=== PATIENT | male | born 1940 | race Caucasian/White ===

== ENCOUNTER 2019-09-24 09:29 | Outpatient (CLI) | payer OTHER, MEDICAID, SELFPAY ==
--- NOTE | ~2019-09-24 | MR_ITS ---
EXAMINATION: MR brain/brain stem wo con DATE: 09/24/2019 11:49 INDICATION: Dizziness. TECHNIQUE: Magnetic resonance imaging (MRI) of the brain and brainstem was performed without intraven ous contrast. Sequences included sagittal and axial T1-weighted FSE, axial diffusion-weighted FS EPI, axial T2*-weighted GRE, axial T2-weighted FLAIR Propeller, and axial T2-weighted Propeller. Apparent diffusion coefficient (ADC) maps were created. COMPARISON: Brain MRI 10/20/2012, head CT 06/09/2019 FINDINGS: There is a small area of cystic encephalomalacia in the left frontoparietal deep white gil er. There are scattered areas of nonspecific increased T2-weighted signal intensity in the cerebral w lito matter. There is no intracranial hemorrhage, acute infarction, or abnormal intracranial mass les ion. The ventricles are normal in size. The paranasal sinuses are clear. There are likely changes of ocular lens replacement surgeries. There is a right mastoid effusion. IMPRESSION: 1. Small area of cystic encephalomalacia in the left frontoparietal deep white matter. 2. Mild nonspecific cerebral white matter disease, which likely represents chronic small vessel ische elisabet disease, worsened from 10/20/2012. Reviewed, dictated and finalized at location A. TROTYPER IMPRESSION: 1. Small area of cystic encephalomalacia in the left frontoparietal deep white matter. 2. 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
== END 2019-09-24 09:30 | disposition home or self-care (01) ==
LOC: ANHIMG 09:36
PROVIDERS: PCP Family Medicine; Visit Provider Psychiatry & Neurology Neurology
DX: R42 Dizziness and giddiness (principal); R93.0 Abnormal findings on diagnostic imaging of skull and head, not elsewhere classified
CPT/HCPCS: 70551

== ENCOUNTER 2019-12-08 09:21 | Outpatient (CLI) | payer OTHER, MEDICAID, SELFPAY ==
--- NOTE | 2019-12-08 10:30 | NEURO_ITS ---
Patient Number: [id number] Impression: # Complains of muscle spasms. # Evolving left Carpal Tunnel Syndrome. # Left evolving right ulnar neuropathy. # Normal needle/EMG exam, revealed no neurogenic changes. # Clinical correlation recommended. Nerve Conduction Studies Anti Sensory Summary Table Stim Site NR Peak (ms) P-T Amp (?V) Site1 Site2 Delta-P (ms) Dist (cm) Michael (m/s) Left Median Anti Sensory (2-3nd Digit) Wrist 3.8 51.7 Wrist 2-3nd Digit 3.8 14.0 37 Wrist 3.6 37.6 Wrist 2-3nd Digit 3.8 14.0 37 Right Median Anti Sensory (2-3nd Digit) Wrist 3.9 24.7 Wrist 2-3nd Digit 3.9 14.0 36 Wrist 3.8 35.4 Wrist 2-3nd Digit 3.9 14.0 36 Left Radial Anti Sensory (Base 1st Digit) Wrist 2.9 26.2 Wrist Base 1st Digit 2.9 0.0 Right Radial Anti Sensory (Base 1st Digit) Wrist 2.6 20.4 Wrist Base 1st Digit 2.6 0.0 Left Sup Fibular Anti Sensory (Ant Lat Mall) 14 cm 3.6 11.1 14 cm Ant Lat Mall 3.6 16.0 44 Right Sup Fibular Anti Sensory (Ant Lat Mall) 14 cm 4.0 8.9 14 cm Ant Lat Mall 4.0 16.0 40 Left Sural Anti Sensory (Lat Mall) Calf 4.0 8.1 Calf Lat Mall 4.0 16.0 40 Right Sural Anti Sensory (Lat Mall) Calf 3.8 17.1 Calf Lat Mall 3.8 16.0 42 Left Ulnar Anti Sensory (5th Digit) Wrist 3.1 44.3 Wrist 5th Digit 3.1 14.0 45 Right Ulnar Anti Sensory (5th Digit) Wrist 3.8 34.1 Wrist 5th Digit 3.8 14.0 37 Motor Summary Table Stim Site NR Onset (ms) O-P Amp (mV) Site1 Site2 Delta-0 (ms) Dist (cm) Michael (m/s) Left Median Motor (Abd Poll Brev) Wrist 4.1 2.9 Elbow Wrist 5.4 29.0 54 Elbow 9.5 2.6 Right Median Motor (Abd Poll Brev) Wrist 3.9 2.0 Elbow Wrist 4.5 26.0 58 Elbow 8.4 1.4 Left Peroneal Motor (Vastus Med) Ankle 4.7 3.5 Popit Ankle 9.2 40.0 43 Popit 13.9 2.7 Right Peroneal Motor (Vastus Med) Ankle 4.5 1.0 Popit Ankle 8.0 38.0 48 Popit 12.5 0.8 Left Tibial Motor (Abd Palafox Brev) Ankle 4.7 1.9 Knee Ankle 9.5 44.0 46 Knee 14.2 0.7 Right Tibial Motor (Abd Palafox Brev) Ankle 5.1 3.6 Knee Ankle 10.0 42.0 42 Knee 15.1 3.5 Left Ulnar Motor (Abd Dig Minimi) Wrist 3.2 4.1 A Elbow Wrist 5.7 31.0 54 A Elbow 8.9 3.2 Right Ulnar Motor (Abd Dig Minimi) Wrist 3.0 5.8 A Elbow Wrist 5.6 28.0 50 A Elbow 8.6 4.6 B Elbow Wrist 4.0 20.0 50 B Elbow 7.0 5.2 F Wave Studies NR F-Lat (ms) L-R F-Lat (ms) Left Median (Mrkrs) (Abd Poll Brev) 29.65 0.00 Right Median (Mrkrs) (Abd Poll Brev) 29.65 0.00 Left Peroneal (Mrkrs) (EDB) 55.27 0.04 Right Peroneal (Mrkrs) (EDB) 55.23 0.04 Left Tibial (Mrkrs) (Abd Hallucis) 56.50 0.58 Right Tibial (Mrkrs) (Abd Hallucis) 57.08 0.58 Left Ulnar (Mrkrs) (Abd Dig Min) 30.94 0.49 Right Ulnar (Mrkrs) (Abd Dig Min) 30.45 0.49 EMG Side Muscle Nerve Root Ins Act Fibs Amp Dur Recrt Comment Right 1stDorInt Ulnar C8-T1 Nml Nml Nml Nml Nml Right Ext Indicis Radial (Post Int) C7-8 Nml Nml Nml Nml Nml Right Ext Digitorum Radial (Post Int) C7-8 Nml Nml Nml Nml Nml Right BrachioRad Radial C5-6 Nml Nml Nml Nml Nml Right PronatorTeres Median C6-7 Nml Nml Nml Nml Nml Right Abd Poll Brev Median C8-T1 Nml Nml Nml Nml Nm
== END 2019-12-08 09:22 | disposition home or self-care (01) ==
PROVIDERS: PCP Family Medicine; Visit Provider Psychiatry & Neurology Neurology
DX: M62.838 Other muscle spasm (principal); G56.02 Carpal tunnel syndrome, left upper limb; G56.22 Lesion of ulnar nerve, left upper limb
CPT/HCPCS: 95886; 95913

== ENCOUNTER 2020-03-08 12:38 | Outpatient (CLI) | payer OTHER, MEDICAID, SELFPAY ==
--- NOTE | 2020-03-08 | ECHO_ITS ---
Patient Info Name: Remy Wilkes Age: 80 years : 1940 Gender: Male Ht: 71 in Wt: 165 lbs BSA: 1.94 m2 HR: 43 bpm BP: 161 / 91 mmHg Technical Quality: Good Exam Date: 03/08/2020 1:02 PM Exam Location: [facility] Pulmonary Patient Status: Outpatient Admit Date: 03/08/2020 Staff Ordering Physician: Reddy Carrion MD Crew Member: Iwona Urbina RDCS Attending Provider: Reddy Carrion MD Exam Type: CA echo doppler color flow Study Info Indications I74.9 - EMBOLISM OF ARTERY Complete two-dimensional, color flow and Doppler transthoracic echocardiogram is performed. Summary 1. Left ventricular chamber dimension is normal. 2. Left ventricular systolic function is normal, estimated at 65-70%. 3. There is moderately increased left ventricular wall thickness. 4. The left ventricular diastolic function is grade I diastolic dysfunction. 5. E/e' 11 is mildly elevated. 6. Left atrial chamber dimension is mildly enlarged. 7. There is mild aortic valve sclerosis. 8. Mild systolic anterior motion of mitral valve. 9. There is mild mitral valve regurgitation. 10. There is mild tricuspid valve regurgitation. 11. No pulmonary hypertension, estimated pulmonary arterial systolic pressure is 27 mmHg. Left Ventricle E/e' 11 is mildly elevated. Left ventricular chamber dimension is normal. Left ventricular systolic function is normal, estimated at 65-70%. There is moderately increased left ventricular wall thickness. The left ventricular diastolic function is grade I diastolic dysfunction. Right Ventricle Right ventricular chamber dimension is normal. Right ventricular systolic function is normal. Left Atria Left atrial chamber dimension is mildly enlarged. Right Atria Right atrial chamber dimension is normal. Aortic Valve The aortic valve is trileaflet. There is mild aortic valve sclerosis. There is no aortic valve stenosis. There is no aortic valve regurgitation. Pulmonic Valve There is no pulmonic regurgitation. Mitral Valve Mild systolic anterior motion of mitral valve. There is no mitral valve stenosis. There is mild mitral valve regurgitation. Tricuspid Valve There is mild tricuspid valve regurgitation. No pulmonary hypertension, estimated pulmonary arterial systolic pressure is 27 mmHg. Pericardium/Pleural There is no pericardial effusion. Inferior Vena Cava Normal inferior vena cava with >50% collapse upon inspiration consistent with normal right atrial pressure, 5 mmHg. Aorta The aortic root size at the sinus of Valsalva is normal. Left Ventricular Outflow Tract Name Value Normal LVOT 2D LVOT Diameter 2.0 cm LVOT Doppler LVOT Peak Gradient 4 mmHg LVOT Mean Gradient 2 mmHg LVOT VTI 21 cm LVOT VTI/AV VTI Ratio 0.8 LVOT Stroke Volume 65 ml LVOT CO 3.1 l/min LVOT CI 1.6 l/min/m2 Pulmonic Valve
== END 2020-03-08 12:39 | disposition home or self-care (01) ==
PROVIDERS: Visit Provider Psychiatry & Neurology Neurology
DX: I74.9 Embolism and thrombosis of unspecified artery (principal)
CPT/HCPCS: 93306

== ENCOUNTER → 2020-04-26 08:30 | Outpatient (CLI) | payer OTHER, MEDICAID, SELFPAY ==
--- NOTE | ~2020-04-26 | CT_ITS ---
EXAMINATION: CT brain wo con DATE: 04/26/2020 08:50 INDICATION: Headache and dizziness. Recent fall. Concussion. TECHNIQUE: Computed tomography (CT) of the head was performed without intravenous contrast. The dose- length product was 599.57 mGy-cm. Automated exposure control and iterative reconstruction technique w ere employed. COMPARISON: CT dated 06/09/2019 and MRI dated 09/24/2019 FINDINGS: Mild generalized atrophy. There are scattered mild periventricular and subcortical white ma tter changes, most likely related to small vessel ischemic disease (microangiopathy). No ventriculome irina or midline shift. No acute intracranial hemorrhage, infarction, mass or mass effect. There is in tracranial atherosclerosis. Basilar cisterns are patent. Paranasal sinuses and mastoids are pneumatiz ed. No depressed skull fractures. IMPRESSION: 1. No acute intracranial abnormality. 2: Chronic age-related findings. Reviewed, dictated and finalized at location A.
== END ==
PROVIDERS: PCP Family Medicine; Visit Provider Nurse Practitioner
DX: R51 Headache (principal); R42 Dizziness and giddiness; S06.0X9A Concussion with loss of consciousness of unspecified duration, initial encounter; W19.XXXA Unspecified fall, initial encounter
CPT/HCPCS: 70450

== ENCOUNTER 2021-07-03 10:35 | Emergency (ER) | payer OTHER, MEDICAID, SELFPAY ==
[2021-07-03 10:43] VITALS: BP 157/87; PULSE 48; RESP 16; TEMP 36.4; O2SAT 100
--- NOTE | 2021-07-03 11:23 | ED.NAVMDI ---
HPI - Nausea/Vomiting/Diarrhea General Chief complaint: Nausea/Vomiting/Diarrhea Stated complaint: diarrhea/fatigue Source: patient and RN notes reviewed Limitations: no limitations History of Present Illness HPI Narrative: The patient, on several medications and prior normal colonoscopies, presents with diarrhea. Patient states she has a 2-day history of chills, gassy sensation associated with diarrhea x2-3. No fever, tenesmus, abdominal pain, vomiting, nor prior surgeries; no sore throat, earache, cough, loss of taste/smell, CP, wheezing, S OB. Symptoms are mild, unrelieved with Pepto-Bismol Related Data Home Medications Medication Instructions Recorded Confirmed Men's Multivitamin 1 tablet PO DAILY 06/09/19 07/03/21 flaxseed oil 1,000 mg capsule 1,000 mg PO DAILY 04/19/20 07/03/21 finasteride 5 mg tablet 5 mg PO DAILY 11/23/20 07/03/21 lutein 20 mg capsule 20 mg PO DAILY cap 03/21/21 07/03/21 Allergies Allergy/AdvReac Type Severity Reaction Status Date / Time No Known Allergies Allergy Verified 07/03/21 10:50 Review of Systems Review of Systems: General/Constitutional: No weight loss,fever Eyes: N0: Redness,discharge Ears/Nose/Throat: No: Epistaxis,ear discharge Respiratory: Denies: Hemoptysis Gastrointestinal: No Vomiting, Bleeding-rectal Skin: No Lumps, eruption Neurologic: No Focal Weakness,Sz Hematologic: Denies: Petechiae/Purpura Psychiatric: No: Suicida ideationl All Other Systems: Reviewed and Negative [facility] Past Medical History Medical History After cataract (~11/2019) BPH loc w/o ur obs/LUTS Dizziness of unknown etiology Essential (primary) hypertension Kidney stones History of right ureteral stent October 2011 OAB (overactive bladder) Vertigo Surgical History Surgical History Achilles tendon avulsion (~2003) Status post repair 2003 Left, 2011 Right H/O hernia repair (~2008) History of cataract surgery (~2017) Bilateral 2018 Rectal foreign body (~10/2011) With surgical removal October 2011 Family History Family History Father , Late onset coronary artery disease Heart disease Dementia Mother Family history of Alzheimer's disease Family history of heart disease in male family member before age 55, Onset Age: 91 Patient's mother is Father Hypertension Family history of Alzheimer's disease, Onset Age: 90 Patient's father is , Onset Age: 90 Other Family history of cardiovascular disease Social History Social History Social History: The patient runs 2-3 miles a day and has done so since 1968. 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 Gender identity (if verbalized by the patient): Male Comments At time of signature, agree with nursing past medical, surgical, social and family history. There is no relevant family history pertinent to the presenting complaint Exam Narrative: General Appearance: Well appearing, No distress EYE: PERRLA, Conjunctiva clear Ears: External ear normal Nose: Normal nose Mouth/Throat: Normal appearing, Normal lips Neck: Supple Respiratory: Airway patent, No respiratory distress Cardiovascular: RRR Abdomen: Soft, Non-tender, No massess, No organomegaly (no rebound/ surgical signs), Hyperactive bowel sounds Musculoskeletal: Full ROM Skin: Warm, Dry Neurological: A&O x3, CN II-X intact Psychiatric: Normal mood, Normal affect Course Vital Signs Vital signs: Vital Signs Temperature 97.6 F 07/03/21 10:43 Pulse Rate 48 L 07/03/21 10:43 Respiratory Rate 16 1
== END 2021-07-03 11:36 | disposition home or self-care (01) ==
PROVIDERS: Emergency Provider Emergency Medicine; PCP Family Medicine
DX: R14.0 Abdominal distension (gaseous) (principal); R19.7 Diarrhea, unspecified; I10 Essential (primary) hypertension; N40.0 Benign prostatic hyperplasia without lower urinary tract symptoms
CPT/HCPCS: 99213; G0463

== ENCOUNTER → 2021-07-04 10:11 | Outpatient (CLI) | payer OTHER, MEDICAID, SELFPAY ==
[2021-07-04 20:04] LABS: SARS-CoV-2 RNA PCR Negative
== END ==
PROVIDERS: PCP Family Medicine; Visit Provider Emergency Medicine
DX: R19.7 Diarrhea, unspecified (principal); Z20.822 Contact with and (suspected) exposure to COVID-19
CPT/HCPCS: C9803; U0003; U0005

== ENCOUNTER 2021-09-08 13:23 | Outpatient (CLI) | payer OTHER, MEDICAID, SELFPAY ==
--- NOTE | ~2021-09-08 | XR_ITS ---
XR cervical spine 4-5V DATE: 09/08/2021 15:22 INDICATION: Injury one year ago including concussion. Dizziness, giddiness. TECHNIQUE: AP, open-mouth, odontoid, lateral and swimmer views COMPARISON: None FINDINGS: There is straightening of the cervical spine which may be due to muscle spasm. C1 and C2 are normally aligned and the odontoid process is intact. There is moderately severe degenerative disc disease and minimal retrolisthesis at C3-4. There is severe degenerative disc disease and minimal retrolisthesis at C5-6 and C6-7. There is prominent uncovertebral joint spurring at C5-6 and C6-7. No fracture or dislocation or locked facet or prevertebral soft tissue swelling is detected. IMPRESSION: Straightening of the cervical spine which may be due to muscle spasm Severe degenerative disc disease at C3-4, C5-6, C6-7 with minimal retrolisthesis Prominent uncovertebral joint spurring at C5-6 and C6-7 Reviewed, dictated and finalized at location B. TRICIAN HELPER POWERHOUSE IMPRESSION: Straightening of the cervical spine which may be due to muscle spas m Severe degenerative disc disease at C3-4, C5-6, C6-7 with minimal retrolisthesi s Prominent uncovertebral joint spurring at C5-6 and C6-7
--- NOTE | ~2021-09-08 | MR_ITS ---
EXAMINATION: MR brain/brain stem wo/w con DATE: 09/08/2021 15:05 INDICATION: Dizziness and giddiness. TECHNIQUE: Magnetic resonance imaging (MRI) of the brain and brainstem was performed without and with 15 mL MultiHance intravenous contrast. Sequences included sagittal and axial T1-weighted FSE, axial diffusion-weighted FS EPI, axial T2*-weighted GRE, axial T2-weighted FLAIR Propeller, and axial T2-we ighted Propeller. Postcontrast sequences included axial, sagittal, and coronal T1-weighted FSE. Appar ent diffusion coefficient (ADC) maps were created. COMPARISON: Brain MRI 09/24/2019, head CT 04/26/2020 FINDINGS: There are scattered areas of nonspecific increased T2-weighted signal intensity in the cere bral white matter. There are small areas of cystic encephalomalacia in the right parietal deep white matter and left frontoparietal deep white matter. There is no intracranial hemorrhage, acute infarcti on, or abnormal intracranial mass lesion. The ventricles are normal in size. There is mild mucosal th ickening in the ethmoid sinuses. There are likely changes of ocular lens replacement surgeries. The m astoid air cells are normal. IMPRESSION: 1. Small areas of cystic encephalomalacia in the right parietal deep white matter and left frontopari etal deep white matter. 2. Stable mild nonspecific cerebral white matter disease, which likely represents chronic small vesse l ischemic disease. Reviewed, dictated and finalized at location E. R WATER ASSISTANT IMPRESSION: 1. Small areas of cystic encephalomalacia in the right parietal deep white gil er and left frontoparietal deep white matter. 2. Stable mild nonspecific cerebral white matter disease, which likely represen ts chronic small vessel ischemic disease.
[2021-09-08 14:28] LABS: Estimated Glomerular Filt Rate > 60
== END 2021-09-08 13:24 | disposition home or self-care (01) ==
PROVIDERS: PCP Family Medicine; Visit Provider Psychiatry & Neurology Neurology
DX: R42 Dizziness and giddiness (principal); M53.82 Other specified dorsopathies, cervical region; M50.321 Other cervical disc degeneration at C4-C5 level; M77.8 Other enthesopathies, not elsewhere classified; G93.89 Other specified disorders of brain; R90.82 White matter disease, unspecified
CPT/HCPCS: 70553; 72050; A9577

== ENCOUNTER 2021-10-12 09:51 | Outpatient (CLI) | payer OTHER, MEDICAID, SELFPAY ==
--- NOTE | 2021-10-12 11:00 | NEURO_ITS ---
Impression:: # Complains of imbalance. # Normal nerve conduction study except right superficial peroneal sensory nerve poor response. # Needle/EMG exam revealed neurogenic changes in bilateral EDB. # Clinical correlation recommended. Nerve Conduction Studies Anti Sensory Summary Table Stim Site NR Peak (ms) P-T Amp (?V) Site1 Site2 Delta-P (ms) Dist (cm) Michael (m/s) Left Sup Fibular Anti Sensory (Ant Lat Mall) 14 cm 4.0 6.7 14 cm Ant Lat Mall 4.0 16.0 40 Right Sup Fibular Anti Sensory (Ant Lat Mall) NO RESPONSE 14 cm NR 14 cm Ant Lat Mall 16.0 Left Sural Anti Sensory (Lat Mall) Calf 3.6 11.3 Calf Lat Mall 3.6 16.0 44 Right Sural Anti Sensory (Lat Mall) Calf 3.6 5.5 Calf Lat Mall 3.6 16.0 44 Motor Summary Table Stim Site NR Onset (ms) O-P Amp (mV) Site1 Site2 Delta-0 (ms) Dist (cm) Michael (m/s) Left Peroneal Motor (Vastus Med) Ankle 4.6 2.1 Popit Ankle 9.0 40.0 44 Popit 13.6 1.6 Right Peroneal Motor (Vastus Med) Ankle 4.7 0.7 Popit Ankle 8.3 38.0 46 Popit 13.0 0.7 Left Tibial Motor (Abd Palafox Brev) Ankle 5.1 1.6 Knee Ankle 9.7 41.0 42 Knee 14.8 0.6 Right Tibial Motor (Abd Palafox Brev) Ankle 5.2 4.7 Knee Ankle 10.2 42.0 41 Knee 15.4 2.2 F Wave Studies NR F-Lat (ms) L-R F-Lat (ms) Left Peroneal (Mrkrs) (EDB) 55.23 0.23 Right Peroneal (Mrkrs) (EDB) 55.46 0.23 Left Tibial (Mrkrs) (Abd Hallucis) 56.38 0.00 Right Tibial (Mrkrs) (Abd Hallucis) 56.38 0.00 EMG Side Muscle Nerve Root Ins Act Fibs Amp Dur Recrt Comment Right AntTibialis Dp Br Fibular L4-5 Nml Nml Nml Nml Nml Right Gastroc Tibial S1-2 Nml Nml Nml Nml Nml Right Fibularis Long Sup Br Fibular L5-S1 Nml Nml Nml Nml Nml Right Flex Dig Long Tibial L5-S2 Nml Nml Nml Nml Nml Right Ext Dig Brev Dp Br Fibular L5, S1 Nml Nml Nml >12ms Reduced Left AntTibialis Dp Br Fibular L4-5 Nml Nml Nml Nml Nml Left Gastroc Tibial S1-2 Nml Nml Nml Nml Nml Left Fibularis Long Sup Br Fibular L5-S1 Nml Nml Nml Nml Nml Left Flex Dig Long Tibial L5-S2 Nml Nml Nml Nml Nml Left Ext Dig Brev Dp Br Fibular L5, S1 Nml Nml Nml >12ms Reduced MTDD
== END 2021-10-12 09:52 | disposition home or self-care (01) ==
LOC: ANHNEURO 09:55
PROVIDERS: PCP Family Medicine; Visit Provider Psychiatry & Neurology Neurology
DX: R42 Dizziness and giddiness (principal); R26.89 Other abnormalities of gait and mobility
CPT/HCPCS: 95886; 95910

== ENCOUNTER 2022-04-02 09:27 | Emergency (ER) | payer OTHER, MEDICAID, SELFPAY ==
[2022-04-02 10:06] VITALS: BP 139/89; PULSE 52; RESP 16; TEMP 36.9; O2SAT 99
--- NOTE | 2022-04-02 10:17 | ED.URI ---
HPI - URI/Sore Throat General Chief Complaint: Upper Respiratory Infection Stated Complaint: runny nose, congestion Time Seen by Provider: 04/02/22 10:18 Source: patient and RN notes reviewed Mode of arrival: ambulatory Limitations: no limitations History of Present Illness HPI Narrative: 82 y/o male presented for c/o sinus issues for about 3 months on and off. Endorses lightheadedness and balance problems when the sinuses flare up. Endorses about 4 days ago developed sore throat, wet nonproductive cough. States he has had a head CT, was told it is normal, and has followed with ENT, was told to continue nasal sprays. States he took covid tests last week they were negative. Denies sick contacts. Denies sob, wheezing, n/v/d/f/c. Hx pacemaker. MD elicited complaint: cough Related Data Home Medications Medication Instructions Recorded Confirmed uowyzner-lgsgomjy-ndiyb acid 400 1 tablet PO DAILY 06/09/19 02/07/22 mcg-vit K 20 mcg-lycop 300 mcg tablet (Men's Multivitamin) finasteride 5 mg tablet (Proscar) 5 mg PO DAILY 11/23/20 02/07/22 lutein 20 mg capsule 20 mg PO DAILY 03/21/21 02/07/22 omega 8-kan-mnt-fish oil 1,000 mg 1 cap PO DAILY 08/31/21 02/07/22 (120 mg-180 mg) capsule (Fish Oil) Allergies Allergy/AdvReac Type Severity Reaction Status Date / Time No Known Allergies Allergy Verified 04/02/22 10:14 Review of Systems Review of Systems: CONSTITUTIONAL: denies malaise, chills, sweats, fever EYES: Denies visual changes, redness, or discharge ENT: Reports rhinorrhea, congestion, sinus pain CARDIOVASCULAR: Denies chest pain, palpitations, edema RESPIRATORY: Reports cough, post nasal drainage. Denies dyspnea GASTROINTESTINAL: Denies abdominal pain, nausea, vomiting, diarrhea NEUROLOGIC: Denies headache PMFSH Past Medical History Medical History After cataract (~11/2019) BPH loc w/o ur obs/LUTS Dizziness of unknown etiology Environmental allergies Essential (primary) hypertension History of adenomatous polyp of colon Kidney stones History of right ureteral stent October 2011 OAB (overactive bladder) Vertigo Surgical History Surgical History Achilles tendon avulsion (~2003) Status post repair 2003 Left, 2011 Right H/O hernia repair (~2008) History of cataract surgery (~2017) Bilateral 2018 Rectal foreign body (~10/2011) With surgical removal October 2011 Family History Family History Father , Late onset coronary artery disease Heart disease Dementia Mother Family history of Alzheimer's disease Family history of heart disease in male family member before age 55, Onset Age: 91 Patient's mother is Father Hypertension Family history of Alzheimer's disease, Onset Age: 90 Patient's father is , Onset Age: 90 Other Family history of cardiovascular disease Social History Social History Social History: The patient runs 2-3 miles a day and has done so since 1968. 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 Gender identity (if verbalized by the patient): Male Exam Narrative: GENERAL: well-appearing ENT: Mucous membranes moist. TMs pearly el with dull light reflex bilaterally; no tragal tenderness. Oropharynx erythematous without lesions or exudate, no drooling, no hoarseness, no trismus, uvula midline. NECK: Supple. No lymphadenopathy CHEST: Clear to auscultation, breath sounds equal. HEART: Regular rate and rhythm. SKIN: Warm, dry NEURO: Alert and oriented x3. Course Course Emergency Course: Patient is aware of diagnosis, un
== END 2022-04-02 10:45 | disposition home or self-care (01) ==
PROVIDERS: Emergency Provider Nurse Practitioner Family
DX: J32.9 Chronic sinusitis, unspecified (principal); R42 Dizziness and giddiness; N40.0 Benign prostatic hyperplasia without lower urinary tract symptoms; I10 Essential (primary) hypertension
CPT/HCPCS: 99213; G0463

== ENCOUNTER 2023-05-17 14:42 | Emergency (ER) | payer OTHER, MEDICAID, SELFPAY ==
--- NOTE | ~2023-05-17 | XR_ITS ---
EXAMINATION: XR chest 2V DATE: 05/17/2023 15:30 INDICATION: Weakness. TECHNIQUE: Frontal and lateral views of the chest were obtained. COMPARISON: Chest single view 06/09/2019 FINDINGS: There is mild atelectasis at left lung base. No pleural effusion or pneumothorax. The heart size is normal. IMPRESSION: 1. Mild atelectasis at left lung base. Reviewed, dictated and finalized at location A.
--- NOTE | 2023-05-17 14:51 | ECG_ITS ---
Measurements Intervals [place] Rate: 53 P: 39 IN: 236 QRS: -29 QRSD: 109 T: 84 QT: 438 QTc: 415 Interpretive Statements SINUS BRADYCARDIA WITH FIRST DEGREE AV BLOCK INCOMPLETE RIGHT BUNDLE BRANCH BLOCK POSSIBLE ANTERIOR MYOCARDIAL INFARCTION , OF INDETERMINATE AGE INFERIOR MYOCARDIAL INFARCTION , PROBABLY OLD T-WAVE ABNORMALITY, CONSIDER ISCHEMIA Electronically Signed On 05-18-2023 17:07:09 CDT by Faisal Wren M.D.
[2023-05-17 14:52] VITALS: BP 218/77; PULSE 51; RESP 16; TEMP 36.4; O2SAT 99
[2023-05-17 15:12] LABS: Basophils Percent Auto 0.4 % (0.2-1.2); Eosinophils Percent Auto 0.7 % (0-4.4); Hematocrit 47.4 % (42.0-52.0); Hemoglobin 15.6 g/dL (14.0-18.0); Immature Granulocyte Absolute 0.03 K/mm3 (0.00-0.031); Immature Granulocyte Percent A 0.7 % (0-0.5); Lymphocytes Absolute Auto 0.78 K/mm3 (0.9-3.2); Lymphocytes Percent Auto 17.4 % (18.3-44.2); Mean Corpuscular HGB Conc 32.9 g/dl (32-36); Mean Corpuscular Hemoglobin 31.1 pg (26-34); Mean Corpuscular Volume 94.4 fl (80-100); Mean Platelet Volume 9.2 fl (7.4-10.4); Monocytes Absolute Auto 0.3 K/mm3 (0.1-0.6); Monocytes Percent Auto 6.2 % (2.6-8.5); Neutrophils Absolute Auto 3.4 K/mm3 (1.3-6.7); Neutrophils Percent Auto 74.6 % (45.5-73.1); Platelet Count Result 270 k/mm3 (150-375); Red Blood Count 5.02 M/mm3 (4.6-6.20); Red Cell Distribution Width 13.2 % (11.5-14.5); White Blood Count 4.5 K/mm3 (4.5-10.0)
[2023-05-17 15:24] LABS: Alanine Aminotransferase 19 U/L (6-50); Albumin Level 4.2 g/dL (3.5-5.1); Alkaline Phosphatase 65 U/L (38-126); Anion Gap 4 mmol/L (8-16); Aspartate Amino Transferase 27 U/L (17-59); Bilirubin,Total 0.7 mg/dL (0.2-1.3); Blood Urea Nitrogen 14 mg/dL (9-20); Calcium 8.8 mg/dL (8.4-10.2); Carbon Dioxide 32 mmol/L (22-30); Chloride 104 mmol/L (98-107); Estimated CRCL calculation 55 ml/min; Estimated Glomerular Filt Rate > 60; Glucose 106 mg/dL (65-110); Sodium 140 mmol/L (137-145)
[2023-05-17 16:25] LABS: Appearance Urine Clear (Clear); Bacteria Urine None Seen /hpf; Bilirubin Urine Negative (Negative); Blood Urine Negative (Negative); Color Urine Yellow (Yellow); Glucose Urine UA Negative (Negative); Ketones Urine Negative (Negative); Leukocyte Esterase Ur Trace LEU/UL (Negative); Nitrate Urine Negative (Negative); Non Pathogenic Casts 0-2; Protein Urine Negative (Negative); RBC Urine 0-2 /hpf (0-2); Specific Grav Ur 1.013 (1.001-1.035); Squamous Epithelial Cell Urine None seen /hpf (Few); Urobilinogen Urine 0.2 mg/dL (<2.0); WBC Urine 0-5 /hpf; pH Urine 8.5 (5.0-9.0)
[2023-05-17 16:31] LABS: Add Urine Microscopic? YES
[2023-05-17 20:10] LABS: Magnesium 2.2 mg/dL (1.6-2.3)
[2023-05-17 20:22] LABS: NT Pro B Type Natriuretic Pept 66 pg/mL (19.9-100); Troponin I < 0.012 ng/mL (0.000-0.034)
--- NOTE | 2023-05-17 20:32 | ED.GENADULT ---
HPI - General Adult General Chief complaint: Weakness Stated complaint: Tired, weak Time Seen by Provider: 05/17/23 19:09 History of Present Illness HPI narrative: Patient 83-year-old gentleman presents emerged department with chief complaint of generalized weakness patient reports that he was raking leaves this morning and walking up the steps past little more fatigued than normal patient states he normally does not feel as tired but reports that he was a little concerned patient started to come to the emergency department for evaluation patient denies chest pain denies shortness of breath denies vomiting or diarrhea patient denies abdominal pain denies fever chills runny nose sore throat Related Data Home Medications Medication Instructions Recorded Confirmed dinhdhog-vokmvtoe-mfbei acid 400 1 tablet PO DAILY 06/09/19 02/07/23 mcg-vit K 20 mcg-lycop 300 mcg tablet (Men's Multivitamin) finasteride 5 mg tablet (Proscar) 5 mg PO DAILY 11/23/20 02/07/23 lutein 20 mg capsule 20 mg PO DAILY 03/21/21 02/07/23 omega 3-zxt-bzb-fish oil 1,000 mg 1 cap PO DAILY 08/31/21 02/07/23 (120 mg-180 mg) capsule (Fish Oil) amlodipine 5 mg tablet 5 mg PO DAILY 02/07/23 02/07/23 Allergies Allergy/AdvReac Type Severity Reaction Status Date / Time No Known Allergies Allergy Verified 02/07/23 10:06 Review of Systems Review of Systems: A 10 system review of systems was completed on the patient and is negative except for what is stated in the HPI. Nursing and ancillary documentation was reviewed. [facility] Past Medical History Medical History After cataract (~11/2019) BPH loc w/o ur obs/LUTS Dizziness of unknown etiology Environmental allergies Essential (primary) hypertension History of adenomatous polyp of colon Kidney stones History of right ureteral stent October 2011 OAB (overactive bladder) Vertigo Surgical History Surgical History Achilles tendon avulsion (~2003) Status post repair 2003 Left, 2011 Right H/O hernia repair (~2008) History of cataract surgery (~2017) Bilateral 2018 Rectal foreign body (~10/2011) With surgical removal October 2011 Family History Family History Father , Late onset coronary artery disease Heart disease Dementia Mother Family history of Alzheimer's disease Family history of heart disease in male family member before age 55, Onset Age: 91 Patient's mother is Father Hypertension Family history of Alzheimer's disease, Onset Age: 90 Patient's father is , Onset Age: 90 Other Family history of cardiovascular disease Social History Social History Social History: The patient runs 2-3 miles a day and has done so since 1968. 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 Gender identity (if verbalized by the patient): Male Exam Narrative: GENERAL: Well-appearing, well-nourished, and in no acute distress. HEAD: Normocephalic, atraumatic. EYES: PERRLA and EOMI. ENT: Nares clear, no rhinorrhea or epistaxis. Mucous membranes moist. NECK: Supple. CHEST: Clear to auscultation. No respiratory distress. HEART: Regular rate and rhythm. No murmur heard. Normal peripheral pulses. ABDOMEN: Soft, nontender, nondistended, normal active bowel sounds. EXTREMITIES: Normal range of motion. No edema. SKIN: Warm, dry, no rash. NEURO: No focal deficits. Alert and oriented x3. PSYCH: Normal mood and affect. Course Vital Signs Vital signs: Vital Si
[2023-05-17 21:14] VITALS: BP 167/95; PULSE 88; RESP 18; O2SAT 99
== END 2023-05-17 21:15 | disposition home or self-care (01) ==
PROVIDERS: Emergency Medicine; Emergency Provider Emergency Medicine
DX: R53.1 Weakness (principal); I10 Essential (primary) hypertension; N40.0 Benign prostatic hyperplasia without lower urinary tract symptoms; N32.81 Overactive bladder; Z86.010 Personal history of colon polyps; Z87.442 Personal history of urinary calculi; Z98.42 Cataract extraction status, left eye; Z98.41 Cataract extraction status, right eye
CPT/HCPCS: 36415; 71046; 80053; 81001; 83735; 83880; 84484; 85025; 93005; 99284

== ENCOUNTER 2024-04-16 10:58 | Emergency (ER) | payer OTHER, MEDICAID, SELFPAY ==
[2024-04-16] VITALS (24 sets, daily range): BP systolic 112–172; BP diastolic 74–110; PULSE 52–82; RESP 15–18; TEMP 36.4–36.5; O2SAT 94–100
--- NOTE | ~2024-04-16 | CT_ITS ---
EXAMINATION: CT cervical spine wo con DATE: 04/16/2024 11:21 INDICATION: Fall. TECHNIQUE: Computed tomography (CT) of the cervical spine was performed without intravenous contrast. Automated exposure control and iterative reconstruction technique were employed. The dose-length pro duct was 332.12 mGy-cm. COMPARISON: None FINDINGS: There is 2 mm anterolisthesis of C7 on T1. Vertebral body heights are normal. There is suzi rely decreased disc height at C3-C4, mildly decreased disc height at C4-C5, and severely decreased di sc height at C5-C6 and C6-C7. The following disc levels are specifically discussed: C2-C3: There is mild bilateral uncovertebral joint osteoarthritis. There is mild bilateral facet join t osteoarthritis. There is no neural foraminal stenosis. There is no central canal stenosis. C3-C4: There is severe bilateral uncovertebral joint osteoarthritis. There is mild right facet joint osteoarthritis. There is mild bilateral neural foraminal stenosis. There is mild central canal stenos is. C4-C5: There is moderate bilateral uncovertebral joint osteoarthritis. There is mild right facet join t osteoarthritis. There is mild bilateral neural foraminal stenosis. There is mild central canal sten osis. C5-C6: There is severe bilateral uncovertebral joint osteoarthritis. There is mild bilateral facet alonso int osteoarthritis. There is mild bilateral neural foraminal stenosis. There is mild central canal st enosis. C6-C7: There is severe bilateral uncovertebral joint osteoarthritis. There is moderate severe left fa cet joint osteoarthritis. There is mild bilateral neural foraminal stenosis. There is mild central ca nal stenosis. C7-T1: There is no uncovertebral joint osteoarthritis. There is severe bilateral facet joint osteoart hritis. There is mild bilateral neural foraminal stenosis. There is no central canal stenosis. IMPRESSION: 1. No fracture. 2. Severe cervical spondylosis. Reviewed, dictated and finalized at location A.
--- NOTE | ~2024-04-16 | CT_ITS ---
EXAMINATION: CT brain wo con DATE: 04/16/2024 11:21 INDICATION: Fall. TECHNIQUE: Computed tomography (CT) of the head was performed without intravenous contrast. The mA wa s adjusted according to patient size. Iterative reconstruction technique was employed. The dose-lengt h product was 681.00 mGy-cm. COMPARISON: Head CT 04/26/2020 FINDINGS: There are scattered areas of low attenuation in the cerebral white matter. There is no intr acranial hemorrhage, acute infarction, or abnormal intracranial mass lesion. The ventricles are gagan l in size. There is mild mucosal thickening in the paranasal sinuses. There are small bilateral masto id effusions. There are likely changes of ocular lens replacement surgeries. IMPRESSION: 1. Moderate nonspecific cerebral white matter disease, which likely represents chronic small vessel i schemic disease. Reviewed, dictated and finalized at location A. IMPRESSION: 1. Moderate nonspecific cerebral white matter disease, which likely represents chronic small vessel ischemic disease.
--- NOTE | 2024-04-16 13:09 | ECG_ITS ---
Test Date: 2024-04-16 13:18:09 Measurements Intervals [place] Rate: 53 P: 27 MD: 225 QRS: -30 QRSD: 98 T: 117 QT: 419 QTc: 395 Interpretive Statements SINUS BRADYCARDIA WITH FIRST DEGREE AV BLOCK WITH OCCASIONAL SUPRAVENTRICULAR PREMATURE COMPLEXES INCOMPLETE RIGHT BUNDLE BRANCH BLOCK BORDERLINE R WAVE PROGRESSION, ANTERIOR LEADS LEFT VENTRICULAR HYPERTROPHY WITH ST-T CHANGE INFERIOR INFARCT, AGE INDETERMINATE T WAVE ABNORMALITY IN ANTEROLATERAL LEADS- CONSIDER ISCHEMIA BASELINE ARTIFACT- I, III, AVR, AVL ABNORMAL ECG No previous ECG available for comparison Electronically Signed On 04-16-2024 13:39:28 CDT by Julito Amato D.O.
[2024-04-16 13:20] LABS: Basophils Percent Auto 0.5 % (0.2-1.2); Eosinophils Percent Auto 0.3 % (0-4.4); Hematocrit 51.7 % (42.0-52.0); Hemoglobin 17.4 g/dL (14.0-18.0); Immature Granulocyte Absolute 0.02 K/mm3 (0.00-0.031); Immature Granulocyte Percent A 0.3 % (0-0.5); Lymphocytes Absolute Auto 1.02 K/mm3 (0.9-3.2); Lymphocytes Percent Auto 17.8 % (18.3-44.2); Mean Corpuscular HGB Conc 33.7 g/dl (32-36); Mean Corpuscular Hemoglobin 31.6 pg (26-34); Mean Corpuscular Volume 93.8 fl (80-100); Mean Platelet Volume 9.7 fl (7.4-10.4); Monocytes Absolute Auto 0.4 K/mm3 (0.1-0.6); Monocytes Percent Auto 7.7 % (2.6-8.5); Neutrophils Absolute Auto 4.2 K/mm3 (1.3-6.7); Neutrophils Percent Auto 73.4 % (45.5-73.1); Platelet Count Result 235 k/mm3 (150-375); Red Blood Count 5.51 M/mm3 (4.6-6.20); Red Cell Distribution Width 13.2 % (11.5-14.5); White Blood Count 5.7 K/mm3 (4.5-10.0)
[2024-04-16 13:34] LABS: Alanine Aminotransferase 16 U/L (6-50); Alkaline Phosphatase 74 U/L (38-126); Anion Gap 7 mmol/L (4-12); Aspartate Amino Transferase 31 U/L (17-59); Bilirubin,Total 0.9 mg/dL (0.2-1.3); Blood Urea Nitrogen 15 mg/dL (9-20); Carbon Dioxide 32 mmol/L (22-30); Chloride 101 mmol/L (98-107); Estimated CRCL calculation 54 ml/min; Estimated Glomerular Filt Rate > 60; Glucose 129 mg/dL (65-110); Potassium 3.9 mmol/L (3.4-5.0); Sodium 140 mmol/L (137-145)
[2024-04-16 13:39] LABS: Prothrombin Time 14.2 Seconds (11.1-14.7)
[2024-04-16 13:40] LABS: Partial Thromboplastin Time 30.5 Seconds (22.3-36.8)
[2024-04-16 14:19] LABS: Influenza A QL RT-PCR Negative (Negative); Influenza B QL RT-PCR Negative (Negative); RSV RNA, RT-PCR Negative (Negative); SARS-CoV-2 RNA PCR Negative (Negative)
--- NOTE | 2024-04-16 14:55 | ED.GENADULT ---
HPI - General Adult General Chief complaint: Fall Stated complaint: fall, head injury Time Seen by Provider: 04/16/24 12:59 History of Present Illness HPI narrative: Patient is an 84-year-old male who presents ER with fatigue and fall. Had a fall yesterday when trying to walk up the hill side any losses balance. He then tried to get up off his hands his knees loss is on skin. He did not strike his head or lose consciousness. No fevers or chills or sweats. No focal weakness in arm or leg. Reports normal oral intake. Reports has a chronically low heart rate since being run has a 20-year-old. Related Data Home Medications Medication Instructions Recorded Confirmed gbkczefv-ftatpsnh-jxcfd acid 400 1 tablet PO DAILY 06/09/19 02/03/24 mcg-vit K 20 mcg-lycop 300 mcg tablet (Men's Multivitamin) finasteride 5 mg tablet (Proscar) 5 mg PO DAILY 11/23/20 02/03/24 omega 8-ihn-gzr-fish oil 1,000 mg 1 cap PO DAILY 08/31/21 02/03/24 (120 mg-180 mg) capsule (Fish Oil) lisinopril 40 mg tablet 40 mg PO DAILY 02/03/24 02/03/24 tamsulosin 0.4 mg capsule 0.4 mg PO DAILY 02/03/24 02/03/24 Allergies Allergy/AdvReac Type Severity Reaction Status Date / Time No Known Allergies Allergy Verified 04/16/24 11:05 Review of Systems Review of Systems: All systems reviewed & are unremarkable except as noted in HPI and below Constitutional: Constitutional: Reports fatigue, Denies fever(s) and Reports weakness ENT: Reports system reviewed and no additional complaints, except as documented Cardiovascular: Cardiovascular: Reports no additional cardiovascular complaints Respiratory: Respiratory: Reports no additional respiratory complaints Gastrointestinal: Gastrointestinal: Reports no additional gastrointestinal complaints Neurologic: Denies syncope, Denies headache(s), Denies focal weakness and Denies numbness [facility] Past Medical History Medical History After cataract (~11/2019) BPH loc w/o ur obs/LUTS Dizziness of unknown etiology Environmental allergies Essential (primary) hypertension History of adenomatous polyp of colon Kidney stones History of right ureteral stent October 2011 OAB (overactive bladder) Vertigo Surgical History Surgical History Achilles tendon avulsion (~2003) Status post repair 2003 Left, 2011 Right H/O hernia repair (~2008) History of cataract surgery (~2017) Bilateral 2018 Rectal foreign body (~10/2011) With surgical removal October 2011 Family History Family History Father , Late onset coronary artery disease Heart disease Dementia Mother Family history of Alzheimer's disease Family history of heart disease in male family member before age 55, Onset Age: 91 Patient's mother is Father Hypertension Family history of Alzheimer's disease, Onset Age: 90 Patient's father is , Onset Age: 90 Other Family history of cardiovascular disease Social History Social History Social History: The patient runs 2-3 miles a day and has done so since 1968. 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 Gender identity (if verbalized by the patient): Male Exam Narrative: GENERAL: Well-appearing, well-nourished, and in no acute distress. HEAD: Normocephalic, atraumatic. EYES: PERRL and EOMI. ENT: Mucous membranes moist. CHEST: Clear to auscultation. No respiratory distress. HEART: Regular rate and rhythm. Normal peripheral pulses. ABDOMEN: Soft, nontender, nondistended. EXTREMITIE
[2024-04-16] MEDS: SODIUM CHLORIDE 0.9% IV 1,000 ML 999 ML IV CONT (15:20)
== END 2024-04-16 16:09 | disposition home or self-care (01) ==
PROVIDERS: Emergency Provider Emergency Medicine; PCP Family Medicine
DX: R53.1 Weakness (principal); E86.0 Dehydration; I10 Essential (primary) hypertension; Z20.822 Contact with and (suspected) exposure to COVID-19
CPT/HCPCS: 36415; 70450; 72125; 80053; 85025; 85610; 85730; 87637; 93005; 96360; 99284; J7030

== ENCOUNTER 2024-10-13 04:48 | Emergency (ER) | payer MEDICARE, MEDICAID, SELFPAY ==
[2024-10-13] VITALS (7 sets, daily range): BP systolic 141–171; BP diastolic 77–96; PULSE 46–57; RESP 18–21; TEMP 36.5; O2SAT 98–100
--- NOTE | ~2024-10-13 | CT_ITS ---
CT of the Abdomen and Pelvis: Indication: Abdominal pain Technique: 2.5 mm axial scans were obtained through the abdomen and pelvis following intravenous adm inistration of 100 cc of Omnipaque 350. Dose reduction technique was used on this scan by utilizing a utomated exposure control and iterative reconstruction technique. The dose-length product (DLP) was 6 14.02 mGy-cm. Findings: Scans through the lung bases demonstrate bibasilar curvilinear scarring or atelectasis. Th ere are subcentimeter nodules along the right minor fissure.. The liver, pancreas, gallbladder, adrenals and right kidney are within normal limits. There are multi ple small hypodense structures scattered throughout the spleen. Left renal cysts are present. There i s a 4 mm nonobstructing left renal stone. There are atherosclerotic calcifications of the aorta. No lymphadenopathy. No bowel obstruction or bowel wall thickening. There is no evidence to suggest acute appendicitis. Images through the pelvis were performed. Urinary bladder unremarkable. Prostate gland is enlarged. N o ascites. Impression: No definite acute abnormality. Multiple small hypodense structures scattered throughout the spleen, indeterminate. 4 mm nonobstructing left renal stone. Enlarged prostate gland. Reviewed, dictated and finalized at location . Impression: No definite acute abnormality. Multiple small hypodense structures scattered throughout the spleen, indetermin ate. 4 mm nonobstructing left renal stone. Enlarged prostate gland.
--- NOTE | ~2024-10-13 | XR_ITS ---
Portable chest x-ray Comparison: 05/17/2023 Clinical History: Influenza Findings: Lungs are clear, without focal consolidation or pleural effusion. Cardiomediastinal silho uette is stable. Bones and soft tissues are unremarkable. Impression: Clear lungs. Reviewed, dictated and finalized at location . Impression: Clear lungs.
--- OUTSIDE RECORDS SUMMARY | 2024-10-13 04:50 | XMS_ITS | Continuity of Care Document ---
Author Organization [facility] Address [address] [place] [address] Phone Care Team Providers Care Production Line Name Role Phone Pancho Garcia Unavailable Unavailable [...] Copied on Encounter Office/outpat ient Visit, [facility], [address] [place] [address] [address], [place], [place], [address], [place] tel:[phone] [facility] No Information 2-200 9 Krishnasamy Pancho. [address], [facility], [place]. tel:[phone] Office/outpat ient Visit, Est [facility], [address] [place] [address] [address], [place], [place], [address], [place] tel:[phone] [facility] No Information 0-200 9 Krishnasamy Pancho. [address], [place], [address], [place]. tel:[phone] [facility], [address] [place] [address] [address], [place], [place], [address], [place] tel:[phone] [facility] No Information 7200 9 Radha Whittingtonl. [address] [place] [address], [facility], [place]. tel:[phone] [facility], [address], [place], [place], [address], [place] tel:[phone] [facility] No Information 4200 8 Melissa Ferro. [address], [place], [place], [facility], [place]. tel:[phone] Referring Provider: Pancho kapoor, [address] [place] [address], [facility]. tel:[phone] [facility], [address], [place], [place], [address], [place] tel:[phone] [facility] No Information 8 8 Krishnasgisele Pancho. [address] [place] [address], [facility], [place]. tel:[phone] Office/outpat ient Visit, [facility], [address], [place], [place], [address], [place] tel:[phone] [facility] No Information Apr- 5200 7 Marleny Diallo. [address] [place], [place], [address], [place]. tel:[phone] Office/outpat ient Visit, [facility], [address], [place], [place], [address], [place] tel:[phone] [facility] No Information Mar-2 8-200 7 Wankum Yoel. [address], [place], [address], . tel:[phone] Family History Family Member Type Diagnosis Age At Onset No Information Payers Payer name Insurance type Covered constitution party ID Irving griffiths(s) [facility] [id number] Social History Type Description Quantity Date [...]
--- OUTSIDE RECORDS SUMMARY | 2024-10-13 04:50 | XMS_ITS | Referral Summary ---
Author Organization [facility] Address [address] [place] [address] Care Team Providers Care Manager Harbor Name Role Phone Unavailable Primary Care Provider Unavailabl e Source Comments [facility],non-owned Affiliates and Associated Physician Practices is amultiple site organization consisting of ambulatory clinics and hospital sitesin [place], [place], [place] and [place]. This disclosure is being madepursuant to the Care Everywhere program and may not contain all information available regarding this patient. Last updated 18.[facility] Social History Tobacco Use Types Packs/Day Years Used Date Smoking Tobacco: Never Assessed Sex and Gender Information Value Date Recorded Sex Assigned at Not on file Gender Identity Not on file Sexual Orientation Not on file Plan of Treatment Not on file
--- OUTSIDE RECORDS SUMMARY | 2024-10-13 04:50 | XMS_ITS | Encounter Summary ---
Author Organization [facility] Healthcare Address [address] [place] [address] Care Team Providers Care Charger Operator Name Role Phone Praful Hackett MD Primary Care Provider [phone] Encounter Details Date Type Department Care Team (Late st Contact Info) Description 01/21/[address] [facility] Health Information Management [address] [place] [address] Praful Hackett MD [address] [place] [address] Social History Tobacco Use Types Packs/Day Years Used Date Smoking Tobacco: Never Smokeless Tobacco: Never AUDIT-C Answer Date Recorded Q1: How often do you have a drink containing alc ohol? 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 Gender Identity Not on file Sexual Orientation Not on file documented as of this encounter Plan of Treatment Not on file documented as of this encounter Procedures Procedure Name Priority Date/Time Associated Diagnosis Comments SCAN - LABS 01/21/2024 documented in this encounter Results * SCAN - LABS (01/21/2024) us Praful Hackett MD Final Res ult documented in this encounter Visit Diagnoses Not on filedocumented in this encounter Additional Health Concerns Infection Onset Date Last Indicated Resolved Time COVID: Suspected 03/10/2024 03/10/2024 03/10/2024 11:44 AM CDT COVID19 03/10/2024 03/10/2024 03/20/2024 3:05 AM CDT COVID: Recovered Comment:Added based on recent COVID infection. 03/20/2024 03/25/2024 06/18/2024 3:[address] Exposure, COVID-19 Comment:Added automatically based on COVID19 lab answers indicating exposure risk 10/11/2024 10/11/2024 COVID: Suspected 10/11/2024 10/11/2024 10/12/2024 3:07 AM CDT Influenza, adult 10/11/2024 10/11/2024 documented as of this encounter Care Teams Charger Operator Relationship Specialty Start Date End Date Praful [place] [address] PCP - General Family Medicine 11/14/21 documented as of this encounter
--- OUTSIDE RECORDS SUMMARY | 2024-10-13 04:50 | XMS_ITS | Clinical Summary ---
Author Organization [facility] Address [address] [place] [address] Phone Care Team Providers Care Class A Regional Truck Driver Name Role Phone Praful Hackett MD Primary Care Provider [phone] Manav Garcia MD Unavailable [phone] Allergies No known active allergies Medications Ginkgo Biloba 40 MG Tablet Take by mouth. Active lisinopril (PRINIVIL, ZESTRIL) 40 MG Tablet Take 40 mg by mouth daily. Active Mirabegron ER (Myrbetriq) 25 MG TABLET SR 24 HR Take by mouth. Active Multiple Vitamin (MULTIVITAMIN PO) Take by mouth. Active Delta-3 Fatty Acids (OMEGA 3 PO) Take by mouth. Active FLUNISOLIDE, NASAL, NA by Nasal route. Active montelukast (SINGULAIR) 10 MG Tablet Take 10 mg by mouth every evening. Active amLODIPine (NORVASC) 5 MG Tablet Take 5 mg by mouth daily. Active finasteride (PROSCAR) 5 MG Tablet Take 5 mg by mouth daily. Active Encounters Date Type Department Care Team Description 09/08/2024 10:00 AM PHARMACY TECH CUSTOMER SERVICE Office Visit [facility] [address] [place] [address] Manav Garcia MD Benign paroxysmal positional vertigo of left ear (Primary Dx); White matter disease Discharge Disposition: Discharged to home or Selfcare 09/08/2024 Travel from Last 3 Months Family History Medical History Relation Name Comments Heart Disease Father Alzheimer's Disease Mother Relation Name Status Comments Father Mother Social History Tobacco Use Types Packs/Day Years Used Date Smoking Tobacco: Never Smokeless Tobacco: Never Tobacco Cessation:Counseling Given: Not Answered Alcohol Use Standard Drinks/Week Comments Never 0 (1 standard drink = 0.6 oz pur e alcohol) Sex and Gender Information Value Date Recorded Sex Assigned at Not on file Legal Sex Male 1:27 PM CDT Gender Identity Not on file Sexual Orientation Not on file Last Filed Vital Signs Vital Sign Reading Time Taken Comments Blood Pressure 138/90 09/08/2024 10:34 AM PHARMACY TECH CUSTOMER SERVICE Pulse 84 09/08/2024 10:34 AM PHARMACY TECH CUSTOMER SERVICE Temperature 36.9 C (98.4 F) 09/08/2024 10:25 AM PHARMACY TECH CUSTOMER SERVICE Respiratory Rate 16 09/08/2024 10:25 AM PHARMACY TECH CUSTOMER SERVICE Oxygen Saturation - - Inhaled Oxygen Concentration - - Weight 83.7 kg (184 lb 9.6 oz) 09/08/2024 10:25 AM PHARMACY TECH CUSTOMER SERVICE Height 177.8 cm (5' 10 ) 09/08/2024 10:25 AM PHARMACY TECH CUSTOMER SERVICE Body Mass Index 26.49 09/08/2024 10:25 AM PHARMACY TECH CUSTOMER SERVICE Plan of Treatment Upcoming Encounters Date Type Department Care Team (Late st Contact Info) Description 03/11/2025 10:00 AM CDT Office Visit [facility] - Neurology [facility] [address] [place] [address] Manav Garcia MD [address] [place] [address] Health Maintenance Due Date Last Done Comments Hepatitis C Virus (HCV) Screening 1940 SARS-COV-2 Immunization ( season) 2024 05/03/2024, 04/15/2024, 09/10/2022, Additional history exists Hepatitis B Immunization Completed 006, 08/31/2005, 02/23/2005, Additional history exists Pneumococcal Immunization (50+ years) Completed 05/16/2017, 05/29/2016 TdaP Immunization Completed 09/15/2020 Zoster Immunization Completed 11/12/2020, Respiratory Syncytial Virus (RSV) Immunization (Adult) Completed 05/03/2023 Influenza Immunization Completed , 05/08/2023, 05/01/2023, Additional history exists Meningococcal Immunization (ACWY) Aged Out No longer eligible based on patient's age to complete this topic Rotavirus Immunization Aged Out No lo nger eligible based on patient's age to complete this topic Insurance MEDICAID [place] MEDICARE C [employer] Care Teams Class A Regional Truck Driver Relationship Specialty Start Date End Date [place] [address] PCP - General Internal Medicine 04/29/24 Manav Garcia MD [address] [place] [address] Consulting Physician Neurology 09/08/24
--- OUTSIDE RECORDS SUMMARY | 2024-10-13 04:50 | XMS_ITS | Encounter Summary ---
Author Organization [facility] Healthcare Address [address] [place] [address] Care Team Providers Care Telephone Repairer Name Role Phone Praful Hackett MD Primary Care Provider [phone] Encounter Details Date Type Department Care Team (Late st Contact Info) Description 03/16/2024 Telephone Family Physicians [facility] [address] [facility] [place] [address] Praful Hackett MD [address] [place] [address] Social History Tobacco Use Types Packs/Day Years [...] points, staff should administer the PHQ-9) 0 03/17/2024 Personal Safety Answer Date Recorded Getting School Help Needed Denies 08/02 Sex and Gender Information Value Date Recorded Sex Assigned at Not on file 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 03/20/2024 03/25/2024 06/18/2024 3:[address] Exposure, COVID-19 Comment:Added automatically based on COVID19 lab answers indicating exposure risk 10/11/2024 10/11/2024 COVID: Suspected 10/11/2024 10/11/2024 10/12/2024 3:07 AM CDT Influenza, adult 10/11/2024 10/11/2024 documented as of this encounter Care Teams Telephone Repairer Relationship Specialty Start Date End Date Praful Hackett MD [address] [place] [address] PCP - General Family Medicine 11/14/21 documented as of this encounter
--- OUTSIDE RECORDS SUMMARY | 2024-10-13 04:50 | XMS_ITS | Clinical Summary ---
Author Organization [facility] Address [address] [place] [address] Care Team Providers Care Hand I Tube Bender Name Role Phone Unavailable Primary Care Provider Unavailabl e Source Comments [facility],non-owned Affiliates and Associated Physician Practices is amultiple site organization consisting of ambulatory clinics and hospital sitesin [place], [place], [place] and [place]. This disclosure is being madepursuant to the Care Everywhere program and may not contain all information available regarding this patient. Last updated 18.[facility] Social History Tobacco Use Types Packs/Day Years Used Date Smoking Tobacco: Never Assessed Sex and Gender Information Value Date Recorded Sex Assigned at Not on file Gender Identity Not on file Sexual Orientation Not on file Plan of Treatment Health Maintenance Due Date Last Done Comments DTAP/TDAP/TD VACCINES (1 - Tdap) 1959 PNEUMOCOCCAL VACCINE 50+ (1 of 1 - PCV) 1989 ZOSTER VACCINE (1 of 2) 1989 Respiratory Syncytial Virus (RSV) Vaccine Pt: or over 60 yrs (1 - 1-dose 75+ series) 2014 COVID-19 VACCINE ( - 2023-2 5 season) 2024 INFLUENZA VACCINE (#1) 2024 DEPRESSION SCREENING 08/05/2024 MEDICARE AWV CALENDAR YEAR 2024 HEPATITIS B VACCINE Aged Out No longe r eligible based on patient's age to complete this topic HIB VACCINE Aged Out No longer eligi ble based on patient's age to complete this topic HPV VACCINE Aged Out No longer eligi ble based on patient's age to complete this topic MENINGOCOCCAL (Group B) VACCINE Aged Out No longer eligible based on patient's age to complete this topic MENINGOCOCCAL VACCINE Aged Out No cnydi daina eligible based on patient's age to complete this topic
--- OUTSIDE RECORDS SUMMARY | 2024-10-13 04:50 | XMS_ITS | Encounter Summary ---
Author Organization [facility] Healthcare Address [address] [place] [address] Care Team Providers Care Water Resources Project Manager Name Role Phone Praful Hackett MD Primary Care Provider [phone] Encounter Details Date Type Department Care Team (Latest Contact Info) Description 10/11/2024 5:06 AM CDT - 10/11/2024 11:59 PM CDT Hospital Encounter [facility] [id number] [place] [address] Discharge Disposition: Discharge to home or self care Social History Tobacco Use Types Packs/Day Years [...] points, staff should administer the PHQ-9) 0 06/23/2024 Personal Safety Answer Date Recorded Getting School Help Needed Denies 08/02 Sex and Gender Information Value Date Recorded Sex Assigned at Not on file 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 6 tablet 10/09/2024 5 benzonatate (TESSALON) 200 mg capsuleIndicatio ns:Cough Take 1 capsule (200 mg total) by mouth 3 (three) times a day as needed for cough 20 capsule 10/09/2024 cyanocobalamin (Vitamin B-12) 1,000 mcg/mL injection Inject 1 mL (1,000 mcg total) into the muscle as instructed every 30 (thirty) days 1 mL 2 07/09/2024 famotidine (PEPCID) 40 mg tabletIndication s:LPRD (laryngopharynge al reflux disease) Take 1 tablet (40 mg total) by mouth nightly 90 tablet 3 08/24/2024 6 finasteride (PROSCAR) 5 mg tablet Take 1 tablet (5 mg total) by mouth daily 09/11/2024 ginkgo biloba 40 mg tablet Take by mouth lisinopriL (PRINIVIL,ZESTRI L) 40 mg tablet Take 1 tablet by mouth once daily 270 tablet 05/19/2024 mirabegron ER (MYRBETRIQ) 25 mg tablet extended release 24 hr Take 1 tablet (25 mg total) by mouth daily 30 tablet 2 10/05/2024 montelukast (SINGULAIR) 10 mg tabletIndication s:Acute non-recurrent maxillary sinusitis Take 1 tablet (10 mg total) by mouth nightly 90 tablet 3 04/29/2024 5 multivitamin capsule Take 1 capsule by mouth daily omega-3 fatty acids-fish oil 300-1,000 mg capsule Take 2 capsules (2 g total) by mouth daily pumpkin seed extract/soy germ (AZO BLADDER CONTROL ORAL) Take by mouth tamsulosin (FLOMAX) 0.4 mg extended release capsule Take 1 capsule (0.4 mg total) by mouth daily 07/06/2024 documented as of this encounter Discharge Disposition Disposition Code Departure Means Destination Discharge to home or self care documented in this encounter Plan of Treatment Not on file documented as of this encounter Visit Diagnoses Not on filedocumented in this encounter Additional Health Concerns Infection Onset Date Last Indicated Resolved Time Exposure, COVID-19 Comment:Added automatically based on COVID19 lab answers indicating exposure risk 10/11/2024 10/11/2024 COVID: Suspected 10/11/2024 10/11/2024 10/12/2024 3:07 AM CDT documented as of this encounter Care Teams Water Resources Project Manager Relationship Specialty Start Date End Date Praful Hackett MD [address] [place] [address] PCP - General Family Medicine 11/14/21 documented as of this encounter
--- OUTSIDE RECORDS SUMMARY | 2024-10-13 04:50 | XMS_ITS | Encounter Summary ---
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 Onset Saturday. Pt states medication is making pt extremely fatigued and does not help to control cough. Pt states he continues to have a moderated tosevere cough. Pt wants to know if he can stop Benzonatate and start taking OTC cough medication. Ptis advised he can stop medication and use OTC cough medication. Pt advised to use otc cough medication for persons with hypertension. Pt also encouraged to increase water intake as pt states phlegm is thick. Pt verbalized understanding and agreement. Pt diagnosed with Acute cought and Strep Pharyngitis at [facility] on 10/09 and 10/11. Message routed to office for further follow up and recommendations. Reason for Disposition Caller has NON-URGENT medicine question about med that PCP or specialist prescribed and triager unable to answer question Protocols used: Medication Question [id number] * Telephone Encounter - Chloe Ardon RN - 10/12/2024 2:26 PM CDT Regarding: benzonatate causing extreme sleepiness ----- Message from Pastora Villeda sent at 10/12/2024 2:24 PM CDT ----- Symptom Based Call Chief Complaint(s): prescribed benzonatate and it is making him too sleep. Can he stop? Duration: 2 days What type of symptom(s) is the patient experiencing?Red Flag Is this a new or reoccurring symptom(s)? New What have you tried to help your symptom(s)? Why was appointment not scheduled? Requesting advice from clinical steam tank operator. Additional Comments: Patient prescribed this for his cough from [facility], it barely helps and makes him too tired. Can he stop it and but an OTC instead? Sending Red Flag since it is a drug reaction Does message need to be routed? Yes-Action Needed documented in this encounter Plan of Treatment [...] documented as of this encounter Care Teams Director Telehealth Relationship Specialty Start Date End Date Praful Hackett MD [address] [place] [address] PCP - General Family Medicine 11/14/21 documented as of this encounter
--- OUTSIDE RECORDS SUMMARY | 2024-10-13 04:50 | XMS_ITS | Encounter Summary ---
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
--- OUTSIDE RECORDS SUMMARY | 2024-10-13 04:50 | XMS_ITS | Referral Summary ---
Author Organization [facility] [address] Address [address] [place] [address] Care Team Providers Care Traveling Inventory Associate Name Role Phone Praful Hackett MD Primary Care Provider [phone] Encounters Date Type Department Care Team Description 10/12/2024 Nurse Triage [facility] [address] [address] Praful Hackett MD 10/11/2024 5:08 AM CDT - 10/11/2024 11:59 PM CDT Hospital Encounter [address] [address] Discharge Disposition: Discharge to home or self care 10/11/2024 5:06 AM CDT - 10/11/2024 11:59 PM CDT Hospital Encounter [address] [address] Discharge Disposition: Discharge to home or self care 10/11/2024 3:45 PM CDT Office Visit [facility] at [address] [address] Sandhya Li NP Strep pharyngitis (Primary Dx); Acute cough; Purulent postnasal drainage; Elevated blood pressure reading in office with diagnosis of hypertension; Intermittent abdominal pain 10/09/2024 Results Follow-Up [facility] at [address] [address] Janee Zhang NP 10/09/2024 10:15 AM HEEL SEAT SANDER Ancillary Procedure [facility] at [address] [address] Acute cough 10/09/2024 10:15 AM HEEL SEAT SANDER Office Visit [facility] at [address] [address] Janee Zhang NP Acute cough (Primary Dx) 09/07/2024 Orders Only [facility] Health Information Management [address] [place] [address] Scanning, Provider 08/24/2024 1:15 PM HEEL SEAT SANDER Office Visit [facility] - [address] [place] [address] Delmi Chawla DO LPRD (laryngopharyngeal reflux disease) (Primary Dx); Chronic sinusitis, unspecified location 08/04/2024 2:00 PM HEEL SEAT SANDER Office Visit [facility] at [address] [address] Sandhya Li NP Acute maxillary sinusitis, recurrence not specified (Primary Dx); Elevated blood pressure reading in office with diagnosis of hypertension 08/03/2024 Nurse Triage [facility] [address] [address] Praful Hackett MD from Last 3 Months Allergies No known active allergies Medications omega-3 fatty acids-fish oil 300-1,000 mg capsule Take 2 capsules (2 g total) by mouth daily Active multivitamin capsule Take 1 capsule by mouth daily Active ginkgo biloba 40 mg tablet Take by mouth Act hilda pumpkin seed extract/soy germ (AZO BLADDER CONTROL ORAL) Take by mouth Ac tive montelukast (SINGULAIR) 10 mg tabletIndicati ons:Acute non-recurrent maxillary sinusitis Take 1 tablet (10 mg total) by mouth nightly 90 tablet 3 4 04/29/20 25 Active flunisolide (NASALIDE) 25 mcg (0.025 %) spray,non-aero solIndications :Allergic Rhinitis Administer 2 sprays into each nostril 2 (two) times a day for 25 days 25 mL 3 4 Active amLODIPine (NORVASC) 5 mg tablet Take 1 tablet (5 mg total) by mouth daily 90 tablet 4 4 05/13/20 25 Active lisinopriL (PRINIVIL,ZEST RIL) 40 mg tablet Take 1 tablet by mouth once daily 270 tablet 4 Active cyanocobalamin (Vitamin B-12) 1,000 mcg/mL injection Inject 1 mL (1,000 mcg total) into the muscle as instructed every 30 (thirty) days 1 mL 2 4 Active famotidine (PEPCID) 40 mg tabletIndicati ons:LPRD (laryngopharyn geal reflux disease) Take 1 tablet (40 mg total) by mouth nightly 90 tablet 3 5 08/19/19 26 Active mirabegron ER (MYRBETRIQ) 25 mg tablet extended release 24 hr Take 1 tablet (25 mg total) by mouth daily 30 tablet 2 5 Active finasteride (PROSCAR) 5 mg tablet Take 1 tablet (5 mg total) by mouth daily 5 Active tamsulosin (FLOMAX) 0.4 mg extended release capsule Take 1 capsule (0.4 mg total) by mouth daily 4 Active azithromycin (ZITHROMAX) 250 mg tabletIndicati ons:Acute cough Take 2 tabs (500 mg) by mouth today, than 1 tab (250 mg) daily for 4 days. 6 tablet 5 10/15/19 25 Active benzonatate (TESSALON) 200 mg capsuleIndicat ions:Cough Take 1 capsule (200 mg total) by mouth 3 (three) times a day as needed for cough 20 capsule 5 Active amoxicillin (AMOXIL) 500 mg tablet/capsule Take 2 tablet/capsule (1,000 mg total) by mouth daily for 10 days 20 tablet/capsu le 5 10/22/19 25 Active mirabegron ER (MYRBETRIQ) 25 mg tablet extended release 24 hr Take 1 tablet (25 mg total) by mouth daily 30 tablet 2 4 03/03/20 25 Discontinu ed(Reorder ) Active Problems Problem Noted Date Diagnosed Date LPRD (laryngopharyngeal reflux disease) 08/24/19 Assessment & Plan (08/24/2024 1:37 PM HEEL SEAT SANDER): Pepcid 40 mg Continue elevated head of bed Donut or Ushaped pillow to take pressure off right ear Call if no improvement in 3 months for referral to GI Laryngopharyngeal reflux discussed and Handout provided Medicare annual wellness visit, subsequent 06/23 Assessment & Plan (06/23/2024 3:43 PM HEEL SEAT SANDER): Focus of exam is preventative in anture. Reviewed immunizations, reviewed sun/skin cancer screening. Reivewed age and comrobid appropriate screenings and iwll follow response. Chronic sinusitis 06/23/2024 Assessment & Plan (06/23/2024 3:44 PM HEEL SEAT SANDER): Most likely multifactorial and will follow response. Refer to ENT Reivwed sparing use of nasal decongestants and will follow response. Hypertension, essential 06/23/2024 Assessment & Plan (06/23/2024 3:44 PM HEEL SEAT SANDER): Stable at the presnt time. Encourage to bring home BP montior to calibrate to inoffice evlauastoin. Subcortical microvascular ischemic occlusive dis ease 04/29/2024 Assessment & Plan (04/29/2024 10:18 AM CDT): Referral to neuro placed. Advised to continue Lisinopril for tight blood pressure control and exercise as tolerated. Chronic sinusitis of both maxillary sinuses 04/06 Assessment & Plan (04/29/2024 10:19 AM CDT): Augmentin, Singulair, and Flunisolide sent for infection due to month long flare up. Need for influenza vaccination 04/29/2024 Assessment & Plan (04/29/2024 10:20 AM CDT): Flu vaccine received in office. Dysphagia 09/10/2022 Overview (09/10/2022): Added automatically from request for surgery [id number] Postconcussion syndrome 04/12/2022 Assessment & Plan (04/12/2022 1:04 PM CDT): Persistent vestibular symptoms that improve with exercise Concussion education provided Encouraged continued high level exercise to his tolerance Discussed ways to accommodate visual or vestibular symptoms such as the rule Dizziness and giddiness 08/24/2020 Assessment & Plan (06/23/2024 3:45 PM HEEL SEAT SANDER): Longstanding issue for patinet. Continues to be cautious with fall prevention while maintaining activity level. Patient with vestibular testing to be completed at [facility] related to request for evaluation by balance center. Assessment & Plan (04/29/2024 10:17 AM CDT): Advised to see PT for dizziness and weakness. Patient declined referral due to essence picky on locations will let us know if a referral is needed. Also sent to Neuro for evaluation. Uses OTC meclizine PRN Immunizations Immunization Administration Dates Next Due COVID-19 mRNA (GalaDo) 0.3 m L (30 mcg) vaccine (12 years and up) 04/15/2024 Hep A, Adult 08/31/2005,01/18/2005 Hep A, Unspecified 08/31/2005,01/18/2005 Hep B Vaccine 08/31/2005,02/23/2005,01/18/2005 Hep B, Unspecified 02/28/2006,02/23/2005, 005 Influenza, Trivalent, High D ose, Split, Preservative Free, Intramuscular 04/29/2024,05/16/2017,05/29/2016,06/10 Influenza, Unspecified 04/14/2024(Deferr ed: Patient Refused),05/08/2023,08/05/2022(Deferre d: Patient Refused),03/21/2022(Deferred: Patient Refused),08/05/2021(Deferred: Patient Refused),08/05/2021(Deferred: Patient Refused),04/05/2021(Deferred: Patient Refused),04/05/2021(Deferred: Patient Refused),05/01/2014,05/23/2013, 012 Pfizer SARS-CoV-2 Monovalent Vaccination (12+ Yrs) PURPLE 05/14/2021 Pneumococcal Conjugate PCV 13 05/16/2017 Pneumococcal Polysaccharide PPV23 05/29/2016 Td, adsorbed 01/18/2005 Tdap 09/15/2020 ZOSTER Recombinant 09/15/2020 Social History Tobacco Use Types Packs/Day Years Used Date Smoking Tobacco: Never Smokeless Tobacco: Never Tobacco Cessation:Counseling Given: Not Answered AUDIT-C Answer Date Recorded Q1: How often [...] on file Legal Sex Male 7:31 PM HEEL SEAT SANDER Gender Identity Not on file Sexual Orientation Not on file Last Filed Vital Signs Vital Sign Reading Time Taken Comments Blood Pressure 155/93 10/11/2024 3:30 PM CDT Pulse 66 10/11/2024 3:30 PM CDT Temperature 36.4 C (97.6 F) 10/11/2024 3:30 PM CDT Respiratory Rate 20 10/11/2024 3:30 PM CDT Oxygen Saturation 98% 10/11/2024 3:30 PM CDT Inhaled Oxygen Concentration - - Weight 84.8 kg (187 lb) 10/11/2024 3:30 PM CDT Height 177.8 cm (5' 10 ) 10/09/2024 9:43 AM HEEL SEAT SANDER Body Mass Index 26.83 10/09/2024 9:43 AM HEEL SEAT SANDER Plan of Treatment Not on file Procedures Procedure Name Priority Date/Time Associated Diagnosis Comments POCT URINALYSIS DIPSTICK Routine 10/11/2024 3:51 PM CDT Strep pharyngitis POCT RAPID STREP Routine 10/11/2024 3:46 PM CDT Strep pharyngitis INFLUENZA A/B, RSV, AND COVID-19 PCR Routine 10/11/2024 3:31 PM CDT XR CHEST PA LATERAL 2 VIEWS Schedule COSMO, Read COSMO (Appt Today, Awaiting Results) 10/09/2024 10:27 AM HEEL SEAT SANDER Acute cough CARDIOLOGY DOCUMENT SCAN 09/07/2024 from Last 3 Months Results * (ABNORMAL) POCT urinalysis dipstick (10/11/2024 3:51 PM CDT) Pathologist [facility] Color, Urine, POC Yellow Clarity, ur, POC Clear Clear Glucose, ur, POC Negative Negative MG/DL Bilirubin, ur, POC Negative Negative, Small, Moderate, Large Ketones, ur, POC Negative Negative Specific [place], POC 1.005 1.003 - 1.030 Blood, ur, POC Trace(A) Negative pH, ur, POC 6.5 5.0 - 8.0 Protein, ur, POC Negative Negative Urobilinogen, urine, POC 0.2 0.2 - 1.0 mg/dL Nitrite, ur, POC Negative Negative Leukocytes, ur, POC Negative Negative Lot Number [id number] Urine 10/11/2024 3:51 PM CDT Sandhya Li NP POINT OF CARE TEST ORDERABLES F inal Result * (ABNORMAL) POCT rapid strep A (10/11/2024 3:46 PM CDT) Pathologist [facility] Rapid Strep A, POC Positive(A ) Negative Swab 10/11/2024 3:46 PM CDT Sandhya Li NP POINT OF CARE TEST ORDERABLES F inal Result * (ABNORMAL) Influenza A/B, RSV, and COVID-19 PCR Nasopharyngeal (10/11/2024 3:31 PM CDT) Pathologist [facility] COVID-19 RNA Negative Negative Influenza A RNA Positive(A) Negative [facility] Influenza B RNA Negative Negative [facility] RSV RNA Negative Negative [facility] Comment: Interpretive data: Testing performed by [facility]. This test is performed using the [employer] Xpert Xpress CoV-2/Flu/RSV plus assay. This is a multiplex, real-time reverse transcriptase PCR assay intended for the qualitative detection of nucleic acid from SARS-CoV-2, influenza A, influenza B, and respiratory syncytial virus. This assay has been cleared by the [place] Food and Drug administration. The performance characteristics have been verified by the [facility]. Results must be considered in the clinical context, and a negative result does not rule out infection. Interpretive Data last revised 2023 Nasopharyngeal 10/11/2024 3: 31 PM CDT 10/12/2024 5:24 AM CDT us Sandhya Li NP LAB MICROBIOLOGY - GENERAL STEFANIA OCHOA Final Result [facility] [id number] Department [place] [address] CH * XR Chest Pa Lateral 2 Views (10/09/2024 10:27 AM HEEL SEAT SANDER) Anatomical Region Laterality Modality Body, Chest N/A Digital Radiogra phy 10/09/2024 12:0 1 PM HEEL SEAT SANDER Narrative 10/09/2024 12:01 PM HEEL SEAT SANDER EXAM DESCRIPTION: XR CHEST PA LATERAL 2 VIEWS REASON FOR STUDY: cough Pt complains of cough x 1 week. Non smoker, no heart disease,asthma,heart disease,cancer. No chest surgery TECHNIQUE: 2 radiographic view(s) of the chest. COMPARISON: Chest radiograph 03/17/2024 FINDINGS: LUNGS: No focal opacity, pleural effusion, or pneumothorax. HEART/MEDIASTINUM: Cardiac silhouette normal in size. Mediastinal and hilar contours appear normal. LINES/TUBES: None. BONES: No acute osseous abnormality. IMPRESSION: No acute cardiopulmonary abnormality. THIS IS AN ELECTRONICALLY VERIFIED FINAL REPORT 10/09/2024 12:01 PM - Electronically signed by Karla Fitzgerald M.D. FT T: Report ID: [id number] Reading Location: [id number] Procedure Note Karla Hernandez MD - 10/09/2024 EXAM DESCRIPTION: XR CHEST PA LATERAL 2 VIEWS REASON FOR STUDY: cough Pt complains of cough x 1 week. Non smoker, no heart disease,asthma,heart disease,cancer. No chest surgery TECHNIQUE: 2 radiographic view(s) of the chest. COMPARISON: Chest radiograph 03/17/2024 FINDINGS: LUNGS: No focal opacity, pleural effusion, or pneumothorax. HEART/MEDIASTINUM: Cardiac silhouette normal in size. Mediastinal andhilar contours appear normal. LINES/TUBES: None. BONES: No acute osseous abnormality. IMPRESSION: No acute cardiopulmonary abnormality. THIS IS AN ELECTRONICALLY VERIFIED FINAL REPORT 10/09/2024 12:01 PM - Electronically signed by Karla Fitzgerald M.D. FT T: Report ID: [id number] Reading Location: [place] [address] Janee Zhang SHAREPOINT ADMIN IMG XR PROCEDURES Final Re sult * Cardiology Document Scan (09/07/2024) Anatomical Region Laterality Modality Other Provider Scanning [facility] C[facility] PROCEDURES Edited Result - Final from Last 3 Months Additional Health Concerns Infection Onset Date Last Indicated Exposure, COVID-19 Comment:Added automatically based on COVID19 lab answers indicating exposure risk 10/11/2024 10/11/2024 Influenza, adult 10/11/2024 10/11/2024 Insurance IDPA [facility] IDSD [facility] MEDIC[facility] SOLUTIONS Advance Directives For more information, please contact: [phone] * Full Code (Latest Code Status on File) Date Activated Date Inactivated Comments 10/10/2022 9:07 AM 10/10/2022 3:30 PM * Full Code Date Activated Date Inactivated Comments 10/10/2022 9:07 AM 10/10/2022 9:07 AM Care Teams Traveling Inventory Associate Relationship Specialty Start Date End Date Praful Hackett MD [address] [place] [address] PCP - General Family Medicine 11/14/21
--- OUTSIDE RECORDS SUMMARY | 2024-10-13 04:50 | XMS_ITS | Continuity of Care Document ---
Author Organization [facility] Address [address] [place] [address] Phone Care Team Providers Care Mucker Cofferdam Name Role Phone Patel PT,MPT,ATC, Mckinley Unavailable Unavai lable Procedures Procedure Date Doc neg elder mal no plan PT Evaluation Moderate Complexity Therapeutic Activities Therapeutic Activities Neuromuscular Re-Ed Therapeutic Activities Neuromuscular Re-Ed Doc neg elder mal no plan PT Evaluation Low Complexity Therapeutic Activities Neuromuscular Re-Ed Therapeutic Activities Neuromuscular Re-Ed Canalith Repositioning Procedure 2021 Canalith Repositioning Procedure 2021 Therapeutic Activities Therapeutic Activities Neuromuscular Re-Ed Therapeutic Activities Neuromuscular Re-Ed Therapeutic Activities Neuromuscular Re-Ed Therapeutic Activities Neuromuscular Re-Ed Therapeutic Activities Neuromuscular Re-Ed Doc neg elder mal no plan PT Evaluation Moderate Complexity Therapeutic Activities Neuromuscular Re-Ed Advance Directives Directive Yes / No Effective Date File Name No Information Encounters Encounter Description Practice Location Reason(s) For Visit Diagnoses Date Provider Providers Copied on Encounter [facility], [place], [place], [id number], [place] tel:[phone] [place] No Information 4 Jorge Sofia , [place], [place]. [facility], [place], [place], [id number], tel:[phone] [place] No Information 4 Jorge Sof[place] , [place], [place]. Referring Provider: Ish [place], [address]. tel:[phone] [facility], [place], [place], [id number], [place] tel:[phone] [place] No Information 3 Elmer Gurwinder. . Referring Provider: Ish [place], [address]. tel:[phone] [facility], [place], [place], [id number], [place] tel:[phone] [place] No Information 3 Elmer Gurwinder. . Referring Provider: Ish [place], [address]. tel:[phone] [facility], [place], [place], [id number], [place] tel:[phone] [place] No Information 3 Elmer Gurwinder. . Referring Provider: Ish [place], [address]. tel:[phone] [facility], [place], [place], [id number], [place] tel:[phone] [place] No Information 2 Jorge Sofia , [place], [place]. Referring Provider: Ish [place], [address]. tel:[phone] [facility], [place], [place], [id number], [place] tel:[phone] [place] No Information 2 Jorge Sofia , [place], [place]. Referring Provider: [place], [address]. tel:[phone] [facility] [address], [place], [place], [address], [place] tel:[phone] [place] No Information 2 Jorge Sofia , [place], [place]. Referring Provider: [place], [address]. tel:[phone] [facility], [address], [place], [place], [address], [place] tel:[phone] [place] No Information 2 Nasir Osorio . Referring Provider: [place], [address]. tel:[phone] [facility], [address], [place], [place], [address], [place] tel:[phone] [place] No Information 2 Jorge Sof[place] , [place], [place]. Referring Provider: [place], [address]. tel:[phone] [facility], [place], [place], [address], [place] tel:[phone] [place] No Information 2 Jorge Sen. , [place], [place]. Referring Provider: [place], [address]. tel:[phone] [facility], [place], [place], [address], [place] tel:[phone] [place] No Information 2 Jorge Sofia , [place], [place]. Referring Provider: Praful Hackett, [place], [address]. tel:[phone] [facility], [address], [place], [place], [address], [place] tel:[phone] [place] No Information 2 Jorge Sofia [place], [place], [place]. Referring Provider: [place], [address]. tel:[phone] Family History Family Member Type Diagnosis Age At Onset No Information Payers Payer name Insurance type Covered constitution party ID Authoriza tion(s) [employer] CI [id number] Medicaid OON Write Off CI 00 Social [...]
--- OUTSIDE RECORDS SUMMARY | 2024-10-13 04:50 | XMS_ITS | Encounter Summary ---
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 Gender Identity Not on file Sexual Orientation [...] documented in this encounter Plan of Treatment Pending Results Name Type Priority Associated Diagnoses Date /Time Urine culture Urine Microbiology Routine 04/2025 3:46 PM CDT Scheduled Orders Name Type Priority Associated Diagnoses Orde r Schedule Urine culture Microbiology Routine Once for 1 Occurrences starting 10/11/2024 until 10/11/2024 documented as of this encounter Procedures Procedure Name Priority Date/Time Associated Diagnosis Comments INFLUENZA A/B, RSV, AND COVID-19 PCR Routine 10/11/2024 3:31 PM CDT documented in this encounter Results * (ABNORMAL) Influenza A/B, RSV, and COVID-19 PCR Nasopharyngeal (10/11/2024 3:31 PM CDT) COVID-19 RNA Negative Negative Influenza A RNA Positive(A) Negative [facility] Influenza B RNA Negative Negative [facility] RSV RNA Negative Negative [facility] Comment: Interpretive data: Testing performed by [facility]. This test is performed using the [employer]codemailer[employer] Xpert Xpress CoV-2/Flu/RSV plus assay. This is a multiplex, real-time reverse transcriptase PCR assay intended for the qualitative detection of nucleic acid from SARS-CoV-2, influenza A, influenza B, and respiratory syncytial virus. This assay has been cleared by the [place] Food and Drug administration. The performance characteristics have been verified by the [facility]. Results must be considered in the clinical context, and a negative result does not rule out infection. Interpretive Data last revised 2023 Nasopharyngeal 10/11/2024 3: 31 PM CDT 10/12/2024 5:24 AM CDT us Sandhya Li NP LAB MICROBIOLOGY - GENERAL STEFANIA OCHOA Final Result [facility] [address] [place] [address] documented in this encounter Visit Diagnoses Not on filedocumented in this encounter Additional Health Concerns Infection Onset Date Last Indicated Resolved Time Exposure, COVID-19 Comment:Added automatically based on COVID19 lab answers indicating exposure risk 10/11/2024 10/11/2024 COVID: Suspected 10/11/2024 10/11/2024 10/12/2024 3:07 AM CDT documented as of this encounter Care Teams Yoga Instructor Relationship Specialty Start Date End Date Praful Hackett MD [address] [place] [address] PCP - General Family Medicine 11/14/21 documented as of this encounter
--- OUTSIDE RECORDS SUMMARY | 2024-10-13 04:50 | XMS_ITS | Patient Health Summary ---
Author Organization [facility] Address [address] [place] [address] Care Team Providers Care Printer Repair Technician Name Role Phone Unavailable Primary Care Provider Unavailabl e Note from [facility],non-owned Affiliates and Associated Physician Practices is amultiple site organization consisting of ambulatory clinics and hospital sitesin [place], [place]. This disclosure is being madepursuant to the Care Everywhere program and may not contain all information available regarding this patient. Last updated 18.[facility] [employer] Social History Tobacco Use Types Packs/Day Years Used Date Smoking Tobacco: Never Assessed Sex and Gender Information Value Date Recorded Sex Assigned at Not on file Gender Identity Not on file Sexual Orientation Not on file
--- OUTSIDE RECORDS SUMMARY | 2024-10-13 04:50 | XMS_ITS | Encounter Summary ---
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
--- OUTSIDE RECORDS SUMMARY | 2024-10-13 04:50 | XMS_ITS | Clinical Summary ---
Author Organization [facility] [place] [address] Address [address] [place] [address] Care Team Providers Care Barker Operator Name Role Phone Praful Hackett MD Primary Care Provider +1 [phone] Allergies No known active allergies Medications omega-3 [...] by mouth daily 30 tablet 2 4 10/06/19 25 Discontinu ed(Reorder ) Active Problems Problem Noted Date Diagnosed Date LPRD (laryngopharyngeal reflux disease) 08/24/19 25 Assessment & Plan (08/24/2024 1:37 PM LINK FABRIC MACHINE OPERATOR): Pepcid 40 mg Continue elevated head of bed Donut or Ushaped pillow to take pressure off right ear Call if no improvement in 3 months for referral to GI Laryngopharyngeal reflux discussed and Handout provided Medicare annual wellness visit, subsequent 06/23 Assessment & Plan (06/23/2024 3:43 PM LINK FABRIC MACHINE OPERATOR): Focus of exam is preventative in anture. Reviewed immunizations, reviewed sun/skin cancer screening. Reivewed age and comrobid appropriate screenings and iwll follow response. Chronic sinusitis 06/23/2024 Assessment & Plan (06/23/2024 3:44 PM LINK FABRIC MACHINE OPERATOR): Most likely multifactorial and will follow response. Refer to ENT Reivwed sparing use of nasal decongestants and will follow response. Hypertension, essential 06/23/2024 Assessment & Plan (06/23/2024 3:44 PM LINK FABRIC MACHINE OPERATOR): Stable at the presnt time. Encourage to [...] (09/10/2022): Added automatically from request for surgery [id number] Postconcussion syndrome 04/12/2022 Assessment & Plan (04/12/2022 1:04 PM CDT): Persistent vestibular symptoms that improve with exercise Concussion education provided Encouraged continued high level exercise to his tolerance Discussed ways to accommodate visual or vestibular symptoms such as the rule Dizziness and giddiness 08/24/2020 Assessment & Plan (06/23/2024 3:45 PM LINK FABRIC MACHINE OPERATOR): Longstanding issue for patinet. Continues to be cautious with fall prevention while maintaining activity level. Patient with vestibular testing to be completed at [facility] related to request for evaluation by balance center. Assessment & Plan (04/29/2024 10:17 AM CDT): Advised to see PT for dizziness and weakness. Patient declined referral due to essence picky on locations will let us know if a referral is needed. Also sent to Neuro for evaluation. Uses OTC meclizine PRN Encounters Date Type Department Care Team Description 10/12/2024 Nurse Triage [facility] [address] [address] Praful Hackett MD 10/11/2024 3:45 PM CDT Office Visit [facility] at [address] [phone] Sandhya Li NP Strep pharyngitis (Primary Dx); Acute cough; Purulent postnasal drainage; Elevated blood pressure reading in office with diagnosis of hypertension; Intermittent abdominal pain 10/11/2024 5:08 AM CDT - 10/11/2024 11:59 PM CDT Hospital Encounter [address] [address] Discharge Disposition: Discharge to home or self care 10/11/2024 5:06 AM CDT - 10/11/2024 11:59 PM CDT Hospital Encounter [address] [address] Discharge Disposition: Discharge to home or self care 10/09/2024 10:15 AM LINK FABRIC MACHINE OPERATOR Ancillary Procedure [facility] at [address] [phone] Acute cough 10/09/2024 10:15 AM LINK FABRIC MACHINE OPERATOR Office Visit [facility] at [address] [phone] Janee Zhang NP Acute cough (Primary Dx) 10/09/2024 Results Follow-Up [facility] at [address] [phone] Janee Zhang NP 09/07/2024 Orders Only [facility] [facility] Information Management [address] [place] [address] Scanning, Provider 08/24/2024 1:15 PM LINK FABRIC MACHINE OPERATOR Office Visit [facility] [address] [place] [phone] Delmi Chawla DO LPRD (laryngopharyngeal reflux disease) (Primary Dx); Chronic sinusitis, unspecified location 08/04/2024 2:00 PM LINK FABRIC MACHINE OPERATOR Office Visit [facility] at [address] [phone] Sandhya Li NP Acute maxillary sinusitis, recurrence not specified (Primary Dx); Elevated blood pressure reading in office with diagnosis of hypertension 08/03/2024 Nurse Triage [facility] [address] [address] Praful Hackett MD from Last 3 Months Immunizations Immunization Administration Dates Next Due COVID-19 mRNA (GetPromotd) 0.3 m L (30 mcg) vaccine (12 [...] adsorbed 01/18/2005 Tdap 09/15/2020 ZOSTER Recombinant 09/15/2020 Surgical History Surgery Date Site/Laterality Comments ACHILLES TENDON REPAIR Bilateral removed bursa sack, chipped off bone Medical History Medical History Date Comments Difficulty walking Weakness of limb Hypertension Kidney calculi 10 yrs ago, had surgery Cataract bilat [facility] Concussion Social History Tobacco Use Types Packs/Day Years [...] on file Legal Sex Male 7:31 PM LINK FABRIC MACHINE OPERATOR Gender Identity Not on file Sexual Orientation Not on file Obstetrics History Last Filed Vital Signs Vital Sign Reading [...] cm (5' 10 ) 10/09/2024 9:43 AM LINK FABRIC MACHINE OPERATOR Body Mass Index 26.83 10/09/2024 9:43 AM LINK FABRIC MACHINE OPERATOR Plan of Treatment Health Maintenance Due Date Last Done Comments Zoster Vaccine (2 of 2) 11/10/2020 09/15/2020 Covid-19 Vaccine (5 - 2023-2 5 season) 2024 04/15/2024, 05/14/2021, 10/01/2020, Additional history exists Depression Screening 06/23/2025 06/23/2024, 05/13/2024, 04/29/2024, Additional history exists Fall Risk Assessment 06/23/2025 06/23/2024, 05/13/2024, 04/29/2024, Additional history exists Well Visit 65+ 06/23/2025 06/23/2024 DTaP/Tdap/Td Vaccine (2 - Td or Tdap) 09/15/2030 09/15/2020, 01/18/2005 Hepatitis B Screening Completed 02/28/2006 , 08/31/2005, 02/23/2005, Additional history exists Pneumococcal vaccine 65+ Completed 05/16/2017, 05/06 Influenza Vaccine Completed 04/29/2024, , 05/16/2017, Additional history exists Procedures Procedure Name Priority Date/Time Associated Diagnosis Comments POCT URINALYSIS DIPSTICK Routine 10/11/2024 3:51 PM CDT Strep pharyngitis POCT RAPID STREP Routine 10/11/2024 3:46 PM CDT Strep pharyngitis INFLUENZA A/B, RSV, AND COVID-19 PCR Routine 10/11/2024 3:31 PM CDT XR CHEST PA LATERAL 2 VIEWS Schedule COSMO, Read COSMO (Appt Today, Awaiting Results) 10/09/2024 10:27 AM LINK FABRIC MACHINE OPERATOR Acute cough CARDIOLOGY DOCUMENT SCAN 09/07/2024 from Last 3 Months Results * (ABNORMAL) POCT urinalysis dipstick (10/11/2024 3:51 PM CDT) Color, Urine, POC Yellow Clarity, ur, POC Clear Clear Glucose, ur, POC Negative Negative MG/DL Bilirubin, ur, POC Negative Negative, Small, Moderate, Large Ketones, ur, POC Negative Negative Specific Miracle, POC 1.005 1.003 - 1.030 Blood, ur, POC Trace(A) Negative pH, ur, POC 6.5 5.0 - 8.0 Protein, ur, POC Negative Negative Urobilinogen, urine, POC 0.2 0.2 - 1.0 mg/dL Nitrite, ur, POC Negative Negative Leukocytes, ur, POC Negative Negative Lot Number [id number] Urine 10/11/2024 3:51 PM CDT Result [facility] Sandhya Li NP POINT OF CARE TEST ORDERABLES F inal Result * (ABNORMAL) POCT rapid strep A (10/11/2024 3:46 PM CDT) [facility] Rapid Strep A, POC Positive(A ) Negative Swab 10/11/2024 3:46 PM CDT Result [facility] Sandhya Li NP POINT OF CARE TEST ORDERABLES F inal Result * (ABNORMAL) Influenza A/B, RSV, and COVID-19 PCR Nasopharyngeal (10/11/2024 3:31 PM CDT) [facility] COVID-19 RNA Negative Negative Influenza A RNA Positive(A) Negative [facility] Influenza B RNA Negative Negative [facility] RSV RNA Negative Negative [facility] Comment: Interpretive data: Testing performed by [facility]. This test is performed using the [employer] Xpert Xpress CoV-2/Flu/RSV plus assay. This is a multiplex, real-time reverse transcriptase PCR assay intended for the qualitative detection of nucleic acid from SARS-CoV-2, influenza A, influenza B, and respiratory syncytial virus. This assay has been cleared by the [place] Food and Drug administration. The performance characteristics have been verified by the [facility]. Results must be considered in the clinical context, and a negative result does not rule out infection. Interpretive Data last revised 2023 Nasopharyngeal 10/11/2024 3: 31 PM CDT 10/12/2024 5:24 AM CDT Result [facility] Sandhya Li NP LAB MICROBIOLOGY - [facility] Final Result [facility] [address] Department [place] [address] CH * XR Chest Pa Lateral 2 Views (10/09/2024 10:27 AM LINK FABRIC MACHINE OPERATOR) Anatomical Region Laterality Modality Body, Chest N/A Digital Radiogra phy 10/09/2024 12:0 1 PM LINK FABRIC MACHINE OPERATOR Narrative 10/09/2024 12:01 PM LINK FABRIC MACHINE OPERATOR EXAM DESCRIPTION: XR CHEST PA LATERAL 2 [...] Karla Fitzgerald M.D. FT T: Report ID: [id number] Reading Location: [place] [address] Procedure Note Karla Hernandez MD - 10/09/2024 [...] Karla Fitzgerald M.D. FT T: Report ID: [id number] Reading Location: [id number] us Janee Zhang RETIREMENT VILLAGE MANAGER IMG XR PROCEDURES Final Re sult * Cardiology Document Scan (09/07/2024) Anatomical Region Laterality Modality Other us Provider Scanning [facility] CARDIAC SERVICES PROCEDURES Edited Result - Final from Last 3 Months Additional Health Concerns Infection Onset Date Last Indicated Exposure, COVID-19 Comment:Added automatically based on COVID19 lab answers indicating exposure risk 10/11/2024 10/11/2024 Influenza, adult 10/11/2024 10/11/2024 Insurance [facility] [employer] Member Subscriber Plan / Payer (Ef fective 2018-Present) Name:Katrin Remy Rika Relation to Subscriber:Self Name:Katrin Remy Meléndez Payer ID:[id number] (NAIC) Type:MEDICARE RISK OTHER Address: [address] [facility] [employer]PA [employer] Advance Directives For more information, please contact: [phone] * Full Code (Latest Code Status on File) Date Activated Date Inactivated Comments 10/10/2022 9:07 AM 10/10/2022 3:30 PM * Full Code Date Activated Date Inactivated Comments 10/10/2022 9:07 AM 10/10/2022 9:07 AM Care Teams Barker Operator Relationship Specialty Start Date End Date Praful Hackett MD [address] [place] [address] PCP - General Family Medicine 11/14/21
--- OUTSIDE RECORDS SUMMARY | 2024-10-13 04:50 | XMS_ITS | Clinical Summary ---
Author Organization [employer] [address] [facility] Address [address] [place] [address] Care Team Providers Care Phlebotomy Support Tech Name Role Phone Unavailable Primary Care Provider Unavailabl e Social History Tobacco Use Types Packs/Day Years Used Date Smoking Tobacco: Never Assessed Sex and Gender Information Value Date Recorded Sex Assigned at Not on file Legal Sex Male 2:46 PM TOMBSTONE CARVER Gender Identity Not on file Sexual Orientation Not on file Plan of Treatment Health Maintenance Due Date Last Done Comments DTAP/TDAP/TD VACCINES (1 - Tdap) 1958 PNEUMOCOCCAL VACCINE 50+ YEARS (1 of 1 - PCV) 02/08/19 89 ZOSTER VACCINE (1 of 2) 1989 RSV VACCINE (60+ or ) (1 - 1-dose 75+ series) 2014 INFLUENZA VACCINE (#1) 2024
--- NOTE | 2024-10-13 04:56 | ECG_ITS ---
Test Date: 2024-10-13 05:05:18 Measurements Intervals Comfort Rate: 45 P: 82 TN: 251 QRS: -22 QRSD: 110 T: 123 QT: 486 QTc: 424 Interpretive Statements SINUS BRADYCARDIA WITH FIRST DEGREE AV BLOCK INCOMPLETE RIGHT BUNDLE BRANCH BLOCK [90+ ms QRS DURATION, TERMINAL R IN V1/V2, 40+ ms S IN I/aVL/V4/V5/V6] INFERIOR MYOCARDIAL INFARCTION , PROBABLY OLD [40+ ms Q WAVE AND/OR ST/T ABNORMALITY IN II/aVF] MODERATE T-WAVE ABNORMALITY, CONSIDER LATERAL ISCHEMIA [-0.1+ mV T WAVE IN I/aVL/V5/V6] Compared to ECG 04/16/2024 13:18:09 NO SIGNIFICANT CHANGES Electronically Signed On 10-13-2024 14:52:36 CDT by Jona Mclain M.D.
[2024-10-13 05:23] LABS: Basophils Percent Auto 0.2 % (0.2-1.2); Eosinophils Absolute Auto 0.1 K/mm3 (0-0.3); Eosinophils Percent Auto 1.2 % (0-4.4); Hematocrit 44.5 % (42.0-52.0); Hemoglobin 14.9 g/dL (14.0-18.0); Immature Granulocyte Absolute 0.02 K/mm3 (0.00-0.031); Immature Granulocyte Percent A 0.3 % (0-0.5); Mean Corpuscular HGB Conc 33.5 g/dl (32-36); Mean Corpuscular Hemoglobin 31.1 pg (26-34); Mean Corpuscular Volume 92.9 fl (80-100); Mean Platelet Volume 9.4 fl (7.4-10.4); Monocytes Absolute Auto 0.4 K/mm3 (0.1-0.6); Monocytes Percent Auto 5.8 % (2.6-8.5); Neutrophils Absolute Auto 4.6 K/mm3 (1.3-6.7); Neutrophils Percent Auto 77.5 % (45.5-73.1); Platelet Count Result 204 k/mm3 (150-375); Red Blood Count 4.79 M/mm3 (4.6-6.20); Red Cell Distribution Width 12.9 % (11.5-14.5)
[2024-10-13] MEDS: ONDANSETRON INJ 4 MG/2 ML VIAL IV PUSH (05:26)
[2024-10-13 05:39] LABS: Alanine Aminotransferase 48 U/L (6-50); Albumin Level 3.8 g/dL (3.5-5.1); Alkaline Phosphatase 92 U/L (38-126); Anion Gap 6 mmol/L (4-12); Aspartate Amino Transferase 83 U/L (17-59); Bilirubin,Total 0.7 mg/dL (0.2-1.3); Blood Urea Nitrogen 18 mg/dL (9-20); Calcium 8.6 mg/dL (8.4-10.2); Carbon Dioxide 32 mmol/L (22-30); Chloride 103 mmol/L (98-107); Estimated CRCL calculation 52 ml/min; Estimated Glomerular Filt Rate > 60; Glucose 123 mg/dL (65-110); Lipase 126 U/L (23-300); Magnesium 1.9 mg/dL (1.6-2.3); Potassium 3.5 mmol/L (3.4-5.0); Sodium 141 mmol/L (137-145)
[2024-10-13] MEDS: ACETAMINOPHEN 325 MG TABLET 650 MG PO (05:40)
[2024-10-13 05:47] LABS: NT Pro B Type Natriuretic Pept 217 pg/mL (19.9-100)
[2024-10-13 05:49] LABS: Troponin I < 0.012 ng/mL (0.000-0.034)
[2024-10-13] MEDS: SODIUM CHLORIDE 0.9% IV 1,000 ML 999 ML IV CONT (05:56)
--- OUTSIDE RECORDS SUMMARY | 2024-10-13 06:01 | XMS_ITS | Encounter Summary ---
Author Organization [facility] Healthcare Address [address] [place] [address] Care Team Providers Care Insulation Foreman Name Role Phone Praful Hackett MD Primary Care Provider [phone] Encounter Details Date Type Department Care Team (Latest Contact Info) Description 10/11/2024 5:08 AM CDT - 10/11/2024 11:59 PM CDT Hospital Encounter [facility] [id number] [place] [address] Discharge Disposition: Discharge to home or self [...] on file Legal Sex Male 7:31 PM LARDER COOK Gender Identity Not on file Sexual Orientation [...] Negative Negative Influenza A RNA Positive(A) Negative [facility] Influenza B RNA Negative Negative [facility] RSV RNA Negative Negative [facility] Comment: Interpretive data: Testing performed by [facility]. This test is performed using the [employer] Xpert Xpress CoV-2/Flu/RSV plus assay. This is a multiplex, real-time reverse transcriptase PCR assay intended for the qualitative detection of nucleic acid from SARS-CoV-2, influenza A, influenza B, and respiratory syncytial virus. This assay has been cleared by the [place] Food and Drug administration. The performance characteristics have been verified by the [facility]. Results must be considered in the clinical context, and a negative result does not rule out infection. Interpretive Data last revised 2023 Nasopharyngeal 10/11/2024 3: 31 PM CDT 10/12/2024 5:24 AM CDT us Sandhya Li NP LAB MICROBIOLOGY - [facility] Final Result [facility] [address] Department [place] [address] documented in this encounter Visit Diagnoses Not on filedocumented in this encounter Additional Health Concerns Infection Onset Date Last Indicated Resolved Time Exposure, COVID-19 Comment:Added automatically based on COVID19 lab answers indicating exposure risk 10/11/2024 10/11/2024 COVID: Suspected 10/11/2024 10/11/2024 10/12/2024 3:07 AM CDT documented as of this encounter Care Teams Insulation Foreman Relationship Specialty Start Date End Date Praful Hackett MD [address] [place] [address] PCP - General Family Medicine 11/14/21 documented as of this encounter
--- OUTSIDE RECORDS SUMMARY | 2024-10-13 06:01 | XMS_ITS | Patient Health Summary ---
Author Organization [facility] Address [address] [place] [address] Care Team Providers Care Room Service Server Name Role Phone Unavailable Primary Care Provider Unavailabl e Note from [facility],non-owned Affiliates and Associated Physician Practices is amultiple site organization consisting of ambulatory clinics and hospital sitesin [place], [place], [place] and [place]. This disclosure is being madepursuant to the Care Everywhere program and may not contain all information available regarding this patient. Last updated 18.[facility] Social History Tobacco Use Types Packs/Day Years Used Date Smoking Tobacco: Never Assessed Sex and Gender Information Value Date Recorded Sex Assigned at Not on file Gender Identity Not on file Sexual Orientation Not on file
--- OUTSIDE RECORDS SUMMARY | 2024-10-13 06:01 | XMS_ITS | Encounter Summary ---
Author Organization [facility] Healthcare Address [address] [place] [address] Care Team Providers Care Ticket Maker Name Role Phone Praful Hackett MD Primary Care Provider [phone] [phone] Reason for Visit * Reason Onset Date Comments Medication Problem 10/12/2024 Encounter Details Date Type Department Care Team (Late st Contact Info) Description 10/12/2024 Nurse Triage [facility] [address] [address] Praful Hackett MD [address] [place] [address] Social History Tobacco Use Types Packs/Day Years [...] on file Legal Sex Male 7:31 PM BOG CUTTER Gender Identity Not on file Sexual Orientation [...] with Acute cought and Strep Pharyngitis at [facility] on 10/09 and 10/11. Message routed to office for further follow up and recommendations. Reason for Disposition Caller has NON-URGENT medicine question about med that PCP or specialist prescribed and triager unable to answer question Protocols used: Medication Question [id number] * Telephone Encounter - Chloe Ardon RN [...] appointment not scheduled? Requesting advice from clinical sales team leader. Additional Comments: Patient prescribed this for his [...] documented as of this encounter Care Teams Ticket Maker Relationship Specialty Start Date End Date Praful Hackett MD [address] [place] [address] PCP - General Family Medicine 11/14/21 documented as of this encounter
--- OUTSIDE RECORDS SUMMARY | 2024-10-13 06:01 | XMS_ITS | Encounter Summary ---
Author Organization [facility] Healthcare Address [address] [place] [address] Care Team Providers Care Fiscal Clerk Name Role Phone Praful Hackett MD Primary Care Provider [phone] [phone] Encounter Details Date Type Department Care Team (Late st Contact Info) Description 03/16/2024 Telephone [facility] [address] [facility] [place] [address] Praful Hackett MD [address] [place] [address] Social History Tobacco Use Types Packs/Day Years [...] on file Legal Sex Male 7:31 PM BUSINESS ADMINISTRATION PROGRAM CHAIR Gender Identity Not on file Sexual Orientation [...] documented as of this encounter Care Teams Fiscal Clerk Relationship Specialty Start Date End Date Praful Hackett MD [address] [place] [address] PCP - General Family Medicine 11/14/21 documented as of this encounter
--- OUTSIDE RECORDS SUMMARY | 2024-10-13 06:01 | XMS_ITS | Encounter Summary ---
Author Organization [facility] Healthcare Address [address] [place] [address] Care Team Providers Care Straight Truck Driver Name Role Phone Praful Hackett MD Primary Care Provider [phone] Encounter Details Date Type Department Care Team (Latest Contact Info) Description 10/11/2024 5:06 AM CDT - 10/11/2024 11:59 PM CDT Hospital Encounter [facility] [id number] [place] [address] Discharge Disposition: Discharge to home or self [...] on file Legal Sex Male 7:31 PM CHANNEL LIP STIFFENER INSOLES Gender Identity Not on file Sexual Orientation [...] documented as of this encounter Care Teams Straight Truck Driver Relationship Specialty Start Date End Date Praful Hackett MD [address] [place] [address] PCP - General Family Medicine 11/14/21 documented as of this encounter
--- OUTSIDE RECORDS SUMMARY | 2024-10-13 06:01 | XMS_ITS | Referral Summary ---
Author Organization [facility] Address [address] [place] [address] Care Team Providers Care Bonus Clerk Name Role Phone Unavailable Primary Care Provider Unavailabl e Source Comments [facility],non-owned Affiliates and Associated Physician Practices is amultiple site organization consisting of ambulatory clinics and hospital sitesin [place], [place], [place] and [place]. This disclosure is being madepursuant to the Care Everywhere program and may not contain all information available regarding this patient. Last updated 18.[facility] [employer] Social History Tobacco Use Types Packs/Day Years Used Date Smoking Tobacco: Never Assessed Sex and Gender Information Value Date Recorded Sex Assigned at Not on file Gender Identity Not on file Sexual Orientation Not on file Plan of Treatment Not on file
--- OUTSIDE RECORDS SUMMARY | 2024-10-13 06:01 | XMS_ITS | Referral Summary ---
Author Organization [facility] [address] Address [address] [place] [address] Care Team Providers Care Internal Medicine Doctor Name Role Phone Praful Hackett MD Primary Care Provider [phone] [phone] Encounters Date Type Department Care Team Description 10/12/2024 Nurse Triage [facility] [address] [address] Praful Hackett MD 10/11/2024 5:08 AM CDT - 10/11/2024 11:59 PM CDT Hospital Encounter [address] [address] Discharge Disposition: Discharge to home or self care 10/11/2024 5:06 AM CDT - 10/11/2024 11:59 PM CDT Hospital Encounter [address] [address] Discharge Disposition: Discharge to home or self care 10/11/2024 3:45 PM CDT Office Visit [facility] at [address] [address] Sandhya Li NP Strep pharyngitis (Primary Dx); Acute cough; Purulent postnasal drainage; Elevated blood pressure reading in office with diagnosis of hypertension; Intermittent abdominal pain 10/09/2024 Results Follow-Up [facility] at [address] [address] Janee Zhang NP 10/09/2024 10:15 AM HORSE RIDER Ancillary Procedure [facility] Imaging at [address] [address] Acute cough 10/09/2024 10:15 AM HORSE RIDER Office Visit [facility] Convenient Care at [address] [address] Janee Zhang NP Acute cough (Primary Dx) 09/07/2024 Orders Only [facility] Health Information Management [address] [place] [address] Scanning, Provider 08/24/2024 1:15 PM HORSE RIDER Office Visit [facility] ENT Specialists - [address] [place] [address] Delmi Chawla DO LPRD (laryngopharyngeal reflux disease) (Primary Dx); Chronic sinusitis, unspecified location 08/04/2024 2:00 PM HORSE RIDER Office Visit [facility] Con[facility]ient Care at [address] [address] Sandhya Li NP Acute maxillary sinusitis, recurrence not specified (Primary Dx); Elevated blood pressure reading in office with diagnosis of hypertension 08/03/2024 Nurse Triage [facility] [address] [address] Praful Hackett MD from Last [...] 08/24/19 Assessment & Plan (08/24/2024 1:37 PM HORSE RIDER): Pepcid 40 mg Continue elevated head of bed Donut or Ushaped pillow to take pressure off right ear Call if no improvement in 3 months for referral to GI Laryngopharyngeal reflux discussed and Handout provided Medicare annual wellness visit, subsequent 06/23 Assessment & Plan (06/23/2024 3:43 PM HORSE RIDER): Focus of exam is preventative in anture. Reviewed immunizations, reviewed sun/skin cancer screening. Reivewed age and comrobid appropriate screenings and iwll follow response. Chronic sinusitis 06/23/2024 Assessment & Plan (06/23/2024 3:44 PM HORSE RIDER): Most likely multifactorial and will follow response. Refer to ENT Reivwed sparing use of nasal decongestants and will follow response. Hypertension, essential 06/23/2024 Assessment & Plan (06/23/2024 3:44 PM HORSE RIDER): Stable at the presnt time. Encourage to [...] (09/10/2022): Added automatically from request for surgery [id number] Postconcussion syndrome 04/12/2022 Assessment & Plan (04/12/2022 1:04 PM CDT): Persistent vestibular symptoms that improve with exercise Concussion education provided Encouraged continued high level exercise to his tolerance Discussed ways to accommodate visual or vestibular symptoms such as the rule Dizziness and giddiness 08/24/2020 Assessment & Plan (06/23/2024 3:45 PM HORSE RIDER): Longstanding issue for patinet. Continues to be cautious with fall prevention while maintaining activity level. Patient with vestibular testing to be completed at [facility] related to request for evaluation by balance center. Assessment & Plan (04/29/2024 10:17 AM CDT): Advised to see PT for dizziness and weakness. Patient declined referral due to essence picky on locations will let us know if a referral is needed. Also sent to Neuro for evaluation. Uses OTC meclizine PRN Immunizations Immunization Administration Dates Next Due COVID-19 mRNA ([employer]) 0.3 m L (30 mcg) vaccine (12 [...] on file Legal Sex Male 7:31 PM HORSE RIDER Gender Identity Not on file Sexual Orientation [...] cm (5' 10 ) 10/09/2024 9:43 AM HORSE RIDER Body Mass Index 26.83 10/09/2024 9:43 AM HORSE RIDER Plan of Treatment Not on file Procedures Procedure Name Priority Date/Time Associated Diagnosis Comments POCT URINALYSIS DIPSTICK Routine 10/11/2024 3:51 PM CDT Strep pharyngitis POCT RAPID STREP Routine 10/11/2024 3:46 PM CDT Strep pharyngitis INFLUENZA A/B, RSV, AND COVID-19 PCR Routine 10/11/2024 3:31 PM CDT XR CHEST PA LATERAL 2 VIEWS Schedule COSMO, Read COSMO (Appt Today, Awaiting Results) 10/09/2024 10:27 AM HORSE RIDER Acute cough CARDIOLOGY DOCUMENT SCAN 09/07/2024 from Last 3 Months Results * (ABNORMAL) POCT urinalysis dipstick (10/11/2024 3:51 PM CDT) Pathologist [facility] Color, Urine, POC Yellow Clarity, ur, POC Clear Clear Glucose, ur, POC Negative Negative MG/DL Bilirubin, ur, POC Negative Negative, Small, Moderate, Large Ketones, ur, POC Negative Negative Specific [place], POC 1.005 1.003 - 1.030 Blood, ur, POC Trace(A) Negative pH, ur, POC 6.5 5.0 - 8.0 Protein, ur, POC Negative Negative Urobilinogen, urine, POC 0.2 0.2 - 1.0 mg/dL Nitrite, ur, POC Negative Negative Leukocytes, ur, POC Negative Negative Lot Number [id number] Urine 10/11/2024 3:51 PM CDT Sandhya Li NP POINT OF CARE TEST ORDERABLES F inal Result * (ABNORMAL) POCT rapid strep A (10/11/2024 3:46 PM CDT) Pathologist [facility] Rapid Strep A, POC Positive(A ) Negative Swab 10/11/2024 3:46 PM CDT Sandhya Li NP POINT OF CARE TEST ORDERABLES F inal Result * (ABNORMAL) Influenza A/B, RSV, and COVID-19 PCR Nasopharyngeal (10/11/2024 3:31 PM CDT) Pathologist [facility] COVID-19 RNA Negative Negative Influenza A RNA Positive(A) Negative [facility] Influenza B RNA Negative Negative [facility] RSV RNA Negative Negative [facility] Comment: Interpretive data: Testing performed by [facility]. This test is performed using the [employer] Xpert Xpress CoV-2/Flu/RSV plus assay. This is a multiplex, real-time reverse transcriptase PCR assay intended for the qualitative detection of nucleic acid from SARS-CoV-2, influenza A, influenza B, and respiratory syncytial virus. This assay has been cleared by the [place] Food and Drug administration. The performance characteristics have been verified by the [facility]. Results must be considered in the clinical context, and a negative result does not rule out infection. Interpretive Data last revised 2023 Nasopharyngeal 10/11/2024 3: 31 PM CDT 10/12/2024 5:24 AM CDT us Sandhya Li NP LAB MICROBIOLOGY - GENERAL STEFANIA OCHOA Final Result [facility] [address] Department [place] [address] CH * XR Chest Pa Lateral 2 Views (10/09/2024 10:27 AM HORSE RIDER) Anatomical Region Laterality Modality Body, Chest N/A Digital Radiogra phy 10/09/2024 12:0 1 PM HORSE RIDER Narrative 10/09/2024 12:01 PM HORSE RIDER EXAM DESCRIPTION: XR CHEST PA LATERAL 2 [...] Karla Fitzgerald M.D. FT T: Report ID: [id number] Reading Location: [id number] Procedure Note Karla Hernandez MD - 10/09/2024 [...] Karla Fitzgerald M.D. FT T: Report ID: [id number] Reading Location: [place] [address] Janee Zhang INFORMATION SYSTEMS OPERATOR IMG XR PROCEDURES Final Re sult * Cardiology Document Scan (09/07/2024) Anatomical Region Laterality Modality Other Provider Scanning CV CARDIAC SERVICES PROCEDURES Edited Result - Final from Last 3 Months Additional Health Concerns Infection Onset Date Last Indicated Exposure, COVID-19 Comment:Added automatically based on COVID19 lab answers indicating exposure risk 10/11/2024 10/11/2024 Influenza, adult 10/11/2024 10/11/2024 Insurance IDPA [facility] IDMA [facility] MEDICARE SOLUTIONS [facility] Address: [address] [address] [place] [address] Advance Directives For more information, please contact: [phone] * Full Code (Latest Code Status on File) Date Activated Date Inactivated Comments 10/10/2022 9:07 AM 10/10/2022 3:30 PM * Full Code Date Activated Date Inactivated Comments 10/10/2022 9:07 AM 10/10/2022 9:07 AM Care Teams Internal Medicine Doctor Relationship Specialty Start Date End Date Praful Hackett MD [address] [place] [address] PCP - General Family Medicine 11/14/21
--- OUTSIDE RECORDS SUMMARY | 2024-10-13 06:01 | XMS_ITS | Clinical Summary ---
Author Organization [facility] Address [address] [place] [address] Phone Care Team Providers Care Pool Technician Name Role Phone Praful Hackett MD Primary Care Provider [phone] [phone] Manav Garcia MD Unavailable [phone] Allergies No known active allergies Medications Ginkgo Biloba 40 MG Tablet Take by mouth. Active lisinopril (PRINIVIL, ZESTRIL) 40 MG Tablet Take 40 mg by mouth daily. Active Mirabegron ER (Myrbetriq) 25 MG TABLET SR 24 HR Take by mouth. Active Multiple Vitamin (MULTIVITAMIN PO) Take by mouth. Active Inman-3 Fatty Acids (OMEGA 3 PO) Take by mouth. Active FLUNISOLIDE, NASAL, NA by Nasal route. Active montelukast (SINGULAIR) 10 MG Tablet Take 10 mg by mouth every evening. Active amLODIPine (NORVASC) 5 MG Tablet Take 5 mg by mouth daily. Active finasteride (PROSCAR) 5 MG Tablet Take 5 mg by mouth daily. Active Encounters Date Type Department Care Team Description 09/08/2024 10:00 AM ELECTRIC STOVE MECHANIC Office Visit [facility] [address] [place] [address] Manav Garcia MD Benign paroxysmal [...] Comments Blood Pressure 138/90 09/08/2024 10:34 AM ELECTRIC STOVE MECHANIC Pulse 84 09/08/2024 10:34 AM ELECTRIC STOVE MECHANIC Temperature 36.9 C (98.4 F) 09/08/2024 10:25 AM ELECTRIC STOVE MECHANIC Respiratory Rate 16 09/08/2024 10:25 AM ELECTRIC STOVE MECHANIC Oxygen Saturation - - Inhaled Oxygen Concentration - - Weight 83.7 kg (184 lb 9.6 oz) 09/08/2024 10:25 AM ELECTRIC STOVE MECHANIC Height 177.8 cm (5' 10 ) 09/08/2024 10:25 AM ELECTRIC STOVE MECHANIC Body Mass Index 26.49 09/08/2024 10:25 AM ELECTRIC STOVE MECHANIC Plan of Treatment Upcoming Encounters Date Type Department Care Team (Late st Contact Info) Description 03/11/2025 10:00 AM CDT Office Visit [facility] [address] [place] [address] Manav Garcia MD [address] [place] [address] Health Maintenance Due Date Last Done Comments [...] MEDICAID [place] MEDICARE C [employer] Care Teams Pool Technician Relationship Specialty Start Date End Date [place] [address] PCP - General Internal Medicine 04/29/24 Manav Garcia MD [address] [place] [address] Consulting Physician Neurology 09/08/24
--- OUTSIDE RECORDS SUMMARY | 2024-10-13 06:01 | XMS_ITS | Encounter Summary ---
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
--- OUTSIDE RECORDS SUMMARY | 2024-10-13 06:01 | XMS_ITS | Clinical Summary ---
Author Organization [facility] [address] [facility] Address [address] [place] [address] Care Team Providers Care Construction Lineman Name Role Phone Unavailable Primary Care Provider Unavailabl e Social History Tobacco Use Types Packs/Day Years Used Date Smoking Tobacco: Never Assessed Sex and Gender Information Value Date Recorded Sex Assigned at Not on file Legal Sex Male 2:46 PM SPECIALTY FOODS COOK Gender Identity Not on file Sexual [...]
--- OUTSIDE RECORDS SUMMARY | 2024-10-13 06:01 | XMS_ITS | Encounter Summary ---
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
--- OUTSIDE RECORDS SUMMARY | 2024-10-13 06:01 | XMS_ITS | Clinical Summary ---
Author Organization [facility] [address] Address [address] [place] [address] Care Team Providers Care Windscreen Fitter Name Role Phone Praful Hackett MD Primary Care Provider [phone] [phone] Allergies No known active allergies Medications omega-3 [...] 25 Assessment & Plan (08/24/2024 1:37 PM CHILD PSYCHIATRIST): Pepcid 40 mg Continue elevated head of bed Donut or Ushaped pillow to take pressure off right ear Call if no improvement in 3 months for referral to GI Laryngopharyngeal reflux discussed and Handout provided Medicare annual wellness visit, subsequent 06/23 Assessment & Plan (06/23/2024 3:43 PM CHILD PSYCHIATRIST): Focus of exam is preventative in anture. Reviewed immunizations, reviewed sun/skin cancer screening. Reivewed age and comrobid appropriate screenings and iwll follow response. Chronic sinusitis 06/23/2024 Assessment & Plan (06/23/2024 3:44 PM CHILD PSYCHIATRIST): Most likely multifactorial and will follow response. Refer to ENT Reivwed sparing use of nasal decongestants and will follow response. Hypertension, essential 06/23/2024 Assessment & Plan (06/23/2024 3:44 PM CHILD PSYCHIATRIST): Stable at the presnt time. Encourage to [...] (09/10/2022): Added automatically from request for surgery [id number] Postconcussion syndrome 04/12/2022 Assessment & Plan (04/12/2022 1:04 PM CDT): Persistent vestibular symptoms that improve with exercise Concussion education provided Encouraged continued high level exercise to his tolerance Discussed ways to accommodate visual or vestibular symptoms such as the rule Dizziness and giddiness 08/24/2020 Assessment & Plan (06/23/2024 3:45 PM CHILD PSYCHIATRIST): Longstanding issue for patinet. Continues to be cautious with fall prevention while maintaining activity level. Patient with vestibular testing to be completed at [facility] related to request for evaluation by balance [...] Description 10/12/2024 Nurse Triage [facility] of [address] [address] Praful Hackett MD 10/11/2024 3:45 PM CDT Office Visit [facility] Medical [facility] Convenient Care at [address] [phone] Sandhya Li NP Strep pharyngitis (Primary Dx); Acute cough; Purulent postnasal drainage; Elevated blood pressure reading in office with diagnosis of hypertension; Intermittent abdominal pain 10/11/2024 5:08 AM CDT - 10/11/2024 11:59 PM CDT Hospital Encounter [address] [address] Discharge Disposition: Discharge to home or self care 10/11/2024 5:06 AM CDT - 10/11/2024 11:59 PM CDT Hospital Encounter [address] [address] Discharge Disposition: Discharge to home or self care 10/09/2024 10:15 AM CHILD PSYCHIATRIST Ancillary Procedure [facility] Imaging at [address] [phone] Acute cough 10/09/2024 10:15 AM CHILD PSYCHIATRIST Office Visit [facility] Convenient Care at [address] [phone] Janee Zhang NP Acute cough (Primary Dx) 10/09/2024 Results Follow-Up [facility] Convenient Care at [address] [address] Janee Zhang NP 09/07/2024 Orders Only [facility] Health Information Management [address] [place] [address] Scanning, Provider 08/24/2024 1:15 PM CHILD PSYCHIATRIST Office Visit [facility] ENT Specialists - [address] [place] [phone] Delmi Chawla DO LPRD (laryngopharyngeal reflux disease) (Primary Dx); Chronic sinusitis, unspecified location 08/04/2024 2:00 PM CHILD PSYCHIATRIST Office Visit [facility] Medical Group [facility] Care at [address] [address] Sandhya Li NP Acute maxillary sinusitis, recurrence not specified (Primary Dx); Elevated blood pressure reading in office with diagnosis of hypertension 08/03/2024 Nurse Triage [facility] [address] [address] Praful Hackett MD from Last 3 Months Immunizations Immunization Administration Dates Next Due COVID-19 mRNA ([employer]) 0.3 m L (30 mcg) vaccine (12 [...] on file Legal Sex Male 7:31 PM CHILD PSYCHIATRIST Gender Identity Not on file Sexual Orientation [...] cm (5' 10 ) 10/09/2024 9:43 AM CHILD PSYCHIATRIST Body Mass Index 26.83 10/09/2024 9:43 AM CHILD PSYCHIATRIST Plan of Treatment Health Maintenance Due Date [...] (Appt Today, Awaiting Results) 10/09/2024 10:27 AM CHILD PSYCHIATRIST Acute cough CARDIOLOGY DOCUMENT SCAN 09/07/2024 from Last 3 Months Results * (ABNORMAL) POCT urinalysis dipstick (10/11/2024 3:51 PM CDT) Color, Urine, POC Yellow Clarity, ur, POC Clear Clear Glucose, ur, POC Negative Negative MG/DL Bilirubin, ur, POC Negative Negative, Small, Moderate, Large Ketones, ur, POC Negative Negative Specific [place], POC 1.005 1.003 - 1.030 Blood, ur, POC Trace(A) Negative pH, ur, POC 6.5 5.0 - 8.0 Protein, ur, POC Negative Negative Urobilinogen, urine, POC 0.2 0.2 - 1.0 mg/dL Nitrite, ur, POC Negative Negative Leukocytes, ur, POC Negative Negative Lot Number [id number] Urine 10/11/2024 3:51 PM CDT Result [facility] Sandhya Li NP POINT OF CARE TEST ORDERABLES F inal Result * (ABNORMAL) POCT rapid strep A (10/11/2024 3:46 PM CDT) [facility] Rapid Strep A, POC Positive(A ) Negative Swab 10/11/2024 3:46 PM CDT Result [facility] Sandhya Li NP POINT OF CARE TEST ORDERABLES F inal Result * (ABNORMAL) Influenza A/B, RSV, and COVID-19 PCR Nasopharyngeal (10/11/2024 3:31 PM CDT) [facility] COVID-19 RNA Negative Negative Influenza A RNA Positive(A) Negative [facility] Influenza B RNA Negative Negative [facility] RSV RNA Negative Negative [facility] Comment: Interpretive data: Testing performed by [facility]. This test is performed using the [employer] Xpert Xpress CoV-2/Flu/RSV plus assay. This is a multiplex, real-time reverse transcriptase PCR assay intended for the qualitative detection of nucleic acid from SARS-CoV-2, influenza A, influenza B, and respiratory syncytial virus. This assay has been cleared by the [place] Food and Drug administration. The performance characteristics have been verified by the [facility]. Results must be considered in the clinical context, and a negative result does not rule out infection. Interpretive Data last revised 2023 Nasopharyngeal 10/11/2024 3: 31 PM CDT 10/12/2024 5:24 AM CDT Result [facility] Sandhya Li NP LAB MICROBIOLOGY - [facility] Final Result [facility] [address] Department [place] [address] CH * XR Chest Pa Lateral 2 Views (10/09/2024 10:27 AM CHILD PSYCHIATRIST) Anatomical Region Laterality Modality Body, Chest N/A Digital Radiogra phy 10/09/2024 12:0 1 PM CHILD PSYCHIATRIST Narrative 10/09/2024 12:01 PM CHILD PSYCHIATRIST EXAM DESCRIPTION: XR CHEST PA LATERAL 2 [...] Karla Fitzgerald M.D. FT T: Report ID: [id number] Reading Location: [place] [address] Procedure Note Karla Hernandez MD - 10/09/2024 [...] Karla Fitzgerald M.D. FT T: Report ID: [id number] Reading Location: [id number] us Janee Zhang DRIER OPERATOR HELPER IMG XR PROCEDURES Final Re sult * Cardiology Document Scan (09/07/2024) Anatomical Region Laterality Modality Other us Provider Scanning CV CARDIAC SERVICES PROCEDURES Edited Result - Final from Last 3 Months Additional Health Concerns Infection Onset Date Last Indicated Exposure, COVID-19 Comment:Added automatically based on COVID19 lab answers indicating exposure risk 10/11/2024 10/11/2024 Influenza, adult 10/11/2024 10/11/2024 Insurance [facility] [employer] Member Subscriber Plan / Payer (Ef fective 2018-Present) Name:Katrin Remy Rika Relation to Subscriber:Self Name:Katrin Remy Meléndez Payer ID:[id number] (NAIC) Type:MEDICARE RISK OTHER Address: [address] [place] [address] [facility] HEALTHCARE IDPA [employer] MED[employer] SOL[employer]IONS Advance Directives For more information, please contact: [phone] * Full Code (Latest Code Status on File) Date Activated Date Inactivated Comments 10/10/2022 9:07 AM 10/10/2022 3:30 PM * Full Code Date Activated Date Inactivated Comments 10/10/2022 9:07 AM 10/10/2022 9:07 AM Care Teams Windscreen Fitter Relationship Specialty Start Date End Date Praful Hackett MD [address] [place] [address] PCP - General Family Medicine 11/14/21
--- OUTSIDE RECORDS SUMMARY | 2024-10-13 06:01 | XMS_ITS | Continuity of Care Document ---
Author Organization [facility] Address [address] [place] [address] Phone Care Team Providers Care Mother Baby Rn Name Role Phone Patel PT,MPT,ATC, Mckinley Unavailable [...] Diagnoses Date Provider Providers Copied on Encounter [facility], [place], [place], [id number], [place] tel:[phone] [place] No Information 4 Jorge Sofia , [place], [place]. [facility], [place], [place], [id number], tel:[phone] [place] No Information 4 Jorge [place] , [place], [place]. Referring Provider: Ish Dow [place], [address]. tel:[phone] [facility], [place], [place], [address], [place] tel:[phone] [place] No Information 3 Elmer Gurwinder. . Referring Provider: Ish Dow [place], [address]. tel:[phone] [facility], [place], [place], [address], [place] tel:[phone] [place] No Information 3 Elmer Gurwinder. . Referring Provider: Ish Dow [place], [address]. tel:[phone] [facility], [place], [address], [place] tel:[phone] [place] No Information 3 Elmer Gurwinder. . Referring Provider: Ish Dow [place], [address]. tel:[phone] [facility], [place], [address], [place] tel:[phone] [place] No Information 2 Jorge Sof[place] , [place], [place]. Referring Provider: Ish Dow [place], [address]. tel:[phone] [facility], [place], [place], [address], [place] tel:[phone] [place] No Information 2 Jorge [place] , [place], [place]. Referring Provider: [place], [address]. tel:[phone] [facility] [address], [place], [place], [address], [place] tel:[phone] [place] No Information 2 Jorge [place] , [place], [place]. Referring Provider: [place], [address]. tel:[phone] [facility], [address], [place], [place], [address], [place] tel:[phone] [place] No Information 2 Nasir Osorio . Referring Provider: [place], [address]. tel:[phone] [facility], [address], [place], [place], [address], [place] tel:[phone] [place] No Information 2 Jorge [place] , [place], [place]. Referring Provider: [place], [address]. tel:[phone] [facility], [place], [place], [address], [place] tel:[phone] [place] No Information 2 Jorge Sen. , [place], [place]. Referring Provider: [place], [address]. tel:[phone] [facility], [place], [address], [place] tel:[phone] [place] No Information 2 Jorge [place] , [place], [place]. Referring Provider: Praful Hackett, [place], [address]. tel:[phone] [facility], [address], [place], [place], [address], [place] tel:[phone] [place] No Information 2 Jorge Sofia [place], [place], [place]. Referring Provider: [place], [address]. tel:[phone] Family History Family Member Type Diagnosis Age At Onset No Information Payers Payer name Insurance type Covered constitution party ID Authoriza tion(s) [employer] [place] [id number] Medicaid OON Write Off CI 00 Social [...]
--- OUTSIDE RECORDS SUMMARY | 2024-10-13 06:01 | XMS_ITS | Continuity of Care Document ---
Author Organization [facility] Address [address] [place] [address] Phone Care Team Providers Care Counselor [employer] Name Role Phone Pancho Garcia Unavailable Unavailable [...] Copied on Encounter Office/outpat ient Visit, [facility], [address] [place] [address] [address], [place], [place], [address], [place] tel:[phone] [facility] No Information 2-200 9 Krishnasamy Pancho. [address], [facility], [place]. tel:[phone] Office/outpat ient Visit, [facility], [address] [place] [address] [address], [place], [place], [address], [place] tel:[phone] [facility] No Information 0-200 9 Krishnasamy Pancho. [address] [facility] [address], [place], [address], [place]. tel:[phone] [facility], [address] [place] [address] [address], [place], [place], [address], [place] tel:[phone] [facility] No Information 7200 9 Radha Whittingtonl. [address] [place] [address], [facility], [place]. tel:[phone] [facility], [address], [place], [place], [address], [place] tel:[phone] [facility] No Information 4200 8 Melissa Ferro. [address] [facility], [place], [facility], [place]. tel:[phone] Referring Provider: Pancho kapoor, [address] [place] [address], [facility]. tel:[phone] [facility], [address], [place], [place], [address], [place] tel:[phone] [facility] No Information 8 8 Krishnasgisele Pancho. [address] [place] [address], [facility], [place]. tel:[phone] Office/outpat ient Visit, [facility], [address], [place], [place], [address], [place] tel:[phone] [facility] No Information Apr- 5200 7 Marleny Diallo. [address] [facility] [place], [address], [place]. tel:[phone] Office/outpat ient Visit, [facility], [address], [place], [place], [address], [place] tel:[phone] [facility] No Information Mar-2 8-200 7 Wankum Yoel. [address], [place], [address], . tel:[phone] Family History Family Member Type Diagnosis Age At Onset No Information Payers Payer name Insurance type Covered alliance party ID Irving griffiths(s) [facility] [id number] Social History Type Description Quantity Date [...]
--- OUTSIDE RECORDS SUMMARY | 2024-10-13 06:01 | XMS_ITS | Clinical Summary ---
Author Organization [facility] [employer] Address [address] [place] [address] Care Team Providers Care Document Restorer Name Role Phone Unavailable Primary Care Provider Unavailabl e Source Comments [facility],non-owned Affiliates and Associated Physician Practices is amultiple site organization consisting of ambulatory clinics and hospital sitesin [place], [place], [place] and [place]. This disclosure is being madepursuant to the Care Everywhere program and may not contain all information available regarding this patient. Last updated 18.[facility] [employer] Social History Tobacco Use Types Packs/Day Years [...] this topic MENINGOCOCCAL VACCINE Aged Out No cyndi daina eligible based on patient's age to complete this topic
--- OUTSIDE RECORDS SUMMARY | 2024-10-13 06:01 | XMS_ITS | Encounter Summary ---
Author Organization 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
[2024-10-13 06:07] LABS: Add Urine Microscopic? YES; Appearance Urine Cloudy (Clear); Bacteria Urine None Seen /hpf; Bilirubin Urine Negative (Negative); Blood Urine Negative (Negative); Color Urine Dark Yellow (Yellow); Glucose Urine UA Negative (Negative); Ketones Urine Trace mg/dL (Negative); Leukocyte Esterase Ur Negative LEU/UL (Negative); Need Manual Microscopic Reviewed; Nitrate Urine Negative (Negative); Protein Urine 1+ mg/dL (Negative); Specific Grav Ur 1.031 (1.001-1.035); Squamous Epithelial Cell Urine Occasional /hpf (Few); pH Urine 5.5 (5.0-9.0)
--- NOTE | 2024-10-13 06:41 | ED_ITS ---
HPI - Abdominal Pain General Chief Complaint: Abdominal Pain Stated Complaint: Really bad stomach ache, lightheaded, dizzy Time Seen by Provider: 10/13/24 04:56 History of Present Illness HPI narrative: Patient is an 84-year-old male who presents emergency department this morning complaining of lightheadedness, dizziness and nausea. Patient was diagnosed with influenza this past Saturday and his primary care physician started him on amoxicillin for some reason. Patient believes it was for some shortness of breath. Patient denies any cough or shortness of breath at this time. who is present at bedside states that once he started to take the antibiotic he started to develop some nausea and has been having some diarrhea as well. She also states that the patient has been taking the antibiotic on an empty stomach which could have been precipitating his symptoms. Denies any chest pain, any headaches, vision changes, focal weakness, numbness and tingling. No additional symptoms or concerns at this time. Related Data Home Medications ?Medication ?Instructions ?Recorded ?Confirmed ?Last Taken ?Type ffooidkr-jdtfxyzh-pmhzv acid 400 1 tablet PO DAILY 06/09/19 08/17/24 06/09/19 History mcg-vit K 20 mcg-lycop 300 mcg tablet (Men's Multivitamin) finasteride 5 mg tablet (Proscar) 5 mg PO DAILY 11/23/20 08/17/24 Unknown History omega 3-bdi-xxq-fish oil 1,000 mg 1 cap PO DAILY 08/31/21 08/17/24 Unknown History (120 mg-180 mg) capsule (Fish Oil) lisinopril 40 mg tablet 40 mg PO DAILY 02/03/24 08/17/24 Unknown History Allergies Allergy/AdvReac Type Severity Reaction Status Date / Time No Known Allergies Allergy Verified 08/17/24 10:12 Review of Systems 2 Review of Systems: All systems are reviewed and are negative unless stated otherwise in the HPI. [facility] Past Medical History Medical History History of adenomatous polyp of colon Environmental allergies BPH loc w/o ur obs/LUTS After cataract (~11/2019) Dizziness of unknown etiology OAB (overactive bladder) Essential (primary) hypertension Vertigo Kidney stones History of right ureteral stent October 2011 Surgical History Surgical History Achilles tendon avulsion (~2003) Status post repair 2003 Left, 2011 Right History of cataract surgery (~2017) Bilateral 2018 Rectal foreign body (~10/2011) With surgical removal October 2011 H/O hernia repair (~2008) Family History Family History Father , Late onset coronary artery disease Heart disease Dementia Mother Family history of Alzheimer's disease Family history of heart disease in male family member before age 55, Onset Age: 91 Patient's mother is Father Hypertension Family history of Alzheimer's disease, Onset Age: 90 Patient's father is , Onset Age: 90 Other Family history of cardiovascular disease Social History Social History Social History: The patient runs 2-3 miles a day and has done so since 1968. 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 Gender identity (if verbalized by the patient): Male Exam 2 Narrative: General: Alert, awake, afebrile, in no acute distress, pleasant elderly male. HEENT: PERRL, no rhinorrhea, no post nasal drip, oropharynx clear. Neck: Trachea midline, no JVD, no lymphadenopathy. Cardiovascular: Bradycardic with regular rhythm, no murmurs, rubs or gallops, no peripheral edema. Respiratory: Clear to auscultation bilaterally, no tachypnea, no wheezing, no rhonchi, no rubs, no respiratory distress. Abdomen: Soft, nontender, nondistended, no rebound, no guarding, no peritoneal signs. Musculoskeletal: No joint swelling or deformity, normal muscle tone. Skin: No rashes or petechia, no signs of infection. Psychiatric: Alert and oriented, normal behavior and judgment for situation. Neurological: Alert and oriented to person, place, and time. Follows all commands. No focal deficits, speech is clear and fluent. Course Vital Signs Vital signs: Vital Signs Temperature 97.7 F 10/13/24 05:00 Pulse Rate 46 L 10/13/24 05:00 Respiratory Rate 20 10/13/24 05:00 Blood Pressure 171/96 H 10/13/24 05:00 Pulse Oximetry 100 10/13/24 05:00 Temperature 97.7 F 10/13/24 05:00 Pulse Rate 57 L 10/13/24 06:46 Respiratory Rate 18 10/13/24 06:46 Blood Pressure 151/82 H 10/13/24 06:46 Pulse Oximetry 98 10/13/24 06:46 MDM - Abdominal Pain MDM Narrative Medical decision making narrative: The patient was evaluated by myself in the emergency department. History is obtained from patient who is an independent historian and physical exam was performed. External medical records were reviewed at this time. IV was established and pertinent tests were ordered. Patient was administered an oral Tylenol 650 mg for body aches and 4 mg IV Zofran for nausea. EKG was obtained which revealed sinus bradycardia rate of 45 beats per minute, no evidence of acute ischemia. EKG was independently interpreted by me and is currently pending official cardiology read. EKG was compared to multiple previous EKGs on file all revealing sinus bradycardia, patient's heart rate tends to ranged between 44-53 beats per minute. Laboratory results obtained revealing no acute process. Troponin negative. ProBNP 217, patient recently had an echocardiogram performed last month along with a stress test which both were normal. Urinalysis revealed trace ketones otherwise unremarkable. Imaging studies obtained included CXR which was independently interpreted by me revealing no acute cardiopulmonary process, which is pending final radiology interpretation. CT abdomen pelvis with IV contrast was also obtained at this time and will interpreted by me revealing: Impression: No definite acute abnormality. Multiple small hypodense structures scattered throughout the spleen, indeterminate. 4 mm nonobstructing left renal stone. Enlarged prostate gland. Patient was informed of these findings at bedside and provided with print out of his CT report. Differential diagnosis considerations include dehydration, electrolyte derangements, acute viral syndrome, medication side effect. Comorbidities impacting this visit include recent influenza a infection. I have evaluated and discussed social determinants of health with the patient that could potentially impact subsequent diagnosis and treatment plans. On repeat assessment of the patient, reevaluation revealed that the patient is doing well and is in no acute distress. Patient symptoms have improved since he arrived to our emergency department. Repeat vital signs were all reviewed and noted to be stable. Differential diagnosis and treatment plan were discussed with the patient at bedside. Patient agrees with discussion and after shared medical decision making agrees with discharge. All questions were answered to the patient's satisfaction. Patient will follow up with PCP in 3-5 days. Patient was provided with strict return precautions and instructed to return to the emergency department if any new or worsening symptoms develop. The patient was discharged in stable condition. Lab Data 10/13/24 05:07 10/13/24 05:07 Labs: Lab Results 10/13/24 10/13/24 10/13/24 Range/Units 05:07 05:07 05:45 WBC 6.0 (4.5-10.0) K/mm3 RBC 4.79 (4.6-6.20) M/mm3 Hgb 14.9 (14.0-18.0) g/dL Hct 44.5 (42.0-52.0) % MCV 92.9 (80-100) fl MCH 31.1 (26-34) pg MCHC 33.5 (32-36) g/dl RDW 12.9 (11.5-14.5) % Plt Count 204 (150-375) k/mm3 MPV 9.4 (7.4-10.4) fl Immature Gran % (Auto) 0.3 (0-0.5) % Neut % (Auto) 77.5 H (45.5-73.1) % Lymph % (Auto) 15.0 L (18.3-44.2) % Bowman % (Auto) 5.8 (2.6-8.5) % Eos % (Auto) 1.2 (0-4.4) % Baso % (Auto) 0.2 (0.2-1.2) % Lymph # (Auto) 0.90 (0.9-3.2) K/mm3 Bowman # (Auto) 0.4 (0.1-0.6) K/mm3 Eos # (Auto) 0.1 (0-0.3) K/mm3 Baso # (Auto) 0.0 (0.0-0.1) K/mm3 Abs Immat Gran (auto) 0.02 (0.00-0.031) K/mm3 Absolute Neuts (auto) 4.6 (1.3-6.7) K/mm3 Absolute Nucleated RBC 0.000 (0.0-0.012) K/mm3 Nucleated RBC % 0.0 (0.0-0.2) % Sodium 141 (137-145) mmol/L Potassium 3.5 (3.4-5.0) mmol/L Chloride 103 (98-107) mmol/L Carbon Dioxide 32 H (22-30) mmol/L Anion Gap 6 (4-12) mmol/L BUN 18 (9-20) mg/dL Creatinine 0.95 (0.7-1.3) mg/dL Estim Creat Clear Calc 52 ml/min Estimated GFR > 60 (59 - ) Glucose 123 H (65-110) mg/dL Calcium 8.6 (8.4-10.2) mg/dL Magnesium 1.9 (1.6-2.3) mg/dL Total Bilirubin 0.7 (0.2-1.3) mg/dL AST 83 H (17-59) U/L ALT 48 (6-50) U/L Alkaline Phosphatase 92 (38-126) U/L Troponin I < 0.012 (0.000-0.034) ng/mL NT-Pro-B Natriuret Pep 217 H Cancelled (19.9-100) pg/mL Total Protein 7.0 (6.3-8.2) g/dL Albumin 3.8 (3.5-5.1) g/dL Lipase 126 (23-300) U/L Urine Color Dark yellow (Yellow) Urine Appearance Cloudy H (Clear) Urine pH 5.5 (5.0-9.0) Ur Specific [place] 1.031 (1.001-1.035) Urine Protein 1+ H (Negative) mg/dL Urine Glucose (UA) Negative (Negative) mg/dL Urine Ketones Trace H (Negative) mg/dL Ur Blood (Man) Negative (Negative) Urine Nitrate Negative (Negative) Urine Bilirubin Negative (Negative) Urine Urobilinogen 1.0 (<2.0) mg/dL Add Ur Microanalysis Reviewed Leukocyte Esterase Rfl Negative (Negative) BOBO/UL Urine RBC 3-5 H (0-2) /hpf Urine WBC 6-10 H (0-3) /hpf Ur Squamous Epith Cells Occasional (Few) /hpf Urine Bacteria None seen /hpf Urine Casts 11-20 Imaging Data Radiologist's impression: ITS Impressions Chest X-Ray 10/13/24 06:22 Impression: Clear lungs. Abdomen/Pelvis CT 10/13/24 06:23 Impression: No definite acute abnormality. Multiple small hypodense structures scattered throughout the spleen, indeterminate. 4 mm nonobstructing left renal stone. Enlarged prostate gland. Discharge Plan Discharge Clinical Impression: Acute dehydration, Influenza A Patient Disposition: Home, Self-Care Condition: Improved Instructions: Antibiotic Form, Dehydration (ED), Influenza (DC) Additional Instructions: Please follow-up with your family doctor within the next 3-5 days. Return to the emergency department if any new or worsening symptoms develop. Maintain your oral hydration by drinking lots of fluids. Patient Language: Pashto Prescriptions: No Action cetirizine [Zyrtec] 10 mg tablet 10 mg PO DAILY PRN (Reason: congestion) Qty: 30 0RF lisinopril 40 mg tablet 40 mg PO DAILY omega 3-wui-klo-fish oil [Fish Oil] 1,000 mg (120 mg-180 mg) capsule 1 cap PO DAILY Men's Multivitamin 400-20-300 mcg Tablet 1 tablet PO DAILY finasteride [Proscar] 5 mg tablet 5 mg PO DAILY Follow-up/Referrals: Harms,Praful Colon M.D. [Primary Care Provider] - 3 Days Time of Disposition: 06:42
== END 2024-10-13 07:23 | disposition home or self-care (01) ==
PROVIDERS: Emergency Provider Emergency Medicine; PCP Family Medicine
DX: J10.1 Influenza due to other identified influenza virus with other respiratory manifestations (principal); E86.0 Dehydration; R82.998 Other abnormal findings in urine; I10 Essential (primary) hypertension; R00.1 Bradycardia, unspecified; N32.81 Overactive bladder; N40.0 Benign prostatic hyperplasia without lower urinary tract symptoms; Z98.42 Cataract extraction status, left eye; Z98.41 Cataract extraction status, right eye; Z86.0101 Personal history of adenomatous and serrated colon polyps; Z87.442 Personal history of urinary calculi; N20.0 Calculus of kidney; I44.0 Atrioventricular block, first degree; I45.10 Unspecified right bundle-branch block; R94.31 Abnormal electrocardiogram [ECG] [EKG]
CPT/HCPCS: 36415; 71045; 74177; 80053; 81001; 83690; 83735; 83880; 84484; 85025; 87086; 93005; 96361; 96374; 99284; A9270; J2405; J7030; Q9967

== ENCOUNTER 2024-11-24 15:43 | Observation (INO) | payer MEDICARE, MEDICAID, SELFPAY ==
[2024-11-24] VITALS (16 sets, daily range): BP systolic 155–183; BP diastolic 98–132; PULSE 67–97; RESP 14–24; TEMP 36.4–36.7; O2SAT 95–100; BMI 25.0
--- NOTE | ~2024-11-24 | CT_ITS ---
History: Vertigo PROCEDURE: CT head without contrast. COMPARISON: 04/16/2024 TECHNIQUE: Axial imaging of the head performed from the skull base to the vertex without IV contrast. Sagittal a nd coronal reformations obtained. DLP: 681 mGy-cm FINDINGS: The ventricles are enlarged. The dilatation of the ventricles is proportional to the degree of sulcal prominence, not uncommon in the senescent brain. Decreased attenuation is identified within the periventricular white matter, likely secondary to micr ovascular ischemic disease, in a patient of this age. There is no mass, mass effect or midline shift. There is no abnormal extra-axial fluid collection or intracranial hemorrhage. Visualized paranasal sinuses are clear. The left mastoid air cells are well aerated. Partial opacification of the right mastoid air cells. No acute displaced fractures within the overlying cranium. Impression: No acute intracranial hemorrhage or suspicious mass effect. Partial opacification of the right mastoid air cells. Reviewed, dictated and finalized at location A. Impression: No acute intracranial hemorrhage or suspicious mass effect. Partial opacification of the right mastoid air cells.
--- NOTE | ~2024-11-24 | XR_ITS ---
CHEST RADIOGRAPH, PA AND LATERAL CLINICAL HISTORY: weakness . COMPARISON: 10/13/2024 TECHNIQUE: PA and lateral views of the chest. FINDINGS The cardiomediastinal silhouette is unremarkable. The lungs are clear. Visualized osseous structures and soft tissues are unremarkable. IMPRESSION: No focal infiltrate or effusion. Reviewed, dictated and finalized at location A.
--- NOTE | 2024-11-24 15:56 | ECG_ITS ---
Test Date: 2024-11-24 16:28:47 Measurements Intervals [place] Rate: 90 P: 0 MD: 0 QRS: -29 QRSD: 109 T: 73 QT: 392 QTc: 481 Interpretive Statements ATRIAL FLUTTER/TACHYCARDIA WITH NORMAL VENTRICULAR RESPONSE INCOMPLETE RIGHT BUNDLE BRANCH BLOCK POSSIBLE ANTERIOR MYOCARDIAL INFARCTION , OF INDETERMINATE AGE INFERIOR INFARCT, AGE INDETERMINATE BORDERLINE ST-T WAVE ABNORMALITY- HIGH LATERAL LEADS BASELINE ARTIFACT- I, II, AVR, AVL ABNORMAL ECG Compared to ECG 10/13/2024 05:05:18 Sinus bradycardia no longer present Electronically Signed On 11-24-2024 19:01:42 CDT by Julito Amato D.O.
--- NOTE | 2024-11-24 16:35 | ED.RECABL ---
HPI - Recheck/Abnormal Lab/Rx General Chief Complaint: Recheck/Abnormal Lab/Rx Stated Complaint: dizzy, light headed, high blood pressure Time Seen by Provider: 11/24/24 15:55 Source: patient Mode of arrival: ambulatory Limitations: no limitations History of Present Illness HPI narrative: This is an 84-year-old male that presents to the emergency department for lightheadedness. Reports this is a chronic issue for him. It has worsened over the last couple of days. Reports he feels weak. He is not able to get around as well as he usually can. Reports his blood pressure has been elevated today. He has been taking his antihypertensive as prescribed. Denies chest pain or shortness of breath. Related Data Home Medications ?Medication ?Instructions ?Recorded ?Confirmed ?Last Taken ?Type finasteride 5 mg tablet (Proscar) 5 mg PO DAILY 11/23/20 11/24/24 11/24/24 History lisinopril 40 mg tablet 40 mg PO DAILY 02/03/24 11/24/24 11/24/24 History amlodipine 5 mg tablet 2.5 mg PO 11/03/24 11/03/24 11/24/24 History azithromycin 250 mg tablet 250 mg PO 11/03/24 11/03/24 Unknown History cephalexin 500 mg capsule 500 mg PO 11/03/24 11/03/24 Unknown History cranberry fruit concentrate 250 mg 250 mg PO TID 11/03/24 11/24/24 11/24/24 History chewable tablet (Azo Cranberry) Allergies Allergy/AdvReac Type Severity Reaction Status Date / Time No Known Allergies Allergy Verified 11/24/24 16:44 Review of Systems Review of Systems: CONSTITUTIONAL: Denies fever EYES: Denies visual changes CARDIOVASCULAR: Denies chest pain, or edema. RESPIRATORY: Denies dyspnea. GASTROINTESTINAL: Denies nausea, vomiting NEUROLOGIC: Reports generalized weakness. Denies headache All systems reviewed & are unremarkable except as noted in HPI and below PMFSH Past Medical History Medical History History of adenomatous polyp of colon Environmental allergies BPH loc w/o ur obs/LUTS After cataract (~11/2019) Dizziness of unknown etiology OAB (overactive bladder) Essential (primary) hypertension Vertigo Kidney stones History of right ureteral stent October 2011 Surgical History Surgical History Achilles tendon avulsion (~2003) Status post repair 2003 Left, 2011 Right History of cataract surgery (~2017) Bilateral 2018 Rectal foreign body (~10/2011) With surgical removal October 2011 H/O hernia repair (~2008) Family History Family History Father , Late onset coronary artery disease Heart disease Dementia Mother Family history of Alzheimer's disease Family history of heart disease in male family member before age 55, Onset Age: 91 Patient's mother is Father Hypertension Family history of Alzheimer's disease, Onset Age: 90 Patient's father is , Onset Age: 90 Other Family history of cardiovascular disease Social History Social History Social History: The patient runs 2-3 miles a day and has done so since 1968. 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 Gender identity (if verbalized by the patient): Male Exam Narrative: GENERAL: Elderly, well-nourished, and in no acute distress. HEAD: Normocephalic, atraumatic. EYES: PERRLA and EOMI. ENT: Nares clear, no rhinorrhea or epistaxis. Mucous membranes moist. Oropharynx without tonsillar hypertrophy exudate or other lesions. Bilateral TMs pearly el non-bulging NECK: Supple. No adenopathy or masses. CHEST: Clear to auscultation. No respiratory distress. No wheezes rales or rhonchi HEART: Regular rate and rhythm. No murmur heard. Normal peripheral pulses. ABDOMEN: Soft, nontender, nondistended, normal active bowel sounds. EXTREMITIES: Normal range of motion. No edema. Strength equal in bilateral upper and lower extremities (5/5) SKIN: Warm, dry, no rash. NEURO: No focal deficits. Alert and oriented x3. Cranial nerves 2-12 grossly intact PSYCH: Normal mood and affect Course Course Emergency Course: patient and family updated on workup and recommendation for admission Consultations Consultation #1: Spoke with hospitalist about patient and workup who accepts admission Date: 11/24/24 Consultation #2: Spoke with cardiology who will consult Date: 11/24/24 Vital Signs Vital signs: Vital Signs Temperature 97.7 F 11/24/24 16:05 Pulse Rate 95 11/24/24 16:05 Respiratory Rate 18 11/24/24 16:05 Blood Pressure 165/132 H 11/24/24 16:05 Pulse Oximetry 97 11/24/24 16:05 Temperature 98.0 F 11/24/24 18:28 Pulse Rate 81 11/24/24 18:28 Respiratory Rate 20 11/24/24 18:28 Blood Pressure 160/118 H 11/24/24 18:28 Pulse Oximetry 100 11/24/24 18:28 Oxygen Delivery Room Air 11/24/24 16:27 MDM - Recheck/Abnormal Lab/Rx MDM Narrative Medical decision making narrative: Patient presents to the emergency department for lightheadedness, generalized weakness. Patient noted to be in atrial flutter, this would be new for patient. His rate is largely controlled. Blood pressure is elevated, given dose of his home antihypertensive. Cbc metabolic panel without concerning findings. Urine without evidence of infection. CT brain without acute intracranial findings. Chest x-ray without acute cardiopulmonary abnormality. Patient intermittently with rates into the 100s. Given a dose of metoprolol. Will be admitted for further management. Spoke with hospitalist about patient and workup who accepts admission. Spoke with cardiology who will consult Differential Diagnosis Differential diagnosis: Likely other (Atrial flutter, atrial fib, electrolyte derangement, dehydration, hypertension) Lab Data Attestation: I reviewed the patient's lab results. 11/24/24 16:37 11/24/24 16:37 Labs: Lab Results 11/24/24 11/24/24 Range/Units 16:36 16:37 WBC 4.7 (4.5-10.0) K/mm3 RBC 5.02 (4.6-6.20) M/mm3 Hgb 15.6 (14.0-18.0) g/dL Hct 46.8 (42.0-52.0) % MCV 93.2 (80-100) fl MCH 31.1 (26-34) pg MCHC 33.3 (32-36) g/dl RDW 13.7 (11.5-14.5) % Plt Count 236 (150-375) k/mm3 MPV 9.6 (7.4-10.4) fl Immature Gran % (Auto) 0.4 (0-0.5) % Neut % (Auto) 67.7 (45.5-73.1) % Lymph % (Auto) 19.8 (18.3-44.2) % [place] % (Auto) 9.1 H (2.6-8.5) % Eos % (Auto) 2.6 (0-4.4) % Baso % (Auto) 0.4 (0.2-1.2) % Lymph # (Auto) 0.93 (0.9-3.2) K/mm3 [place] # (Auto) 0.4 (0.1-0.6) K/mm3 Eos # (Auto) 0.1 (0-0.3) K/mm3 Baso # (Auto) 0.0 (0.0-0.1) K/mm3 Abs Immat Gran (auto) 0.02 (0.00-0.031) K/mm3 Absolute Neuts (auto) 3.2 (1.3-6.7) K/mm3 Absolute Nucleated RBC 0.000 (0.0-0.012) K/mm3 Nucleated RBC % 0.0 (0.0-0.2) % Sodium 140 (137-145) mmol/L Potassium 4.0 (3.4-5.0) mmol/L Chloride 107 (98-107) mmol/L Carbon Dioxide 24 (22-30) mmol/L Anion Gap 9 (4-12) mmol/L BUN 13 D (9-20) mg/dL Creatinine 0.74 (0.7-1.3) mg/dL Estim Creat Clear Calc 69 ml/min Estimated GFR > 60 (59 - ) Glucose 109 (65-110) mg/dL Calcium 8.7 (8.4-10.2) mg/dL Magnesium Pending Total Bilirubin 0.8 (0.2-1.3) mg/dL AST 25 (17-59) U/L ALT 19 (6-50) U/L Alkaline Phosphatase 70 (38-126) U/L Total Protein 7.0 (6.3-8.2) g/dL Albumin 3.8 (3.5-5.1) g/dL Urine Color Yellow (Yellow) Urine Appearance Clear (Clear) Urine pH 7.0 (5.0-9.0) Ur Specific [place] 1.007 (1.001-1.035) Urine Protein Negative (Negative) mg/dL Urine Glucose (UA) Negative (Negative) mg/dL Urine Ketones Negative (Negative) mg/dL Ur Blood (Man) Negative (Negative) Urine Nitrate Negative (Negative) Urine Bilirubin Negative (Negative) Urine Urobilinogen 0.2 (<2.0) mg/dL Add Ur Microanalysis Reviewed Leukocyte Esterase Rfl 1+ H (Negative) BOBO/UL Urine RBC 0-2 (0-2) /hpf Urine WBC 0-5 (0-3) /hpf Ur Squamous Epith Cells None seen (Few) /hpf Urine Bacteria None seen /hpf Urine Casts 0-2 Imaging Data Radiologist's impression: ITS Impressions Head CT 11/24/24 16:19 Impression: No acute intracranial hemorrhage or suspicious mass effect. Partial opacification of the right mastoid air cells. Chest X-Ray 11/24/24 16:25 IMPRESSION: No focal infiltrate or effusion. ECG Data EKG #1: ECG completion date: 11/24/24 EKG Interpretation: normal rate and atrial flutter Critical Care Time Critical Care Time Critical Care Time: No Discharge Plan Discharge Clinical Impression: Lightheadedness Atrial flutter Qualifiers: Atrial flutter type: unspecified Qualified Code(s): I48.92 - Unspecified atrial flutter Hypertension Qualifiers: Hypertension type: unspecified Qualified Code(s): I10 - Essential (primary) hypertension Patient Disposition: Still a Patient Condition: Stable Patient Language: Solomon Islander Prescriptions: No Action lisinopril 40 mg tablet 40 mg PO DAILY azithromycin 250 mg tablet 250 mg PO amlodipine 5 mg tablet 2.5 mg PO cephalexin 500 mg capsule 500 mg PO Azo Cranberry 250 mg tablet,chewable 250 mg PO TID finasteride [Proscar] 5 mg tablet 5 mg PO DAILY Follow-up/Referrals: Harms,Praful Colon M.D. [Primary Care Provider] -
[2024-11-24 16:45] LABS: Basophils Percent Auto 0.4 % (0.2-1.2); Eosinophils Absolute Auto 0.1 K/mm3 (0-0.3); Eosinophils Percent Auto 2.6 % (0-4.4); Hematocrit 46.8 % (42.0-52.0); Hemoglobin 15.6 g/dL (14.0-18.0); Immature Granulocyte Absolute 0.02 K/mm3 (0.00-0.031); Immature Granulocyte Percent A 0.4 % (0-0.5); Lymphocytes Absolute Auto 0.93 K/mm3 (0.9-3.2); Lymphocytes Percent Auto 19.8 % (18.3-44.2); Mean Corpuscular HGB Conc 33.3 g/dl (32-36); Mean Corpuscular Hemoglobin 31.1 pg (26-34); Mean Corpuscular Volume 93.2 fl (80-100); Mean Platelet Volume 9.6 fl (7.4-10.4); Monocytes Absolute Auto 0.4 K/mm3 (0.1-0.6); Monocytes Percent Auto 9.1 % (2.6-8.5); Neutrophils Absolute Auto 3.2 K/mm3 (1.3-6.7); Neutrophils Percent Auto 67.7 % (45.5-73.1); Platelet Count Result 236 k/mm3 (150-375); Red Blood Count 5.02 M/mm3 (4.6-6.20); Red Cell Distribution Width 13.7 % (11.5-14.5); White Blood Count 4.7 K/mm3 (4.5-10.0)
[2024-11-24 16:55] LABS: Add Urine Microscopic? YES; Alanine Aminotransferase 19 U/L (6-50); Albumin Level 3.8 g/dL (3.5-5.1); Alkaline Phosphatase 70 U/L (38-126); Anion Gap 9 mmol/L (4-12); Appearance Urine Clear (Clear); Aspartate Amino Transferase 25 U/L (17-59); Bacteria Urine None Seen /hpf; Bilirubin Urine Negative (Negative); Bilirubin,Total 0.8 mg/dL (0.2-1.3); Blood Urea Nitrogen 13 mg/dL (9-20); Blood Urine Negative (Negative); Calcium 8.7 mg/dL (8.4-10.2); Carbon Dioxide 24 mmol/L (22-30); Chloride 107 mmol/L (98-107); Color Urine Yellow (Yellow); Estimated CRCL calculation 69 ml/min; Estimated Glomerular Filt Rate > 60; Glucose 109 mg/dL (65-110); Glucose Urine UA Negative (Negative); Ketones Urine Negative (Negative); Leukocyte Esterase Ur 1+ LEU/UL (Negative); Need Manual Microscopic Reviewed; Nitrate Urine Negative (Negative); Non Pathogenic Casts 0-2; Protein Urine Negative (Negative); RBC Urine 0-2 /hpf (0-2); Sodium 140 mmol/L (137-145); Specific Grav Ur 1.007 (1.001-1.035); Squamous Epithelial Cell Urine None Seen /hpf (Few); Urobilinogen Urine 0.2 mg/dL (<2.0); WBC Urine 0-5 /hpf (0-3)
[2024-11-24] MEDS: SODIUM CHLORIDE 0.9% IV 500 ML 999 ML IV CONT (16:55)
[2024-11-24] MEDS: METOPROLOL TARTRATE INJ 5 MG/5 ML VIAL IV PUSH (17:23)
--- OUTSIDE RECORDS SUMMARY | 2024-11-24 17:47 | XMS_ITS | Encounter Summary ---
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 on 10/09 and 10/11. Message routed to office for further follow up and recommendations. Reason for Disposition Caller has NON-URGENT medicine question about med that PCP or specialist prescribed and triager unable to answer question Protocols used: Medication Question [id number]-FA * Telephone Encounter - Chloe Ardon RN [...] appointment not scheduled? Requesting advice from clinical seal delivery vehicle team technician. Additional Comments: Patient prescribed this for his [...] lab answers indicating exposure risk 10/11/2024 10/11/2024 10/21/2024 3:05 AM C DT COVID: Suspected 10/11/2024 10/11/2024 10/12/2024 3:07 AM CDT Influenza, adult 10/11/2024 10/11/2024 10/18/2024 3:05 AM CDT documented as of this encounter Care Teams Venetian Blind Cleaner And Repairer Relationship Specialty Start Date End Date Praful Hackett MD [address] [place] [address] PCP - General Family Medicine 11/14/21 documented as of this encounter
--- OUTSIDE RECORDS SUMMARY | 2024-11-24 17:47 | XMS_ITS | Continuity of Care Document ---
Author Organization [facility] Address [address] [place] [address] Phone Care Team Providers Care Rig Supervisor Name Role Phone Pancho Garcia Unavailable Unavailable [...] Copied on Encounter Office/outpat ient Visit, Est [facility], [address] [place] [address] [address], [place], [place], [address], [place] tel:[phone] SEC [facility] No Information 2-200 9 Krishnasamy Pancho. [address], [facility], [place]. tel:[phone] Office/outpat ient Visit, Est [facility], [address] [place] [address] [address], [place], [place], [address], [place] tel:[phone] SEC [facility] No Information 0-200 9 Krishnasamy Pancho. [address] [facility] [address], [place], [address], [place]. tel:[phone] [facility], [address] [place] [address] [address], [place], [place], [address], [place] tel:[phone] SEC [facility] No Information 7200 9 Radha Whittingtonl. [address] [place] [address], [facility], [place]. tel:[phone] [facility], [address], [place], [place], [address], [place] tel:[phone] SEC [facility] No Information 4200 8 Melissa Ferro. 12 [facility], [place], [place], [facility], [place]. tel:[phone] Referring Provider: Pancho kapoor, [address] [place] [address], [facility]. tel:[phone] [facility], [address], [place], [place], [address], [place] tel:[phone] SEC [facility] No Information 8 8 Krishnasgisele Pancho. [address] [place] [address], [facility], [place]. tel:[phone] Office/outpat ient Visit, [facility], [address], [place], [place], [address], [place] tel:[phone] SEC [facility] No Information Apr- 5200 7 Marleny Diallo. [address] [facility] [place], [address], [place]. tel:[phone] Office/outpat ient Visit, [facility], [address], [place], [place], [address], [place] tel:[phone] SEC [facility] No Information Mar-2 8-200 7 Wankum Yoel. [address], [address] [place], [address], . tel:[phone] Family History Family Member Type Diagnosis Age At Onset No Information Payers Payer name Insurance type Covered republican ID Irving griffiths(s) [facility] [id number] Social History Type Description Quantity Date [...]
--- OUTSIDE RECORDS SUMMARY | 2024-11-24 17:47 | XMS_ITS | Continuity of Care Document ---
Author Organization [facility] Address [address] [place] [address] Phone Care Team Providers Care Quarter Backer Name Role Phone Patel PT,MPT,ATC, Mckinley Unavailable Unavai lable Procedures Procedure Date Doc neg elder mal no plan PT Evaluation Moderate Complexity Therapeutic Activities Therapeutic Activities Neuromuscular Re-Ed Therapeutic Activities Neuromuscular Re-Ed Doc neg elder mal no plan PT Evaluation Low Complexity Therapeutic Activities Neuromuscular Re-Ed Therapeutic Activities Neuromuscular Re-Ed Canalith Repositioning Procedure 2021 Therapeutic Activities Canalith Repositioning Procedure 2021 Therapeutic [...] Diagnoses Date Provider Providers Copied on Encounter [facility], [place], [place], [id number], [place] tel:[phone] [place] No Information 4 Jorge Sofia , [place], [place]. [facility], [place], [place], [address], tel:[phone] [place] No Information 4 Jorge Sofia , [place], [place]. Referring Provider: Ish Dow [address] [place], [address]. tel:[phone] [facility], [place], [place], [address], [place] tel:[phone] [place] No Information 3 Elmer Gurwinder. . Referring Provider: Ish Dow [address] [place], [address]. tel:[phone] [facility], [place], [place], [address], [place] tel:[phone] [place] No Information 3 Elmer Gurwinder. . Referring Provider: Ish Dow [address] [place], [address]. tel:[phone] [facility], [place], [place], [address], [place] tel:[phone] [place] No Information 3 Elmer Gurwinder. . Referring Provider: Ish Dow [address] [place], [address]. tel:[phone] [facility], [place], [place], [address], [place] tel:[phone] [place] No Information 2 Jorge Sofia , [place], [place]. Referring Provider: Ish Dow [address] [place], [address]. tel:[phone] [facility], [place], [place], [address], [place] tel:[phone] [place] No Information 2 Jorge Sofia , [place], [place]. Referring Provider: [place], [address]. tel:[phone] [facility] [address], [place], [place], [address], [place] tel:[phone] [place] No Information 2 Jorge Sofia , [place], [place]. Referring Provider: [place], [address]. tel:[phone] [facility], [address], [place], [place], [address], [place] tel:[phone] [place] No Information 2 Nasir Osorio . Referring Provider: [place], [address]. tel:[phone] [facility], [address], [place], [place], [address], [place] tel:[phone] [place] No Information 2 Jorge Sofia , [place], [place]. Referring Provider: [place], [address]. tel:[phone] [facility], [place], [place], [address], [place] tel:[phone] [place] No Information 2 Jorge Sen. , [place], [place]. Referring Provider: [place], [address]. tel:[phone] [facility], [place], [place], [address], [place] tel:[phone] [place] No Information 2 Jorge Sofia , [place], [place]. Referring Provider: Praful Hackett, [place], [address]. tel:[phone] [facility], [address], [place], [place], [address], [place] tel:[phone] [place] No Information 2 Jorge Sofia [place], [place], [place]. Referring Provider: [place], [address]. tel:[phone] Family History Family Member Type Diagnosis Age At Onset No Information Payers Payer name Insurance type Covered constitution party ID Authoriza tion(s) [employer] [place] [id number] Medicaid OON Write Off CI 00 Social [...]
--- OUTSIDE RECORDS SUMMARY | 2024-11-24 17:47 | XMS_ITS | Encounter Summary ---
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
--- OUTSIDE RECORDS SUMMARY | 2024-11-24 17:47 | XMS_ITS | Clinical Summary ---
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
--- OUTSIDE RECORDS SUMMARY | 2024-11-24 17:47 | XMS_ITS | Encounter Summary ---
Author Organization [facility] Healthcare Address [address] [place] [address] Care Team Providers Care Revenue Investigator Name Role Phone Praful Hackett MD Primary Care Provider [phone] Encounter Details Date Type Department Care Team (Late st Contact Info) Description 10/09/2024 Results Follow-Up [facility] [place] [address] [place] [address] Janee Zhang BEHAVIORAL SCIENCES INSTRUCTOR [address] [facility] [address] [place] [address] Social History Tobacco Use Types [...] on file 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
--- OUTSIDE RECORDS SUMMARY | 2024-11-24 17:47 | XMS_ITS | Encounter Summary ---
Author Organization [facility] Healthcare Address [address] [place] [address] Care Team Providers Care Vp Publisher Development Name Role Phone Praful Hackett MD Primary Care Provider [phone] Reason for Visit * Reason Onset Date Comments Prior Autorization (Doxepin) 11/24/2024 Encounter Details Date Type Department Care Team ([facility] Contact Info) Description 11/24/2024 Telephone Family Physicians [facility] [address] [place] [address] Praful Hackett MD [address] [place] [address] Prior Autorization (Doxepin) Social History Tobacco Use Types Packs/Day Years Used Date Smoking Tobacco: Never Smokeless Tobacco: Never AUDIT-C Answer Date Recorded Q1: How often do you have a drink containing alc ohol? 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 Gender Identity Not on file Sexual Orientation Not on file documented as of this encounter Miscellaneous Notes * Telephone Encounter - Marielle Antonio MA - 11/24/2024 11:12 AM CDT Received fax from pharmacy requesting PA on doxepin Submitted PA through cover my meds Waiting on a response documented in this encounter Plan of Treatment Not on file documented as of this encounter Visit Diagnoses Not on filedocumented in this encounter Care Teams Vp Publisher Development Relationship Specialty Start Date End Date Praful Hackett MD [address] [place] [address] PCP - General Family Medicine 11/14/21 documented as of this encounter
--- OUTSIDE RECORDS SUMMARY | 2024-11-24 17:47 | XMS_ITS | Clinical Summary ---
Author Organization [facility] Address [address] [place] [address] Care Team Providers Care Vascular Tech Name Role Phone Unavailable Primary Care Provider Unavailabl e Source Comments [facility],non-owned Affiliates and Associated Physician Practices is amultiple site organization consisting of ambulatory clinics and hospital sitesin [place], [place], [place] and [place]. This disclosure is being madepursuant to the Care Everywhere program and may not contain all information available regarding this patient. 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 Gender Identity Not on file Sexual [...] VACCINE ( - 2023-2 5 season) 2024 DEPRESSION SCREENING 08/05/2024 MEDICARE AWV CALENDAR YEAR 2024 INFLUENZA VACCINE (Season Ended) 2025 HEPATITIS B VACCINE Aged Out No longe r eligible based on patient's age to complete this topic HIB VACCINE Aged Out No longer eligi ble based on patient's age to complete this topic HPV VACCINE Aged Out No longer eligi ble based on patient's age to complete this topic MENINGOCOCCAL (Group B) VACC INE SHARED DECISION-MAKING Aged Out No longer eligibl e based on patient's age to complete this topic MENINGOCOCCAL GROUPS A/C/Y/W VACCINE Aged Out No longer eligible b ased on patient's age to complete this topic Insurance [facility] MEDICARE MEDICAID - OUT OF STATE
--- OUTSIDE RECORDS SUMMARY | 2024-11-24 17:47 | XMS_ITS | Encounter Summary ---
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
--- OUTSIDE RECORDS SUMMARY | 2024-11-24 17:47 | XMS_ITS | Encounter Summary ---
Author Organization [facility] Healthcare Address [address] [place] [address] Care Team Providers Care Network Applications Specialist Name Role Phone Praful Hackett MD Primary Care Provider [phone] Reason for Visit * Reason Comments Dizziness Started on Saturday, Fatigue Encounter Details Date Type Department Care Team ([facility] Contact Info) Description 11/24/2024 2:30 PM CDT Office Visit [facility] at [address] [address] Sandhya Li NP [address] [place] [address] [address] [place] [address] Elevated blood pressure reading in office with diagnosis of hypertension (Primary Dx); Altered gait; Dizziness; Fatigue, unspecified type; Shortness of breath Social History Tobacco Use Types Packs/Day Years [...] on file 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 Gender Identity Not on file Sexual Orientation Not on file documented as of this encounter Last Filed Vital Signs Vital Sign Reading Time Taken Comments Blood Pressure 179/120 11/24/2024 2:34 PM CDT Pulse 64 11/24/2024 2:20 PM CDT Temperature 37.1 C (98.7 F) 11/24/2024 2:20 PM CDT Respiratory Rate 22 11/24/2024 2:20 PM CDT Oxygen Saturation 98% 11/24/2024 2:20 PM CDT Inhaled Oxygen Concentration - - Weight 84.6 kg (186 lb 8 oz) 11/24/2024 2:20 PM CDT Height 177.8 cm (5' 10 ) 11/24/2024 2:20 PM CDT Body Mass Index 26.76 11/24/2024 2:20 PM CDT documented in this encounter Plan of Treatment Not on file documented as of this encounter Visit Diagnoses Diagnosis Elevated blood pressure reading in office with diagnosis of hypertension- Primary Altered gait Abnormality of gait Dizziness Dizziness and giddiness Fatigue, unspecified type Shortness of breath documented in this encounter Historical Medications * This list may reflect changes made after this encounter. mirabegron ER (MYRBETRIQ) 25 mg tablet extended release 24 hr Take 1 tablet (25 mg total) by mouth added in this encounter Care Teams Network Applications Specialist Relationship Specialty Start Date End Date Praful Hackett MD [address] [place] [address] PCP - General Family Medicine 11/14/21 documented as of this encounter
--- OUTSIDE RECORDS SUMMARY | 2024-11-24 17:47 | XMS_ITS | Encounter Summary ---
Author Organization [facility] Healthcare Address [address] [place] [address] Care Team Providers Care Animal Care Attendant Name Role Phone Praful Hackett MD Primary Care Provider [phone] Reason for Visit * Reason Onset Date Comments Dizziness 11/24/2024 Weakness - Generalized 11/24/2024 Encounter Details Date Type Department Care Team (Late st Contact Info) Description 11/24/2024 Nurse Triage [facility] [address] [place] [address] Praful Hackett MD [address] [place] [address] Social History Tobacco Use Types Packs/Day Years [...] on file 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 Patient states he was visiting family this weekend and did not sleep well. He noticed increasing fatigue and weakness on Saturday but has been increasing since. Patient states he is able to walk in his home without difficulty. Last night patient attempted to go for a walk and did not make it very far before he felt very weak and unsteady. Patient is using a cane as needed. Patient reports he notices he feels more unsteady on hisfeet than usual but denies symptoms. Denies SOB, chest pain, palpitation, bleeding. Patient states his family tells him he does not drink enough water but he feels he hydrates well enough. Patient does not monitor BP at home. Nurse Triage Disposition: Go to office now. Scheduled today at 1400 with GENERAL INTERNIST. Nursing care advice also provided. Encouraged to call back if there are further questions or concerns. Encouraged to call back if symptoms persist or worsen. Reason for Disposition MODERATE weakness (e.g., interferes with work, school, normal activities) and cause unknown (Exceptions: Weakness from acute minor illness or from poor fluid intake; weakness is chronic and not worse.) Protocols used: Weakness (Generalized) and Izurjra-[id number]-JF * Telephone Encounter - Margarette Gibbs RN - 11/24/2024 10:58 AM CDT Regarding: dizzy and weak / trouble walking ----- Message from Lynda Collins sent at 11/24/2024 10:58 AM CDT ----- Symptom Based Call Chief Complaint(s): dizzy and weak / trouble walking Duration: Saturday What type of symptom(s) is the patient experiencing? Red Flag. Is the patient concerned they are experiencing a medical emergency requiring an ambulance? No Additional Comments: patient traveled over the weekend and there was a lot going on and didn't sleep well, by time he got home Saturday he really didn't feel well Does message need to be routed? Yes-Action Needed documented in this encounter Plan of Treatment Not on file documented as of this encounter Visit Diagnoses Not on filedocumented in this encounter Care Teams Animal Care Attendant Relationship Specialty Start Date End Date Praful Hackett MD [address] [place] [address] PCP - General Family Medicine 11/14/21 documented as of this encounter
--- OUTSIDE RECORDS SUMMARY | 2024-11-24 17:47 | XMS_ITS | Referral Summary ---
Author Organization [facility] [address] Address [address] [place] [address] Care Team Providers Care Expanded Duty Dental Assistant Name Role Phone Praful Hackett MD Primary Care Provider [phone] Encounters Date Type Department Care Team Description 11/24/2024 Orders Only [facility] [address] [address] Praful Hackett MD 11/24/2024 2:30 PM CDT Office Visit [facility] [address] [address] Sandhya Li NP Elevated blood pressure reading in office with diagnosis of hypertension (Primary Dx); Altered gait; Dizziness; Fatigue, unspecified type; Shortness of breath 11/24/2024 Telephone [facility] [address] [phone] Praful Hackett MD Prior Autorization (Doxepin) 11/24/2024 Nurse Triage [facility] [address] [phone] Praful Hackett MD 11/04/2024 Telephone [facility] [address] [phone] Praful Hackett MD 10/29/2024 1:30 PM CDT Office Visit [facility] [address] [phone] Rosa Basilio NP Other insomnia (Primary Dx); Benign prostatic hyperplasia with urinary frequency; Vertigo; Hypertension, essential; BMI 26.0-26.9,adult 10/29/2024 Nurse Triage [facility] [address] [phone] Praful Hackett MD 10/15/2024 Results Follow-Up [facility] Con[facility]ient Care at [address] [address] Sandhya Li NP 10/13/2024 Orders Only [facility] Health Information Management [address] [place] [address] Scanning, Provider 10/12/2024 Nurse Triage [facility] [address] [phone] Praful Hackett MD 10/11/2024 5:08 AM CDT - 10/11/2024 11:59 PM CDT Hospital Encounter [address] [address] Discharge Disposition: Discharge to home or self care 10/11/2024 5:06 AM CDT - 10/11/2024 11:59 PM CDT Hospital Encounter [address] [address] Discharge Disposition: Discharge to home or self care 10/11/2024 3:45 PM CDT Office Visit [facility] at [address] [address] Sandhya Li NP Strep pharyngitis (Primary Dx); Acute cough; Purulent postnasal drainage; Elevated blood pressure reading in office with diagnosis of hypertension; Intermittent abdominal pain 10/09/2024 Results Follow-Up [facility] at [address] [address] Janee Zhang NP 10/09/2024 10:15 AM ED TECH Ancillary Procedure [facility] at [address] [phone] Acute cough 10/09/2024 10:15 AM ED TECH Office Visit [facility] at [address] [address] Janee Zhang, KRAIG Acute cough (Primary Dx) 09/07/2024 Orders Only [facility] Health Information Management [address] [place] [address] Scanning, Provider from Last 3 Months Allergies No known active allergies Medications omega-3 fatty acids-fish oil 300-1,000 mg capsule Take 2 capsules (2 g total) by mouth daily Active multivitamin capsule Take 1 capsule by mouth daily Active ginkgo biloba 40 mg tablet Take by mouth Active pumpkin seed extract/soy germ (AZO BLADDER CONTROL ORAL) Take by mouth Ac tive montelukast (SINGULAIR) 10 mg tabletIndication s:Acute non-recurrent maxillary sinusitis Take 1 tablet (10 mg total) by mouth nightly 90 tablet 3 04/29/20 24 025 Active flunisolide (NASALIDE) 25 mcg (0.025 %) spray,non-aeroso lIndications:All ergic Rhinitis Administer 2 sprays into each nostril 2 (two) times a day for 25 days 25 mL 3 04/29/20 24 Active lisinopriL (PRINIVIL,ZESTRI L) 40 mg tablet Take 1 tablet by mouth once daily 270 tablet 05/19/20 24 Active cyanocobalamin (Vitamin B-12) 1,000 mcg/mL injection Inject 1 mL (1,000 mcg total) into the muscle as instructed every 30 (thirty) days 1 mL 2 07/09/20 24 Active famotidine (PEPCID) 40 mg tabletIndication s:LPRD (laryngopharynge al reflux disease) Take 1 tablet (40 mg total) by mouth nightly 90 tablet 3 08/24/19 25 026 Active finasteride (PROSCAR) 5 mg tablet Take 1 tablet (5 mg total) by mouth daily 09/11/19 25 Active benzonatate (TESSALON) 200 mg capsuleIndicatio ns:Cough Take 1 capsule (200 mg total) by mouth 3 (three) times a day as needed for cough 20 capsule 10/10/19 25 Active Additional Information Patient not taking.Reported on 11/24/2024 vibegron 75 mg tabletIndication s:Increased Urinary Frequency,Urinar y Urge Incontinence Take 75 mg by mouth daily 30 tablet 11 10/30/19 25 026 Active doxepin 3 mg tabletIndication s:Insomnia Take 3 mg by mouth nightly 30 tablet 10/30/19 25 Active carvediloL (COREG) 3.125 mg tabletIndication s:Hypertension, essential Take 1 tablet (3.125 mg total) by mouth 2 (two) times a day with meals 60 tablet 10/30/19 25 026 Active mirabegron ER (MYRBETRIQ) 25 mg tablet extended release 24 hr Take 1 tablet (25 mg total) by mouth Active amLODIPine (NORVASC) 5 mg tablet Take 1 tablet (5 mg total) by mouth daily 90 tablet 4 05/13/20 24 025 Discontin ued(Patie nt Reported) mirabegron ER (MYRBETRIQ) 25 mg tablet extended release 24 hr Take 1 tablet (25 mg total) by mouth daily 30 tablet 2 10/06/19 25 025 Discontin ued(Alter osiris therapy) tamsulosin (FLOMAX) 0.4 mg extended release capsule Take 1 capsule (0.4 mg total) by mouth daily 07/06/20 24 025 Discontin ued(Patie nt Reported) Active Problems Problem Noted Date Diagnosed Date Other insomnia 10/29/2024 Assessment & Plan (10/29/2024 2:30 PM CDT): Will start on Doxepin and see if that will help with sleep. Also see below for urinary control changes Orders: doxepin 3 mg tablet; Take 3 mg by mouth nightly BMI 26.0-26.9,adult 10/29/2024 Assessment & Plan (10/29/2024 2:30 PM CDT): Weight appropriate for patient. LPRD (laryngopharyngeal reflux disease) 08/24/19 25 Assessment & Plan (08/24/2024 1:37 PM ED TECH): Pepcid 40 mg Continue elevated head of bed Donut or Ushaped pillow to take pressure off right ear Call if no improvement in 3 months for referral to GI Laryngopharyngeal reflux discussed and Handout provided Medicare annual wellness visit, subsequent 06/23 Assessment & Plan (06/23/2024 3:43 PM ED TECH): Focus of exam is preventative in anture. Reviewed immunizations, reviewed sun/skin cancer screening. Reivewed age and comrobid appropriate screenings and iwll follow response. Chronic sinusitis 06/23/2024 Assessment & Plan (06/23/2024 3:44 PM ED TECH): Most likely multifactorial and will follow response. Refer to ENT Reivwed sparing use of nasal decongestants and will follow response. Hypertension, essential 06/23/2024 Assessment & Plan (10/29/2024 2:30 PM CDT): Blood pressure above goal of 130/80. No longer taking Amlodipine due to lower leg swelling. Will change to Coreg and continue on Lisinopril. Will continue to monitor. Orders: carvediloL (COREG) 3.125 mg tablet; Take 1 tablet (3.125 mg total) by mouth 2 (two) times a day with meals Assessment & Plan (06/23/2024 3:44 PM ED TECH): Stable at the presnt time. Encourage to [...] (09/10/2022): Added automatically from request for surgery [id number] Postconcussion syndrome 04/12/2022 Assessment & Plan (04/12/2022 1:04 PM CDT): Persistent vestibular symptoms that improve with exercise Concussion education provided Encouraged continued high level exercise to his tolerance Discussed ways to accommodate visual or vestibular symptoms such as the rule Dizziness and giddiness 08/24/2020 Assessment & Plan (10/29/2024 2:30 PM CDT): Continues to go to PT, but states last appointment it was made worse with whatever movement they did on him. He is taking Meclizine PRN advised to try to take 25 mg in the morning and then 2 more times PRN throughout the day. Will continue to monitor. Assessment & Plan (06/23/2024 3:45 PM ED TECH): Longstanding issue for patinet. Continues to be cautious with fall prevention while maintaining activity level. Patient with vestibular testing to be completed at [facility] related to request for evaluation by balance center. Assessment & Plan (04/29/2024 10:17 AM CDT): Advised to see PT for dizziness and weakness. Patient declined referral due to essence picky on locations will let us know if a referral is needed. Also sent to Neuro for evaluation. 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 Gender Identity Not on file Sexual Orientation [...] Mass Index 26.76 11/24/2024 2:20 PM CDT Plan of Treatment Not on file Procedures Procedure Name Priority Date/Time Associated Diagnosis Comments SCAN - LABS 10/13/2024 SCAN - RADIOLOGY/IMAGING 10/13/2024 POCT URINALYSIS DIPSTICK Routine 10/11/2024 3:51 PM CDT Strep pharyngitis POCT RAPID STREP Routine 10/11/2024 3:46 PM CDT Strep pharyngitis URINE CULTURE Routine 10/11/2024 3:46 PM CDT INFLUENZA A/B, RSV, AND COVID-19 PCR Routine 10/11/2024 3:31 PM CDT XR CHEST PA LATERAL 2 VIEWS Schedule COSMO, Read COSMO (Appt Today, Awaiting Results) 10/09/2024 10:27 AM ED TECH Acute cough CARDIOLOGY DOCUMENT SCAN 09/07/2024 from Last 3 Months Results * SCAN - RADIOLOGY/IMAGING (10/13/2024) Anatomical Region Laterality Modality Other us Provider Scanning Edited Result - Final * SCAN - LABS (10/13/2024) us Provider Scanning Edited Result - Final * (ABNORMAL) POCT urinalysis dipstick (10/11/2024 3:51 PM CDT) Color, Urine, POC Yellow Clarity, ur, POC Clear Clear Glucose, ur, POC Negative Negative MG/DL Bilirubin, ur, POC Negative Negative, Small, Moderate, Large Ketones, ur, POC Negative Negative Specific [place], POC 1.005 1.003 - 1.030 Blood, ur, POC Trace(A) Negative pH, ur, POC 6.5 5.0 - 8.0 Protein, ur, POC Negative Negative Urobilinogen, urine, POC 0.2 0.2 - 1.0 mg/dL Nitrite, ur, POC Negative Negative Leukocytes, ur, POC Negative Negative Lot Number [id number] Urine 10/11/2024 3:51 PM CDT Sandhya Li NP POINT OF CARE TEST ORDERABLES F inal Result * (ABNORMAL) POCT rapid strep A (10/11/2024 3:46 PM CDT) [facility] Rapid Strep A, POC Positive(A ) Negative Swab 10/11/2024 3:46 PM CDT Sandhya Li NP POINT OF CARE TEST ORDERABLES F inal Result * Urine culture Urine (10/11/2024 3:46 PM CDT) [facility] Report Final Report: Less than 100,000 colonies/mL (clinically insignificant growth based on current clinical standards) Comment:Testing performed by : [facility], [address] [place]., [address] Organism (CLINICALLY INSIGNIFICANT GR[facility]TH [facility] Urine 10/11/2024 3:46 PM CDT 10/12/2024 9:57 AM CDT Narrative MAIKEL - 10/13/2024 1:09 PM CDT Testing performed by [facility] Microbiology Laboratory ([phone]) Sandhya Li NP LAB MICROBIOLOGY - [facility] Final Result MAIKEL KHOURY [address] Department [place] [address] * (ABNORMAL) Influenza A/B, RSV, and COVID-19 PCR Nasopharyngeal (10/11/2024 3:31 PM CDT) COVID-19 RNA Negative Negative Influenza A RNA Positive(A) Negative [facility] Influenza B RNA Negative Negative [facility] RSV RNA Negative Negative [facility] Comment: Interpretive data: Testing performed by [facility]. This test is performed using the theRightAPI Xpert Xpress CoV-2/Flu/RSV plus assay. This is a multiplex, real-time reverse transcriptase PCR assay intended for the qualitative detection of nucleic acid from SARS-CoV-2, influenza A, influenza B, and respiratory syncytial virus. This assay has been cleared by the [place] Food and Drug administration. The performance characteristics have been verified by the [facility]. Results must be considered in the clinical context, and a negative result does not rule out infection. Interpretive Data last revised 2023 Nasopharyngeal 10/11/2024 3: 31 PM CDT 10/12/2024 5:24 AM CDT Sandhya Li NP LAB MICROBIOLOGY - [facility] Final Result [facility] [id number] Department [place] [address] * XR Chest Pa Lateral 2 Views (10/09/2024 10:27 AM ED TECH) Anatomical Region Laterality Modality Body, Chest N/A Digital Radiogra phy 10/09/2024 12:0 1 PM ED TECH Narrative 10/09/2024 12:01 PM ED TECH EXAM DESCRIPTION: XR CHEST PA LATERAL 2 [...] Karla Fitzgerald M.D. FT T: Report ID: [id number] Reading Location: [id number] Procedure Note Karla Hernandez MD - 10/09/2024 [...] Karla Fitzgerald M.D. FT T: Report ID: [id number] Reading Location: [place] [address] us Janee Zhang ERGONOMICS CONSULTANT IMG XR PROCEDURES Final Re sult * Cardiology Document Scan (09/07/2024) Anatomical Region Laterality Modality Other us Provider Scanning CV CARDIAC SERVICES PROCEDURES Edited Result - Final from Last 3 Months Insurance [employer] [facility] MEDICARE ADVANTAGE [facility] MEDICARE Address: [address] [address] [place] [address] Advance Directives For more information, please contact: [phone] * Full Code (Latest Code Status on File) Date Activated Date Inactivated Comments 10/10/2022 9:07 AM 10/10/2022 3:30 PM * Full Code Date Activated Date Inactivated Comments 10/10/2022 9:07 AM 10/10/2022 9:07 AM Care Teams Expanded Duty Dental Assistant Relationship Specialty Start Date End Date [place] [address] PCP - General Family Medicine 11/14/21
--- OUTSIDE RECORDS SUMMARY | 2024-11-24 17:47 | XMS_ITS | Clinical Summary ---
Author Organization [facility] [address] Address [address] [place] [address] Care Team Providers Care Air Analysis Technician Name Role Phone Praful Hackett MD Primary Care Provider [phone] [phone] Allergies No known active allergies Medications omega-3 [...] 3 mg by mouth nightly 30 tablet 11 10/30/19 25 Active carvediloL (COREG) 3.125 mg tabletIndication s:Hypertension, essential Take 1 tablet (3.125 mg total) by mouth 2 (two) times a day with meals 60 tablet 11 10/30/19 25 026 Active mirabegron ER (MYRBETRIQ) [...] for patient. LPRD (laryngopharyngeal reflux disease) 08/24/19 Assessment & Plan (08/24/2024 1:37 PM FOOD SERVICE TECHNICIAN): Pepcid 40 mg Continue elevated head of bed Donut or Ushaped pillow to take pressure off right ear Call if no improvement in 3 months for referral to GI Laryngopharyngeal reflux discussed and Handout provided Medicare annual wellness visit, subsequent 06/23 Assessment & Plan (06/23/2024 3:43 PM FOOD SERVICE TECHNICIAN): Focus of exam is preventative in anture. Reviewed immunizations, reviewed sun/skin cancer screening. Reivewed age and comrobid appropriate screenings and iwll follow response. Chronic sinusitis 06/23/2024 Assessment & Plan (06/23/2024 3:44 PM FOOD SERVICE TECHNICIAN): Most likely multifactorial and will follow response. [...] meals Assessment & Plan (06/23/2024 3:44 PM FOOD SERVICE TECHNICIAN): Stable at the presnt time. Encourage to [...] (09/10/2022): Added automatically from request for surgery [id number] Postconcussion syndrome 04/12/2022 Assessment & Plan (04/12/2022 1:04 PM CDT): Persistent vestibular symptoms that improve with exercise Concussion education provided Encouraged continued high level exercise to his tolerance Discussed ways to accommodate visual or vestibular symptoms such as the 20/20/20 rule Dizziness and giddiness 08/24/2020 Assessment & [...] monitor. Assessment & Plan (06/23/2024 3:45 PM FOOD SERVICE TECHNICIAN): Longstanding issue for patinet. Continues to be cautious with fall prevention while maintaining activity level. Patient with vestibular testing to be completed at [facility] related to request for evaluation by balance center. Assessment & Plan (04/29/2024 10:17 AM CDT): Advised to see PT for dizziness and weakness. Patient declined referral due to essence picky on locations will let us know if a referral is needed. Also sent to Neuro for evaluation. Uses OTC meclizine PRN Encounters Date Type Department Care Team Description 11/24/2024 2:30 PM CDT Office Visit [facility] at [address] [address] Sandhya Li NP Elevated blood pressure reading in office with diagnosis of hypertension (Primary Dx); Altered gait; Dizziness; Fatigue, unspecified type; Shortness of breath 11/24/2024 Orders Only [facility] [address] [phone] Praful Hackett MD 11/24/2024 Telephone [facility] [address] [phone] Praful Hackett MD Prior Autorization (Doxepin) 11/24/2024 Nurse Triage [facility] [address] [phone] Praful Hackett MD 11/04/2024 Telephone [facility] [address] [phone] Praful aHckett MD 10/29/2024 1:30 PM CDT Office Visit [facility] [address] [address] Rosa Basilio NP Other insomnia (Primary Dx); Benign prostatic hyperplasia with urinary frequency; Vertigo; Hypertension, essential; BMI 26.0-26.9,adult 10/29/2024 Nurse Triage [facility] [address] [phone] Praful Hackett MD 10/15/2024 Results Follow-Up [facility] at [address] [address] Sandhya Li NP 10/13/2024 Orders Only [facility] Health Information Management [address] [place] [address] Scanning, Provider 10/12/2024 Nurse Triage [facility] [address] [address] Praful Hackett MD 10/11/2024 3:45 PM CDT Office Visit [facility] at [address] [address] Sandhya Li NP Strep pharyngitis (Primary Dx); Acute cough; Purulent postnasal drainage; Elevated blood pressure reading in office with diagnosis of hypertension; Intermittent abdominal pain 10/11/2024 5:08 AM CDT - 10/11/2024 11:59 PM CDT Hospital Encounter [address] [address] Discharge Disposition: Discharge to home or self care 10/11/2024 5:06 AM CDT - 10/11/2024 11:59 PM CDT Hospital Encounter [address] [address] Discharge Disposition: Discharge to home or self care 10/09/2024 10:15 AM FOOD SERVICE TECHNICIAN Ancillary Procedure [facility] Imaging at [address] [address] Acute cough 10/09/2024 10:15 AM FOOD SERVICE TECHNICIAN Office Visit [facility]ient [facility] at [address] [phone] Janee Zhang NP Acute cough (Primary Dx) 10/09/2024 Results Follow-Up [facility] at [address] [address] Janee Zhang NP 09/07/2024 Orders Only [facility] Health Information Management [address] [place] [address] Scanning, Provider from Last 3 Months Immunizations Immunization Administration Dates Next Due COVID-19 mRNA (Core Competence) 0.3 m L (30 mcg) vaccine (12 [...] Bilateral removed bursa sack, chipped off bone CATARACT EXTRACTION Medical History Medical History Date Comments Difficulty walking Weakness of limb Hypertension Kidney calculi 10 yrs ago, had surgery Cataract bilat [facility] Concussion Brain concussion Family History Medical History Relation Name Comments Mental illness Daughter eda owens Allergy (severe) Father shaan owens Asthma Father shaan owens Heart disease Father shaan owens Alzheimer's disease Mother eda owens Hearing loss Mother eda owens Relation Name Status Comments Daughter eda owens Alive Father shaan owens Alive Mother eda owens Alive Social History Tobacco Use Types Packs/Day Years [...] on file Legal Sex Male 7:31 PM 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 SERVICE TECHNICIAN Gender Identity Not on file Sexual Orientation [...] 11/24/2024 2:20 PM CDT Plan of Treatment Health Maintenance Due Date Last Done Comments Zoster Vaccine (2 of 2) 11/10/2020 09/15/2020 Covid-19 Vaccine (2023-2 5 season) 2024 04/15/2024, 05/14/2021, 10/01/2020, Additional history exists Well Visit 65+ 06/23/2025 06/23/2024 Depression Screening 10/29/2025 10/29/2024, 06/23/2024, 05/13/2024, Additional history exists Fall Risk Assessment 10/29/2025 10/29/2024, 06/23/2024, 05/13/2024, Additional history exists DTaP/Tdap/Td Vaccine (2 - Td or Tdap) [...] (Appt Today, Awaiting Results) 10/09/2024 10:27 AM FOOD SERVICE TECHNICIAN Acute cough CARDIOLOGY DOCUMENT SCAN 09/07/2024 from [...] Large Ketones, ur, POC Negative Negative Specific [place], POC 1.005 1.003 - 1.030 Blood, ur, POC Trace(A) Negative pH, ur, POC 6.5 5.0 - 8.0 Protein, ur, POC Negative Negative Urobilinogen, urine, POC 0.2 0.2 - 1.0 mg/dL Nitrite, ur, POC Negative Negative Leukocytes, ur, POC Negative Negative Lot Number [id number] Urine 10/11/2024 3:51 PM CDT Sandhya Li NP POINT OF CARE TEST ORDERABLES F inal Result * (ABNORMAL) POCT rapid strep A (10/11/2024 3:46 PM CDT) Pathologist [facility] Rapid Strep A, POC Positive(A ) Negative Swab 10/11/2024 3:46 PM CDT Sandhya Li NP POINT OF CARE TEST ORDERABLES F inal Result * Urine culture Urine (10/11/2024 3:46 PM CDT) Pathologist [facility] Report Final Report: Less than 100,000 colonies/mL (clinically insignificant growth based on current clinical standards) Comment:Testing performed by : [facility], [address] [place]., [address] Organism (CLINICALLY INSIGNIFICANT GROWTH [facility] Urine 10/11/2024 3:46 PM CDT 10/12/2024 9:57 AM CDT Narrative [facility] - 10/13/2024 1:09 PM CDT Testing performed by [facility] ([phone]) Sandhya Li NP LAB MICROBIOLOGY - [facility] Final Result [facility] [address] Department [place] [address] * (ABNORMAL) Influenza A/B, RSV, and COVID-19 PCR Nasopharyngeal (10/11/2024 3:31 PM CDT) [facility] COVID-19 RNA Negative Negative Influenza A RNA Positive(A) Negative [facility] Influenza B RNA Negative Negative [facility] RSV RNA Negative Negative [facility] Comment: Interpretive data: Testing performed by [facility]. This test is performed using the Outside.in Xpert Xpress CoV-2/Flu/RSV plus assay. This is [...] us Sandhya Li NP LAB MICROBIOLOGY - [facility] Final Result [facility] [address] Department [place] [address] CH * XR Chest Pa Lateral 2 Views (10/09/2024 10:27 AM FOOD SERVICE TECHNICIAN) Anatomical Region Laterality Modality Body, Chest N/A Digital Radiogra phy 10/09/2024 12:0 1 PM FOOD SERVICE TECHNICIAN Narrative 10/09/2024 12:01 PM FOOD SERVICE TECHNICIAN EXAM DESCRIPTION: XR CHEST PA LATERAL 2 [...] Karla Fitzgerald M.D. FT T: Report ID: [id number] Reading Location: [id number] Procedure Note Karla Hernandez MD - 10/09/2024 [...] Karla Fitzgerald M.D. FT T: Report ID: [id number] Reading Location: [id number] us Janee Zhang AGRICULTURAL ADVISER IMG XR PROCEDURES Final Re sult * Cardiology Document Scan (09/07/2024) Anatomical Region Laterality Modality Other us Provider Scanning CV CARDIAC SERVICES PROCEDURES Edited Result - Final from Last 3 Months Insurance [facility] IDPA [facility] MEDICARE ADVANTAGE Advance Directives For more information, please contact: [phone] * Full Code (Latest Code Status on File) Date Activated Date Inactivated Comments 10/10/2022 9:07 AM 10/10/2022 3:30 PM * Full Code Date Activated Date Inactivated Comments 10/10/2022 9:07 AM 10/10/2022 9:07 AM Care Teams Air Analysis Technician Relationship Specialty Start Date End Date Praful Hackett MD [address] [place] [address] PCP - General Family Medicine 11/14/21
--- OUTSIDE RECORDS SUMMARY | 2024-11-24 17:47 | XMS_ITS | Encounter Summary ---
Author Organization [facility] Healthcare Address [address] [place] [address] Care Team Providers Care Meat And Poultry Inspector Name Role Phone Praful Hackett MD Primary Care Provider [phone] Encounter Details Date Type Department Care Team ([facility] st Contact Info) Description 10/15/2024 Results Follow-Up [facility] at [address] [place] [address] Sandhya Li NP [address] [facility] [address] [place] [address] Social History Tobacco Use Types [...] on file 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 Gender Identity Not on file Sexual Orientation Not on file documented as of this encounter Plan of Treatment Not on file documented as of this encounter Visit Diagnoses Not on filedocumented in this encounter Additional Health Concerns Infection Onset Date Last Indicated Resolved Time Exposure, COVID-19 Comment:Added automatically based on COVID19 lab answers indicating exposure risk 10/11/2024 10/11/2024 10/21/2024 3:05 AM C DT Influenza, adult 10/11/2024 10/11/2024 10/18/2024 3:05 AM CDT documented as of this encounter Care Teams Meat And Poultry Inspector Relationship Specialty Start Date End Date Praful Hackett MD [address] [place] [address] PCP - General Family Medicine 11/14/21 documented as of this encounter
--- OUTSIDE RECORDS SUMMARY | 2024-11-24 17:47 | XMS_ITS | Encounter Summary ---
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
--- OUTSIDE RECORDS SUMMARY | 2024-11-24 17:47 | XMS_ITS | Clinical Summary ---
Author Organization [facility] Address [address] [place] [address] Phone Care Team Providers Care Chronometer Adjuster Name Role Phone Praful Hackett MD Primary Care Provider +[phone] Manav Garcia MD Unavailable [phone] Allergies No known active allergies Medications Ginkgo Biloba 40 MG Tablet Take by mouth. Active lisinopril (PRINIVIL, ZESTRIL) 40 MG Tablet Take 40 mg by mouth daily. Active Mirabegron ER (Myrbetriq) 25 MG TABLET SR 24 HR Take by mouth. Active Multiple Vitamin (MULTIVITAMIN PO) Take by mouth. Active Polo-3 Fatty Acids (OMEGA 3 PO) Take by mouth. Active FLUNISOLIDE, NASAL, NA by Nasal route. Active montelukast (SINGULAIR) 10 MG Tablet Take 10 mg by mouth every evening. Active amLODIPine (NORVASC) 5 MG Tablet Take 5 mg by mouth daily. Active finasteride (PROSCAR) 5 MG Tablet Take 5 mg by mouth daily. Active Encounters Date Type Department Care Team Description 09/08/2024 10:00 AM CHIEF WRITER Office Visit [facility] [address] [place] [address] Manav Garcia MD Benign paroxysmal [...] Comments Blood Pressure 138/90 09/08/2024 10:34 AM CHIEF WRITER Pulse 84 09/08/2024 10:34 AM CHIEF WRITER Temperature 36.9 C (98.4 F) 09/08/2024 10:25 AM CHIEF WRITER Respiratory Rate 16 09/08/2024 10:25 AM CHIEF WRITER Oxygen Saturation - - Inhaled Oxygen Concentration - - Weight 83.7 kg (184 lb 9.6 oz) 09/08/2024 10:25 AM CHIEF WRITER Height 177.8 cm (5' 10 ) 09/08/2024 10:25 AM CHIEF WRITER Body Mass Index 26.49 09/08/2024 10:25 AM CHIEF WRITER Plan of Treatment Upcoming Encounters Date Type Department Care Team (Late st Contact Info) Description 01/04/2025 10:15 AM CDT Office Visit [facility] [address] [place] [address] Manav Garcia MD [address] [place] [address] 03/11/2025 10:00 AM CDT Office Visit [facility] [address] [place] [address] Manav Garcia MD [address] [place] [address] Health Maintenance Due Date Last Done Comments Hepatitis C Virus (HCV) Screening 1940 SARS-COV-2 Immunization ( season) 2024 05/03/2024, 04/15/2024, 09/10/2022, Additional history exists Hepatitis B Immunization Completed 006, 08/31/2005, 02/23/2005, Additional history exists Pneumococcal Immunization (50+ years) Completed 05/16/2017, 05/29/2016 TdaP Immunization Completed 09/15/2020 Zoster Immunization Completed 11/12/2020, Respiratory Syncytial Virus (RSV) Immunization (Adult) Completed 05/03/2023 Influenza Immunization Completed 4, 05/08/2023, 05/01/2023, Additional history exists Meningococcal Immunization (ACWY) Aged Out No longer eligible based on patient's age to complete this topic Rotavirus Immunization Aged Out No lo nger eligible based on patient's age to complete this topic Insurance MEDICAID [place] MEDICARE C [employer] Care Teams Chronometer Adjuster Relationship Specialty Start Date End Date [place] [address] PCP - General Internal Medicine 04/29/24 Manav Garcia MD [address] [place] [address] Consulting Physician Neurology 09/08/24
--- OUTSIDE RECORDS SUMMARY | 2024-11-24 17:47 | XMS_ITS | Encounter Summary ---
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
--- OUTSIDE RECORDS SUMMARY | 2024-11-24 17:57 | XMS_ITS | Continuity of Care Document ---
Author Organization [facility] Address [address] [place] [address] Phone Care Team Providers Care Compliance Lead Name Role Phone Pancho Garcia Unavailable Unavailable [...] Copied on Encounter Office/outpat ient Visit, Est [facility], [address] [place] [address] [address], [place], [place], [id number], [place] tel:[phone] [facility] No Information 2-200 9 Krishnasamy Pancho. [address], [facility], [place]. tel:[phone] Office/outpat ient Visit, [facility], [address] [place] [address] [address], [place], [place], [id number], [place] tel:[phone] [facility] No Information 0-200 9 Krishnasamy Pancho. [address] [facility] [address], [place], [address], [place]. tel:[phone] [facility], [address] [place] [address] [address], [place], [place], [id number], [place] tel:[phone] [facility] No Information 7[address] Radha Whittingtonl. [address] [place] [address], [facility], [place]. tel:[phone] [facility], [address], [place], [place], [address], [place] tel:[phone] SEC [facility] No Information 4200 8 Melissa Ferro. [address] [facility], [place], [place], [facility], [place]. tel:[phone] Referring Provider: Pancho kapoor, [address] [place] [address], [facility]. tel:[phone] [facility], [address], [place], [place], [id number], [place] tel:[phone] [facility] No Information 8 8 Krishnasgisele Pancho. [address] [place] [address], [facility], [place]. tel:[phone] Office/outpat ient Visit, [facility], [address], [place], [place], [id number], [place] tel:[phone] [facility] No Information Apr- 5200 7 Marleny Diallo. [address] [facility] [place], [id number], [place]. tel:[phone] Office/outpat ient Visit, [facility], [address], [place], [place], [id number], [place] tel:[phone] [facility] No Information Mar-2 8-200 7 Wankum Yoel. [address], [address] [place], [id number], . tel:[phone] Family History Family Member Type Diagnosis Age At Onset No Information Payers Payer name Insurance type Covered democrat ID Irving griffiths(s) [facility] [id number] Social History Type Description Quantity Date [...]
--- OUTSIDE RECORDS SUMMARY | 2024-11-24 17:57 | XMS_ITS | Continuity of Care Document ---
Author Organization [facility] Address [address] [place] [address] Phone Care Team Providers Care Paperhanger Pipe Name Role Phone Patel PT,MPT,ATC, Mckinley Unavailable [...] Diagnoses Date Provider Providers Copied on Encounter [facility], [place], [place], [id number], [place] tel:[phone] [place] No Information 4 Jorge Sofia , [place], [place]. [facility], [place], [place], [id number], tel:[phone] [place] No Information 4 Jorge Sofia , [place], [place]. Referring Provider: Ish [place], [address]. tel:[phone] [facility], [place], [place], [address], [place] tel:[phone] [place] No Information 3 Elmer Gurwinder. . Referring Provider: [place], [address]. tel:[phone] [facility], [place], [place], [address], [place] tel:[phone] [place] No Information 3 Elmer Gurwinder. . Referring Provider: Ish [place], [address]. tel:[phone] [facility], [place], [place], [address], [place] tel:[phone] [place] No Information 3 Elmer Gurwinder. . Referring Provider: Ish [place], [address]. tel:[phone] [facility], [place], [place], [address], [place] tel:[phone] [place] No Information 2 Jorge Sofia , [place], [place]. Referring Provider: Ish [place], [address]. tel:[phone] [facility], [place], [place], [address], [place] tel:[phone] [place] No Information 2 Jorge Sofia , [place], [place]. Referring Provider: [place], [address]. tel:[phone] [facility] [address], [place], [place], [address], [place] tel:[phone] [place] No Information 2 Jorge Sofia , [place], [place]. Referring Provider: [place], [address]. tel:[phone] [facility], [address], [place], [place], [address], [place] tel:[phone] [place] No Information 2 Nasir Osorio . Referring Provider: [place], [address]. tel:[phone] [facility], [address], [place], [place], [address], [place] tel:[phone] [place] No Information 2 Jorge Sofia , [place], [place]. Referring Provider: [place], [address]. tel:[phone] [facility], [place], [place], [address], [place] tel:[phone] [place] No Information 2 Jorge Sen. , [place], [place]. Referring Provider: [place], [address]. tel:[phone] [facility], [place], [place], [address], [place] tel:[phone] [place] No Information 2 Jorge Sofia , [place], [place]. Referring Provider: Praful Hackett, [place], [address]. tel:[phone] [facility], [address], [place], [place], [address], [place] tel:[phone] [place] No Information 2 Jorge Sofia [place], [place], [place]. Referring Provider: [place], [address]. tel:[phone] Family History Family Member Type Diagnosis Age At Onset No Information Payers Payer name Insurance type Covered republican ID Authoriza tion(s) [employer] [place] [id number] Medicaid OON Write Off CI 00 Social [...]
--- NOTE | 2024-11-24 18:23 | ECG_ITS ---
Test Date: 2024-11-24 18:29:09 Measurements Intervals [place] Rate: 64 P: 0 GA: 0 QRS: -33 QRSD: 113 T: 45 QT: 394 QTc: 409 Interpretive Statements ATRIAL FLUTTER WITH NORMAL VENTRICULAR RESPONSE INCOMPLETE RIGHT BUNDLE BRANCH BLOCK VOLTAGE CRITERIA FOR LVH INFERIOR INFARCT, AGE INDETERMINATE ANTERIOR INFARCT, AGE INDETERMINATE ABNORMAL ECG Compared to ECG 11/24/2024 16:28:47 No significant changes Electronically Signed On 11-24-2024 19:04:27 CDT by Julito Amato D.O.
--- NOTE | 2024-11-24 18:30 | PC.NURSE ---
court recording monitor displays NSR rate 76
--- NOTE | 2024-11-24 18:34 | PC.NURSE ---
Lab notified of Magnesium level order spoke with Amanda
[2024-11-24] MEDS: amLODIPine BESYLATE 5 MG TABLET PO (18:45)
--- NOTE | 2024-11-24 19:46 | P.CONCA_ITS ---
Assessment and Plan Assessment and plan (1) Atrial flutter: Qualifiers: Atrial flutter type: unspecified Qualified Code(s): I48.92 - Unspecified atrial flutter Code(s): I48.92 - Unspecified atrial flutter Status: Acute Assessment and Plan: New onset. Asymptomatic. HR is not rapid. [id number] 3. Start Eliquis 5 mg BID and Coreg 3.125 mg BID. (2) Hypertension: Qualifiers: Hypertension type: unspecified Qualified Code(s): I10 - Essential (primary) hypertension Code(s): I10 - Essential (primary) hypertension Status: Acute Assessment and Plan: High. Resume home BP medication including Lisinopril 40 mg daily and Amlodipine 2.5 mg daily (higher doses cause edema of legs). Start Coreg 3.125 mg BID. If BP is much improved tomorrow, anticipate may be d/c home from cardiology standpoint. (3) Bradycardia: Code(s): R00.1 - Bradycardia, unspecified Status: Chronic Assessment and Plan: When in Sinus rhythm. (4) Dizziness of unknown etiology: Code(s): R42 - Dizziness and giddiness Status: Acute Assessment and Plan: Stable. History of Present Illness History of Present Illness Consult date/time: 11/24/24 19:46 Reason For Visit: New onset atrial flutter Narrative: 84 yr old man who is my regular cardiology patient and a patient of Phuong Fitzpatrick NP, presents to ER with dizziness. He has a history of hypertension, intermittent chronic dizziness. Patient's sister is at bedside. Reports he felt more dizziness in upright position than his usual dizziness so he went to Urgent Care which directed him to ER. He is no longer dizzy now. He was found to be in new onset atrial flutter with normal ventricular response. He reports some fatigue and has to take a nap, but sleeps 4-6 hours a night. Reports due to fall and hitting his head in February 2020 and he may have a concussion making him feel unsteady on his feet. CT brain is normal. Reports intermittent lightheadedness upon standing for years but worse since concussion. No syncope. He is limited at walking 4 blocks due to fatigue/BENITEZ now. He drinks about 30 ounces of water a day. Noticed mild edema of both legs. Denies chest pain, sob, palpitations, orthopnea, PND. Cardiovascular Procedures Echo/MUGA:: 09/07/24 Echo: EF 60-65%, grade II diastolic dysfunction (E/e' 10), mild LVE, mild biatrial enlargement, trace TR. 03/08/20 Echo: EF 65-70%, mod LVH, grade I diastolic dysfunction (E/e' 11), mild LAE, mild BILLY, mild MR/TR. Electrophysiology:: 05/17/23 EKG: Sinus bradycardia at 53 bpm, first degree AV block, IRBBB, ifnerior infarct, age indeterminate, T wave abnormality- consider ischemia. 03/10/20 27 days event monitor: Sinus rhythm, HR range 32-120 bpm; average 50 bpm; 1% PAC's, 1% PVC's, 2 pauses >2 seconds, with longest 2.3 seconds. 01/26/20 EKG: Sinus bradycardia at 44 bpm, first degree AV block, ST-T wave abnormality in anterolat leads- consider ischemia. Stress Tests:: 09/07/24 Stress test: Negative; exercised for 2 min, 33 seconds. 06/23/19 Treadmill stress test: Negative for ischemia; exercised for 4 min, 40 seconds. Review of Systems 2 Review of Systems: All systems reviewed & are unremarkable except as noted in HPI and below Constitutional: Constitutional: Reports as per HPI, Denies chills, Reports fatigue and Denies fever(s) Cardiovascular: Cardiovascular: Reports as per HPI, Denies chest pain and Denies irregular heart rhythm Respiratory: Respiratory: Reports as per HPI and Reports dyspnea on exertion Gastrointestinal: Gastrointestinal: Reports as per HPI and Denies abdominal pain Genitourinary: Genitourinary: Reports as per HPI and Denies dysuria Musculoskeletal: Musculoskeletal: Reports as per HPI Neurologic: Reports as per HPI, Reports dizziness and Denies syncope COUNT INCLUDES THE [facility] Past Medical History Medical History History of adenomatous polyp of colon Environmental allergies BPH loc w/o ur obs/LUTS After cataract (~11/2019) Dizziness of unknown etiology OAB (overactive bladder) Essential (primary) hypertension Vertigo Kidney stones History of right ureteral stent October 2011 Surgical History Surgical History Achilles tendon avulsion (~2003) Status post repair 2003 Left, 2011 Right History of cataract surgery (~2017) Bilateral 2018 Rectal foreign body (~10/2011) With surgical removal October 2011 H/O hernia repair (~2008) Family History Family History Father , Late onset coronary artery disease Heart disease Dementia Mother Family history of Alzheimer's disease Family history of heart disease in male family member before age 55, Onset Age: 91 Patient's mother is Father Hypertension Family history of Alzheimer's disease, Onset Age: 90 Patient's father is , Onset Age: 90 Other Family history of cardiovascular disease Social History Social History Social History: The patient runs 2-3 miles a day and has done so since 1968. 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 Gender identity (if verbalized by the patient): Male Meds Home Medications and Allergies Home Medications ?Medication ?Instructions ?Recorded ?Confirmed ?Type finasteride 5 mg tablet (Proscar) 5 mg PO DAILY 11/23/20 11/24/24 History lisinopril 40 mg tablet 40 mg PO DAILY 02/03/24 11/24/24 History amlodipine 5 mg tablet 2.5 mg PO 11/03/24 11/03/24 History azithromycin 250 mg tablet 250 mg PO 11/03/24 11/03/24 History cephalexin 500 mg capsule 500 mg PO 11/03/24 11/03/24 History cranberry fruit concentrate 250 mg 250 mg PO TID 11/03/24 11/24/24 History chewable tablet (Azo Cranberry) Allergies Allergy/AdvReac Type Severity Reaction Status Date / Time No Known Allergies Allergy Verified 11/24/24 16:44 Vital Signs Vital Signs - 24 hr 11/24/24 16:05 11/24/24 16:27 11/24/24 16:40 Temperature 97.7 F 97.9 F Pulse Rate 95 88 Respiratory Rate 18 20 16 Blood Pressure 165/132 H 160/118 H Pulse Oximetry 97 96 100 Oxygen Delivery Room Air 11/24/24 17:23 11/24/24 17:24 11/24/24 18:00 Temperature 97.9 F Pulse Rate 94 97 85 Respiratory Rate 24 H 20 Blood Pressure 183/122 H 159/111 H Pulse Oximetry 97 97 Oxygen Delivery 11/24/24 18:09 11/24/24 18:10 11/24/24 18:10 Temperature Pulse Rate 85 86 86 Respiratory Rate Blood Pressure 159/111 H 171/123 H 180/128 H Pulse Oximetry Oxygen Delivery 11/24/24 18:28 Temperature 98.0 F Pulse Rate 81 Respiratory Rate 20 Blood Pressure 160/118 H Pulse Oximetry 100 Oxygen Delivery Exam 2 Const: General: cooperative, healthy appearing and comfortable Resp: Auscultation: clear to auscultation bilaterally, no crackles, no rales, no rhonchi and no wheezes Cardio: Rate: regular rate Rhythm: regular rhythm Heart sounds: no murmurs Peripheral pulses: dorsalis pedis present GI: GI Palp: No abdominal tenderness and Yes Soft to palpation Neuro: General: oriented to person, oriented to place and oriented to time Extrem: Right lower extremity: no edema Left lower extremity: no edema Results Labs and Meds 11/24/24 16:37 11/24/24 16:37 Lab results: Cardiac Enzymes 11/24/24 Range/Units 16:37 AST 25 (17-59) U/L CBC 11/24/24 Range/Units 16:37 WBC 4.7 (4.5-10.0) K/mm3 RBC 5.02 (4.6-6.20) M/mm3 Hgb 15.6 (14.0-18.0) g/dL Hct 46.8 (42.0-52.0) % Plt Count 236 (150-375) k/mm3 Lymph # (Auto) 0.93 (0.9-3.2) K/mm3 Dickens # (Auto) 0.4 (0.1-0.6) K/mm3 Eos # (Auto) 0.1 (0-0.3) K/mm3 Baso # (Auto) 0.0 (0.0-0.1) K/mm3 Comprehensive Metabolic Panel 11/24/24 Range/Units 16:37 Sodium 140 (137-145) mmol/L Potassium 4.0 (3.4-5.0) mmol/L Chloride 107 (98-107) mmol/L Carbon Dioxide 24 (22-30) mmol/L BUN 13 D (9-20) mg/dL Creatinine 0.74 (0.7-1.3) mg/dL Glucose 109 (65-110) mg/dL Calcium 8.7 (8.4-10.2) mg/dL AST 25 (17-59) U/L ALT 19 (6-50) U/L Alkaline Phosphatase 70 (38-126) U/L Total Protein 7.0 (6.3-8.2) g/dL Albumin 3.8 (3.5-5.1) g/dL Intake and Output 11/24/24 11/24/24 11/24/24 07:59 15:59 23:59 Intake Total 500 Output Total 500 Balance 0 Intake: IV 500 Sodium Chloride 0.9% IV 500 ml 500 @ 999 mls/hr IV CONT .Q31M STA Rx#:[id number] Output: Urine 500 Patient Weight 11/24/24 23:59 Weight 83 kg
--- NOTE | 2024-11-24 20:08 | P.HP_ITS ---
H&P: HPI History of Present Illness Date/Time: 11/24/24 20:08 Chief Complaint: Lightheadedness Narrative: 84 y/o M with PMH of bradycardia, dizziness of unknown etiology, OAB, BPH, vertigo, hypertension, and kidney stones presents here with lightheadedness. The patient presents here from home for further evaluation of lightheadedness on 11/24. Dizziness and lightheadedness has been a chronic issue for this patient, however he reports that it has worsened in the last 2-3 days. Lightheadedness is now accompanied by generalized weakness and an elevated blood pressure. He reports he has been getting BP readings at home around 150/90. He reports compliance with his antihypertensive medications. Lightheadedness and weakness are not accompanied by chest pain, shortness of breath, vision changes, heada jaclyn, no focal weakness or numbness. Incidentally he reported that he believed his amlodipine had been discontinued, stopped taking this medication for the past month. Reports his PCP took him off his Amlodipine 2.5 mg daily and started Coreg 3.125 mg BID. Initial VS at presentation: 97.7? F, HR 95, R 18, 165/132, and 97% on RA. ED workup showed: No leukocytosis, no anemia, no significant electrolyte derangements, renal function within normal limits, glucose 109, and UA showed 1+ leuks otherwise unremarkable. Head CT showed no acute intracranial hemorrhage or suspicious mass effect and partial opacification of the right mastoid air cells. CXR showed no focal infiltrate or effusion. Initial EKG showed atrial flutter/tachycardia with normal ventricular response, incomplete RBBB, possible anterior AL of indeterminate age, inferior infarct age indeterminate, borderline ST and T-wave abnormality high lateral leads, baseline artifact. When compared to previous EKG, sinus bradycardia no longer present. Review of Systems Review of Systems: All systems reviewed & are unremarkable except as noted in HPI and below FORMERLY [facility], [facility] Past Medical History Medical History Environmental allergies Essential (primary) hypertension Bradycardia History of adenomatous polyp of colon BPH loc w/o ur obs/LUTS After cataract (~11/2019) Dizziness of unknown etiology OAB (overactive bladder) Vertigo Kidney stones History of right ureteral stent October 2011 Surgical History Surgical History Achilles tendon avulsion (~2003) Status post repair 2003 Left, 2011 Right History of cataract surgery (~2017) Bilateral 2018 Rectal foreign body (~10/2011) With surgical removal October 2011 H/O hernia repair (~2008) Family History Family History Father , Late onset coronary artery disease Heart disease Dementia Mother Family history of Alzheimer's disease Family history of heart disease in male family member before age 55, Onset Age: 91 Patient's mother is Father Hypertension Family history of Alzheimer's disease, Onset Age: 90 Patient's father is , Onset Age: 90 Other Family history of cardiovascular disease Social History Social History Social History: The patient runs 2-3 miles a day and has done so since 1968. 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 Gender identity (if verbalized by the patient): Male Spiritual care concerns: No Meds Home Medications and Allergies Home Medications ?Medication ?Instructions ?Recorded ?Confirmed ?Type finasteride 5 mg tablet (Proscar) 5 mg PO DAILY 11/23/20 11/24/24 History lisinopril 40 mg tablet 40 mg PO DAILY 02/03/24 11/24/24 History amlodipine 5 mg tablet 2.5 mg PO DAILY 11/03/24 11/24/24 History cranberry fruit concentrate 250 mg 250 mg PO TID 11/03/24 11/24/24 History chewable tablet (Azo Cranberry) carvedilol 3.125 mg tablet 3.125 mg PO BID 11/24/24 11/24/24 History famotidine 40 mg tablet 40 mg PO DAILY 11/24/24 11/24/24 History fluticasone propionate 50 2 spray intranasal PRN PRN allergy 11/24/24 11/24/24 History mcg/actuation nasal symptoms spray,suspension (24 Hour Allergy Relief) mirabegron 25 mg tablet,extended 25 mg PO DAILY 11/24/24 11/24/24 History release 24 hr vibegron 75 mg tablet (Gemtesa) 75 mg PO DAILY 11/24/24 11/24/24 History Allergies Allergy/AdvReac Type Severity Reaction Status Date / Time No Known Allergies Allergy Verified 11/24/24 16:44 Vital Signs Vital Signs - 24 hr 11/24/24 16:05 11/24/24 16:27 11/24/24 16:40 Temperature 97.7 F 97.9 F Pulse Rate 95 88 Respiratory Rate 18 20 16 Blood Pressure 165/132 H 160/118 H Pulse Oximetry 97 96 100 Oxygen Delivery Room Air 11/24/24 17:23 11/24/24 17:24 11/24/24 18:00 Temperature 97.9 F Pulse Rate 94 97 85 Respiratory Rate 24 H 20 Blood Pressure 183/122 H 159/111 H Pulse Oximetry 97 97 Oxygen Delivery 11/24/24 18:09 11/24/24 18:10 11/24/24 18:10 Temperature Pulse Rate 85 86 86 Respiratory Rate Blood Pressure 159/111 H 171/123 H 180/128 H Pulse Oximetry Oxygen Delivery 11/24/24 18:28 11/24/24 19:57 Temperature 98.0 F Pulse Rate 81 67 Respiratory Rate 20 Blood Pressure 160/118 H 182/118 H Pulse Oximetry 100 Oxygen Delivery Exam Const: General: comfortable and no acute distress Other: , male, elderly, nontoxic appearance HENMT: Face/Nose/Sinus: Normal nares present Mouth: Yes moist mucous membranes Eyes: General: appearance normal, both eyes and all related structures Sclera: sclerae normal Pupils: Equal, round and reactive pupils present EOM: EOMs intact bilaterally Resp: Effort & Inspection: normal respiratory effort Auscultation: clear to auscultation bilaterally Cardio: Rate: regular rate Rhythm: regular rhythm Other: S1-S2 present without murmur, rub, ectopy GI: Other: Abdomen soft, nondistended, nontender. Normoactive bowel sounds in all quadrants. Skin: General skin exam: normal color and no rashes or lesions noted Wounds: no wounds Neuro: Speech: normal speech Motor exam (neuro): 5/5 motor strength present throughout Sensory Exam: normal sensation Other: A&O x4 Extrem: Other: trace edema to BLE. Psych: Mental Status: mental status grossly normal Affect: normal affect Other: Good insight and judgment, pleasant H&P: Results Labs Labs: Short CBC 11/24/24 Range/Units 16:37 WBC 4.7 (4.5-10.0) K/mm3 Hgb 15.6 (14.0-18.0) g/dL Hct 46.8 (42.0-52.0) % Plt Count 236 (150-375) k/mm3 BMP 11/24/24 16:37 Sodium 140 Potassium 4.0 Chloride 107 Carbon Dioxide 24 BUN 13 D Creatinine 0.74 Glucose 109 Calcium 8.7 Liver Function 11/24/24 Range/Units 16:37 Total Bilirubin 0.8 (0.2-1.3) mg/dL AST 25 (17-59) U/L ALT 19 (6-50) U/L Alkaline Phosphatase 70 (38-126) U/L Albumin 3.8 (3.5-5.1) g/dL Urine 11/24/24 Range/Units 16:37 Urine Color Yellow (Yellow) Urine Appearance Clear (Clear) Urine pH 7.0 (5.0-9.0) Ur Specific [place] 1.007 (1.001-1.035) Urine Protein Negative (Negative) mg/dL Urine Glucose (UA) Negative (Negative) mg/dL Assessment and Plan Assessment and plan (1) Atrial flutter: Qualifiers: Atrial flutter type: unspecified Qualified Code(s): I48.92 - Unspecified atrial flutter Code(s): I48.92 - Unspecified atrial flutter Status: Acute Assessment and Plan: Initial EKG showed new atrial flutter/tachycardia with normal ventricular response, rate 90. Cardiology consulted, Lm RUFFIN. Recommended initiation of Eliquis 5 mg b.i.d. and Coreg 3.125 mg b.i.d.. [id number] 3. Telemetry monitoring. (2) Hypertension: Qualifiers: Hypertension type: unspecified Qualified Code(s): I10 - Essential (primary) hypertension Code(s): I10 - Essential (primary) hypertension Status: Acute Assessment and Plan: Chronic, currently elevated at 182/118 Patient noted his PCP discontinued his amlodipine 1 month ago and exchanged for Coreg 3.125 mg b.i.d.. Patient's marketing teacher recommended Coreg 3.125 mg b.i.d. for the patient's new atrial flutter/hypertension today. Patient will now be on lisinopril 40 mg daily, amlodipine 2.5 mg daily, andCoreg 3.125 mg b.i.d.. Given dose of amlodipine and Coreg this evening, Hydralazine 10 mg IV x1 in interim until medications can take affect. Monitor. (3) Lightheadedness: Code(s): R42 - Dizziness and giddiness Status: Acute Assessment and Plan: Chronic, unknown etiology. Recently exacerbated in the last few days. Found to have new atrial flutter/tachycardia with normal ventricular response. Patient also found to be significantly hypertensive. Suspect new atrial flutter and significant hypertension exacerbating chronic condition. Patient also reported reduction in lightheadedness with reduction in his blood pressure in the ED. Head CT negative. Plan UA showed 1+ leuks, otherwise unremarkable. Reflex to culture, follow. Denies urinary symptoms. Diet: Heart healthy GI Prophylaxis: Not currently indicated DVT Prophylaxis: Eliquis IV fluids: None Lines/Tubes: Peripheral IV Code Status: Full code Quality VTE Prophylaxis VTE prophylaxis: pharmacologic ordered Hospitalist MIPS Advance Care Plan I have confirmed that the patient's Advanced Care Plan is present, code status is documented, or surrogate decision maker is listed in patient medical record.: Yes Medication Reconciliation I have utilized all available resources to obtain, update and review the patients current medications (includes all prescriptions, OTC, herbals, cannabis, and nutritional supplements).: Yes
[2024-11-24] MEDS: hydrALAZINE HCL 20 MG/ML VIAL 10 MG IV PUSH (20:13)
[2024-11-24] MEDS: APIXABAN 5 MG TABLET PO (20:34)
[2024-11-24] MEDS: carvediloL 3.125 MG TABLET PO (20:34)
--- NOTE | 2024-11-24 22:38 | ADMGEN ---
This patient, Remy Wilkes Jr., was admitted to Medical Room 340-01. Patient/family oriented to hospital policies and general routines including ID bracelet, bed and alarms, visiting hours, pain management, procedures, bathroom and other care routines, personal items, smoking policy, room service/diet, and visiting hours. Information on how to activate the Rapid Response Team has been discussed. Patient/Family are encouraged to report perceived risks to care and to ask questions if they do not understand what they are told or what they should do.
[2024-11-25] VITALS (14 sets, daily range): BP systolic 123–180; BP diastolic 73–120; PULSE 64–93; RESP 16–94; TEMP 36.4–36.6; O2SAT 96–97
[2024-11-25] MEDS: FLUTICASONE PROPIONATE 0.05% NA SPR 16 GM BTL (*BKC) 2 SPRAY NASAL (02:46)
[2024-11-25] MEDS: amLODIPine BESYLATE 2.5 MG TABLET PO (04:27)
[2024-11-25] MEDS: lisinopriL 20 MG TABLET 40 MG PO (04:27)
[2024-11-25] MEDS: carvediloL 3.125 MG TABLET PO ×2 (04:27→20:21)
--- NOTE | 2024-11-25 05:47 | PC.NURSE ---
Addendum entered by Jayne Beard RN 11/25/24 06:36: 11/25/[address] Amato was updated on patient's episode and current vital signs. He will see patient today. Original Note: 11/25/24 0505 Patient called nurses station stating I'm nauseated and need to go back to bed. Patient was sitting up in a chair at the time. Nurse responded, found patient sitting up in chair but diaphoretic, pale, and slow to answer questions and respond. At that time his medical service representative started alarming his HR was 35. Patient was assisted back to bed with another staff member. After patient was in bed, patient's conditioned improved. At 0510 BP was 150/92 with HR in the 60s. BP at 0534 123/73 with HR in 60s. Patient stated he felt better at this time. Attempt to notify Dr. Oconnor of above at 0512 and [address] Oconnor returned call at 0539 was notified of the above events. Also informed Dr. Oconnor that patient has a living will that he states says he is a DNR. I did confirm this with the patient.
--- NOTE | 2024-11-25 06:40 | ECG_ITS ---
Test Date: 2024-11-25 07:28:46 Measurements Intervals [place] Rate: 66 P: 0 OK: 0 QRS: -27 QRSD: 122 T: 158 QT: 440 QTc: 461 Interpretive Statements ATRIAL FLUTTER WITH NORMAL VENTRICULAR RESPONSE INCOMPLETE RIGHT BUNDLE BRANCH BLOCK BORDERLINE R WAVE PROGRESSION, ANTERIOR LEADS INFERIOR INFARCT, AGE INDETERMINATE T WAVE ABNORMALITY IN ANTEROLATERAL LEADS- CONSIDER ISCHEMIA OR DUE TO FLUTER WAVES ABNORMAL ECG Compared to ECG 11/24/2024 18:29:09 T WAVE ABNORMALITY NOW PRESENT Electronically Signed On 11-25-2024 07:54:18 CDT by Julito Amato D.O.
--- NOTE | 2024-11-25 07:45 | P.PNCA_ITS ---
Progress Note: A&P Assessment and Plan (1) Atrial flutter: Qualifiers: Atrial flutter type: unspecified Qualified Code(s): I48.92 - Unspecified atrial flutter Code(s): I48.92 - Unspecified atrial flutter Status: Acute Assessment and Plan: New onset. Asymptomatic. HR is not rapid. [id number] 3. Started Eliquis 5 mg BID and started Coreg 3.125 mg BID. Monitor HR. (2) Hypertension: Qualifiers: Hypertension type: unspecified Qualified Code(s): I10 - Essential (primary) hypertension Code(s): I10 - Essential (primary) hypertension Status: Acute Assessment and Plan: High and now normal. Resume home BP medication including Lisinopril 40 mg daily and Amlodipine 2.5 mg daily (higher doses cause edema of legs). Started Coreg 3.125 mg BID. Monitor BP. Order physical therapy due to weakness. (3) Bradycardia: Code(s): R00.1 - Bradycardia, unspecified Status: Inactive Assessment and Plan: When in Sinus rhythm and had episode while in atrial flutter which could be vagal episode. (4) Dizziness of unknown etiology: Code(s): R42 - Dizziness and giddiness Status: Acute Assessment and Plan: Stable. Subjective Date/time seen: 11/25/24 07:45 Interval history: Reports he went to restroom early this morning and afterwards felt dizziness/nausea and his HR was noted to be in 40's bpm in atrial flutter. He feels weak. No chest pain or sob. Exam Const: General: cooperative, healthy appearing and comfortable Orientation/consciousness: oriented to person, oriented to place and oriented to time Resp: Auscultation: clear to auscultation bilaterally, no crackles, no rales, no rhonchi and no wheezes Cardio: Rate: regular rate Rhythm: regular rhythm Heart sounds: no murmurs Peripheral pulses: dorsalis pedis present Neuro: General: oriented to person, oriented to place and oriented to time Extrem: Right lower extremity: no edema Left lower extremity: no edema Objective Data Vital Signs Vital Signs: Vital Signs - 24 hr 11/24/24 16:05 11/24/24 16:27 11/24/24 16:40 Temperature 97.7 F 97.9 F Pulse Rate 95 88 Respiratory Rate 18 20 16 Blood Pressure 165/132 H 160/118 H Pulse Oximetry 97 96 100 Oxygen Delivery Room Air 11/24/24 17:23 11/24/24 17:24 11/24/24 18:00 Temperature 97.9 F Pulse Rate 94 97 85 Respiratory Rate 24 H 20 Blood Pressure 183/122 H 159/111 H Pulse Oximetry 97 97 Oxygen Delivery 11/24/24 18:09 11/24/24 18:10 11/24/24 18:10 Temperature Pulse Rate 85 86 86 Respiratory Rate Blood Pressure 159/111 H 171/123 H 180/128 H Pulse Oximetry Oxygen Delivery 11/24/24 18:28 11/24/24 19:57 11/24/24 20:34 Temperature 98.0 F Pulse Rate 81 67 92 Respiratory Rate 20 Blood Pressure 160/118 H 182/118 H Pulse Oximetry 100 Oxygen Delivery 11/24/24 20:53 11/24/24 21:47 11/24/24 22:30 Temperature 97.5 F L Pulse Rate 89 78 89 Respiratory Rate 14 20 20 Blood Pressure 177/126 H 170/115 H 155/119 H Pulse Oximetry 98 95 97 Oxygen Delivery 11/24/24 22:40 11/24/24 23:00 11/24/24 23:02 Temperature Pulse Rate 97 Respiratory Rate Blood Pressure 160/98 H Pulse Oximetry Oxygen Delivery Room Air 11/25/24 00:00 11/25/24 03:47 11/25/24 03:57 Temperature 97.9 F Pulse Rate 87 90 Respiratory Rate 20 Blood Pressure 148/109 H 172/120 H Pulse Oximetry 97 Oxygen Delivery 11/25/24 04:00 11/25/24 04:27 11/25/24 05:10 Temperature Pulse Rate 89 90 68 Respiratory Rate 94 H Blood Pressure 150/92 H Pulse Oximetry Oxygen Delivery 11/25/24 05:34 Temperature Pulse Rate Respiratory Rate Blood Pressure 123/73 Pulse Oximetry Oxygen Delivery Intake/Output Intake/Output: Intake & Output 11/22/24 11/23/24 11/24/24 11/25/24 23:59 23:59 23:59 23:59 Intake Total 500 250 Output Total 500 1825 Balance 0 -1575 Meds/Results Medications: Active Medications Generic Name Dose Route Start Last Admin Trade Name Freq PRN Reason Stop Dose Admin Amlodipine Besylate 2.5 mg 11/25/24 09:00 11/25/24 04:27 Amlodipine Besylate 2.5 Mg Tablet PO 2.5 mg QAM NORAH Administration Apixaban 5 mg 11/24/24 19:55 11/24/24 20:34 Apixaban 5 Mg Tablet PO 5 mg Q12HR NORAH Administration Carvedilol 3.125 mg 11/24/24 19:50 11/25/24 04:27 Carvedilol 3.125 Mg Tablet PO 3.125 mg Q12HR NORAH Administration Famotidine 40 mg 11/25/24 09:00 Famotidine 20 Mg Tablet PO DAILY NORAH Finasteride 5 mg 11/25/24 09:00 Finasteride 5 Mg Tablet PO DAILY NORAH Fluticasone Propionate 2 spray 11/25/24 00:00 11/25/24 02:46 Fluticasone Propionate 0.05% Na Spr 16 Gm Btl (*Bkc) NASAL 2 spray DAILY PRN Administration allergy symptoms Lisinopril 40 mg 11/25/24 09:00 11/25/24 04:27 Lisinopril 20 Mg Tablet PO 40 mg QAM NORAH Administration Mirabegron 25 mg 11/25/24 09:00 Mirabegron 25 Mg Er Tablet PO DAILY COUNT INCLUDES THE [facility] Miscellaneous Information 1 each 11/25/24 00:01 Vibegron [Gemtesa] 75 Mg Tablet Is Nonformulary, Can Patient Bring From Home? XX 12/25/24 00:00 CLARIFY NORAH Nonformulary 0 each 11/24/24 20:24 Nutritional XX 11/25/24 20:23 Supplementnonformula PRN PRN ry Drug (Cranberry PROTOCOL Fruit Concentrate [ Azo Concert Singer Non-Formulary Medication 75 mg 11/25/24 09:00 Vibegron [Gemtesa] PO 12/25/24 08:59 DAILY COUNT INCLUDES THE [facility] Radiology Results: ITS Impressions Head CT 11/24/24 16:19 Impression: No acute intracranial hemorrhage or suspicious mass effect. Partial opacification of the right mastoid air cells. Chest X-Ray 11/24/24 16:25 IMPRESSION: No focal infiltrate or effusion. Labs Labs: Laboratory Results - last 24 hr 11/24/24 11/24/24 16:36 16:37 WBC 4.7 RBC 5.02 Hgb 15.6 Hct 46.8 MCV 93.2 MCH 31.1 MCHC 33.3 RDW 13.7 Plt Count 236 MPV 9.6 Immature Gran % (Auto) 0.4 Neut % (Auto) 67.7 Lymph % (Auto) 19.8 [place] % (Auto) 9.1 H Eos % (Auto) 2.6 Baso % (Auto) 0.4 Lymph # (Auto) 0.93 [place] # (Auto) 0.4 Eos # (Auto) 0.1 Baso # (Auto) 0.0 Abs Immat Gran (auto) 0.02 Absolute Neuts (auto) 3.2 Absolute Nucleated RBC 0.000 Nucleated RBC % 0.0 Sodium 140 Potassium 4.0 Chloride 107 Carbon Dioxide 24 Anion Gap 9 BUN 13 D Creatinine 0.74 Estim Creat Clear Calc 69 Estimated GFR > 60 Glucose 109 Calcium 8.7 Magnesium 2.0 Total Bilirubin 0.8 AST 25 ALT 19 Alkaline Phosphatase 70 Total Protein 7.0 Albumin 3.8 Urine Color Yellow Urine Appearance Clear Urine pH 7.0 Ur Specific [place] 1.007 Urine Protein Negative Urine Glucose (UA) Negative Urine Ketones Negative Ur Blood (Man) Negative Urine Nitrate Negative Urine Bilirubin Negative Urine Urobilinogen 0.2 Add Ur Microanalysis Reviewed Leukocyte Esterase Rfl 1+ H Urine RBC 0-2 Urine WBC 0-5 Ur Squamous Epith Cells None seen Urine Bacteria None seen Urine Casts 0-2
[2024-11-25] MEDS: FINASTERIDE 5 MG TABLET PO (09:24)
[2024-11-25] MEDS: MIRABEGRON 25 MG ER TABLET PO (09:24)
[2024-11-25] MEDS: FAMOTIDINE 20 MG TABLET 40 MG PO (09:24)
[2024-11-25] MEDS: APIXABAN 5 MG TABLET PO ×2 (09:25→20:21)
--- NOTE | 2024-11-25 11:58 | PC.NURSE ---
Per patient request, code status changed to DNR. Secondary nurse confirmed.
--- NOTE | 2024-11-25 12:13 | PM.IMPN ---
Progress Note: A&P Assessment and Plan (1) Atrial flutter: Qualifiers: Atrial flutter type: unspecified Qualified Code(s): I48.92 - Unspecified atrial flutter Code(s): I48.92 - Unspecified atrial flutter Status: Acute Assessment and Plan: Initial EKG showed new atrial flutter/tachycardia with normal ventricular response, rate 90. Cardiology consulted, Lm RUFFIN. Recommended initiation of Eliquis 5 mg b.i.d. and Coreg 3.125 mg b.i.d.. [id number] 3. Telemetry monitoring. (2) Hypertension: Qualifiers: Hypertension type: unspecified Qualified Code(s): I10 - Essential (primary) hypertension Code(s): I10 - Essential (primary) hypertension Status: Acute Assessment and Plan: Chronic, currently elevated at 182/118 Patient noted his PCP discontinued his amlodipine 1 month ago and exchanged for Coreg 3.125 mg b.i.d.. Patient's pipe organ tuner and repairer recommended Coreg 3.125 mg b.i.d. for the patient's new atrial flutter/hypertension today. Patient will now be on lisinopril 40 mg daily, amlodipine 2.5 mg daily, andCoreg 3.125 mg b.i.d.. Given dose of amlodipine and Coreg this evening, Hydralazine 10 mg IV x1 in interim until medications can take affect. Monitor. 11/25-Resume home BP medication: Lisinopril 40 mg daily and Amlodipine 2.5 mg daily (higher doses cause edema of legs). Started Coreg 3.125 mg BID per cardiology (3) Lightheadedness: Code(s): R42 - Dizziness and giddiness Status: Acute Assessment and Plan: Chronic, unknown etiology. Recently exacerbated in the last few days. Found to have new atrial flutter/tachycardia with normal ventricular response. Patient also found to be significantly hypertensive. Suspect new atrial flutter and significant hypertension exacerbating chronic condition. Patient also reported reduction in lightheadedness with reduction in his blood pressure in the ED. Head CT negative. PT/OT ordered. Plan UA showed 1+ leuks, otherwise unremarkable. Reflex to culture, follow. Denies urinary symptoms. Diet: Heart healthy GI Prophylaxis: Not currently indicated DVT Prophylaxis: Eliquis IV fluids: None Lines/Tubes: Peripheral IV Code Status: Full code Time Spent With Patient Time with patient: 25 - 35 minutes Subjective Date/time seen: 11/25/24 12:13 Interval history: 84 y/o M with PMH of bradycardia, dizziness of unknown etiology, OAB, BPH, vertigo, hypertension, and kidney stones presents here with lightheadedness. He felt dizzy after using a restroom and noted his HR was in 40's, felt weak, no sob or chest pain. Assuming care. PT is pleasant, calm, no chest pain, still feeling dizzy at times. Appetite is decreased. Review of Systems Review of Systems: All systems reviewed & are unremarkable except as noted in HPI and below Exam Narrative: trace edema to BLE. Const: General: comfortable and no acute distress Other: , male, elderly, nontoxic appearance HENMT: Face/Nose/Sinus: Normal nares present Mouth: Yes moist mucous membranes Eyes: General: appearance normal, both eyes and all related structures Sclera: sclerae normal Pupils: Equal, round and reactive pupils present EOM: EOMs intact bilaterally Resp: Effort & Inspection: normal respiratory effort Auscultation: clear to auscultation bilaterally Cardio: Rate: regular rate Rhythm: regular rhythm Other: S1-S2 present without murmur, rub, ectopy GI: Other: Abdomen soft, nondistended, nontender. Normoactive bowel sounds in all quadrants. Skin: General skin exam: normal color and no rashes or lesions noted Wounds: no wounds Neuro: Cranial nerves: Yes Equal, round and reactive pupils present Speech: normal speech Motor exam (neuro): 5/5 motor strength present throughout Sensory Exam: normal sensation Other: A&O x4 Extrem: Other: trace edema to BLE. Psych: Mental Status: mental status grossly normal Affect: normal affect Other: Good insight and judgment, pleasant Objective Data Vital Signs Vital Signs: Vital Signs - 24 hr 11/24/24 16:05 11/24/24 16:27 11/24/24 16:40 Temperature 97.7 F 97.9 F Pulse Rate 95 88 Respiratory Rate 18 20 16 Blood Pressure 165/132 H 160/118 H Pulse Oximetry 97 96 100 Oxygen Delivery Room Air 11/24/24 17:23 11/24/24 17:24 11/24/24 18:00 Temperature 97.9 F Pulse Rate 94 97 85 Respiratory Rate 24 H 20 Blood Pressure 183/122 H 159/111 H Pulse Oximetry 97 97 Oxygen Delivery 11/24/24 18:09 11/24/24 18:10 11/24/24 18:10 Temperature Pulse Rate 85 86 86 Respiratory Rate Blood Pressure 159/111 H 171/123 H 180/128 H Pulse Oximetry Oxygen Delivery 11/24/24 18:28 11/24/24 19:57 11/24/24 20:34 Temperature 98.0 F Pulse Rate 81 67 92 Respiratory Rate 20 Blood Pressure 160/118 H 182/118 H Pulse Oximetry 100 Oxygen Delivery 11/24/24 20:53 11/24/24 21:47 11/24/24 22:30 Temperature 97.5 F L Pulse Rate 89 78 89 Respiratory Rate 14 20 20 Blood Pressure 177/126 H 170/115 H 155/119 H Pulse Oximetry 98 95 97 Oxygen Delivery 11/24/24 22:40 11/24/24 23:00 11/24/24 23:02 Temperature Pulse Rate 97 Respiratory Rate Blood Pressure 160/98 H Pulse Oximetry Oxygen Delivery Room Air 11/25/24 00:00 11/25/24 03:47 11/25/24 03:57 Temperature 97.9 F Pulse Rate 87 90 Respiratory Rate 20 Blood Pressure 148/109 H 172/120 H Pulse Oximetry 97 Oxygen Delivery 11/25/24 04:00 11/25/24 04:27 11/25/24 05:10 Temperature Pulse Rate 89 90 68 Respiratory Rate 94 H Blood Pressure 150/92 H Pulse Oximetry Oxygen Delivery 11/25/24 05:34 11/25/24 08:00 11/25/24 08:00 Temperature Pulse Rate 76 Respiratory Rate 20 Blood Pressure 123/73 149/89 H Pulse Oximetry 97 Oxygen Delivery Room Air Intake/Output Intake/Output: Intake & Output 11/22/24 11/23/24 11/24/24 11/25/24 23:59 23:59 23:59 23:59 Intake Total 500 370 Output Total 500 1950 Balance 0 -1580 Meds/Results Medications: Active Medications Generic Name Dose Route Start Last Admin Trade Name Freq PRN Reason Stop Dose Admin Amlodipine Besylate 2.5 mg 11/25/24 09:00 11/25/24 04:27 Amlodipine Besylate 2.5 Mg Tablet PO 2.5 mg QAM NORAH Administration Apixaban 5 mg 11/24/24 19:55 11/25/24 09:25 Apixaban 5 Mg Tablet PO 5 mg Q12HR NORAH Administration Carvedilol 3.125 mg 11/24/24 19:50 11/25/24 04:27 Carvedilol 3.125 Mg Tablet PO 3.125 mg Q12HR NORAH Administration Famotidine 40 mg 11/25/24 09:00 11/25/24 09:24 Famotidine 20 Mg Tablet PO 40 mg DAILY NORAH Administration Finasteride 5 mg 11/25/24 09:00 11/25/24 09:24 Finasteride 5 Mg Tablet PO 5 mg DAILY NORAH Administration Fluticasone Propionate 2 spray 11/25/24 00:00 11/25/24 02:46 Fluticasone Propionate 0.05% Na Spr 16 Gm Btl (*Bkc) NASAL 2 spray DAILY PRN Administration allergy symptoms Lisinopril 40 mg 11/25/24 09:00 11/25/24 04:27 Lisinopril 20 Mg Tablet PO 40 mg QAM NORAH Administration Mirabegron 25 mg 11/25/24 09:00 11/25/24 09:24 Mirabegron 25 Mg Er Tablet PO 25 mg DAILY NORAH Administration Miscellaneous Information 1 each 11/25/24 00:01 Vibegron [Gemtesa] 75 Mg Tablet Is Nonformulary, Can Patient Bring From Home? XX 12/25/24 00:00 CLARIFY NORAH Nonformulary 0 each 11/24/24 20:24 Nutritional XX 11/25/24 20:23 Supplementnonformula PRN PRN ry Drug (Cranberry PROTOCOL Fruit Concentrate [ Azo Acoustical Tile Patternmaker Non-Formulary Medication 75 mg 11/25/24 09:00 Vibegron [Gemtesa] PO 12/25/24 08:59 DAILY [facility] Radiology Results: ITS Impressions Head CT 11/24/24 16:19 Impression: No acute intracranial hemorrhage or suspicious mass effect. Partial opacification of the right mastoid air cells. Chest X-Ray 11/24/24 16:25 IMPRESSION: No focal infiltrate or effusion. Labs Labs: Laboratory Results - last 24 hr 11/24/24 11/24/24 16:36 16:37 WBC 4.7 RBC 5.02 Hgb 15.6 Hct 46.8 MCV 93.2 MCH 31.1 MCHC 33.3 RDW 13.7 Plt Count 236 MPV 9.6 Immature Gran % (Auto) 0.4 Neut % (Auto) 67.7 Lymph % (Auto) 19.8 [place] % (Auto) 9.1 H Eos % (Auto) 2.6 Baso % (Auto) 0.4 Lymph # (Auto) 0.93 [place] # (Auto) 0.4 Eos # (Auto) 0.1 Baso # (Auto) 0.0 Abs Immat Gran (auto) 0.02 Absolute Neuts (auto) 3.2 Absolute Nucleated RBC 0.000 Nucleated RBC % 0.0 Sodium 140 Potassium 4.0 Chloride 107 Carbon Dioxide 24 Anion Gap 9 BUN 13 D Creatinine 0.74 Estim Creat Clear Calc 69 Estimated GFR > 60 Glucose 109 Calcium 8.7 Magnesium 2.0 Total Bilirubin 0.8 AST 25 ALT 19 Alkaline Phosphatase 70 Total Protein 7.0 Albumin 3.8 Urine Color Yellow Urine Appearance Clear Urine pH 7.0 Ur Specific [place] 1.007 Urine Protein Negative Urine Glucose (UA) Negative Urine Ketones Negative Ur Blood (Man) Negative Urine Nitrate Negative Urine Bilirubin Negative Urine Urobilinogen 0.2 Add Ur Microanalysis Reviewed Leukocyte Esterase Rfl 1+ H Urine RBC 0-2 Urine WBC 0-5 Ur Squamous Epith Cells None seen Urine Bacteria None seen Urine Casts 0-2 Quality VTE Prophylaxis VTE prophylaxis: pharmacologic ordered
[2024-11-25] MEDS: ACETAMINOPHEN 500 MG TABLET PO (20:22)
[2024-11-26] VITALS (7 sets, daily range): BP systolic 132–184; BP diastolic 91–110; PULSE 64–79; RESP 16–19; TEMP 36.1–36.4; O2SAT 96–97
[2024-11-26] MEDS: hydrALAZINE 5 MG TABLET PO (04:06)
[2024-11-26 05:33] LABS: Basophils Percent Auto 0.5 % (0.2-1.2); Eosinophils Absolute Auto 0.1 K/mm3 (0-0.3); Eosinophils Percent Auto 1.6 % (0-4.4); Hematocrit 48.2 % (42.0-52.0); Hemoglobin 15.9 g/dL (14.0-18.0); Immature Granulocyte Absolute 0.02 K/mm3 (0.00-0.031); Immature Granulocyte Percent A 0.3 % (0-0.5); Lymphocytes Absolute Auto 1.38 K/mm3 (0.9-3.2); Lymphocytes Percent Auto 22.4 % (18.3-44.2); Mean Corpuscular Hemoglobin 30.9 pg (26-34); Mean Corpuscular Volume 93.6 fl (80-100); Mean Platelet Volume 9.7 fl (7.4-10.4); Monocytes Absolute Auto 0.6 K/mm3 (0.1-0.6); Monocytes Percent Auto 9.7 % (2.6-8.5); Neutrophils Percent Auto 65.5 % (45.5-73.1); Platelet Count Result 244 k/mm3 (150-375); Red Blood Count 5.15 M/mm3 (4.6-6.20); Red Cell Distribution Width 13.6 % (11.5-14.5); White Blood Count 6.2 K/mm3 (4.5-10.0)
[2024-11-26 05:42] LABS: Anion Gap 4 mmol/L (4-12); Blood Urea Nitrogen 15 mg/dL (9-20); Calcium 8.5 mg/dL (8.4-10.2); Carbon Dioxide 29 mmol/L (22-30); Chloride 106 mmol/L (98-107); Estimated CRCL calculation 56 ml/min; Estimated Glomerular Filt Rate > 60; Glucose 94 mg/dL (65-110); Potassium 3.6 mmol/L (3.4-5.0); Sodium 139 mmol/L (137-145)
[2024-11-26] MEDS: lisinopriL 20 MG TABLET 40 MG PO (05:52)
--- NOTE | 2024-11-26 07:55 | PM.PNCARD ---
Progress Note: A&P Assessment and Plan (1) Atrial flutter: Qualifiers: Atrial flutter type: unspecified Qualified Code(s): I48.92 - Unspecified atrial flutter Code(s): I48.92 - Unspecified atrial flutter Status: Acute Assessment and Plan: New onset. Asymptomatic. HR is not rapid. [id number] 3. Started Eliquis 5 mg BID and started Coreg 3.125 mg BID. Monitor HR. (2) Hypertension: Qualifiers: Hypertension type: unspecified Qualified Code(s): I10 - Essential (primary) hypertension Code(s): I10 - Essential (primary) hypertension Status: Acute Assessment and Plan: High. Resume home BP medication including Lisinopril 40 mg daily and Amlodipine 2.5 mg daily (higher doses cause edema of legs). Started Coreg 3.125 mg BID and started Hydralazine 10 mg TID. Monitor BP. If BP is OK and he is functional may d/c home from cardiology standpoint and f/u with me in 2 weeks. (3) Bradycardia: Code(s): R00.1 - Bradycardia, unspecified Status: Inactive Assessment and Plan: When in Sinus rhythm and had episode while in atrial flutter which could be vagal episode. (4) Dizziness of unknown etiology: Code(s): R42 - Dizziness and giddiness Status: Acute Assessment and Plan: Stable. Subjective Date/time seen: 11/26/24 07:55 Interval history: He did OK with PT yesterday walking a few laps. No chest pain or sob. Exam Const: General: cooperative, healthy appearing and comfortable Orientation/consciousness: oriented to person, oriented to place and oriented to time Resp: Auscultation: clear to auscultation bilaterally, no crackles, no rales, no rhonchi and no wheezes Cardio: Rate: regular rate Rhythm: regular rhythm Heart sounds: no murmurs Peripheral pulses: dorsalis pedis present Neuro: General: oriented to person, oriented to place and oriented to time Extrem: Right lower extremity: no edema Left lower extremity: no edema Objective Data Vital Signs Vital Signs: Vital Signs - 24 hr 11/25/24 08:00 11/25/24 08:00 11/25/24 08:00 Temperature Pulse Rate 76 88 Respiratory Rate 20 Blood Pressure 149/89 H Pulse Oximetry 97 Oxygen Delivery Room Air 11/25/24 12:00 11/25/24 14:00 11/25/24 14:57 Temperature 97.6 F Pulse Rate 90 86 Respiratory Rate 18 Blood Pressure 156/88 H Pulse Oximetry 97 Oxygen Delivery Room Air 11/25/24 16:00 11/25/24 20:00 11/25/24 20:00 Temperature 97.6 F Pulse Rate 93 68 Respiratory Rate 16 Blood Pressure 142/98 H Pulse Oximetry 96 Oxygen Delivery Room Air 11/25/24 20:00 11/25/24 20:21 11/25/24 23:59 Temperature 98 F Pulse Rate 73 74 64 Respiratory Rate 18 Blood Pressure 180/102 H Pulse Oximetry 96 Oxygen Delivery 11/26/24 00:00 11/26/24 03:51 11/26/24 04:00 Temperature 97.6 F Pulse Rate 64 66 66 Respiratory Rate 16 Blood Pressure 172/110 H Pulse Oximetry 97 Oxygen Delivery 11/26/24 05:21 Temperature Pulse Rate Respiratory Rate Blood Pressure 184/110 H Pulse Oximetry Oxygen Delivery Intake/Output Intake/Output: Intake & Output 11/23/24 11/24/24 11/25/24 11/26/24 23:59 23:59 23:59 23:59 Intake Total 500 730 250 Output Total 500 1950 200 Balance 0 -1220 50 Meds/Results Medications: Active Medications Generic Name Dose Route Start Last Admin Trade Name Freq PRN Reason Stop Dose Admin Acetaminophen 500 mg 11/25/24 15:59 11/25/24 20:22 Acetaminophen 500 Mg Tablet PO 500 mg Q4H PRN Administration Mild Pain (1-3) or Fever Amlodipine Besylate 2.5 mg 11/25/24 09:00 11/25/24 04:27 Amlodipine Besylate 2.5 Mg Tablet PO 2.5 mg QAM NORAH Administration Apixaban 5 mg 11/24/24 19:55 11/25/24 20:21 Apixaban 5 Mg Tablet PO 5 mg Q12HR NORAH Administration Carvedilol 3.125 mg 11/24/24 19:50 11/25/24 20:21 Carvedilol 3.125 Mg Tablet PO 3.125 mg Q12HR NORAH Administration Famotidine 40 mg 11/25/24 09:00 11/25/24 09:24 Famotidine 20 Mg Tablet PO 40 mg DAILY NORAH Administration Finasteride 5 mg 11/25/24 09:00 11/25/24 09:24 Finasteride 5 Mg Tablet PO 5 mg DAILY NORAH Administration Fluticasone Propionate 2 spray 11/25/24 00:00 11/25/24 02:46 Fluticasone Propionate 0.05% Na Spr 16 Gm Btl (*Bkc) NASAL 2 spray DAILY PRN Administration allergy symptoms Hydralazine HCl 10 mg 11/26/24 09:00 Hydralazine 10 Mg Tablet PO TID NORAH Lisinopril 40 mg 11/25/24 09:00 11/26/24 05:52 Lisinopril 20 Mg Tablet PO 40 mg QAM NORAH Administration Mirabegron 25 mg 11/25/24 09:00 11/25/24 09:24 Mirabegron 25 Mg Er Tablet PO 25 mg DAILY NORAH Administration Miscellaneous Information 1 each 11/25/24 00:01 Vibegron [Gemtesa] 75 Mg Tablet Is Nonformulary, Can Patient Bring From Home? XX 12/25/24 00:00 CLARIFY NORAH Non-Formulary Medication 75 mg 11/25/24 09:00 Vibegron [Gemtesa] PO 12/25/24 08:59 DAILY NORAH Radiology Results: ITS Impressions Head CT 11/24/24 16:19 Impression: No acute intracranial hemorrhage or suspicious mass effect. Partial opacification of the right mastoid air cells. Chest X-Ray 11/24/24 16:25 IMPRESSION: No focal infiltrate or effusion. Labs Labs: Laboratory Results - last 24 hr 11/26/24 05:07 WBC 6.2 RBC 5.15 Hgb 15.9 Hct 48.2 MCV 93.6 MCH 30.9 MCHC 33.0 RDW 13.6 Plt Count 244 MPV 9.7 Immature Gran % (Auto) 0.3 Neut % (Auto) 65.5 Lymph % (Auto) 22.4 [place] % (Auto) 9.7 H Eos % (Auto) 1.6 Baso % (Auto) 0.5 Lymph # (Auto) 1.38 [place] # (Auto) 0.6 Eos # (Auto) 0.1 Baso # (Auto) 0.0 Abs Immat Gran (auto) 0.02 Absolute Neuts (auto) 4.0 Absolute Nucleated RBC 0.000 Nucleated RBC % 0.0 Sodium 139 Potassium 3.6 Chloride 106 Carbon Dioxide 29 Anion Gap 4 BUN 15 Creatinine 0.91 Estim Creat Clear Calc 56 Estimated GFR > 60 Glucose 94 Calcium 8.5
[2024-11-26] MEDS: carvediloL 3.125 MG TABLET PO (08:01)
[2024-11-26] MEDS: APIXABAN 5 MG TABLET PO (08:01)
[2024-11-26] MEDS: FAMOTIDINE 20 MG TABLET 40 MG PO (08:01)
[2024-11-26] MEDS: MIRABEGRON 25 MG ER TABLET PO (08:01)
[2024-11-26] MEDS: amLODIPine BESYLATE 2.5 MG TABLET PO (08:01)
[2024-11-26] MEDS: hydrALAZINE 10 MG TABLET PO ×2 (08:03→12:12)
[2024-11-26] MEDS: FINASTERIDE 5 MG TABLET PO (08:04)
--- NOTE | 2024-11-26 11:54 | PM.DS ---
DS: Admitting Diagnosis Discharge Date 11/26 Admitting Diagnosis lightheadedness DS: Discharge Diagnosis Discharge Diagnosis (1) Atrial flutter: Qualifiers: Atrial flutter type: unspecified Qualified Code(s): I48.92 - Unspecified atrial flutter Code(s): I48.92 - Unspecified atrial flutter Status: Acute (2) Hypertension: Qualifiers: Hypertension type: unspecified Qualified Code(s): I10 - Essential (primary) hypertension Code(s): I10 - Essential (primary) hypertension Status: Acute (3) Lightheadedness: Code(s): R42 - Dizziness and giddiness Status: Acute DS: Summary Hospital Course Hospital Course: 84 y/o M with PMH of bradycardia, dizziness of unknown etiology, OAB, BPH, vertigo, hypertension, and kidney stones presents here with lightheadedness. He felt dizzy after using a restroom and noted his HR was in 40's, felt weak, no sob or chest pain. # afib Initial EKG showed new atrial flutter/tachycardia with normal ventricular response, rate 90. Cardiology consulted, Lm RUFFIN. Recommended initiation of Eliquis 5 mg b.i.d. and Coreg 3.125 mg b.i.d.. [id number] 3. Telemetry monitoring. # HTN Chronic, currently elevated at 182/118 Patient noted his PCP discontinued his amlodipine 1 month ago and exchanged for Coreg 3.125 mg b.i.d.. Patient's hogshead opener recommended Coreg 3.125 mg b.i.d. for the patient's new atrial flutter/hypertension today. Patient will now be on lisinopril 40 mg daily, amlodipine 2.5 mg daily, andCoreg 3.125 mg b.i.d.. Given dose of amlodipine and Coreg this evening, Hydralazine 10 mg IV x1 in interim until medications can take affect. Monitor. 11/25-Resume home BP medication: Lisinopril 40 mg daily and Amlodipine 2.5 mg daily (higher doses cause edema of legs). Started Coreg 3.125 mg BID per cardiology # lightheadedness chronic, unknown etiology. Recently exacerbated in the last few days. Found to have new atrial flutter/tachycardia with normal ventricular response. Patient also found to be significantly hypertensive. Suspect new atrial flutter and significant hypertension exacerbating chronic condition. Patient also reported reduction in lightheadedness with reduction in his blood pressure in the ED. Head CT negative. PT/OT ordered. Time Spent with Patient Time attestation: Total time spent providing and/or coordinating discharge services: Exam Const: General: comfortable and no acute distress Other: , male, elderly, nontoxic appearance HENMT: Face/Nose/Sinus: Normal nares present Mouth: Yes moist mucous membranes Eyes: General: appearance normal, both eyes and all related structures Sclera: sclerae normal Pupils: Equal, round and reactive pupils present EOM: EOMs intact bilaterally Resp: Effort & Inspection: normal respiratory effort Auscultation: clear to auscultation bilaterally Cardio: Rate: regular rate Rhythm: regular rhythm Other: S1-S2 present without murmur, rub, ectopy GI: Other: Abdomen soft, nondistended, nontender. Normoactive bowel sounds in all quadrants. Skin: General skin exam: normal color and no rashes or lesions noted Wounds: no wounds Neuro: Cranial nerves: Yes Equal, round and reactive pupils present Speech: normal speech Motor exam (neuro): 5/5 motor strength present throughout Sensory Exam: normal sensation Other: A&O x4 Extrem: Other: trace edema to BLE. Psych: Mental Status: mental status grossly normal Affect: normal affect Other: Good insight and judgment, pleasant DS: Data Data Completed and Pending Completed studies during hospitalization: head ct, chest xray Labs on day of discharge: Labs from last 24 hours 11/26/24 05:07 WBC 6.2 RBC 5.15 Hgb 15.9 Hct 48.2 MCV 93.6 MCH 30.9 MCHC 33.0 RDW 13.6 Plt Count 244 MPV 9.7 Immature Gran % (Auto) 0.3 Neut % (Auto) 65.5 Lymph % (Auto) 22.4 [place] % (Auto) 9.7 H Eos % (Auto) 1.6 Baso % (Auto) 0.5 Lymph # (Auto) 1.38 [place] # (Auto) 0.6 Eos # (Auto) 0.1 Baso # (Auto) 0.0 Abs Immat Gran (auto) 0.02 Absolute Neuts (auto) 4.0 Absolute Nucleated RBC 0.000 Nucleated RBC % 0.0 Sodium 139 Potassium 3.6 Chloride 106 Carbon Dioxide 29 Anion Gap 4 BUN 15 Creatinine 0.91 Estim Creat Clear Calc 56 Estimated GFR > 60 Glucose 94 Calcium 8.5 Discharge Plan Discharge Attending physician on discharge: Dano Smith Consulting providers: Julito Amato Discharging Clinician: Veronica Ferro Patient Disposition: Home with Home Health Service Activity: december shower Diet: heart healthy Discharge Instructions: Per Care Coordination, patient to discharge with [facility] ([phone]) for PT/OT nd detention services. Agency will call to arrange the initial visit. YOu were admitted for lightheadedness. Cardiology saw oyu and diagnosed oyu with atrial flutter. Started Eliquis 5 mg BID and started Coreg 3.125 mg BID. Please be careful while taking eliquis- change positions slowly and monitor stool or urine for any signs of bleeding. Continue home BP medication including Lisinopril 40 mg daily and Amlodipine 2.5 mg daily. You were started Hydralazine 10 mg three times a day for HTN as well. Montiro your bp daily in am and keep log. f/u with DR Amato in 2 weeks. Patient Instructions: Antibiotic Form, Apixaban (By mouth) Patient Language: Singaporean Stand Alone Forms: General Discharge Information Follow-up/Referrals: Julito Amato DO [Physician] - 2 Weeks Discharge Medications: New hydralazine 10 mg Tablet 10 mg PO TID Qty: 90 0RF Eliquis 5 mg Tablet 5 mg PO Q12HR Qty: 90 0RF Continued lisinopril 40 mg tablet 40 mg PO DAILY amlodipine 5 mg tablet 2.5 mg PO DAILY Azo Cranberry 250 mg tablet,chewable 250 mg PO TID carvedilol 3.125 mg tablet 3.125 mg PO BID famotidine 40 mg tablet 40 mg PO DAILY mirabegron 25 mg tablet extended release 24 hr 25 mg PO DAILY Gemtesa 75 mg tablet 75 mg PO DAILY fluticasone propionate [24 Hour Allergy Relief] 50 mcg/actuation spray,suspension 2 spray intranasal PRN PRN (Reason: allergy symptoms) Rx Instructions: administer into each nostril finasteride [Proscar] 5 mg tablet 5 mg PO DAILY Date of admission: 11/24/24 18:09 Primary Care Provider: Lew,Praful Colon Admitting Provider: Dimitris Glass Attending physician on admission: Dimitris Glass Condition: Stable Quality VTE Prophylaxis VTE prophylaxis: pharmacologic ordered Hospitalist MIPS Heart Failure (Exclusion) Patient has history of Heart Transplant or Left Ventricular Assistive Device?: No IF YES, STOP HERE Heart Failure (Qualifier) Patient has current or prior documentation of LVEF less than or equal to 40%, or mod/servere depressed LVSF?: No IF NO, STOP HERE
== END 2024-11-26 13:45 | disposition home health service (06) ==
LOC: ANHED 18:22 → ANH3MEDSUR 19:31 → ANH3MED 22:07
PROVIDERS: Student in an Organized Health Care Education/Training Program; Admitting Provider General Practice; Emergency Provider Physician Assistant; PCP Family Medicine; Visit Provider General Practice
DX: I48.92 Unspecified atrial flutter (principal); I10 Essential (primary) hypertension; R42 Dizziness and giddiness; R00.1 Bradycardia, unspecified; N40.0 Benign prostatic hyperplasia without lower urinary tract symptoms; N32.81 Overactive bladder; Z79.899 Other long term (current) drug therapy; Z87.442 Personal history of urinary calculi; Z98.890 Other specified postprocedural states
CPT/HCPCS: 36415; 70450; 71046; 80048; 80053; 81001; 83735; 85025; 87086; 93005; 96361; 96374; 96375; 97161; 99285; A9270; G0378; J0360; J7040

== ENCOUNTER 2024-11-27 11:32 | Emergency (ER) | payer MEDICARE, MEDICAID, SELFPAY ==
[2024-11-27] VITALS (8 sets, daily range): BP systolic 125–159; BP diastolic 86–101; PULSE 70–89; RESP 15–18; TEMP 36.4–36.6; O2SAT 96–100
--- NOTE | ~2024-11-27 | CT_ITS ---
CT head without contrast Indication: Dizziness COMPARISON: 11/24/2024 Technique: Serial scans were obtained through the brain without the administration of contrast. Dose reduction technique was used on this scan by utilizing automated exposure control and iterative recon struction technique. The dose-length product (DLP) was 681.00 mGy-cm. Findings: There is no evidence of intracranial hemorrhage, mass lesion, or acute infarct. The ventri cles and subarachnoid spaces are dilated, consistent with mild atrophy. Low attenuation regions are seen within the periventricular white matter bilaterally, likely representing changes from chronic mi crovascular ischemic disease. There is no evidence of edema, mass effect or midline shift. The visu alized paranasal sinuses and mastoid air cells are clear. Impression: No intracranial hemorrhage, mass, or acute infarct. Atrophy and chronic white matter changes, as above. Reviewed, dictated and finalized at location . Impression: No intracranial hemorrhage, mass, or acute infarct. Atrophy and chronic white matter changes, as above.
--- NOTE | ~2024-11-27 | XR_ITS ---
XR chest 1V portable 11/27/2024 11:57 Indication: Chest palpitations. Atrial fibrillation. Procedure: AP portable chest Comparison: 10/13/2024 Findings: Borderline heart size. Bibasilar atelectasis. No focal pneumonia, edema or effusion. No pne umothorax. No acute osseous abnormality. Impression: 1: No acute cardiopulmonary disease. Reviewed, dictated and finalized at location A. Impression: 1: No acute cardiopulmonary disease.
--- NOTE | 2024-11-27 11:40 | ECG_ITS ---
Test Date: 2024-11-27 11:44:05 Measurements Intervals [place] Rate: 89 P: 0 LA: 0 QRS: -31 QRSD: 110 T: 10 QT: 384 QTc: 467 Interpretive Statements ATRIAL FLUTTER/TACHYCARDIA INCOMPLETE RIGHT BUNDLE BRANCH BLOCK INFERIOR INFARCT, AGE INDETERMINATE BORDERLINE ST-T WAVE ABNORMALITY- ANTEROLAT/HIGH LAT LEADS ABNORMAL ECG Compared to ECG 11/25/2024 07:28:46 POSSIBLE ISCHEMIA NO LONGER PRESENT Electronically Signed On 11-27-2024 12:05:30 CDT by Julito Amato D.O.
--- OUTSIDE RECORDS SUMMARY | 2024-11-27 11:48 | XMS_ITS | Encounter Summary ---
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
--- OUTSIDE RECORDS SUMMARY | 2024-11-27 11:48 | XMS_ITS | Encounter Summary ---
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
--- OUTSIDE RECORDS SUMMARY | 2024-11-27 11:49 | XMS_ITS | Clinical Summary ---
Author Organization [facility] Address [address] [place] [address] Phone Care Team Providers Care Formula Bottler Name Role Phone Praful Hackett MD Primary Care Provider [phone] Manav Garcia MD Unavailable [phone] Allergies No known active allergies Medications Ginkgo Biloba 40 MG Tablet Take by mouth. Active lisinopril (PRINIVIL, ZESTRIL) 40 MG Tablet Take 40 mg by mouth daily. Active Mirabegron ER (Myrbetriq) 25 MG TABLET SR 24 HR Take by mouth. Active Multiple Vitamin (MULTIVITAMIN PO) Take by mouth. Active [place]-3 Fatty Acids (OMEGA 3 PO) Take by mouth. Active FLUNISOLIDE, NASAL, NA by Nasal route. Active montelukast (SINGULAIR) 10 MG Tablet Take 10 mg by mouth every evening. Active amLODIPine (NORVASC) 5 MG Tablet Take 5 mg by mouth daily. Active finasteride (PROSCAR) 5 MG Tablet Take 5 mg by mouth daily. Active Encounters Date Type Department Care Team Description 09/08/2024 10:00 AM INDIAN TRADER Office Visit [facility] [address] [place] [address] Manav Garcia MD Benign paroxysmal [...] Comments Blood Pressure 138/90 09/08/2024 10:34 AM INDIAN TRADER Pulse 84 09/08/2024 10:34 AM INDIAN TRADER Temperature 36.9 C (98.4 F) 09/08/2024 10:25 AM INDIAN TRADER Respiratory Rate 16 09/08/2024 10:25 AM INDIAN TRADER Oxygen Saturation - - Inhaled Oxygen Concentration - - Weight 83.7 kg (184 lb 9.6 oz) 09/08/2024 10:25 AM INDIAN TRADER Height 177.8 cm (5' 10 ) 09/08/2024 10:25 AM INDIAN TRADER Body Mass Index 26.49 09/08/2024 10:25 AM INDIAN TRADER Plan of Treatment Upcoming Encounters Date Type Department Care Team (Late st Contact Info) Description 01/04/2025 10:15 AM CDT Office Visit [facility] Neurology [facility] [address] [place] [address] Manav Garcia MD [address] [place] [address] 03/11/2025 10:00 AM CDT Office Visit [facility] Neurology [facility] [address] [place] [address] Manav Garcia MD [address] [place] [address] Health Maintenance Due Date Last Done Comments [...] MEDICAID [place] MEDICARE C [employer] Care Teams Formula Bottler Relationship Specialty Start Date End [place] [address] PCP - General Internal Medicine 04/29/24 Manav Garcia MD [address] [place] [address] Consulting Physician Neurology 09/08/24
--- OUTSIDE RECORDS SUMMARY | 2024-11-27 11:49 | XMS_ITS | Referral Summary ---
Author Organization [facility] [address] Address [address] [place] [address] Care Team Providers Care Healthcare Liaison Name Role Phone Praful Hackett MD Primary Care Provider [phone] [phone] Encounters Date Type Department Care Team Description 11/27/2024 Nurse Triage [facility] [address] [address] Praful Hackett MD 11/24/2024 Orders Only [facility] Health Information Management [address] [place] [address] Scanning, Provider 11/24/2024 Orders Only [facility] [address] [address] Praful Hackett MD 11/24/2024 2:30 PM CDT Office Visit [facility] Medical Group [facility] Care at [address] [address] Sandhya Li NP Elevated blood pressure reading in office with diagnosis of hypertension (Primary Dx); Altered gait; Dizziness; Fatigue, unspecified type; Shortness of breath 11/24/2024 Telephone [facility] [address] [address] Praful Hackett MD Prior Autorization ([place]) 11/24/2024 Nurse Triage [facility] [address] [address] Praful Hackett MD 11/04/2024 Telephone [facility] [address] [phone] Praful Hackett MD 10/29/2024 1:30 PM CDT Office Visit [facility] [address] [phone] Rosa Basilio NP Other insomnia (Primary Dx); Benign prostatic hyperplasia with urinary frequency; Vertigo; Hypertension, essential; BMI 26.0-26.9,adult 10/29/2024 Nurse Triage [facility] [address] [phone] Praful Hackett MD 10/15/2024 Results Follow-Up [facility] Medical [facility] Care at [address] [phone] Sandhya Li NP 10/13/2024 Orders Only [facility] Health Information Management [address] [place] [address] Scanning, Provider 10/12/2024 Nurse Triage [facility] [address] [phone] Praful Hackett MD 10/11/2024 5:08 AM CDT - 10/11/2024 11:59 PM CDT Hospital Encounter [address] [address] Discharge Disposition: Discharge to home or self care 10/11/2024 5:06 AM CDT - 10/11/2024 11:59 PM CDT Hospital Encounter [address] [address] Discharge Disposition: Discharge to home or self care 10/11/2024 3:45 PM CDT Office Visit [facility]venient Care at [address] [phone] Sandhya Li NP Strep pharyngitis (Primary Dx); Acute cough; Purulent postnasal drainage; Elevated blood pressure reading in office with diagnosis of hypertension; Intermittent abdominal pain 10/09/2024 Results Follow-Up [facility] at [address] [address] Janee Zhang NP 10/09/2024 10:15 AM ARROW POINT ATTACHER Ancillary Procedure [facility] Imaging at [address] [address] Acute cough 10/09/2024 10:15 AM ARROW POINT ATTACHER Office Visit [facility] at [address] [phone] Janee Zhang NP Acute cough (Primary Dx) 09/07/2024 Orders Only [facility] Health Information Management [address] [place] [address] Scanning, Provider from Last 3 Months Allergies [...] 08/24/19 Assessment & Plan (08/24/2024 1:37 PM ARROW POINT ATTACHER): Pepcid 40 mg Continue elevated head of bed Donut or Ushaped pillow to take pressure off right ear Call if no improvement in 3 months for referral to GI Laryngopharyngeal reflux discussed and Handout provided Medicare annual wellness visit, subsequent 06/23 Assessment & Plan (06/23/2024 3:43 PM ARROW POINT ATTACHER): Focus of exam is preventative in anture. Reviewed immunizations, reviewed sun/skin cancer screening. Reivewed age and comrobid appropriate screenings and iwll follow response. Chronic sinusitis 06/23/2024 Assessment & Plan (06/23/2024 3:44 PM ARROW POINT ATTACHER): Most likely multifactorial and will follow response. [...] meals Assessment & Plan (06/23/2024 3:44 PM ARROW POINT ATTACHER): Stable at the presnt time. Encourage to [...] (09/10/2022): Added automatically from request for surgery [id number] Postconcussion syndrome 04/12/2022 Assessment & Plan (04/12/2022 [...] monitor. Assessment & Plan (06/23/2024 3:45 PM ARROW POINT ATTACHER): Longstanding issue for patinet. Continues to be cautious with fall prevention while maintaining activity level. Patient with vestibular testing to be completed at [facility] related to request for evaluation by balance center. Assessment & Plan (04/29/2024 10:17 AM CDT): Advised to see PT for dizziness and weakness. Patient declined referral due to essence picky on locations will let us know if a referral is needed. Also sent to Neuro for evaluation. 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 Gender Identity Not on file Sexual Orientation [...] Date/Time Associated Diagnosis Comments SCAN - LABS 11/24/2024 SCAN - RADIOLOGY/IMAGING 11/24/2024 SCAN - LABS 10/13/2024 SCAN - RADIOLOGY/IMAGING 10/13/2024 POCT URINALYSIS DIPSTICK Routine 10/11/2024 3:51 PM CDT Strep pharyngitis POCT RAPID STREP Routine 10/11/2024 3:46 PM CDT Strep pharyngitis URINE CULTURE Routine 10/11/2024 3:46 PM CDT INFLUENZA A/B, RSV, AND COVID-19 PCR Routine 10/11/2024 3:31 PM CDT XR CHEST PA LATERAL 2 VIEWS Schedule COSMO, Read COSMO (Appt Today, Awaiting Results) 10/09/2024 10:27 AM ARROW POINT ATTACHER Acute cough CARDIOLOGY DOCUMENT SCAN 09/07/2024 from Last 3 Months Results * SCAN - RADIOLOGY/IMAGING (11/24/2024) Anatomical Region Laterality Modality Other us Provider Scanning Edited Result - Final * SCAN - LABS (11/24/2024) Provider Scanning Final Result * SCAN - RADIOLOGY/IMAGING (10/13/2024) Anatomical Region Laterality Modality Other us Provider Scanning Edited Result - Final * SCAN - LABS (10/13/2024) Provider Scanning Edited Result - Final * (ABNORMAL) POCT urinalysis dipstick (10/11/2024 3:51 PM CDT) Pathologist [facility] Color, Urine, POC Yellow Clarity, ur, POC Clear Clear Glucose, ur, POC Negative Negative MG/DL Bilirubin, ur, POC Negative Negative, Small, Moderate, Large Ketones, ur, POC Negative Negative Specific [place], POC 1.005 1.003 - 1.030 Blood, ur, POC Trace(A) Negative pH, ur, POC 6.5 5.0 - 8.0 Protein, ur, POC Negative Negative Urobilinogen, urine, POC 0.2 0.2 - 1.0 mg/dL Nitrite, ur, POC Negative Negative Leukocytes, ur, POC Negative Negative Lot Number [id number] Urine 10/11/2024 3:51 PM CDT Result [facility] Sandhya Li NP POINT OF CARE TEST ORDERABLES F inal Result * (ABNORMAL) POCT rapid strep A (10/11/2024 3:46 PM CDT) [facility] Rapid Strep A, POC Positive(A ) Negative Swab 10/11/2024 3:46 PM CDT Sandhya Li NP POINT OF CARE TEST ORDERABLES F inal Result * Urine culture Urine (10/11/2024 3:46 PM CDT) Pathologist [facility] Report Final Report: Less than 100,000 colonies/mL (clinically insignificant growth based on current clinical standards) Comment:Testing performed by : [facility], [address] [facility], [place]., [address] Organism (CLINICALLY INSIGNIFICANT GROWTH [facility] Urine 10/11/2024 3:46 PM CDT 10/12/2024 9:57 AM CDT Narrative [facility] - 10/13/2024 1:09 PM CDT Testing performed by [facility] ([phone]) Sandhya Li NP LAB MICROBIOLOGY - GENERAL [facility] DON Final Result Performing Organization Address City/[facility]/ZIP Co de Phone Number MAIKEL KHOURY [phone] [address] [place] [address] * (ABNORMAL) Influenza A/B, RSV, and COVID-19 PCR Nasopharyngeal (10/11/2024 3:31 PM CDT) [facility] COVID-19 RNA Negative Negative Influenza A RNA Positive(A) Negative [facility] Influenza B RNA Negative Negative [facility] RSV RNA Negative Negative [facility] Comment: Interpretive data: Testing performed by [facility]. This test is performed using the iConclude Xpert Xpress CoV-2/Flu/RSV plus assay. This is a multiplex, real-time reverse transcriptase PCR assay intended for the qualitative detection of nucleic acid from SARS-CoV-2, influenza A, influenza B, and respiratory syncytial virus. This assay has been cleared by the [place] Food and Drug administration. The performance characteristics have been verified by the [facility]. Results must be considered in the clinical context, and a negative result does not rule out infection. Interpretive Data last revised 2023 Nasopharyngeal 10/11/2024 3: 31 PM CDT 10/12/2024 5:24 AM CDT Sandhya Li NP LAB MICROBIOLOGY - GENERAL [place] [place] Final Result Performing Organization Address City/[facility]/ZIP Co de Phone Number MAIKEL KHOURY [phone] [address] [place] [address] CH * XR Chest Pa Lateral 2 Views (10/09/2024 10:27 AM ARROW POINT ATTACHER) Anatomical Region Laterality Modality Body, Chest N/A Digital Radiogra phy 10/09/2024 12:0 1 PM ARROW POINT ATTACHER Narrative 10/09/2024 12:01 PM ARROW POINT ATTACHER EXAM DESCRIPTION: XR CHEST PA LATERAL 2 [...] Karla Fitzgerald M.D. FT T: Report ID: [id number] Reading Location: [id number] Procedure Note Karla Hernandez MD - 10/09/2024 [...] Karla Fitzgerald M.D. FT T: Report ID: [id number] Reading Location: [id number] Janee Zhang SIDE LASTER TACK IMG XR PROCEDURES Final Re sult * Cardiology Document Scan (09/07/2024) Anatomical Region Laterality Modality Other us Provider Scanning CV CARDIAC SERVICES PROCEDURES Edited Result - Final from Last 3 Months Insurance [facility] Member Subscriber Plan / Payer (Ef fective 2018-Present) Name:Remy Wilkes Relation to Subscriber:Self Name:Remy Wilkes Payer ID:[id number] (NAIC) Type:MEDICARE RISK OTHER Address: [address] [facility] Member Subscriber Plan / Payer (Ef fective 2018-Present) Name:Remy Wilkes Relation to Subscriber:Self Name:Remy Wilkes Payer ID:[id number] (NAIC) Type:MEDICARE RISK OTHER Address: [address] IDPA [facility] MEDICARE ADVANTAGE [facility] Address: [address] [address] [place] [address] Advance Directives For more information, please contact: [phone] * Full Code (Latest Code Status on File) Date Activated Date Inactivated Comments 10/10/2022 9:07 AM 10/10/2022 3:30 PM * Full Code Date Activated Date Inactivated Comments 10/10/2022 9:07 AM 10/10/2022 9:07 AM Care Teams Healthcare Liaison Relationship Specialty Start Date End Date [place] [address] PCP - General Family Medicine 11/14/21
--- OUTSIDE RECORDS SUMMARY | 2024-11-27 11:49 | XMS_ITS | Encounter Summary ---
Author Organization [facility] Healthcare Address [address] [place] [address] Care Team Providers Care Sql Database Administrator Name Role Phone Praful Hackett MD Primary Care Provider +1 -[phone] Reason for Visit * Reason Onset Date Comments Shortness of Breath 11/27/2024 Dizziness 11/27/2024 Weakness - Generalized 11/27/2024 Encounter Details Date Type Department Care Team (Late st Contact Info) Description 11/27/2024 Nurse Triage [facility] [address] [place] [address] Praful Hackett MD [address] [place] [address] Social History Tobacco Use Types Packs/Day Years [...] on file 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 Patient was admitted for elevated BP, dizziness, and weakness. He was diagnosed with a-flutter. Patient was started on hydralazine TID and Eliquis daily. He reports prior to discharge he was able to walk the halls and felt more steady. Patient reports he returned home yesterday afternoon but has not started the newly prescribed medication. He states he did not sleep well last night and feels increasing weakness and lightheadedness today. Patient states he feels unsteady when walking in the house but is able to walk without support. He also reports some SOB when walking steps but denies SOB while walking within the house. Patient states this symptom has not worsened since being hospitalized. At time of call patient states his BP cuff is downstairs. Patient reports he will be going down for breakfast and atwill have a BP reading when gluing crew leader returns call. Patient states he is not monitoring his BP since returning home because he does not trust the cuff. Patient reports he will eat and start his medications as prescribed this morning. Provider contacted via secure chat for ED disposition consult. Recommendation from provider:Proceedto ED [place] with Praful Hackett MD Reviewed chart from [place]. New diagnosis fo afib. If sypmtoms are worsening would recommend ER. 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 Returned call to patient to inform of recommendation. Patient states he has not checked his BP at this time. Patient agreeable to disposition. Nursing care advice also provided. Encouraged to call back if there are further questions or concerns. Encouraged to call back if symptoms persist or worsen. Reason for Disposition Difficulty breathing Protocols used: Weakness (Generalized) and [id number] * Telephone Encounter - Margarette Gibbs RN - 11/27/2024 10:06 AM CDT Regarding: Shortness of breath, lightheaded ----- Message from Lou Robertson sent at 11/27/2024 10:05 AM CDT ----- Symptom Based Call Chief Complaint(s): Shortness of breath, lightheaded Duration: 3 days What type of symptom(s) is the patient experiencing? Red Flag. Is the patient concerned they are experiencing a medical emergency requiring an ambulance? No Additional Comments: Patient reports he has slight shortness of breath and lightheadedness. Patientstates he went to [place] on 11/24/24 for being fatigued, he could not walk, and he was told he has onset arterial flutters. He was prescribed Eliquis and hydralazine. Patient states he feels more lightheaded now than before. Does message need to be routed? Yes-Action Needed documented in this encounter Plan of Treatment Not on file documented as of this encounter Visit Diagnoses Not on filedocumented in this encounter Care Teams Sql Database Administrator Relationship Specialty Start Date End Date [place] [address] PCP - General Family Medicine 11/14/21 documented as of this encounter
--- OUTSIDE RECORDS SUMMARY | 2024-11-27 11:49 | XMS_ITS | Clinical Summary ---
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
--- OUTSIDE RECORDS SUMMARY | 2024-11-27 11:49 | XMS_ITS | Encounter Summary ---
Author Organization 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 Message routed to office for further follow up and recommendations. Reason for Disposition Caller has NON-URGENT medicine question about med that PCP or specialist prescribed and triager unable to answer question Protocols used: Medication Question [id number] * Telephone Encounter - Chloe Ardon RN - 10/12/2024 2:26 PM CDT Regarding: benzonatate causing extreme sleepiness ----- Message from Pastora Villdea sent at 10/12/2024 2:24 PM CDT ----- Symptom Based Call Chief Complaint(s): prescribed benzonatate and it is making him too sleep. Can he stop? Duration: 2 days What type of symptom(s) is the patient experiencing?Red Flag Is this a new or reoccurring symptom(s)? New What have you tried to help your symptom(s)? Why was appointment not scheduled? Requesting advice from clinical steam tunnel feeder. Additional Comments: Patient prescribed this for his [...] documented as of this encounter Care Teams Installment Loan Collector Relationship Specialty Start Date End Date Praful Hacektt MD [address] [place] [address] PCP - General Family Medicine 11/14/21 documented as of this encounter
--- OUTSIDE RECORDS SUMMARY | 2024-11-27 11:49 | XMS_ITS | Encounter Summary ---
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 Gender Identity Not on file Sexual Orientation Not on file documented as of this encounter Plan of Treatment Not on file documented as of this encounter Procedures Procedure Name Priority Date/Time Associated Diagnosis Comments SCAN - RADIOLOGY/IMAGING 11/24/2024 documented in this encounter Results * SCAN - RADIOLOGY/IMAGING (11/24/2024) Anatomical Region Laterality Modality Other us Provider Scanning Edited Result - Final documented in this encounter Visit Diagnoses Not on filedocumented in this encounter Care Teams Work Counselor Relationship Specialty Start Date End Date [place] [address] PCP - General Family Medicine 11/14/21 documented as of this encounter
--- OUTSIDE RECORDS SUMMARY | 2024-11-27 11:49 | XMS_ITS | Clinical Summary ---
Author Organization [facility] [address] Address [address] [place] [address] Care Team Providers Care Drying Machine Receiver Name Role Phone Praful Hackett MD Primary Care Provider +1 -[phone] Allergies No known active allergies Medications omega-3 [...] 08/24/19 Assessment & Plan (08/24/2024 1:37 PM GROCERY CARRIER): Pepcid 40 mg Continue elevated head of bed Donut or Ushaped pillow to take pressure off right ear Call if no improvement in 3 months for referral to GI Laryngopharyngeal reflux discussed and Handout provided Medicare annual wellness visit, subsequent 06/23 Assessment & Plan (06/23/2024 3:43 PM GROCERY CARRIER): Focus of exam is preventative in anture. Reviewed immunizations, reviewed sun/skin cancer screening. Reivewed age and comrobid appropriate screenings and iwll follow response. Chronic sinusitis 06/23/2024 Assessment & Plan (06/23/2024 3:44 PM GROCERY CARRIER): Most likely multifactorial and will follow response. [...] meals Assessment & Plan (06/23/2024 3:44 PM GROCERY CARRIER): Stable at the presnt time. Encourage to [...] (09/10/2022): Added automatically from request for surgery [id number] Postconcussion syndrome 04/12/2022 Assessment & Plan (04/12/2022 [...] monitor. Assessment & Plan (06/23/2024 3:45 PM GROCERY CARRIER): Longstanding issue for patinet. Continues to be cautious with fall prevention while maintaining activity level. Patient with vestibular testing to be completed at [facility] related to request for evaluation by [...] Description 11/27/2024 Nurse Triage [facility] of [address] [address] Praful Hackett MD 11/24/2024 2:30 PM CDT Office Visit [facility] Medical [facility] Care at [address] [phone] Sandhya Li NP Elevated blood pressure reading in office with diagnosis of hypertension (Primary Dx); Altered gait; Dizziness; Fatigue, unspecified type; Shortness of breath 11/24/2024 Orders Only [facility] Health Information Management [address] [place] [address] Scanning, Provider 11/24/2024 Orders Only [facility] [address] [address] Praful Hackett MD 11/24/2024 Telephone [facility] [address] [address] Praful Hackett MD Prior Autorization (Doxepin) 11/24/2024 Nurse Triage [facility] [address] [phone] Praful Hackett MD 11/04/2024 Telephone [facility] [address] [address] Praful Hackett MD 10/29/2024 1:30 PM CDT Office Visit [facility] [address] [address] Rosa Basilio NP Other insomnia (Primary Dx); Benign prostatic hyperplasia with urinary frequency; Vertigo; Hypertension, essential; BMI 26.0-26.9,adult 10/29/2024 Nurse Triage [facility] [address] [address] Praful Hackett MD 10/15/2024 Results Follow-Up [facility] Medical [facility] Convenient Care at [address] [address] Sandhya Li NP 10/13/2024 Orders Only [facility] Health Information Management [address] [place] [address] Scanning, Provider 10/12/2024 Nurse Triage [facility] [address] [phone] Praflu Hackett MD 10/11/2024 3:45 PM CDT Office Visit [facility] Medical Group Convenient Care at [address] [address] Sandhya Li NP Strep pharyngitis (Primary Dx); Acute cough; Purulent postnasal drainage; Elevated blood pressure reading in office with diagnosis of hypertension; Intermittent abdominal pain 10/11/2024 5:08 AM CDT - 10/11/2024 11:59 PM CDT Hospital Encounter [address] [address] Discharge Disposition: Discharge to home or self care 10/11/2024 5:06 AM CDT - 10/11/2024 11:59 PM CDT Hospital Encounter [address] [address] Discharge Disposition: Discharge to home or self care 10/09/2024 10:15 AM GROCERY CARRIER Ancillary Procedure [facility] Medical Group Imaging at [address] [phone] Acute cough 10/09/2024 10:15 AM GROCERY CARRIER Office Visit [facility] Medical Group Convenient Care at [address] [address] Janee Zhang NP Acute cough (Primary Dx) 10/09/2024 Results Follow-Up [facility] Medical Group Convenient Care at [address] [phone] Janee Zhang NP 09/07/2024 Orders Only [facility] Health Information Management [address] [place] [address] Scanning, Provider from Last 3 Months Immunizations Immunization Administration Dates Next Due COVID-19 mRNA (Echobit) 0.3 m L (30 mcg) vaccine (12 [...] on file 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 Gender Identity Not on file Sexual Orientation [...] (Appt Today, Awaiting Results) 10/09/2024 10:27 AM GROCERY CARRIER Acute cough CARDIOLOGY DOCUMENT SCAN 09/07/2024 from Last 3 Months Results * SCAN - RADIOLOGY/IMAGING (11/24/2024) Anatomical Region Laterality Modality Other us Provider Scanning Edited Result - Final * SCAN - LABS (11/24/2024) us Provider Scanning Final Result * SCAN - [...] Large Ketones, ur, POC Negative Negative Specific [place], POC 1.005 1.003 - 1.030 Blood, ur, POC Trace(A) Negative pH, ur, POC 6.5 5.0 - 8.0 Protein, ur, POC Negative Negative Urobilinogen, urine, POC 0.2 0.2 - 1.0 mg/dL Nitrite, ur, POC Negative Negative Leukocytes, ur, POC Negative Negative Lot Number [id number] Urine 10/11/2024 3:51 PM CDT Sandhya Li NP POINT OF CARE TEST ORDERABLES F inal Result * (ABNORMAL) POCT rapid strep A (10/11/2024 3:46 PM CDT) [facility] Rapid Strep A, POC Positive(A ) Negative Swab 10/11/2024 3:46 PM CDT Sandhya Li NP POINT OF CARE TEST ORDERABLES F inal Result * Urine culture Urine (10/11/2024 3:46 PM CDT) Pathologist [facility] Report Final Report: Less than 100,000 colonies/mL (clinically insignificant growth based on current clinical standards) Comment:Testing performed by : [facility], [address] [place] [address] Organism (CLINICALLY INSIGNIFICANT GROWTH MAIKEL Urine 10/11/2024 3:46 PM CDT 10/12/2024 9:57 AM CDT Narrative MAIKEL - 10/13/2024 1:09 PM CDT Testing performed by [facility] Microbiology Laboratory ([phone]) us Sandhya Li NP LAB MICROBIOLOGY - [facility] STEFANIA OCHOA Final Result MAIKEL [address] Department [place] [address] * (ABNORMAL) Influenza A/B, RSV, and COVID-19 PCR Nasopharyngeal (10/11/2024 3:31 PM CDT) COVID-19 RNA Negative Negative [facility] Influenza A RNA Positive(A) Negative CERNER Influenza B RNA Negative Negative [facility] RSV RNA Negative Negative [facility] Comment: Interpretive data: Testing performed by [facility]. This test is performed using the Epuramat Xpert Xpress CoV-2/Flu/RSV plus assay. This is [...] - GENERAL STEFANIA OCHOA Final Result MAIKEL KHOURY [address] Department [place] [address] * XR Chest Pa Lateral 2 Views (10/09/2024 10:27 AM GROCERY CARRIER) Anatomical Region Laterality Modality Body, Chest N/A Digital Radiogra phy 10/09/2024 12:0 1 PM GROCERY CARRIER Narrative 10/09/2024 12:01 PM GROCERY CARRIER EXAM DESCRIPTION: XR CHEST PA LATERAL 2 [...] Karla Fitzgerald M.D. FT T: Report ID: [id number] Reading Location: [id number] Procedure Note Karla Hernandez MD - 10/09/2024 [...] Karla Fitzgerald M.D. FT T: Report ID: [id number] Reading Location: [place] [address] Janee Zhang VICTIM WITNESS ADMINISTRATOR IMG XR PROCEDURES Final Re sult * Cardiology Document Scan (09/07/2024) Anatomical Region Laterality Modality Other us Provider Scanning CV CARDIAC SERVICES PROCEDURES Edited Result - Final from Last 3 Months Insurance [facility] MEDICARE ADVANTAGE Advance Directives For more information, please contact: [phone] * Full Code (Latest Code Status on File) Date Activated Date Inactivated Comments 10/10/2022 9:07 AM 10/10/2022 3:30 PM * Full Code Date Activated Date Inactivated Comments 10/10/2022 9:07 AM 10/10/2022 9:07 AM Care Teams Drying Machine Receiver Relationship Specialty Start Date End [place] [address] PCP - General Family Medicine 11/14/21
--- OUTSIDE RECORDS SUMMARY | 2024-11-27 11:49 | XMS_ITS | Encounter Summary ---
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
--- OUTSIDE RECORDS SUMMARY | 2024-11-27 11:49 | XMS_ITS | Encounter Summary ---
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
--- OUTSIDE RECORDS SUMMARY | 2024-11-27 11:49 | XMS_ITS | Encounter Summary ---
Author Organization [facility] Healthcare Address [address] [place] [address] Care Team Providers Care Computing Machine Operator Name Role Phone Praful Hackett MD Primary Care Provider +1 -[phone] Encounter Details Date Type Department Care Team (Late st Contact Info) Description 10/09/2024 Results Follow-Up [facility] Medical Group Convenient Care at [place] [address] [place] [address] Janee Zhang CONCRETE BOOM PUMP OPERATOR [address] [facility] [address] [place] [address] Social History Tobacco Use Types [...] on file 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
--- OUTSIDE RECORDS SUMMARY | 2024-11-27 11:49 | XMS_ITS | Clinical Summary ---
Author Organization [facility] [employer] Enabled Employment Address [address] [place] [address] Care Team Providers Care Business Leader Name Role Phone Unavailable Primary Care Provider Unavailabl e Source Comments [facility],non-owned Affiliates and Associated Physician Practices is amultiple site organization consisting of ambulatory clinics and hospital sitesin [place], [place], [place] and [place]. This disclosure is being madepursuant to the Care Everywhere program and may not contain all information available regarding this patient. 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
--- OUTSIDE RECORDS SUMMARY | 2024-11-27 11:49 | XMS_ITS | Encounter Summary ---
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
[2024-11-27 12:09] LABS: Basophils Percent Auto 0.4 % (0.2-1.2); Eosinophils Absolute Auto 0.1 K/mm3 (0-0.3); Eosinophils Percent Auto 1.5 % (0-4.4); Hematocrit 49.8 % (42.0-52.0); Hemoglobin 16.5 g/dL (14.0-18.0); Immature Granulocyte Absolute 0.01 K/mm3 (0.00-0.031); Immature Granulocyte Percent A 0.2 % (0-0.5); Lymphocytes Absolute Auto 0.87 K/mm3 (0.9-3.2); Lymphocytes Percent Auto 18.6 % (18.3-44.2); Mean Corpuscular HGB Conc 33.1 g/dl (32-36); Mean Corpuscular Hemoglobin 31.1 pg (26-34); Mean Corpuscular Volume 93.8 fl (80-100); Mean Platelet Volume 9.6 fl (7.4-10.4); Monocytes Absolute Auto 0.4 K/mm3 (0.1-0.6); Monocytes Percent Auto 7.7 % (2.6-8.5); Neutrophils Absolute Auto 3.3 K/mm3 (1.3-6.7); Neutrophils Percent Auto 71.6 % (45.5-73.1); Platelet Count Result 257 k/mm3 (150-375); Red Blood Count 5.31 M/mm3 (4.6-6.20); Red Cell Distribution Width 13.7 % (11.5-14.5); White Blood Count 4.7 K/mm3 (4.5-10.0)
--- OUTSIDE RECORDS SUMMARY | 2024-11-27 12:15 | XMS_ITS | Encounter Summary ---
Author Organization [facility] Healthcare Address [address] [place] [address] Care Team Providers Care Teacher Associate Name Role Phone Praful Hackett MD Primary Care Provider +1 -[phone] Encounter Details Date Type Department Care Team (Late st Contact Info) Description 03/16/2024 Telephone [facility] [address] 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
--- OUTSIDE RECORDS SUMMARY | 2024-11-27 12:15 | XMS_ITS | Encounter Summary ---
Author Organization [facility] Healthcare Address [address] [place] [address] Care Team Providers Care Insurance Account Manager Name Role Phone Praful Hackett MD Primary Care Provider [phone] [phone] Reason for Visit * Reason Onset Date Comments Shortness of Breath 11/27/2024 Dizziness 11/27/2024 Weakness - Generalized 11/27/2024 Encounter Details Date Type Department Care Team (Late st Contact Info) Description 11/27/2024 Nurse Triage [facility] [address] [place] [address] Praful Hackett MD [address] [place] [address] Social History Tobacco Use Types Packs/Day Years [...] on file 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 Patient was [...] and atwill have a BP reading when vice president sales and marketing returns call. Patient states he is not monitoring his BP since returning home because he does not trust the cuff. Patient reports he will eat and start his medications as prescribed this morning. Provider contacted via secure chat for ED disposition consult. Recommendation from provider:Proceedto ED [place] with Praful Hackett MD Reviewed chart from [place]. New diagnosis fo afib. If sypmtoms are worsening would recommend ER. Dr. Amato is dental ceramist helper and his consutiation is in chart. Returned [...] Difficulty breathing Protocols used: Weakness (Generalized) and Frwkhlb-[id number]-DU * Telephone Encounter - Margarette Gibbs RN [...] breath and lightheadedness. Patientstates he went to [place] on 11/24/24 for being fatigued, he could [...] on filedocumented in this encounter Care Teams Insurance Account Manager Relationship Specialty Start Date End Date [place] [address] PCP - General Family Medicine 11/14/21 documented as of this encounter
--- OUTSIDE RECORDS SUMMARY | 2024-11-27 12:15 | XMS_ITS | Encounter Summary ---
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
--- OUTSIDE RECORDS SUMMARY | 2024-11-27 12:15 | XMS_ITS | Encounter Summary ---
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
--- OUTSIDE RECORDS SUMMARY | 2024-11-27 12:15 | XMS_ITS | Encounter Summary ---
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
--- OUTSIDE RECORDS SUMMARY | 2024-11-27 12:15 | XMS_ITS | Referral Summary ---
Author Organization [facility] [address] Address [address] [place] [address] Care Team Providers Care Engineering Test Specialist Name Role Phone Praful Hackett MD Primary Care Provider [phone] [phone] Encounters Date Type Department Care Team Description 11/27/2024 Nurse Triage [facility] [address] [address] Praful Hackett MD 11/24/2024 Orders Only [facility] Health Information Management [address] [place] [address] Scanning, Provider 11/24/2024 Orders Only [facility] [address] [address] Praful Hackett MD 11/24/2024 2:30 PM CDT Office Visit [facility] Care at [address] [address] Sandhya iL NP Elevated blood pressure reading in office with diagnosis of hypertension (Primary Dx); Altered gait; Dizziness; Fatigue, unspecified type; Shortness of breath 11/24/2024 Telephone [facility] [address] [address] Praful Hackett MD Prior Autorization (Doxepin) 11/24/2024 Nurse Triage [facility] [address] [address] Praful Hackett MD 11/04/2024 Telephone [facility] [address] [phone] Praful Hackett MD 10/29/2024 1:30 PM CDT Office Visit [facility] [address] [phone] Rosa Basilio NP Other insomnia (Primary Dx); Benign prostatic hyperplasia with urinary frequency; Vertigo; Hypertension, essential; BMI 26.0-26.9,adult 10/29/2024 Nurse Triage [facility] [address] [phone] Praful Hackett MD 10/15/2024 Results Follow-Up [facility] Care at [address] [phone] Sandhya Li NP 10/13/2024 Orders Only [facility] Information Management [address] [place] [address] Scanning, Provider 10/12/2024 Nurse Triage [facility] [address] [phone] Praful Hackett MD 10/11/2024 5:08 AM CDT - 10/11/2024 11:59 PM CDT Hospital Encounter [address] [address] Discharge Disposition: Discharge to home or self care 10/11/2024 5:06 AM CDT - 10/11/2024 11:59 PM CDT Hospital Encounter [address] [address] Discharge Disposition: Discharge to home or self care 10/11/2024 3:45 PM CDT Office Visit [facility]ient Care at [address] [phone] Sandhya Li NP Strep pharyngitis (Primary Dx); Acute cough; Purulent postnasal drainage; Elevated blood pressure reading in office with diagnosis of hypertension; Intermittent abdominal pain 10/09/2024 Results Follow-Up [facility] Care at [address] [phone] Janee Zhang NP 10/09/2024 10:15 AM ARMATURE WINDER REPAIRER Ancillary Procedure [facility] Imaging at [address] [phone] Acute cough 10/09/2024 10:15 AM ARMATURE WINDER REPAIRER Office Visit [facility] Care at [address] [phone] Janee Zhang NP Acute cough (Primary Dx) 09/07/2024 Orders Only [facility] Information Management [address] [place] [address] Scanning, Provider from Last 3 Months Allergies [...] 08/24/19 Assessment & Plan (08/24/2024 1:37 PM ARMATURE WINDER REPAIRER): Pepcid 40 mg Continue elevated head of bed Donut or Ushaped pillow to take pressure off right ear Call if no improvement in 3 months for referral to GI Laryngopharyngeal reflux discussed and Handout provided Medicare annual wellness visit, subsequent 06/23 Assessment & Plan (06/23/2024 3:43 PM ARMATURE WINDER REPAIRER): Focus of exam is preventative in anture. Reviewed immunizations, reviewed sun/skin cancer screening. Reivewed age and comrobid appropriate screenings and iwll follow response. Chronic sinusitis 06/23/2024 Assessment & Plan (06/23/2024 3:44 PM ARMATURE WINDER REPAIRER): Most likely multifactorial and will follow response. [...] meals Assessment & Plan (06/23/2024 3:44 PM ARMATURE WINDER REPAIRER): Stable at the presnt time. Encourage to [...] (09/10/2022): Added automatically from request for surgery [id number] Postconcussion syndrome 04/12/2022 Assessment & Plan (04/12/2022 [...] monitor. Assessment & Plan (06/23/2024 3:45 PM ARMATURE WINDER REPAIRER): Longstanding issue for patinet. Continues to be cautious with fall prevention while maintaining activity level. Patient with vestibular testing to be completed at [facility] related to request for evaluation by balance center. Assessment & Plan (04/29/2024 10:17 AM CDT): Advised to see PT for dizziness and weakness. Patient declined referral due to essence picky on locations will let us know if a referral is needed. Also sent to Neuro for evaluation. Uses OTC meclizine PRN Immunizations Immunization Administration Dates Next Due COVID-19 mRNA (School Places) 0.3 m L (30 mcg) vaccine (12 [...] on file Legal Sex Male 7:31 PM ARMATURE WINDER REPAIRER Gender Identity Not on file Sexual Orientation [...] (Appt Today, Awaiting Results) 10/09/2024 10:27 AM ARMATURE WINDER REPAIRER Acute cough CARDIOLOGY DOCUMENT SCAN 09/07/2024 from [...] urinalysis dipstick (10/11/2024 3:51 PM CDT) Pathologist [facility] Color, Urine, POC Yellow Clarity, ur, POC Clear Clear Glucose, ur, POC Negative Negative MG/DL Bilirubin, ur, POC Negative Negative, Small, Moderate, Large Ketones, ur, POC Negative Negative Specific [place], POC 1.005 1.003 - 1.030 Blood, ur, POC Trace(A) Negative pH, ur, POC 6.5 5.0 - 8.0 Protein, ur, POC Negative Negative Urobilinogen, urine, POC 0.2 0.2 - 1.0 mg/dL Nitrite, ur, POC Negative Negative Leukocytes, ur, POC Negative Negative Lot Number [id number] Urine 10/11/2024 3:51 PM CDT Result [facility] Sandhya Li NP POINT OF CARE TEST ORDERABLES F inal Result * (ABNORMAL) POCT rapid strep A (10/11/2024 3:46 PM CDT) [facility] Rapid Strep A, POC Positive(A ) Negative Swab 10/11/2024 3:46 PM CDT Sandhya Li NP POINT OF CARE TEST ORDERABLES F inal Result * Urine culture Urine (10/11/2024 3:46 PM CDT) Pathologist [facility] Report Final Report: Less than 100,000 colonies/mL (clinically insignificant growth based on current clinical standards) Comment:Testing performed by : [facility], [address] [facility], [place]., [address] Organism (CLINICALLY INSIGNIFICANT GROWTH [facility] Urine 10/11/2024 3:46 PM CDT 10/12/2024 9:57 AM CDT Narrative [facility] - 10/13/2024 1:09 PM CDT Testing performed by [facility] Microbiology Laboratory ([phone]) Sandhya Li NP LAB MICROBIOLOGY - GENERAL [facility] DON Final Result Performing Organization Address City/[facility]/ZIP Co de Phone Number MAIKEL KHOURY [id number] [place] [address] * (ABNORMAL) Influenza A/B, RSV, and COVID-19 PCR Nasopharyngeal (10/11/2024 3:31 PM CDT) [facility] COVID-19 RNA Negative Negative Influenza A RNA Positive(A) Negative [facility] Influenza B RNA Negative Negative [facility] RSV RNA Negative Negative [facility] Comment: Interpretive data: Testing performed by [facility] Laboratory. This test is performed using the [employer] Xpert Xpress CoV-2/Flu/RSV plus assay. This is a multiplex, real-time reverse transcriptase PCR assay intended for the qualitative detection of nucleic acid from SARS-CoV-2, influenza A, influenza B, and respiratory syncytial virus. This assay has been cleared by the [place] Food and Drug administration. The performance characteristics have been verified by the [facility]. Results must be considered in the clinical context, and a negative result does not rule out infection. Interpretive Data last revised 2023 Nasopharyngeal 10/11/2024 3: 31 PM CDT 10/12/2024 5:24 AM CDT Sandhya Li NP LAB MICROBIOLOGY - GENERAL [facility] Final Result Performing Organization Address City/[facility]/ZIP Co de Phone Number MAIKEL KHOURY [id number] [address] [place] [address] CH * XR Chest Pa Lateral 2 Views (10/09/2024 10:27 AM ARMATURE WINDER REPAIRER) Anatomical Region Laterality Modality Body, Chest N/A Digital Radiogra phy 10/09/2024 12:0 1 PM ARMATURE WINDER REPAIRER Narrative 10/09/2024 12:01 PM ARMATURE WINDER REPAIRER EXAM DESCRIPTION: XR CHEST PA LATERAL 2 [...] Karla Fitzgerald M.D. FT T: Report ID: [id number] Reading Location: [id number] Procedure Note Karla Hernandez MD - 10/09/2024 [...] Karla Fitzgerald M.D. FT T: Report ID: [id number] Reading Location: [id number] Janee Zhang GLOBAL ACCOUNT DIRECTOR IMG XR PROCEDURES Final Re sult * Cardiology Document Scan (09/07/2024) Anatomical Region Laterality Modality Other us Provider Scanning CV CARDIAC SERVICES PROCEDURES Edited Result - Final from Last 3 Months Insurance [facility] Member Subscriber Plan / Payer (Ef fective 2018-Present) Name:Remy Wilkes Relation to Subscriber:Self Name:Remy Wilkes Payer ID:[id number] (NAIC) Type:MEDICARE RISK OTHER Address: [address] [facility] Member Subscriber Plan / Payer (Ef fective 2018-Present) Name:Remy Wilkes Relation to Subscriber:Self Name:Remy Wilkes Payer ID:[id number] (NAIC) Type:MEDICARE RISK OTHER Address: [address] IDPA [facility] MEDICARE ADVANTAGE Advance Directives For more information, please contact: [phone] * Full Code (Latest Code Status on File) Date Activated Date Inactivated Comments 10/10/2022 9:07 AM 10/10/2022 3:30 PM * Full Code Date Activated Date Inactivated Comments 10/10/2022 9:07 AM 10/10/2022 9:07 AM Care Teams Engineering Test Specialist Relationship Specialty Start Date End Date [place] [address] PCP - General Family Medicine 11/14/21
--- OUTSIDE RECORDS SUMMARY | 2024-11-27 12:15 | XMS_ITS | Clinical Summary ---
Author Organization [facility] [address] Address [address] [place] [address] Care Team Providers Care Packing Machine Operator Name Role Phone Praful Hackett MD Primary Care Provider +1 -[phone] Allergies No known active allergies Medications omega-3 [...] 08/24/19 Assessment & Plan (08/24/2024 1:37 PM WOOD TYPE FINISHER): Pepcid 40 mg Continue elevated head of bed Donut or Ushaped pillow to take pressure off right ear Call if no improvement in 3 months for referral to GI Laryngopharyngeal reflux discussed and Handout provided Medicare annual wellness visit, subsequent 06/23 Assessment & Plan (06/23/2024 3:43 PM WOOD TYPE FINISHER): Focus of exam is preventative in anture. Reviewed immunizations, reviewed sun/skin cancer screening. Reivewed age and comrobid appropriate screenings and iwll follow response. Chronic sinusitis 06/23/2024 Assessment & Plan (06/23/2024 3:44 PM WOOD TYPE FINISHER): Most likely multifactorial and will follow response. [...] meals Assessment & Plan (06/23/2024 3:44 PM WOOD TYPE FINISHER): Stable at the presnt time. Encourage to [...] (09/10/2022): Added automatically from request for surgery [id number] Postconcussion syndrome 04/12/2022 Assessment & Plan (04/12/2022 [...] monitor. Assessment & Plan (06/23/2024 3:45 PM WOOD TYPE FINISHER): Longstanding issue for patinet. Continues to be cautious with fall prevention while maintaining activity level. Patient with vestibular testing to be completed at [facility] related to request for evaluation by balance [...] Description 11/27/2024 Nurse Triage [facility] [address] [phone] Praful Hackett MD 11/24/2024 2:30 PM CDT Office Visit [facility] Care at [address] [phone] Sandhya Li NP Elevated blood pressure reading in office with diagnosis of hypertension (Primary Dx); Altered gait; Dizziness; Fatigue, unspecified type; Shortness of breath 11/24/2024 Orders Only [facility] Health Information Management [address] [place] [address] Scanning, Provider 11/24/2024 Orders Only [facility] [address] [phone] Praful Hackett MD 11/24/2024 Telephone [facility] [address] [phone] Praful Hackett MD Prior Autorization (Doxepin) 11/24/2024 Nurse Triage [facility] [address] [phone] Praful Hackett MD 11/04/2024 Telephone [facility] [address] [phone] Praful Hackett MD 10/29/2024 1:30 PM CDT Office Visit [facility] [address] [phone] Rosa Basilio NP Other insomnia (Primary Dx); Benign prostatic hyperplasia with urinary frequency; Vertigo; Hypertension, essential; BMI 26.0-26.9,adult 10/29/2024 Nurse Triage [facility] [address] [phone] Praful Hackett MD 10/15/2024 Results Follow-Up [facility] Medical [facility] Convenient Care at [address] [phone] Sandhya Li NP 10/13/2024 Orders Only [facility] Health Information Management [address] [place] [address] Scanning, Provider 10/12/2024 Nurse Triage [facility] [address] [phone] Praful Hackett MD 10/11/2024 3:45 PM CDT Office Visit [facility]ient Care at [address] [phone] Sandhya Li NP Strep pharyngitis (Primary Dx); Acute cough; Purulent postnasal drainage; Elevated blood pressure reading in office with diagnosis of hypertension; Intermittent abdominal pain 10/11/2024 5:08 AM CDT - 10/11/2024 11:59 PM CDT Hospital Encounter [address] [address] Discharge Disposition: Discharge to home or self care 10/11/2024 5:06 AM CDT - 10/11/2024 11:59 PM CDT Hospital Encounter [address] [address] Discharge Disposition: Discharge to home or self care 10/09/2024 10:15 AM WOOD TYPE FINISHER Ancillary Procedure [facility] Imaging at [address] [phone] Acute cough 10/09/2024 10:15 AM WOOD TYPE FINISHER Office Visit [facility]ient Care at [address] [phone] Janee Zhang NP Acute cough (Primary Dx) 10/09/2024 Results Follow-Up [facility]ient Care at [address] [phone] Janee Zhang NP 09/07/2024 Orders Only [facility] Health Information Management [address] [place] [address] Scanning, Provider from Last 3 Months Immunizations Immunization Administration Dates Next Due COVID-19 mRNA (Need[employer]) 0.3 m L (30 mcg) vaccine (12 [...] file 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 Gender Identity Not on file Sexual Orientation [...] (Appt Today, Awaiting Results) 10/09/2024 10:27 AM WOOD TYPE FINISHER Acute cough CARDIOLOGY DOCUMENT SCAN 09/07/2024 from [...] Large Ketones, ur, POC Negative Negative Specific [place], POC 1.005 1.003 - 1.030 Blood, ur, POC Trace(A) Negative pH, ur, POC 6.5 5.0 - 8.0 Protein, ur, POC Negative Negative Urobilinogen, urine, POC 0.2 0.2 - 1.0 mg/dL Nitrite, ur, POC Negative Negative Leukocytes, ur, POC Negative Negative Lot Number [id number] Urine 10/11/2024 3:51 PM CDT Sandhya Li NP POINT OF CARE TEST ORDERABLES F inal Result * (ABNORMAL) POCT rapid strep A (10/11/2024 3:46 PM CDT) [facility] Rapid Strep A, POC Positive(A ) Negative Swab 10/11/2024 3:46 PM CDT Sandhya Li NP POINT OF CARE TEST ORDERABLES F inal Result * Urine culture Urine (10/11/2024 3:46 PM CDT) Pathologist [facility] Report Final Report: Less than 100,000 colonies/mL (clinically insignificant growth based on current clinical standards) Comment:Testing performed by : [facility], [address] [place]., [address] Organism (CLINICALLY INSIGNIFICANT GROWTH MAIKEL Urine 10/11/2024 3:46 PM CDT 10/12/2024 9:57 AM CDT Narrative MAIKEL - 10/13/2024 1:09 PM CDT Testing performed by [facility] Microbiology Laboratory ([phone]) us Sandhya Li NP LAB MICROBIOLOGY - [facility] STEFANIA OCHOA Final Result MAIKEL [id number] [address] Department [place] [address] * (ABNORMAL) Influenza A/B, RSV, and COVID-19 PCR Nasopharyngeal (10/11/2024 3:31 PM CDT) COVID-19 RNA Negative Negative [facility] Influenza A RNA Positive(A) Negative [facility] Influenza B RNA Negative Negative [facility] RSV RNA Negative Negative [facility] Comment: Interpretive data: Testing performed by [facility]. This test is performed using the [employer] Xpert Xpress CoV-2/Flu/RSV plus assay. This is a multiplex, real-time reverse transcriptase PCR assay intended for the qualitative detection of nucleic acid from SARS-CoV-2, influenza A, influenza B, and respiratory syncytial virus. This assay has been cleared by the [place] Food and Drug administration. The performance characteristics have been verified by the [facility]. Results must be considered in the clinical context, and a negative result does not rule out infection. Interpretive Data last revised 2023 Nasopharyngeal 10/11/2024 3: 31 PM CDT 10/12/2024 5:24 AM CDT Sandhya Li NP LAB MICROBIOLOGY - GENERAL [facility] Final Result MAIKEL KHOURY [id number] [address] Department [place] [address] * XR Chest Pa Lateral 2 Views (10/09/2024 10:27 AM WOOD TYPE FINISHER) Anatomical Region Laterality Modality Body, Chest N/A Digital Radiogra phy 10/09/2024 12:0 1 PM WOOD TYPE FINISHER Narrative 10/09/2024 12:01 PM WOOD TYPE FINISHER EXAM DESCRIPTION: XR CHEST PA LATERAL 2 [...] Karla Fitzgerald M.D. FT T: Report ID: [id number] Reading Location: [id number] Procedure Note Karla Hernandez MD - 10/09/2024 [...] Karla Fitzgerald M.D. FT T: Report ID: [id number] Reading Location: [place] [address] Janee Zhang BAND TOP MAKER IMG XR PROCEDURES Final Re sult * Cardiology Document Scan (09/07/2024) Anatomical Region Laterality Modality Other us Provider Scanning CV CARDIAC SERVICES PROCEDURES Edited Result - Final from Last 3 Months Insurance [facility]PA [facility]PA [facility] MEDICARE ADVANTAGE Advance Directives For more information, please contact: [phone] * Full Code (Latest Code Status on File) Date Activated Date Inactivated Comments 10/10/2022 9:07 AM 10/10/2022 3:30 PM * Full Code Date Activated Date Inactivated Comments 10/10/2022 9:07 AM 10/10/2022 9:07 AM Care Teams Packing Machine Operator Relationship Specialty Start Date End Date [place] [address] PCP - General Family Medicine 11/14/21
--- OUTSIDE RECORDS SUMMARY | 2024-11-27 12:15 | XMS_ITS | Encounter Summary ---
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 Message routed to office for further follow up and recommendations. Reason for Disposition Caller has NON-URGENT medicine question about med that PCP or specialist prescribed and triager unable to answer question Protocols used: Medication Question [id number] * Telephone Encounter - Chloe Ardon RN [...] appointment not scheduled? Requesting advice from clinical steamer blocker. Additional Comments: Patient prescribed this for his [...] documented as of this encounter Care Teams Coach Tour Driver Relationship Specialty Start Date End Date Praful Hackett MD [address] [place] [address] PCP - General Family Medicine 11/14/21 documented as of this encounter
--- OUTSIDE RECORDS SUMMARY | 2024-11-27 12:15 | XMS_ITS | Encounter Summary ---
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
--- OUTSIDE RECORDS SUMMARY | 2024-11-27 12:15 | XMS_ITS | Clinical Summary ---
Author Organization [facility] Address [address] [place] [address] Phone Care Team Providers Care Principal Secretary Name Role Phone Praful Hackett MD Primary Care Provider [phone] Manav Garcia MD Unavailable [phone] Allergies No known active allergies Medications Ginkgo Biloba 40 MG Tablet Take by mouth. Active lisinopril (PRINIVIL, ZESTRIL) 40 MG Tablet Take 40 mg by mouth daily. Active Mirabegron ER (Myrbetriq) 25 MG TABLET SR 24 HR Take by mouth. Active Multiple Vitamin (MULTIVITAMIN PO) Take by mouth. Active Chardon-3 Fatty Acids (OMEGA 3 PO) Take by mouth. Active FLUNISOLIDE, NASAL, NA by Nasal route. Active montelukast (SINGULAIR) 10 MG Tablet Take 10 mg by mouth every evening. Active amLODIPine (NORVASC) 5 MG Tablet Take 5 mg by mouth daily. Active finasteride (PROSCAR) 5 MG Tablet Take 5 mg by mouth daily. Active Encounters Date Type Department Care Team Description 09/08/2024 10:00 AM SECURITY ROVER Office Visit [facility] [address] [place] [address] Manav Garcia MD Benign paroxysmal [...] Comments Blood Pressure 138/90 09/08/2024 10:34 AM SECURITY ROVER Pulse 84 09/08/2024 10:34 AM SECURITY ROVER Temperature 36.9 C (98.4 F) 09/08/2024 10:25 AM SECURITY ROVER Respiratory Rate 16 09/08/2024 10:25 AM SECURITY ROVER Oxygen Saturation - - Inhaled Oxygen Concentration - - Weight 83.7 kg (184 lb 9.6 oz) 09/08/2024 10:25 AM SECURITY ROVER Height 177.8 cm (5' 10 ) 09/08/2024 10:25 AM SECURITY ROVER Body Mass Index 26.49 09/08/2024 10:25 AM SECURITY ROVER Plan of Treatment Upcoming Encounters Date Type Department Care Team (Late st Contact Info) Description 01/04/2025 10:15 AM CDT Office Visit [facility] Neurology [facility] [address] [place] [address] Manav Garcia MD [address] [place] [address] 03/11/2025 10:00 AM CDT Office Visit [facility] Neurology [facility] [address] [place] [address] Manav Garcia MD [address] [place] [address] Health Maintenance Due Date Last Done Comments [...] MEDICAID [place] MEDICARE C [employer] Care Teams Principal Secretary Relationship Specialty Start Date End Date [place] [address] PCP - General Internal Medicine 04/29/24 Manav Garcia MD [address] [place] [address] Consulting Physician Neurology 09/08/24
--- OUTSIDE RECORDS SUMMARY | 2024-11-27 12:15 | XMS_ITS | Clinical Summary ---
Author Organization [facility] Address [address] [place] [address] Care Team Providers Care Clinical Assistant Name Role Phone Unavailable Primary Care Provider Unavailabl e Source Comments [facility],non-owned Affiliates and Associated Physician Practices is amultiple site organization consisting of ambulatory clinics and hospital sitesin [place], [place], [place] and [place]. This disclosure is being madepursuant to the Care Everywhere program and may not contain all information available regarding this patient. 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
--- OUTSIDE RECORDS SUMMARY | 2024-11-27 12:15 | XMS_ITS | Clinical Summary ---
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
--- OUTSIDE RECORDS SUMMARY | 2024-11-27 12:15 | XMS_ITS | Encounter Summary ---
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
--- OUTSIDE RECORDS SUMMARY | 2024-11-27 12:15 | XMS_ITS | Encounter Summary ---
Author Organization [facility] Healthcare Address [address] [place] [address] Care Team Providers Care Solution Professional Name Role Phone Praful Hackett MD Primary Care Provider [phone] Encounter Details Date Type Department Care Team ([facility] st Contact Info) Description 10/15/2024 Results Follow-Up [facility] Medical Group [facility] [place] [address] [place] [address] Sandhya Li NP [address] [facility] [address] [place] [address] Social History Tobacco Use Types [...] on file 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
[2024-11-27 12:19] LABS: Alanine Aminotransferase 19 U/L (6-50); Albumin Level 3.9 g/dL (3.5-5.1); Alkaline Phosphatase 66 U/L (38-126); Anion Gap 11 mmol/L (4-12); Aspartate Amino Transferase 22 U/L (17-59); Bilirubin,Total 1.6 mg/dL (0.2-1.3); Blood Urea Nitrogen 21 mg/dL (9-20); Calcium 8.8 mg/dL (8.4-10.2); Carbon Dioxide 25 mmol/L (22-30); Chloride 104 mmol/L (98-107); Estimated CRCL calculation 53 ml/min; Estimated Glomerular Filt Rate > 60; Glucose 154 mg/dL (65-110); Lipase 101 U/L (23-300); Potassium 3.7 mmol/L (3.4-5.0); Sodium 140 mmol/L (137-145)
[2024-11-27 12:21] LABS: INR 1.2; Prothrombin Time 15.5 Seconds (11.1-14.7)
[2024-11-27 12:22] LABS: Partial Thromboplastin Time 32.8 Seconds (22.3-36.8)
[2024-11-27 12:31] LABS: Troponin I < 0.012 ng/mL (0.000-0.034)
--- NOTE | 2024-11-27 12:52 | ED.ARRPALP ---
HPI - Arrhythmia/Palpitations General Chief Complaint: Arrhythmia/Palpitations Stated Complaint: weakness, lightheadedness, a-flutter Time Seen by Provider: 11/27/24 12:02 History of Present Illness HPI narrative: 84-year-old male with a past medical history including hypertension, chronic lightheadedness and dizziness of unclear etiology, newly diagnosed a flutter/fibrillation and admitted several days ago and discharged less than 24 hours ago. Patient was started on Coreg and Eliquis for this given his high chads Vasc score and Cardiology was consulted. Patient was discharged home feeling improved yesterday but this morning felt recurrence of his dizziness and lightheadedness and wanted to get evaluated. Patient denies any chest pain, chest tightness, shortness a breath, nausea, vomiting, abdominal pain, back pain. Denies any falls or injuries on his Eliquis. States that he feels ?like he is at sea when describing his chronic dizziness but this is been going on for a long time and not new according to him. Had a head CT recently without any findings. Related Data Home Medications ?Medication ?Instructions ?Recorded ?Confirmed ?Last Taken ?Type finasteride 5 mg tablet (Proscar) 5 mg PO DAILY 11/23/20 11/24/24 11/24/24 History lisinopril 40 mg tablet 40 mg PO DAILY 02/03/24 11/24/24 11/24/24 History amlodipine 5 mg tablet 2.5 mg PO DAILY 11/03/24 11/24/24 11/24/24 History cranberry fruit concentrate 250 mg 250 mg PO TID 11/03/24 11/24/24 11/24/24 History chewable tablet (Azo Cranberry) carvedilol 3.125 mg tablet 3.125 mg PO BID 11/24/24 11/24/24 11/24/24 History famotidine 40 mg tablet 40 mg PO DAILY 11/24/24 11/24/24 11/24/24 History fluticasone propionate 50 2 spray intranasal PRN PRN allergy 11/24/24 11/24/24 Unknown History mcg/actuation nasal symptoms spray,suspension (24 Hour Allergy Relief) mirabegron 25 mg tablet,extended 25 mg PO DAILY 11/24/24 11/24/24 11/24/24 History release 24 hr vibegron 75 mg tablet (Gemtesa) 75 mg PO DAILY 11/24/24 11/24/24 11/24/24 History Allergies Allergy/AdvReac Type Severity Reaction Status Date / Time No Known Allergies Allergy Verified 11/24/24 16:44 Review of Systems Review of Systems: As reviewed above in HPI [facility] Past Medical History Medical History Environmental allergies Essential (primary) hypertension Bradycardia History of adenomatous polyp of colon BPH loc w/o ur obs/LUTS After cataract (~11/2019) Dizziness of unknown etiology OAB (overactive bladder) Vertigo Kidney stones History of right ureteral stent October 2011 Surgical History Surgical History Achilles tendon avulsion (~2003) Status post repair 2003 Left, 2011 Right History of cataract surgery (~2017) Bilateral 2018 Rectal foreign body (~10/2011) With surgical removal October 2011 H/O hernia repair (~2008) Family History Family History Father , Late onset coronary artery disease Heart disease Dementia Mother Family history of Alzheimer's disease Family history of heart disease in male family member before age 55, Onset Age: 91 Patient's mother is Father Hypertension Family history of Alzheimer's disease, Onset Age: 90 Patient's father is , Onset Age: 90 Other Family history of cardiovascular disease Social History Social History Social History: The patient runs 2-3 miles a day and has done so since 1968. 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 Gender identity (if verbalized by the patient): Male Spiritual care concerns: No Exam Narrative: GENERAL: [Well-appearing, well-nourished, and in no acute distress.] HEAD: [Normocephalic, atraumatic.] EYES: [PERRLA and EOMI.] ENT: Nares clear, no rhinorrhea or epistaxis. Mucous membranes moist. NECK: Supple. CHEST: [Clear to auscultation. No respiratory distress.] HEART: [Regular rate and rhythm]. No murmur heard. [Normal peripheral pulses.] ABDOMEN: [Soft, nondistended], [nontender], [No rigidity or guarding] EXTREMITIES: Normal range of motion. [No edema.] SKIN: Warm, dry, no rash. NEURO: [No focal deficits]. Alert and oriented [x3.] PSYCH: [Normal mood and affect.] Course Vital Signs Vital signs: Vital Signs Temperature 36.6 C 11/27/24 11:40 Pulse Rate 89 11/27/24 11:40 Respiratory Rate 16 11/27/24 11:40 Blood Pressure 148/101 H 11/27/24 11:40 Pulse Oximetry 97 11/27/24 11:40 Oxygen Delivery Room Air 11/27/24 11:40 Temperature 36.4 C 11/27/24 14:00 Pulse Rate 70 11/27/24 15:20 Respiratory Rate 15 11/27/24 15:01 Blood Pressure 145/97 H 11/27/24 15:34 Pulse Oximetry 100 11/27/24 15:01 Oxygen Delivery Room Air 11/27/24 11:40 MDM - Arrhythmia/Palpitations MDM Narrative Medical decision making narrative: 84-year-old male with a past medical history including chronic dizziness and lightheadedness, hypertension, newly diagnosed atrial flutter currently starting on anticoagulation with Eliquis and Coreg 3.125 mg b.i.d.. He took his 1st dose medications yesterday after being discharged home from the hospital around noon. He states he was feeling improved upon discharge but this morning felt lousy and had recurrence of his chronic lightheadedness. He wanted to come to the hospital for evaluation. He denies any new injury falls. No chest pain or chest tightness. No shortness of breath, nausea, vomiting, abdominal pain or back pain. He is otherwise well-appearing not any acute distress. He has strong pulses in all legs, warm extremities. No signs of injury trauma. Suspicion presently is for chronic exacerbation of his dizziness and lightheadedness, medication side effect from Coreg versus Eliquis versus intracranial pathology such as a bleed or stroke which is very unlikely but possible with his new anticoagulation. Low suspicion for dysrhythmia causing this as he was cleared and evaluated by Cardiology yesterday. Workup was ordered including CBC, CMP, troponin, EKG and chest x-ray. CT of the head was ordered. Workup shows no leukocytosis or anemia. Normal platelet count. Coag studies within normal limits. Electrolytes were unremarkable. Normal renal function, normal glucose, normal LFTs. Negative troponin and negative 3 hour troponin and negative lipase. Chest x-ray shows no acute cardiopulmonary process. EKG shows stable atrial flutter and has been stable for several days. Head CT shows no acute abnormalities. I went and re-evaluated the patient who stated that he felt ?much better? and we went over his imaging studies and laboratory assessment. He does need to continue taking his medications including Coreg and Eliquis and he verbalized understanding this. He was given strict return precautions and felt comfortable going home at this time with his regular follow-up appointments. Patient's family was comfortable with this plan and he was safely discharged. Medical Records Attestation: I reviewed the patient's medical records. Lab Data Attestation: I reviewed the patient's lab results. 11/27/24 12:03 11/27/24 12:03 Labs: Lab Results 11/27/24 11/27/24 Range/Units 12:03 15:03 WBC 4.7 (4.5-10.0) K/mm3 RBC 5.31 (4.6-6.20) M/mm3 Hgb 16.5 (14.0-18.0) g/dL Hct 49.8 (42.0-52.0) % MCV 93.8 (80-100) fl MCH 31.1 (26-34) pg MCHC 33.1 (32-36) g/dl RDW 13.7 (11.5-14.5) % Plt Count 257 (150-375) k/mm3 MPV 9.6 (7.4-10.4) fl Immature Gran % (Auto) 0.2 (0-0.5) % Neut % (Auto) 71.6 (45.5-73.1) % Lymph % (Auto) 18.6 (18.3-44.2) % Hale % (Auto) 7.7 (2.6-8.5) % Eos % (Auto) 1.5 (0-4.4) % Baso % (Auto) 0.4 (0.2-1.2) % Lymph # (Auto) 0.87 L (0.9-3.2) K/mm3 Hale # (Auto) 0.4 (0.1-0.6) K/mm3 Eos # (Auto) 0.1 (0-0.3) K/mm3 Baso # (Auto) 0.0 (0.0-0.1) K/mm3 Abs Immat Gran (auto) 0.01 (0.00-0.031) K/mm3 Absolute Neuts (auto) 3.3 (1.3-6.7) K/mm3 Absolute Nucleated RBC 0.000 (0.0-0.012) K/mm3 Nucleated RBC % 0.0 (0.0-0.2) % PT 15.5 H (11.1-14.7) Seconds INR 1.2 APTT 32.8 (22.3-36.8) Seconds Sodium 140 (137-145) mmol/L Potassium 3.7 (3.4-5.0) mmol/L Chloride 104 (98-107) mmol/L Carbon Dioxide 25 (22-30) mmol/L Anion Gap 11 (4-12) mmol/L BUN 21 H (9-20) mg/dL Creatinine 0.96 (0.7-1.3) mg/dL Estim Creat Clear Calc 53 ml/min Estimated GFR > 60 (59 - ) Glucose 154 H (65-110) mg/dL Calcium 8.8 (8.4-10.2) mg/dL Total Bilirubin 1.6 H (0.2-1.3) mg/dL AST 22 (17-59) U/L ALT 19 (6-50) U/L Alkaline Phosphatase 66 (38-126) U/L Troponin I < 0.012 < 0.012 (0.000-0.034) ng/mL Total Protein 7.0 (6.3-8.2) g/dL Albumin 3.9 (3.5-5.1) g/dL Lipase 101 (23-300) U/L Imaging Data Attestation: I personally reviewed and interpreted this imaging study as follows: My impression: Impressions Chest X-Ray 11/27/24 12:00 Impression: 1: No acute cardiopulmonary disease. Head CT 11/27/24 12:36 Impression: No intracranial hemorrhage, mass, or acute infarct. Atrophy and chronic white matter changes, as above. ECG Data EKG #1: Attestation: I personally reviewed and interpreted this ECG as follows: ECG completion date: 11/27/24 ECG completion time: 15:16 Prior ECG tracings: available for review Interpretation: Atrial flutter, no ST segment elevations, depressions or acute inversions. QTC 445, QRS 98. Multiple P-waves consistent with flutter pathology. Rate of 72 beats per minute. No rapid ventricular response and no significant oval change compared to the serial EKGs for the last few days. Final interpretation atrial flutter. Discharge Plan Discharge Clinical Impression: Atrial flutter, Lightheadedness Patient Disposition: Home Condition: Stable Instructions: Antibiotic Form Additional Instructions: Your cardiac enzymes are undetectable and your laboratory assessments are normal. Your head CT and chest x-ray are unremarkable. Your symptoms could be a combination of your chronic lightheadedness or your new medications that were started. Please continue taking these medications as they are important for your heart health. You have been stable and safe for discharge from the hospital yesterday and can safely follow-up with your regular appointments that were set up during your hospital stay. Return with any new or worsening concerns such as chest pain, chest pressure, syncope or any other concerns. Patient Language: Ukrainian Prescriptions: No Action lisinopril 40 mg tablet 40 mg PO DAILY amlodipine 5 mg tablet 2.5 mg PO DAILY Azo Cranberry 250 mg tablet,chewable 250 mg PO TID carvedilol 3.125 mg tablet 3.125 mg PO BID famotidine 40 mg tablet 40 mg PO DAILY mirabegron 25 mg tablet extended release 24 hr 25 mg PO DAILY Gemtesa 75 mg tablet 75 mg PO DAILY fluticasone propionate [24 Hour Allergy Relief] 50 mcg/actuation spray,suspension 2 spray intranasal PRN PRN (Reason: allergy symptoms) Rx Instructions: administer into each nostril hydralazine 10 mg Tablet 10 mg PO TID Qty: 90 0RF Eliquis 5 mg Tablet 5 mg PO Q12HR Qty: 90 0RF finasteride [Proscar] 5 mg tablet 5 mg PO DAILY Follow-up/Referrals: Harms,Praful Colon M.D. [Primary Care Provider] - Time of Disposition: 16:06
--- NOTE | 2024-11-27 15:12 | ECG_ITS ---
Test Date: 2024-11-27 15:16:28 Measurements Intervals Bells Rate: 72 P: 0 GA: 0 QRS: -26 QRSD: 98 T: 83 QT: 405 QTc: 445 Interpretive Statements ATRIAL FLUTTER/TACHYCARDIA INCOMPLETE RIGHT BUNDLE BRANCH BLOCK VOLTAGE CRITERIA FOR LVH CONSIDER ANTERIOR INFARCT, AGE INDETERMINATE INFERIOR INFARCT, AGE INDETERMINATE BORDERLINE ST-T WAVE ABNORMALITY- ANTEROLATERAL LEADS ABNORMAL ECG Compared to ECG 11/27/2024 11:44:05 No significant changes Electronically Signed On 11-27-2024 15:39:59 CDT by Julito Amato D.O.
--- NOTE | 2024-11-27 15:27 | PC.NURSE ---
Assumed care of patient. Patient resting on stretcher in NAD. Pt endorses continued slight dizziness, denies any other complaints. Denies chest pain or SOB. Pt remains on full monitor, VS as charted. 3hr trop and repeat EKG completed. Pt and family made aware of plan of care. Denies further needs at this time. Call light in reach with family at bedside.
[2024-11-27 15:35] LABS: Troponin I < 0.012 ng/mL (0.000-0.034)
--- NOTE | 2024-11-27 16:34 | PC.NURSE ---
Patient discharged to waiting room. His son, Riley is on his way to pick him up and knows to find him in the [place].
== END 2024-11-27 16:36 | disposition home or self-care (01) ==
PROVIDERS: Emergency Medicine; Emergency Provider Student in an Organized Health Care Education/Training Program; PCP Family Medicine
DX: I48.92 Unspecified atrial flutter (principal); R42 Dizziness and giddiness; I48.91 Unspecified atrial fibrillation; Z79.01 Long term (current) use of anticoagulants; I10 Essential (primary) hypertension
CPT/HCPCS: 36415; 70450; 71045; 80053; 83690; 84484; 85025; 85610; 85730; 93005; 99284

== ENCOUNTER 2025-02-04 12:54 | Outpatient (CLI) | payer MEDICARE, MEDICAID, SELFPAY ==
--- OUTSIDE RECORDS SUMMARY | 2025-02-04 12:58 | XMS_ITS | Referral Summary ---
Author Organization [facility] [address] Address [address] [place] [address] Care Team Providers Care Ceo & Board Director Name Role Phone Praful Hackett MD Primary Care Provider [phone] Encounters Date Type Department Care Team Description 01/12/2025 Results Follow-Up [facility] [address] [phone] Tonia Knowles, DESI Pro B-type natriuretic peptide, CBC with auto differential, Comprehensive metabolic panel, Additional followed-up results: 3 01/11/2025 Orders Only [facility] [address] [phone] Praful Hackett MD 01/11/2025 Telephone [facility] [address] [phone] Praful Hackett MD Medication Request 01/06/2025 Telephone [facility] [address] [phone] Praful Hackett MD 01/01/2025 Telephone [facility] [address] [phone] Praful Hackett MD Referral Request 12/31/2024 Telephone [facility] [address] [phone] Praful Hackett MD Recommendation Request 12/29/2024 10:36 AM CDT - 12/29/2024 11:59 PM CDT Hospital Encounter [address] [address] Asymptomatic hypertensive urgency; Hypertension, essential; Lipid screening Discharge Disposition: Discharge to home or self care 12/29/2024 Telephone [facility] [address] [phone] Praful Hackett MD Medical Question/Miscellaneou s 12/29/2024 10:45 AM CDT Lab [facility] Outpatient Lab at [address] [phone] 12/29/2024 10:15 AM CDT Office Visit [facility] Primary Care at [address] [phone] Praful Hackett MD Hypertension, essential (Primary Dx); Lipid screening; Asymptomatic hypertensive urgency; Dizziness and giddiness; Atrial fibrillation, new onset (HCC); Gait instability 12/22/2024 Orders Only [facility] Primary Care at [address] [phone] Praful Hackett MD 12/22/2024 Telephone [facility] [address] [phone] Praful Hackett MD Med Refill 12/22/2024 Telephone [facility] [address] [phone] Praful Hackett MD 12/15/2024 Orders Only [facility] Primary Care at [address] [phone] Praful Hackett MD 12/15/2024 Telephone [facility] [address] [phone] Praful Hackett MD Test Results 12/14/2024 Telephone [facility] [address] [phone] Praful Hackett MD Medical Question/Miscellaneou s 12/11/2024 Telephone [facility] [address] [place] [address] Charla Brannon RN 12/11/2024 Telephone [facility] [address] [phone] Lianet Loera, RODOLFO Information Only 12/11/2024 Telephone [facility] [address] [place] [address] Angela Santana, RODOLFO 12/11/2024 Travel 12/11/2024 Telephone [facility] [address] [place] [address] Charla Brannon RN 12/11/2024 1:34 PM CDT - 12/11/2024 11:59 PM CDT Hospital Encounter [facility] [address] [place] [address] Dizziness; Hypertensive urgency; Other specified symptoms and signs involving the circulatory and respiratory systems Discharge Disposition: Discharge to home or self care 12/10/2024 Telephone [facility] [address] [place] [address] Charla Brannon, RODOLFO 12/10/2024 Telephone [facility] [address] [phone] Praful Hackett MD Information Only 12/09/2024 Telephone [facility] [address] [phone] Praful Hackett MD 12/09/2024 Telephone [facility] [address] [phone] Praful Hackett MD Medical Question/Miscellaneou s 12/09/2024 Telephone [facility] [address] [place] [address] Charla Brannon RN 12/08/2024 11:00 AM CDT Office Visit [facility] Primary Care at [address] [phone] Praful Hackett MD Dizziness (Primary Dx); Gait instability; Hypertensive urgency; Other specified symptoms and signs involving the circulatory and respiratory systems; Urinary frequency 12/04/2024 Telephone [facility] [address] [phone] Praful Hackett MD 12/04/2024 10:30 AM CDT Office Visit [facility] [address] [phone] Praful Hackett MD Atrial fibrillation, new onset (HCC) (Primary Dx); Asymptomatic hypertensive urgency 12/02/2024 Telephone [facility] [address] [phone] Praful Hackett MD 11/30/2024 Telephone [facility] [address] [phone] Praful Hackett MD RUBEN Questions 11/27/2024 Orders Only [facility] Health Information Management [address] [place] [address] Scanning, Provider 11/27/2024 Nurse Triage [facility] [address] [phone] Praful Hackett MD 11/24/2024 Orders Only [facility] Information Management [address] [place] [phone] Scanning, Provider 11/24/2024 Orders Only [facility] [address] [phone] Praful Hackett MD 11/24/2024 2:30 PM CDT Office Visit [facility] at [address] [phone] Sandhya Li NP Elevated blood pressure reading in office with diagnosis of hypertension (Primary Dx); Altered gait; Dizziness; Fatigue, unspecified type; Shortness of breath 11/24/2024 Telephone [facility] [address] [phone] Praful Hackett MD Prior Autorization (Doxepin) 11/24/2024 Nurse Triage [facility] [address] [phone] Praful Hackett MD from Last 3 Months Allergies No known active allergies Medications ginkgo biloba 40 mg tablet Take by mouth Act hilda pumpkin seed extract/soy germ (AZO BLADDER CONTROL ORAL) Take by mouth Ac tive flunisolide (NASALIDE) 25 mcg (0.025 %) spray,non-aero solIndications :Allergic Rhinitis Administer 2 sprays into each nostril 2 (two) times a day for 25 days 25 mL 3 4 Active lisinopriL (PRINIVIL,ZEST RIL) 40 mg tablet [...] 90 tablet 3 5 08/19/19 26 Active carvediloL (COREG) 3.125 mg tabletIndicati ons:Hypertensi on, essential Take 1 tablet (3.125 mg total) by mouth 2 (two) times a day with meals 60 tablet 11 5 10/30/19 26 Active Eliquis 5 mg tablet Take 1 tablet (5 mg total) by mouth every 12 (twelve) hours 60 tablet 2 5 Active hydrALAZINE (APRESOLINE) 10 mg tablet Take 2 tablets each morning and evening. Please take 1 tablet each noon for cumulative 5 tablets daily. 150 tablet 11 5 Active finasteride (PROSCAR) 5 mg tablet Take 1 tablet (5 mg total) by mouth daily 90 tablet 1 5 Active finasteride (PROSCAR) 5 mg tablet Take 1 tablet (5 mg total) by mouth daily 5 01/12/20 25 Discontinu ed(Reorder ) Active Problems Problem Noted Date Diagnosed Date Lipid screening 12/29/2024 Urinary frequency 12/08/2024 Assessment & Plan (12/08/2024 2:15 PM CDT): INcreased urinary frequency with hydration. WIll check urinalysis and will follow response. Other specified symptoms and signs involving the circulatory and respiratory systems 12/08/2024 Assessment & Plan (12/08/2024 2:16 PM CDT): Evaluate for renal artery stensosis with doppler and will monitor response. Hypertensive urgency 12/08/2024 Assessment & Plan (12/08/2024 2:16 PM CDT): COntinues on hydralazine and will montior repsonse. COntinues on lisinpril. Rate control with carvedilol. Gait instability 12/08/2024 Assessment & Plan (12/08/2024 2:17 PM CDT): WOUld benefit from PT to help with strengthening and will monitor response. Reivewed Home PT. Dizziness 12/08/2024 Assessment & Plan (12/08/2024 2:17 PM CDT): As above. Atrial fibrillation, new onset 12/04/2024 Assessment & Plan (12/29/2024 10:36 AM CDT): COntinues on DOAC. No tachycardia noted. Asymptomatic hypertensive urgency 12/04/2024 Assessment & Plan (12/29/2024 10:36 AM CDT): WIll continue to follow BP and electrolytes. WIll monitor response. Other insomnia 10/29/2024 Assessment & Plan (10/29/2024 [...] 08/24/19 Assessment & Plan (08/24/2024 1:37 PM SOUND ENGINEER AUDIO CONTROL): Pepcid 40 mg Continue elevated head of bed Donut or Ushaped pillow to take pressure off right ear Call if no improvement in 3 months for referral to GI Laryngopharyngeal reflux discussed and Handout provided Medicare annual wellness visit, subsequent 06/23 Assessment & Plan (06/23/2024 3:43 PM SOUND ENGINEER AUDIO CONTROL): Focus of exam is preventative in anture. Reviewed immunizations, reviewed sun/skin cancer screening. Reivewed age and comrobid appropriate screenings and iwll follow response. Chronic sinusitis 06/23/2024 Assessment & Plan (06/23/2024 3:44 PM SOUND ENGINEER AUDIO CONTROL): Most likely multifactorial and will follow response. Refer to ENT Reivwed sparing use of nasal decongestants and will follow response. Hypertension, essential 06/23/2024 Assessment & Plan (12/29/2024 10:36 AM CDT): Hydralazine 2-1-2 10mg dosing. COntinues on lisinorpil 40mg daily basis and will montio respnse. Continues on carvedilol and aggressive hydration. Assessment & Plan (10/29/2024 2:30 PM CDT): Blood pressure above goal of 130/80. No longer taking Amlodipine due to lower leg swelling. Will change to Coreg and continue on Lisinopril. Will continue to monitor. Orders: carvediloL (COREG) 3.125 mg tablet; Take 1 tablet (3.125 mg total) by mouth 2 (two) times a day with meals Assessment & Plan (06/23/2024 3:44 PM SOUND ENGINEER AUDIO CONTROL): Stable at the presnt time. Encourage to [...] (09/10/2022): Added automatically from request for surgery [id number] Postconcussion syndrome 04/12/2022 Assessment & Plan (04/12/2022 1:04 PM CDT): Persistent vestibular symptoms that improve with exercise Concussion education provided Encouraged continued high level exercise to his tolerance Discussed ways to accommodate visual or vestibular symptoms such as the rule Dizziness and giddiness 08/24/2020 Assessment & Plan (12/29/2024 10:30 AM CDT): Most likely multifactorial including blood pressure and sinus congestion/pressure. Assessment & Plan (10/29/2024 2:30 PM CDT): Continues to go to PT, but states last appointment it was made worse with whatever movement they did on him. He is taking Meclizine PRN advised to try to take 25 mg in the morning and then 2 more times PRN throughout the day. Will continue to monitor. Assessment & Plan (06/23/2024 3:45 PM SOUND ENGINEER AUDIO CONTROL): Longstanding issue for patinet. Continues to be cautious with fall prevention while maintaining activity level. Patient with vestibular testing to be [facility] at [facility] related to request for evaluation by balance center. Assessment & Plan (04/29/2024 10:17 AM CDT): Advised to see PT for dizziness and weakness. Patient declined referral due to essence picky on locations will let us know if a referral is needed. Also sent to Neuro for evaluation. Uses OTC meclizine PRN Immunizations Immunization Administration Dates Next Due COVID-19 mRNA (Triptease) 0.3 m L (30 mcg) vaccine (12 [...] points, staff should administer the PHQ-9) 0 12/29/2024 Personal Safety Answer Date Recorded Getting School Help Needed Denies 08/02 Sex and Gender Information Value Date Recorded Sex Assigned at Not on file Legal Sex Male 7:31 PM SOUND ENGINEER AUDIO CONTROL Gender Identity Not on file Sexual Orientation Not on file Last Filed Vital Signs Vital Sign Reading Time Taken Comments Blood Pressure 134/88 12/29/2024 10:10 AM CDT Pulse 57 12/29/2024 10:10 AM CDT Temperature 36.8 C (98.3 F) 12/29/2024 10:10 AM CDT Respiratory Rate 18 12/04/2024 10:1 7 AM CDT Oxygen Saturation 98% 12/29/2024 10: 10 AM CDT Inhaled Oxygen Concentration - - Weight 82.5 kg (181 lb 14.4 oz) 025 10:10 AM CDT Height 177.8 cm (5' 10) 12/29/2024 10: 10 AM CDT Body Mass Index 26.1 12/29/2024 10:10 AM CDT Plan of Treatment Not on file Procedures Procedure Name Priority Date/Time Associated Diagnosis Comments EGFR Routine 12/29/2024 10:36 AM CDT Hypertension, essential Lipid screening DIFFERENTIAL AUTO Routine 12/29/2024 10: 36 AM CDT Hypertension, essential Lipid screening LIPID PANEL Routine 12/29/2024 10:36 AM CDT Hypertension, essential Lipid screening COMPREHENSIVE METABOLIC PANEL Routine 12/29/2024 10:36 AM CDT Hypertension, essential Lipid screening CBC WITH AUTO DIFFERENTIAL Routine 12/29/2024 10:36 AM CDT Hypertension, essential Lipid screening PRO B-TYPE NATRIURETIC PEPTIDE Routine 12/29/2024 10:36 AM CDT Asymptomatic hypertensive urgency US RENAL LIMITED INCLUDING DUPLEX DOPPLER BILATERAL COMPLETE (C) Schedule Routine, Read Routine (OP Routine) 12/11/2024 4:08 PM CDT Dizziness Hypertensive urgency Other specified symptoms and signs involving the circulatory and respiratory systems SCAN - LABS 11/27/2024 SCAN - RADIOLOGY/IMAGING 11/27/2024 SCAN - LABS 11/24/2024 SCAN - RADIOLOGY/IMAGING 11/24/2024 from Last 3 Months Results * eGFR (12/29/2024 10:36 AM CDT) eGFR 74 >=60 mL/min/1. 73 m2 Comment: Interpretive Data Reference Interval Normal >/= 90 mL/min/1.73m2 Mildly decreased* 60 - 89 mL/min/1.73m2 Mildly to moderately decreased 45 - 59 mL/min/1.73m2 Moderately to severely decreased 30 - 44 mL/min/1.73m2 Severely decreased 15 - 29 mL/min/1.73m2 Kidney Failure < 15 mL/min/1.73m2 *Relative to young adult level Estimated glomerular filtration rate is determined by the 2020 CKD-EPI equation recommended by the National Kidney Foundation (A Unifying Approach to GFR Estimation: Recommendations of the NKF-ASK Task Force on Reassessing the Inclusion of Race in Diagnosing Kidney Disease, JASN 2020). The CKD-EPI equation should not be used for patients with unstable renal function and has not been validated in children and those over 70. Current interpretive data was last reviewed 2021. Blood 12/29/2024 10:3 6 AM CDT 12/29/2024 5:38 PM CDT us Praful Hackett MD LAB BLOOD ORDERABLES Aylin gutierrez Result [facility] [address] Department [place] [address] * (ABNORMAL) Differential, auto (12/29/2024 10:36 AM CDT) Neutrophil abs 3.70 1.50 - 6.50 K/cumm Imm gran abs 0.01 0.00 - 0.10 K/cumm [facility] Lymphocyte abs 0.73(L) 0.80 - 3.30 K/cumm [facility] Monocyte abs 0.47 0.20 - 0.80 K/cumm [facility] Eosinophil abs 0.08 0.00 - 0.50 K/cumm [facility] Basophil abs 0.03 0.00 - 0.10 K/cumm [facility] Neutrophil pct 73.7 % [facility] Comment: Interpretive Data Percent cell count reference ranges are not reported, since discordance with absolute values may lead to misinterpretation of CBC data. Current Interpretive Data was last revised on 2017. Imm gran pct 0.2 % [facility] Comment: Interpretive Data Percent cell count reference ranges are not reported, since discordance with absolute values may lead to misinterpretation of CBC data. Current Interpretive Data was last revised on 2017. Lymphocyte pct 14.5 % [facility] Comment: Interpretive Data Percent cell count reference ranges are not reported, since discordance with absolute values may lead to misinterpretation of CBC data. Current Interpretive Data was last revised on 2017. Monocyte pct 9.4 % [facility] Comment: Interpretive Data Percent cell count reference ranges are not reported, since discordance with absolute values may lead to misinterpretation of CBC data. Current Interpretive Data was last revised on 2017. Eosinophil pct 1.6 % [facility] Comment: Interpretive Data Percent cell count reference ranges are not reported, since discordance with absolute values may lead to misinterpretation of CBC data. Current Interpretive Data was last revised on 2017. Basophil pct 0.6 % [facility] Comment: Interpretive Data Percent cell count reference ranges are not reported, since discordance with absolute values may lead to misinterpretation of CBC data. Current Interpretive Data was last revised on 2017. Blood 12/29/2024 10:3 6 AM CDT 12/29/2024 5:26 PM CDT us Praful Hackett MD LAB BLOOD ORDERABLES Aylin gutierrez Result [facility] [address] Department [place] [address] * Pro B-type natriuretic peptide (12/29/2024 10:36 AM CDT) NT-proBNP 318 <=450 pg/mL Comment: Interpretive Comments: A. Dyspnea in Acute Care Setting All Ages: < 300 pg/ml, acute heart failure unlikely. < 50 yrs: 300 - 450 pg/ml, further investigation warranted. > 450 pg/ml, acute heart failure likely. 50 - 74 yrs: 300 - 900 pg/ml, further investigation warranted. > 900 pg/ml, acute heart failure likely . > or = 75 yrs: 450 - 1800 pg/ml, further investigation warranted. > 1800 pg/ml, acute heart failure likely. B. Non-acute Setting < 75 yrs < 125 pg/ml, rules out heart failure. > or = 125 pg/ml, further investigation warranted. > or = 75 yrs < 450 pg/ml, rules out heart failure. > or = 450 pg/ml, further investigation warranted. - Knowledge of each individual patient's NT-proBNP range may be more useful than using similar cut-points for every patient. Please note that marked elevations in NT-proBNP levels may be observed in state other than Left Ventricular Congestive Failure, including: acute coronary syndromes, right heart strain/failure (including pulmonary embolism and cor pulmonale), critical illness, renal failure, as well as advanced age. - References: 1. Levi HALL et.al. Eur Heart J. 2006:27:330-337. 2. Mahin LARKIN, Aubrey VALLEJO. J. AM Baldemar Cardiol: Cardiovasc Imag. 2009;2: 216- 225. Interpretive Data Last Revised Date: 2018. Blood 12/29/2024 10:3 6 AM CDT 12/29/2024 5:26 PM CDT Praful Hackett MD LAB BLOOD ORDERABLES Aylin l Result Performing Organization Address [facility] Co de Phone Number [facility] KHOURY [address] Department of [employer] [place], [place] [id number] * (ABNORMAL) CBC with auto differential (12/29/2024 10:36 AM CDT) WBC 5.02 3.80 - 9.90 K/cumm Hgb 16.1 13.0 - 17.5 g/dL [facility] Hct 50.1 38.9 - 50.3 % [facility] Plt 249 150 - 400 K/cumm [facility] MPV 10.0 9.1 - 12.3 fL [facility] RBC 5.17 4.30 - 5.80 M/cumm [facility] MCV 96.9(H) 81.3 - 96.4 fL [facility] MCH 31.1 27.1 - 33.3 pg [facility] MCHC 32.1(L) 32.3 - 35.7 g/dL [facility] RDW CV 13.9 11.1 - 14.9 % [facility] RDW SD 50.3(H) 35.7 - 48.1 fL [facility] NRBC abs 0.00 0.00 - 0.01 K/cumm [facility] Blood 12/29/2024 10:3 6 AM CDT 12/29/2024 5:26 PM CDT Praful Hackett MD LAB BLOOD ORDERABLES Aylin l Result Performing Organization Address [facility]/ZIP Co de Phone Number [facility] KHOURY [address] Department [place] [employer] [place] [address] * Lipid panel (12/29/2024 10:36 AM CDT) Pathologist [facility] Cholesterol 140 30 - 199 mg/dL Comment: Interpretive Data Ages < or = 19 years Acceptable: <170 mg/dL Borderline high: 170-199 mg/dL High: >or= 200 mg/dL Ages > or = 20 years Desirable: <200 mg/dL Borderline high: 200-239 mg/dL High: >or= 240 mg/dL Literature References: 1. Expert Panel on Integrated Guidelines for Cardiovascular Health and Risk Reduction in Children and Adolescents. Pediatrics 2011;128:S213 2. NCEP Expert Panel. Circulation 2004;110:227 Current Interpretive Data was last revised on 2018. Triglycerides 101 <=149 mg/dL [facility] Comment: Interpretive Data Ages < or = 9 years Acceptable: <75 mg/dL Borderline high: 75-99 mg/dL High: >or= 100 mg/dL Ages 10 to 20 years Acceptable: <90 mg/dL Borderline high: 90-129 mg/dL High: >or= 130 mg/dL Ages > or = 20 years Desirable: <150 mg/dL Borderline high: 150-199 mg/dL High: 200-499 mg/dL Very high: >or= 499 mg/dL Literature References: 1. Expert Panel on Integrated Guidelines for Cardiovascular Health and Risk Reduction in Children and Adolescents. Pediatrics 2011;128:S213 2. NCEP Expert Panel. Circulation 2004;110:227 Current Interpretive Data was last revised on 2018. HDL 43 >=40 mg/dL [facility] Comment: Interpretive Data Ages < or = 19 years Acceptable: >45 mg/dL Borderline low: 40-45 mg/dL Low: <40 mg/dL Ages > or = 20 years Desirable: >or= 60 mg/dL Low: <40 mg/dL Literature References: 1. Expert Panel on Integrated Guidelines for Cardiovascular Health and Risk Reduction in Children and Adolescents. Pediatrics 2011;128:S213 2. NCEP Expert Panel. Circulation 2004;110:227 Current Interpretive Data was last revised on 2018. LDL, calculated 78 <=129 mg/dL [facility] Comment: Interpretive Data Ages < or = 19 years Acceptable: <110 mg/dL Borderline high: 110-129 mg/dL High: >or= 130 mg/dL Ages > or = 20 years Optimal: <100 mg/dL Near optimal: 100-129 mg/dL Borderline high: 130-159 mg/dL High: >160 mg/dL Calculated using the Ng LDL-C estimating equation. This equation was implemented on 2024. Prior to this date LDL-C was estimated using the Friedewald equation. Literature References: 1. Expert Panel on Integrated Guidelines for Cardiovascular Health and Risk Reduction in Children and Adolescents. Pediatrics 2011;128:S213 2. NCEP Expert Panel. Circulation 2004;110:227 3. Hernandez M et al. LEWIS Cardiol. 2020 December 03;5(5):540-548. doi: 10.1001/jamacardio.2020.0013 Current Interpretive Data was last revised on 2024. Non-HDL Cholesterol 97 mg/dL [facility] Comment: Interpretive Data Ages < or = 19 years Acceptable: <120 mg/dL Borderline high: 120-144 mg/dL High: >145 mg/dL Ages > or = 20 years When triglycerides are >200 mg/dL, Non-HDL cholesterol is a secondary target of therapy with treatment goals that are 30 mg/dL greater than the LDL cholesterol target. Literature References: 1. Expert Panel on Integrated Guidelines for Cardiovascular Health and Risk Reduction in Children and Adolescents. Pediatrics 2011;128:S213 2. NCEP Expert Panel. Circulation 2004;110:227 Current Interpretive Data was last revised on 2018. Chol/HDL ratio 3 [facility] Blood 12/29/2024 10:3 6 AM CDT 12/29/2024 5:26 PM CDT Praful Hackett MD LAB BLOOD ORDERABLES Aylin gutierrez Result [facility] [address] Department [place] [address] * Comprehensive metabolic panel (12/29/2024 10:36 AM CDT) Sodium 139 135 - 145 mmol/L Potassium, pl 4.4 3.3 - 4.9 mmol/L [facility] Chloride 104 97 - 110 mmol/L [facility] CO2 27 22 - 32 mmol/L [facility] Anion gap 8 2 - 15 mmol/L [facility] BUN 14 6 - 25 mg/dL [facility] Creatinine 1.00 0.80 - 1.30 mg/dL [facility] Glucose 104 70 - 199 mg/dL [facility] Comment: Interpretive Data Fasting glucose >/= 126 mg/dl is diagnostic for diabetes. Fasting is defined as no caloric intake for at least 8 hours. Fasting glucose between 100 mg/dl to 125 mg/dl is diagnostic of prediabetes. In a patient with classic symptoms of hyperglycemia or hyperglycemic crisis, a random glucose >/= 200 mg/dl is diagnostic for diabetes. In the absence of unequivocal hyperglycemia, results should be confirmed by repeat testing. The classification and Diagnosis of Diabetes Diabetes Care 2021; 46: S19-S40. Current interpretive data was last revised 2022. Calcium 9.3 8.5 - 10.3 mg/dL [facility] Bilirubin, total 0.6 0.1 - 1.2 mg/dL [facility] Protein, pl 7.0 6.5 - 8.5 g/dL [facility] Albumin 3.6 3.5 - 5.0 g/dL [facility] Alk phos 75 40 - 130 Units/L [facility] ALT 12 7 - 55 Units/L [facility] AST 21 10 - 50 Units/L [facility] Blood 12/29/2024 10:3 6 AM CDT 12/29/2024 5:26 PM CDT us Praful Hackett MD LAB BLOOD ORDERABLES Aylin gutierrez Result [facility] [address] Department [place] [address] * US Renal Limited Including Duplex Doppler Bilateral Complete (C) (12/11/2024 4:08 PM CDT) Anatomical Region Laterality Modality Vascular N/A Ultrasound 12/11/2024 7:06 PM CDT Impressions 12/11/2024 7:06 PM CDT There is no duplex evidence of renal artery stenosis in the right and the left renal arteries. Electronically signed by: Ramon Dominguez M.D. Narrative 12/11/2024 7:06 PM CDT EXAMINATION: US RENAL LIMITED INCLUDING DUPLEX DOPPLER BILATERAL COMPLETE (C) HISTORY: The patient is an 84-year-old male who presents with resistant hypertension. TECHNIQUE: Transverse and sagittal images were obtained with grayscale imaging, color Doppler imaging and spectral waveform analysis. FINDINGS: The right kidney measures 10.6 x 5.1 x 3.6 cm and the left kidney measures 10.8 x 5.6 x 4.8 cm in size. No hydronephrosis, calculi or perinephric fluid collection is seen. There is a 4.7 x 4.0 cm has simple cyst in the left kidney. Both renal veins are patent with normal Doppler waveforms within them. Peak systolic velocity in the origin of the right renal artery is 137 cm/s, in the proximal is 45 cm/s, the mid is 27 cm/s and the hilum is 35 cm/s with a right renal artery/aorta ratio of 2.11. Peak systolic velocity in the origin of the left renal artery is 54 cm/s, in the proximal is 60 cm/s, the mid is 96 cm/s and hilum is 64 cm/s with a left renal artery/aorta ratio of 1.48. Procedure Note Ramon Dominguez MD - 12/11/2024 EXAMINATION: US RENAL LIMITED INCLUDING DUPLEX DOPPLER BILATERAL COMPLETE (C) HISTORY: The patient is an 84-year-old male who presents with resistant hypertension. TECHNIQUE: Transverse and sagittal images were obtained with grayscale imaging, color Doppler imaging and spectral waveform analysis. FINDINGS: The right kidney measures 10.6 x 5.1 x 3.6 cm and the left kidney measures 10.8 x 5.6 x 4.8 cm in size. No hydronephrosis, calculi or perinephric fluid collection is seen. There is a 4.7 x 4.0 cm has simple cyst in the left kidney. Both renal veins are patent with normal Doppler waveforms within them. Peak systolic velocity in the origin of the right renal artery is 137 cm/s, in the proximal is 45 cm/s, the mid is 27 cm/s and the hilum is 35 cm/s with a right renal artery/aorta ratio of 2.11. Peak systolic velocity in the origin of the left renal artery is 54 cm/s, in the proximal is 60 cm/s, the mid is 96 cm/s and hilum is 64 cm/s with a left renal artery/aorta ratio of 1.48. IMPRESSION: There is no duplex evidence of renal artery stenosis in the right and the left renal arteries. Electronically signed by: Ramon Dominguez M.D. Praful Hackett MD IMG US PROCEDURES Final R esult * SCAN - RADIOLOGY/IMAGING (11/27/2024) Anatomical Region Laterality Modality Other us Provider Scanning Edited Result - Final * SCAN - LABS (11/27/2024) us Provider Scanning Edited Result - Final * SCAN - RADIOLOGY/IMAGING (11/24/2024) Anatomical Region Laterality Modality Other us Provider Scanning Edited Result - Final * SCAN - LABS (11/24/2024) us Provider Scanning Final Result from Last 3 Months Insurance [facility] [place] [address] [facility] MEDICARE ADVANTAGE Advance Directives For more information, please contact: [phone] * Full Code (Latest Code Status on File) Date Activated Date Inactivated Comments 10/10/2022 9:07 AM 10/10/2022 3:30 PM * Full Code Date Activated Date Inactivated Comments 10/10/2022 9:07 AM 10/10/2022 9:07 AM Care Teams Ceo & Board Director Relationship Specialty Start Date End Date [place] [address] PCP - General Family Medicine 11/14/21
--- OUTSIDE RECORDS SUMMARY | 2025-02-04 12:58 | XMS_ITS | Clinical Summary ---
Author Organization [facility] [employer] Address [address] [place] [address] Care Team Providers Care Diabetes Education Coordinator Name Role Phone Unavailable Primary Care Provider Unavailabl e Source Comments [facility],non-owned Affiliates and Associated Physician Practices is amultiple site organization consisting of ambulatory clinics and hospital sitesin [place], [place], [place] and [place]. This disclosure is being madepursuant to the Care Everywhere program and may not contain all information available regarding this patient. 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 Gender Identity Not on file Sexual Orientation Not on file Plan of Treatment Health Maintenance Due Date Last Done Comments MEDICARE AWV 12 MONTHS 1940 DTAP/TDAP/TD VACCINES (1 - Tdap) 1958 PNEUMOCOCCAL VACCINE 50+ (1 of 1 - PCV) 1989 ZOSTER VACCINE (1 of 2) 1989 Respiratory Syncytial Virus (RSV) Vaccine Pt: or over 60 yrs (1 - 1-dose 75+ series) 2014 COVID-19 VACCINE (2 - season) 2024 05/14/2021 DEPRESSION SCREENING 08/05/2024 INFLUENZA VACCINE Completed 04/29/2024, , 05/16/2017, Additional history exists HEPATITIS B VACCINE Aged Out No longe r eligible based on patient's age to complete this topic HIB VACCINE Aged Out No longer eligi ble based on patient's age to complete this topic HPV VACCINE Aged Out No longer eligi ble based on patient's age to complete this topic MENINGOCOCCAL (Group B) VACCINE SHARED DECISION-MAKING Aged Out No longer eligible based on patient's age to complete this topic MENINGOCOCCAL GROUPS A/C/Y/W VACCINE Aged Out No longer eligible based on patient's age to complete this topic Insurance [employer] MEDIC[employer] MEDICAID - OUT OF STATE
--- OUTSIDE RECORDS SUMMARY | 2025-02-04 12:58 | XMS_ITS | Clinical Summary ---
Author Organization [facility] Address [address] [place] [address] Phone Care Team Providers Care Double End Chucking Machine Operator Name Role Phone Praful Hackett MD Primary Care Provider [phone] Manav Garcia MD Unavailable [phone] Allergies No known active allergies Medications lisinopril (PRINIVIL, ZESTRIL) 40 MG Tablet Take 40 mg by mouth daily. Active Mirabegron ER (Myrbetriq) 25 MG TABLET SR 24 HR Take by mouth. Active Multiple Vitamin (MULTIVITAMIN PO) Take by mouth. Active Arcadia-3 Fatty Acids (OMEGA 3 PO) Take by mouth. Active FLUNISOLIDE, NASAL, NA by Nasal route. Active carvedilol (COREG) 3.125 MG Tablet Take 3.125 mg by mouth 2 times daily. Active hydrALAZINE 10 MG Tablet Take 10 mg by mouth 3 times daily. Active Homeopathic Products (AZO CONFIDENCE PO) Take by mouth. Active Vibegron (Gemtesa) 75 MG Tablet Take by mouth. Active Encounters Date Type Department Care Team Description 01/04/2025 10:15 AM CDT Office Visit [facility] [address] [place] [address] Manav Garcia MD Vertigo (Primary Dx); Benign paroxysmal positional vertigo of left ear Discharge Disposition: Discharged to home or Selfcare 01/04/2025 Travel from Last 3 Months Family History [...] Sign Reading Time Taken Comments Blood Pressure 160/80 01/04/2025 10:30 AM CDT Pulse 84 01/04/2025 10:30 AM CDT Temperature 36.4 C (97.5 F) 01/04/2025 10:26 AM CDT Respiratory Rate 18 01/04/2025 10:26 AM CDT Oxygen Saturation 97% 01/04/2025 10:26 AM CDT Inhaled Oxygen Concentration - - Weight 82.1 kg (181 lb) 01/04/2025 10:26 AM CDT Height 177.8 cm (5' 10) 01/04/2025 10:26 AM CDT Body Mass Index 25.97 01/04/2025 10:26 AM CDT Plan of Treatment Upcoming Encounters Date Type Department Care Team (Late st Contact Info) Description 03/11/2025 10:00 AM CDT Office Visit [facility] - Neurology [facility] [address] [place] [address] Manav Garcia MD [address] [place] [address] Health Maintenance Due Date Last Done Comments [...] Completed 4, 05/08/2023, 05/01/2023, Additional history exists Human Papillomavirus (HPV) Immunization Aged Out No longer eligible based on patient's age to complete this topic Meningococcal Immunization (ACWY) Aged Out No longer eligible based on patient's age to complete this topic Rotavirus Immunization Aged Out No lo nger eligible based on patient's age to complete this topic Insurance MEDICAID [place] MEDICARE C [employer] Care Teams Double End Chucking Machine Operator Relationship Specialty Start Date End Date Praful Hackett MD [place] [place] [address] PCP - General Internal Medicine 04/29/24 Manav Garcia MD [address] [place] [address] Consulting Physician Neurology 09/08/24
--- OUTSIDE RECORDS SUMMARY | 2025-02-04 12:58 | XMS_ITS | Clinical Summary ---
Author Organization [facility] [address] Address [address] [place] [address] Care Team Providers Care Asphalt Surface Heater Operator Name Role Phone Praful Hackett MD Primary Care Provider [phone] Allergies No known active allergies Medications ginkgo [...] 08/24/19 Assessment & Plan (08/24/2024 1:37 PM AERONAUTICAL TEST ENGINEER): Pepcid 40 mg Continue elevated head of bed Donut or Ushaped pillow to take pressure off right ear Call if no improvement in 3 months for referral to GI Laryngopharyngeal reflux discussed and Handout provided Medicare annual wellness visit, subsequent 06/23 Assessment & Plan (06/23/2024 3:43 PM AERONAUTICAL TEST ENGINEER): Focus of exam is preventative in anture. Reviewed immunizations, reviewed sun/skin cancer screening. Reivewed age and comrobid appropriate screenings and iwll follow response. Chronic sinusitis 06/23/2024 Assessment & Plan (06/23/2024 3:44 PM AERONAUTICAL TEST ENGINEER): Most likely multifactorial and will follow response. [...] meals Assessment & Plan (06/23/2024 3:44 PM AERONAUTICAL TEST ENGINEER): Stable at the presnt time. Encourage to [...] (09/10/2022): Added automatically from request for surgery [id number] Postconcussion syndrome 04/12/2022 Assessment & Plan (04/12/2022 1:04 PM CDT): Persistent vestibular symptoms that improve with exercise Concussion education provided Encouraged continued high level exercise to his tolerance Discussed ways to accommodate visual or vestibular symptoms such as the 2020/20 rule Dizziness and giddiness 08/24/2020 Assessment & [...] monitor. Assessment & Plan (06/23/2024 3:45 PM AERONAUTICAL TEST ENGINEER): Longstanding issue for patinet. Continues to be cautious with fall prevention while maintaining activity level. Patient with vestibular testing to be completed at [facility] related to request for evaluation by [...] Description 01/12/2025 Results [facility] [address] [phone] Tonia Knowles, DESI Pro B-type natriuretic peptide, CBC with auto differential, Comprehensive metabolic panel, Additional followed-up results: 3 01/11/2025 Orders Only [facility] [address] [address] Praful Hackett MD 01/11/2025 Telephone [facility] [address] [address] Praful Hackett MD Medication Request 01/06/2025 Telephone [facility] [address] [phone] Praful Hackett MD 01/01/2025 Telephone [facility] [address] [address] Praful Hackett MD Referral Request 12/31/2024 Telephone [facility] [address] [phone] Praful Hackett MD Recommendation Request 12/29/2024 10:45 AM CDT Lab [facility] Outpatient Lab at [address] [phone] 12/29/2024 10:36 AM CDT - 12/29/2024 11:59 PM CDT Hospital Encounter [address] [address] Asymptomatic hypertensive urgency; Hypertension, essential; Lipid screening Discharge Disposition: Discharge to home or self care 12/29/2024 10:15 AM CDT Office Visit [facility] Primary Care at [address] [phone] Praful Hackett MD Hypertension, essential (Primary Dx); Lipid screening; Asymptomatic hypertensive urgency; Dizziness and giddiness; Atrial fibrillation, new onset (HCC); Gait instability 12/29/2024 Telephone [facility] [address] [phone] Praful Hackett MD Medical Question/Miscellaneou s 12/22/2024 Orders Only [facility] Primary Care at [address] [phone] Praful Hackett MD 12/22/2024 Telephone [facility] [address] [address] Praful Hackett MD Med Refill 12/22/2024 Telephone [facility] [address] [address] Praful Hackett MD 12/15/2024 Orders Only [facility] Primary Care at [address] [phone] Praful Hackett MD 12/15/2024 Telephone [facility] [address] [address] Praful Hackett MD Test Results 12/14/2024 Telephone [facility] [address] [address] Praful Hackett MD Medical Question/Miscellaneou s 12/11/2024 1:34 PM CDT - 12/11/2024 11:59 PM CDT Hospital Encounter [facility] [address] [place] [address] Dizziness; Hypertensive urgency; Other specified symptoms and signs involving the circulatory and respiratory systems Discharge Disposition: Discharge to home or self care 12/11/2024 Telephone [facility] [address] [place] [address] Charla Brannon, RN 12/11/2024 Telephone [facility] [address] [address] Lianet Loera, RODOLFO Information Only 12/11/2024 Telephone [facility] [address] [place] [address] Angela Santana, RODOLFO 12/11/2024 Travel 12/11/2024 Telephone [facility] [address] [place] [address] Charla Brannon, RN 12/10/2024 Telephone [facility] [address] [place] [address] Charla Brannon, RN 12/10/2024 Telephone [facility] [address] [phone] Praful Hackett MD Information Only 12/09/2024 Telephone [facility] [address] [address] Praful Hackett MD 12/09/2024 Telephone [facility] [address] [address] Praful Hackett MD Medical Question/Miscellaneou s 12/09/2024 Telephone [facility] [address] [place] [address] Charla Brannon RN 12/08/2024 11:00 AM CDT Office Visit [facility] Primary Care at [address] [address] Praful Hackett MD Dizziness (Primary Dx); Gait instability; Hypertensive urgency; Other specified symptoms and signs involving the circulatory and respiratory systems; Urinary frequency 12/04/2024 10:30 AM CDT Office Visit [facility] [address] [phone] Praful Hackett MD Atrial fibrillation, new onset (HCC) (Primary Dx); Asymptomatic hypertensive urgency 12/04/2024 Telephone [facility] [address] [address] Praful Hackett MD 12/02/2024 Telephone [facility] [address] [address] Praful Hackett MD 11/30/2024 Telephone [facility] [address] [address] Praful Hackett MD RUBEN Questions 11/27/2024 Orders Only [facility] Health Information Management [address] [place] [address] Scanning, Provider 11/27/2024 Nurse Triage [facility] [address] [address] Praful Hackett MD 11/24/2024 2:30 PM CDT Office Visit [facility]ient Care at [address] [address] Sandhya Li NP Elevated blood pressure reading in office with diagnosis of hypertension (Primary Dx); Altered gait; Dizziness; Fatigue, unspecified type; Shortness of breath 11/24/2024 Orders Only [facility] Health Information Management [address] [place] [address] Scanning, Provider 11/24/2024 Orders Only [facility] [address] [address] Praful Hackett MD 11/24/2024 Telephone [facility] [address] [address] Praful Hackett MD Prior Autorization (Doxepin) 11/24/2024 Nurse Triage [facility] [address] [address] Praful Hackett MD from Last 3 Months Immunizations Immunization Administration Dates Next Due COVID-19 mRNA (Bee On The Go) 0.3 m L (30 mcg) vaccine (12 [...] on file Legal Sex Male 7:31 PM AERONAUTICAL TEST ENGINEER Gender Identity Not on file Sexual Orientation [...] 12/29/2024 10:10 AM CDT Plan of Treatment Health Maintenance Due Date Last Done Comments Zoster Vaccine (2 of 2) 11/10/2020 09/15/2020 Covid-19 Vaccine (5 - 2023-2 5 season) 2024 04/15/2024, 05/14/2021, 10/01/2020, Additional history exists Well Visit 65+ 06/23/2025 06/23/2024 Fall Risk Assessment 12/08/2025 12/08/2024, 10/29/2024, 06/23/2024, Additional history exists Depression Screening 12/29/2025 12/29/2024, 12/08/2024, 10/29/2024, Additional history exists DTaP/Tdap/Td Vaccine (2 - [...] MD LAB BLOOD ORDERABLES Aylin l Result [facility]EL K[facility]Y [address] Department [place] [address] * (ABNORMAL) Differential, auto (12/29/2024 10:36 AM CDT) Neutrophil abs 3.70 1.50 - 6.50 K/cumm Imm gran abs 0.01 0.00 - 0.10 K/cumm [facility] KHOURY Lymphocyte abs 0.73(L) 0.80 - 3.30 K/cumm [facility] Monocyte abs 0.47 0.20 - 0.80 K/cumm [facility] Eosinophil abs 0.08 0.00 - 0.50 K/cumm [facility] Basophil abs 0.03 0.00 - 0.10 K/cumm [facility] Neutrophil pct 73.7 % [facility] Comment: Interpretive Data Percent cell count reference ranges are not reported, since discordance with absolute values may lead to misinterpretation of CBC data. Current Interpretive Data was last revised on 2017. Imm gran pct 0.2 % [facility] Comment: Interpretive Data Percent cell count reference ranges are not reported, since discordance with absolute values may lead to misinterpretation of CBC data. Current Interpretive Data was last revised on 2017. Lymphocyte pct 14.5 % [facility] Comment: Interpretive Data Percent cell count reference ranges are not reported, since discordance with absolute values may lead to misinterpretation of CBC data. Current Interpretive Data was last revised on 2017. Monocyte pct 9.4 % [facility] Comment: Interpretive Data Percent cell count reference ranges are not reported, since discordance with absolute values may lead to misinterpretation of CBC data. Current Interpretive Data was last revised on 2017. Eosinophil pct 1.6 % [facility] Comment: Interpretive Data Percent cell count reference ranges are not reported, since discordance with absolute values may lead to misinterpretation of CBC data. Current Interpretive Data was last revised on 2017. Basophil pct 0.6 % [facility] Comment: Interpretive Data Percent cell count reference ranges are not reported, since discordance with absolute values may lead to misinterpretation of CBC data. Current Interpretive Data was last revised on 2017. Blood 12/29/2024 10:3 6 AM CDT 12/29/2024 5:26 PM CDT us Praful Hackett MD LAB BLOOD ORDERABLES Aylin gutierrez Result [facility]EL [facility] [address] Department [place] [address] * Pro B-type natriuretic peptide (12/29/2024 10:36 [...] as advanced age. - References: 1. Levi JL et.al. Eur Heart J. 2006:27:330-337. 2. Mahin RW, Aubrey VALLEJO. J. AM Baldemar Cardiol: Cardiovasc Imag. 2009;2: 216- 225. Interpretive Data Last Revised Date: 2018. Blood 12/29/2024 10:3 6 AM CDT 12/29/2024 5:26 PM CDT us Praful Hackett MD LAB BLOOD ORDERABLES Aylin l Result MAIKEL [address] Department [place] [address] * (ABNORMAL) CBC with auto differential (12/29/2024 10:36 AM CDT) Pathologist [facility] WBC 5.02 3.80 - 9.90 K/cumm Hgb 16.1 13.0 - 17.5 g/dL [facility] Hct 50.1 38.9 - 50.3 % [facility] Plt 249 150 - 400 K/cumm [facility] MPV 10.0 9.1 - 12.3 fL [facility] RBC 5.17 4.30 - 5.80 M/cumm [facility] MCV 96.9(H) 81.3 - 96.4 fL [facility] MCH 31.1 27.1 - 33.3 pg [facility] MCHC 32.1(L) 32.3 - 35.7 g/dL [facility] RDW CV 13.9 11.1 - 14.9 % [facility] RDW SD 50.3(H) 35.7 - 48.1 fL [facility] NRBC abs 0.00 0.00 - 0.01 K/cumm [facility] Blood 12/29/2024 10:3 6 AM CDT 12/29/2024 5:26 PM CDT Praful Hackett MD LAB BLOOD ORDERABLES Aylin gutierrez Result [facility] [address] Department of Laboratories [place] [id number] * Lipid panel (12/29/2024 10:36 AM CDT) Cholesterol 140 30 - 199 mg/dL Comment: [...] revised on 2018. Triglycerides 101 <=149 mg/dL [facility] Comment: Interpretive Data Ages < or = [...] mg/dL High: >160 mg/dL Calculated using the Hernandez LDL-C estimating equation. This equation was implemented on 2024. Prior to this date LDL-C was estimated using the Friedewald equation. Literature References: 1. Expert Panel on Integrated Guidelines for Cardiovascular Health and Risk Reduction in Children and Adolescents. Pediatrics 2011;128:S213 2. NCEP Expert Panel. Circulation 2004;110:227 3. Hernandez Samayoa al. LEWIS Cardiol. 2020 December 03;5(5):540-548. doi: 10.1001/jamacardio.2020.0013 Current Interpretive Data was last revised on 2024. Non-HDL Cholesterol 97 mg/dL MAIKEL Comment: Interpretive Data Ages < [...] MD LAB BLOOD ORDERABLES Aylin gutierrez Result [facility] [address] Department [place] [address] * Comprehensive metabolic panel (12/29/2024 10:36 AM CDT) Sodium 139 135 - 145 mmol/L Potassium, pl 4.4 3.3 - 4.9 mmol/L [facility] Chloride 104 97 - 110 mmol/L [facility] CO2 27 22 - 32 mmol/L [facility] Anion gap 8 2 - 15 mmol/L [facility] BUN 14 6 - 25 mg/dL [facility] Creatinine 1.00 0.80 - 1.30 mg/dL [facility] Glucose 104 70 - 199 mg/dL [facility] Comment: Interpretive Data Fasting glucose >/= 126 [...] MD LAB BLOOD ORDERABLES Aylin l Result MAIKEL [address] Department [place] [address] * US Renal Limited Including Duplex Doppler [...] arteries. Electronically signed by: Ramon Dominguez M.D. us Praful Hackett MD IMG US PROCEDURES Final [...] Final Result from Last 3 Months Insurance [facility] Member Subscriber Plan / Payer (Ef fective 2018-Present) Name:Shaan Owens Relation to Subscriber:Self Name:Shaan Owens Payer ID:[id number] (NAIC) Type:MEDICARE RISK OTHER Address: [address] [facility] MEDICARE ADVANTAGE Advance Directives For more information, please contact: [phone] * Full Code (Latest Code Status on File) Date Activated Date Inactivated Comments 10/10/2022 9:07 AM 10/10/2022 3:30 PM * Full Code Date Activated Date Inactivated Comments 10/10/2022 9:07 AM 10/10/2022 9:07 AM Care Teams Asphalt Surface Heater Operator Relationship Specialty Start Date End Date Praful Hackett MD [address] [place] [address] PCP - General Family Medicine 11/14/21
--- OUTSIDE RECORDS SUMMARY | 2025-02-04 12:58 | XMS_ITS | Encounter Summary ---
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
--- OUTSIDE RECORDS SUMMARY | 2025-02-04 12:58 | XMS_ITS | Encounter Summary ---
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
--- OUTSIDE RECORDS SUMMARY | 2025-02-04 12:58 | XMS_ITS | Encounter Summary ---
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
--- OUTSIDE RECORDS SUMMARY | 2025-02-04 12:58 | XMS_ITS | Encounter Summary ---
Author Organization 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 documented in this encounter Plan of Treatment Not on file documented as of this encounter Visit Diagnoses Not on filedocumented in this encounter Care Teams Adult Neuropsychologist Relationship Specialty Start Date End Date Praful Hackett MD [address] [place] [address] PCP - General Family Medicine 11/14/21 documented as of this encounter
--- OUTSIDE RECORDS SUMMARY | 2025-02-04 12:58 | XMS_ITS | Clinical Summary ---
Author Organization [employer] [id number] [facility] Address [address] [place] [address] Care Team Providers Care Finance Analyst Name Role Phone Unavailable Primary Care Provider Unavailabl e Social History Tobacco Use Types Packs/Day Years Used Date Smoking Tobacco: Never Assessed Sex and Gender Information Value Date Recorded Sex Assigned at Not on file Legal Sex Male 2:46 PM WATER RESOURCE MANAGER Gender Identity Not on file Sexual Orientation Not on file Plan of Treatment Health Maintenance Due Date Last Done Comments DTAP/TDAP/TD VACCINES (1 - Tdap) 1959 PNEUMOCOCCAL VACCINE 50+ YEARS (1 of 1 - PCV) 02/08/19 89 ZOSTER VACCINE (1 of 2) 1989 RSV VACCINE (60+ or ) (1 - 1-dose 75+ series) 2014 INFLUENZA VACCINE (#1) 2025
== END 2025-02-04 12:55 | disposition home or self-care (01) ==
LOC: ANHAUDASC 12:55
PROVIDERS: PCP Family Medicine; Visit Provider Otolaryngology
DX: H90.6 Mixed conductive and sensorineural hearing loss, bilateral (principal)
CPT/HCPCS: 92557; 92567

== ENCOUNTER 2025-04-18 00:07 | Emergency (ER) | payer MEDICARE, MEDICAID, SELFPAY ==
[2025-04-18 00:22] VITALS: BP 108/77; PULSE 73; RESP 20; TEMP 36.2; O2SAT 97
[2025-04-18 00:55] LABS: Hematocrit 45.5 % (42.0-52.0); Hemoglobin 15.6 g/dL (14.0-18.0); Immature Granulocyte Percent A 0.4 % (0-0.5); Lymphocytes Absolute Auto 1.26 K/mm3 (0.9-3.2); Mean Corpuscular HGB Conc 34.3 g/dl (32-36); Mean Corpuscular Hemoglobin 31.6 pg (26-34); Mean Corpuscular Volume 92.1 fl (80-100); Nucleated Red Blood Cells Absolute Auto 0.000 K/mm3 (0.0-0.012); Nucleated Red Blood Cells Perc 0.0 % (0.0-0.2); Platelet Count Result 233 k/mm3 (150-375); Red Blood Count 4.94 M/mm3 (4.6-6.20); White Blood Count 8.5 K/mm3 (4.5-10.0)
[2025-04-18 01:06] LABS: Alanine Aminotransferase 20 U/L (6-50); Albumin Level 3.8 g/dL (3.5-5.1); Alkaline Phosphatase 61 U/L (38-126); Anion Gap 7 mmol/L (4-12); Aspartate Amino Transferase 43 U/L (17-59); Bilirubin,Total 1.4 mg/dL (0.2-1.3); Blood Urea Nitrogen 19 mg/dL (9-20); Calcium 9.0 mg/dL (8.4-10.2); Carbon Dioxide 27 mmol/L (22-30); Chloride 104 mmol/L (98-107); Estimated CRCL calculation 43 ml/min; Estimated Glomerular Filt Rate > 60; Glucose 154 mg/dL (65-110); Lipase 124 U/L (23-300); Potassium 3.8 mmol/L (3.4-5.0); Sodium 138 mmol/L (137-145); Total Protein 7.0 g/dL (6.3-8.2)
--- NOTE | 2025-04-18 02:39 | PC.NURSE ---
Patient comes to desk with family and states I am going home, I feel better now, I don't need to be seen anymore. Patient and his family member were informed if risks of leaving before being seen by a provider and benefits of staying for evaluation. Patient and his family member verbalized understanding and patients family member wheeled patient out of the ED. Patient had belongings in hand. Patient marked as left without being seen, triaged.
== END 2025-04-18 02:39 | disposition left against medical advice (07) ==
LOC: ANHED 03:33
PROVIDERS: Emergency Provider Emergency Medicine; PCP Family Medicine
DX: R10.9 Unspecified abdominal pain (principal)
CPT/HCPCS: 36415; 80053; 83690; 85025; 99199

== ENCOUNTER 2025-04-29 17:49 | Emergency (ER) | payer MEDICARE, MEDICAID, SELFPAY ==
--- OUTSIDE RECORDS SUMMARY | 2009-07-26 04:30 | XMS_ITS | Continuity of Care Document ---
Author Organization [facility] [place] [address] [place] [address] Phone Care Team Providers Care Poured Wall Foreman Name Role Phone Pancho Garcia Unavailable Unavailable Procedures Procedure Date Office/outpatient Visit, Est Office/outpatient Visit, Est Eye Exam & Treatment Eye Exam, New Patient Ophthalmoscopy Eye Exam Established Pt Office/outpatient Visit, Est Office/outpatient Visit, New Advance Directives Directive Yes / No Effective Date File Name No Information Encounters Encounter Description Practice Location Reason(s) For Visit Diagnoses Date Provider Providers Copied on Encounter Office/outpat ient Visit, Est [facility], [address] [place] [address] [address], [place], [place], [id number], [place] tel:[phone] SEC [facility] No Information 2-200 9 Krishnasamy Pancho. [address], [facility], [place]. tel:[phone] Office/outpat ient Visit, Est [facility], [address] [place] [address] [address], [place], [place], [id number], [place] tel:[phone] SEC [facility] No Information 0-200 9 Krishnasamy Pancho. [address] [facility] [address], [place], [address], [place]. tel:[phone] [facility], [address] [place] [address] [address], [place], [place], [id number], [place] tel:[phone] SEC [facility] No Information 7200 9 Radha Whittingtonl. [address] [place] [address], [facility], [place]. tel:[phone] [facility], [address], [place], [place], [id number], [place] tel:[phone] SEC [facility] No Information 4200 8 Melissa Ferro. [address] [facility], [place], [place], [facility], [place]. tel:[phone] Referring Provider: Pancho kapoor, [address] [place] [address], [facility]. tel:[phone] [facility], [address], [place], [place], [id number], [place] tel:[phone] SEC [facility] No Information 8 8 Krishnasgisele Pancho. [address] [place] [address], [facility], [place]. tel:[phone] Office/outpat ient Visit, [facility] [address], [place], [place], [id number], [place] tel:[phone] SEC [facility] No Information Apr- 5200 7 Marleny Diallo. [address] [facility] [place] [id number], [place]. tel:[phone] Office/outpat ient Visit, [facility], [address], [place], [place], [id number], [place] tel:[phone] SEC [facility] No Information Mar-2 8-200 7 Wankum Yoel. [address], [address] [place], [id number], . tel:[phone] Family History Family Member Type Diagnosis Age At Onset No Information Payers Payer name Insurance type Covered libertarian ID Irving griffiths(s) [facility] [id number] Social History Type Description Quantity Date Captured Comments Sex Male Smoking Status No Information Chief Complaint And Reason For Visit No Information Reason For Referral Reason For Referral No Information History Of Present Illness Encounter Date Complaint History Of Prese nt Illness No Information Functional Status Date Functional Assessmen t No Information Instructions Date Instruction Additional Infor mation No Information Assessments Type Assessment Date No Information Patient Care Teams Name Effective Dates (start - stop) Status Members No Information
--- OUTSIDE RECORDS SUMMARY | 2024-04-28 10:01 | XMS_ITS | Continuity of Care Document ---
Author Organization [facility] Address [address] [place] [address] Phone Care Team Providers Care Measuring Machine Operator Name Role Phone Patel PT,MPT,ATC, Mckinley Unavailable Unavai lable Procedures Procedure Date Doc neg elder mal no plan PT Evaluation Moderate Complexity Therapeutic Activities Therapeutic Activities Neuromuscular Re-Ed Therapeutic Activities Neuromuscular Re-Ed Doc neg elder mal no plan PT Evaluation Low Complexity Therapeutic Activities Neuromuscular Re-Ed Therapeutic Activities Canalith Repositioning Procedure 2021 Neuromuscular Re-Ed Therapeutic Activities Canalith Repositioning Procedure 2021 Therapeutic Activities Neuromuscular Re-Ed Therapeutic Activities Neuromuscular Re-Ed Therapeutic Activities Neuromuscular Re-Ed Therapeutic Activities Neuromuscular Re-Ed Therapeutic Activities Neuromuscular Re-Ed Doc neg elder mal no plan PT Evaluation Moderate Complexity Neuromuscular Re-Ed Therapeutic Activities Advance Directives Directive Yes / No Effective Date File Name No Information Encounters Encounter Description Practice Location Reason(s) For Visit Diagnoses Date Provider Providers Copied on Encounter [facility], [place], [place], [id number], [place] tel:[phone] [place] No Information 4 Jorge Sofia , [place], [place]. [facility], [place], [place], [address], tel:[phone] [place] No Information 4 Jorge Sof[place] , [place], [place]. Referring Provider: Ish Dow [place], [address]. tel:[phone] [facility], [place], [place], [address], [place] tel:[phone] [place] No Information 3 Elmer Gurwinder. . Referring Provider: Ish Dow [place], [address]. tel:[phone] [facility], [place], [place], [address], [place] tel:[phone] [place] No Information 3 Elmer Gurwinder. . Referring Provider: Ish Dow [place], [address]. tel:[phone] [facility], [place], [place], [address], [place] tel:[phone] [place] No Information 3 Elmer Gurwinder. . Referring Provider: Ish Dow [place], [address]. tel:[phone] [facility], [place], [place], [address], [place] tel:[phone] [place] No Information 2 Jorge Sofia , [place], [place]. Referring Provider: Ish Dow [place], [address]. tel:[phone] [facility], [place], [place], [address], [place] tel:[phone] [place] No Information 2 Jorge Sofia , [place], [place]. Referring Provider: [place], [address]. tel:[phone] [facility] [address], [place], [place], [address], [place] tel:[phone] [place] No Information 2 Jorge Sof[place] , [place], [place]. Referring Provider: [place], [address]. tel:[phone] [facility], [address], [place], [place], [address], [place] tel:[phone] [place] No Information 2 Nasir Osorio . Referring Provider: [place], [address]. tel:[phone] [facility], [address], [place], [place], [address], [place] tel:[phone] [place] No Information 2 Jorge Sofia , [place], [place]. Referring Provider: [place], [address]. tel:[phone] [facility], [place], [place], [address], [place] tel:[phone] [place] No Information 2 Jorge Sen. , [place], [place]. Referring Provider: [place], [address]. tel:[phone] [facility], [place], [place], [address], [place] tel:[phone] [place] No Information 2 Jorge Sofia , [place], [place]. Referring Provider: Praful Hackett, [place], [address]. tel:[phone] [facility], [address], [place], [place], [address], [place] tel:[phone] [place] No Information 2 Jorge Sofia [place], [place], [place]. Referring Provider: [place], [address]. tel:[phone] Family History Family Member Type Diagnosis Age At Onset No Information Payers Payer name Insurance type Covered republican ID Authoriza tion(s) [employer] [place] [id number] Medicaid OON Write Off CI 00 Social History Type Description Quantity Date Captured [...]
--- NOTE | ~2025-04-29 | CT_ITS ---
EXAMINATION: CT cervical spine wo con DATE: 04/29/2025 18:41 INDICATION: Status post fall. Neck pain. Patient on blood thinners. TECHNIQUE: Computed tomography (CT) of the cervical spine was performed without intravenous contrast. The dose-length product was 332 mGy-cm. COMPARISON: CT dated 04/16/2024 FINDINGS: Stable anterolisthesis at C7-T1. There is diminished loss of disc height at C3-4, C5-6 and C6-7. Odontoid process is normal. Craniovertebral junction is normal. No evidence for perched facet. There is multilevel uncinate and facet hypertrophy. Lung apices are normal. No significant paraspinal soft tissue abnormality. No evidence for perched facet. Craniovertebral junction is normal. Spinous processes are normal. IMPRESSION: 1. No acute abnormality of the cervical spine. Reviewed, dictated and finalized at location O.
--- NOTE | ~2025-04-29 | CT_ITS ---
EXAMINATION: CT brain wo con DATE: 04/29/2025 18:41 INDICATION: Status post fall. Patient on blood thinners. TECHNIQUE: Computed tomography (CT) of the head was performed without intravenous contrast. The dose-length product was 681.00 mGy-cm. COMPARISON: CT dated 11/27/2024 FINDINGS: Generalized atrophy. There are scattered moderate periventricular and subcortical white matter changes, most likely related to small vessel ischemic disease (microangiopathy). No acute intracranial hemorrhage, infarction, mass or mass effect. No ventriculomegaly or midline shift. There is intracranial atherosclerosis. Paranasal sinuses and mastoids are pneumatized. IMPRESSION: 1. No acute intracranial abnormality. Reviewed, dictated and finalized at location O.
[2025-04-29 18:10] VITALS: BP 167/106; PULSE 84; RESP 17; TEMP 36.7; O2SAT 98
--- OUTSIDE RECORDS SUMMARY | 2025-04-29 20:19 | XMS_ITS | Clinical Summary ---
Author Organization [facility] Address [address] [place] [address] Care Team Providers Care Semiconductor Wafers Saw Operator Name Role Phone Unavailable Primary Care Provider Unavailabl e Source Comments [facility],non-owned Affiliates and Associated Physician Practices is amultiple site organization consisting of ambulatory clinics and hospital sitesin [place], [place], [place] and [place]. This disclosure is being madepursuant to the Care Everywhere program and may not contain all information available regarding this patient. 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
--- OUTSIDE RECORDS SUMMARY | 2025-04-29 20:19 | XMS_ITS | Clinical Summary ---
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
--- OUTSIDE RECORDS SUMMARY | 2025-04-29 20:19 | XMS_ITS | Clinical Summary ---
Author Organization [facility] Address [address] [place] [address] Phone Care Team Providers Care Transcribing Machine Operator Name Role Phone Praful Hackett MD Primary Care Provider [phone] Manav Garcia MD Unavailable [phone] Allergies No known active allergies Medications lisinopril (PRINIVIL, ZESTRIL) 40 MG Tablet Take 40 mg by mouth daily. Active Mirabegron ER (Myrbetriq) 25 MG TABLET SR 24 HR Take by mouth. Active Multiple Vitamin (MULTIVITAMIN PO) Take by mouth. Active [place]-3 Fatty Acids (OMEGA 3 PO) Take by mouth. Active FLUNISOLIDE, NASAL, NA by Nasal route. Active carvedilol (COREG) 3.125 MG Tablet Take 3.125 mg by mouth 2 times daily. Active hydrALAZINE 10 MG Tablet Take 10 mg by mouth 3 times daily. Active Homeopathic Products (AZO CONFIDENCE PO) Take by mouth. Active Vibegron (Gemtesa) 75 MG Tablet Take by mouth. Active meclizine (ANTIVERT) 25 MG Tablet Take 1 Tablet by mouth 3 times daily as needed for Dizziness. 30 Tablet 03/11/2025 Active Encounters Date Type Department Care Team Description 03/11/2025 10:00 AM CDT Office Visit [facility] [address] [place] [address] Manav Garcia MD Benign paroxysmal positional vertigo of left ear (Primary Dx) Discharge Disposition: Discharged to home or Selfcare 03/11/2025 Travel from Last 3 Months Family History [...] Sign Reading Time Taken Comments Blood Pressure 142/94 03/11/2025 10:28 AM CDT Pulse 77 03/11/2025 10:28 AM CDT Temperature 36.4 C (97.6 F) 03/11/2025 10:28 AM CDT Respiratory Rate 16 03/11/2025 10:28 AM CDT Oxygen Saturation 96% 03/11/2025 10:28 AM CDT Inhaled Oxygen Concentration - - Weight 82.4 kg (181 lb 9.6 oz) 03/11/2025 10:28 AM CDT Height 177.8 cm (5' 10) 03/11/2025 10:28 AM CDT Body Mass Index 26.06 03/11/2025 10:28 AM CDT Plan of Treatment Health Maintenance Due Date Last Done Comments Hepatitis C Virus (HCV) Screening 1940 Influenza Immunization (#1) 04/05/202504/06, 05/08/2023, 05/01/2023, Additional history exists SARS-COV-2 Immunization ( season) 2025 05/03/2024, 04/15/2024, 09/10/2022, Additional history exists Hepatitis B Immunization Completed 006, 08/31/2005, 02/23/2005, Additional history exists Pneumococcal Immunization (50+ years) Completed 05/16/2017, 05/29/2016 TdaP Immunization Completed 09/15/2020 Zoster Immunization Completed 11/12/2020, Respiratory Syncytial Virus (RSV) Immunization (Adult) Completed 05/03/2023 Human Papillomavirus (HPV) Immunization Aged Out No longer eligible based on patient's age to complete this topic Meningococcal Immunization (ACWY) Aged Out No longer eligible based on patient's age to complete this topic Rotavirus Immunization Aged Out No lo nger eligible based on patient's age to complete this topic Insurance MEDICAID [place] MEDICARE C [facility] Care Teams Transcribing Machine Operator Relationship Specialty Start Date End Date Praful Hackett MD [address] [place] [address] PCP - General Internal Medicine 04/29/24 Manav Garcia MD [address] [place] [address] Consulting Physician Neurology 09/08/24
--- NOTE | 2025-04-29 21:23 | ED.HEATRA ---
HPI - Head Injury General Chief complaint: Head Injury Stated complaint: FALL, HIT HEAD, ?LOC ON THINNERS Time Seen by Provider: 04/29/25 20:02 History of Present Illness HPI Narrative: 85-year-old male presenting to the emergency department after mechanical slip and fall. He does take blood thinners at home. He states that he tripped and hit his right foot against the top stair and fell into the landing. Did not hit his head or lose consciousness. He states he was feeling weak and was not able to get up until his neighbor from next door came and assisted him. He normally ambulates with a cane. Denies any other injuries and states he has no symptoms at this time and feels much better sitting upright. States he feels like he could be dehydrated as he normally does not drink water at home and sticks to sugary drinks such as Gatorade or soda such as root beer. Was otherwise in his normal state of health. Denies any symptoms at this time. Ambulatory here in the emergency department going to the bathroom and ambulated with nursing staff around without any loss of consciousness, dizziness or syncope. Patient denies any chest pain, shortness a breath, headache, vision changes. He does not think he struck his head. No mental status changes and is acting appropriately. Related Data Home Medications ?Medication ?Instructions ?Recorded ?Confirmed ?Last Taken ?Type finasteride 5 mg tablet (Proscar) 5 mg PO DAILY 11/23/20 03/04/25 11/24/24 History lisinopril 40 mg tablet 40 mg PO DAILY 02/03/24 03/04/25 11/24/24 History cranberry fruit concentrate 250 mg 250 mg PO TID 11/03/24 03/04/25 11/24/24 History chewable tablet (Azo Cranberry) carvedilol 3.125 mg tablet 3.125 mg PO BID 11/24/24 03/04/25 11/24/24 History fluticasone propionate 50 2 spray intranasal BID allergy 01/08/25 03/04/25 Unknown History mcg/actuation nasal symptoms spray,suspension (24 Hour Allergy Relief) Allergies Allergy/AdvReac Type Severity Reaction Status Date / Time No Known Allergies Allergy Verified 04/29/25 17:51 Review of Systems Review of Systems: As reviewed above in HPI [facility] Past Medical History Medical History A-fib Environmental allergies Essential (primary) hypertension Bradycardia History of adenomatous polyp of colon BPH loc w/o ur obs/LUTS After cataract (~11/2019) Dizziness of unknown etiology OAB (overactive bladder) Vertigo Kidney stones History of right ureteral stent October 2011 Surgical History Surgical History Achilles tendon avulsion (~2003) Status post repair 2003 Left, 2011 Right History of cataract surgery (~2017) Bilateral 2018 Rectal foreign body (~10/2011) With surgical removal October 2011 H/O hernia repair (~2008) Family History Family History Father , Late onset coronary artery disease Heart disease Dementia Mother Family history of Alzheimer's disease Family history of heart disease in male family member before age 55, Onset Age: 91 Patient's mother is Father Hypertension Family history of Alzheimer's disease, Onset Age: 90 Patient's father is , Onset Age: 90 Other Family history of cardiovascular disease Social History Social History Social History: The patient runs 2-3 miles a day and has done so since 1968. 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 Gender identity (if verbalized by the patient): Male Spiritual care concerns: No Exam Narrative: GENERAL: [Well-appearing, well-nourished, and in no acute distress.] HEAD: [Normocephalic, atraumatic.] EYES: [PERRLA and EOMI.] ENT: Nares clear, no rhinorrhea or epistaxis. Mucous membranes moist. NECK: Supple. CHEST: [Clear to auscultation. No respiratory distress.] HEART: [Regular rate and rhythm]. No murmur heard. [Normal peripheral pulses.] ABDOMEN: [Soft, nondistended], [nontender], [No rigidity or guarding] EXTREMITIES: Normal range of motion. [No edema.] SKIN: Warm, dry, no rash. NEURO: [No focal deficits]. Alert and oriented [x3.] PSYCH: [Normal mood and affect.] Course Vital Signs Vital signs: Vital Signs Temperature 36.7 C 04/29/25 18:10 Pulse Rate 84 04/29/25 18:10 Respiratory Rate 17 04/29/25 18:10 Blood Pressure 167/106 H 04/29/25 18:10 Pulse Oximetry 98 04/29/25 18:10 Oxygen Delivery Room Air 04/29/25 18:10 Temperature 36.6 C 04/29/25 21: Pulse Rate 90 04/29/25 21:26 Respiratory Rate 18 04/29/25 21:26 Blood Pressure 175/100 H 04/29/25 21:26 Pulse Oximetry 96 04/29/25 21:26 Oxygen Delivery Room Air 04/29/25 18:10 MDM - Head Injury MDM Narrative Medical decision making narrative: 85-year-old male presenting to the emergency department after mechanical slip and fall. He does take blood thinners at home. He states that he tripped and hit his right foot against the top stair and fell into the landing. Did not hit his head or lose consciousness. He states he was feeling weak and was not able to get up until his neighbor from next door came and assisted him. He normally ambulates with a cane. Denies any other injuries and states he has no symptoms at this time and feels much better sitting upright. States he feels like he could be dehydrated as he normally does not drink water at home and sticks to sugary drinks such as Gatorade or soda such as root beer. Was otherwise in his normal state of health. Denies any symptoms at this time. Ambulatory here in the emergency department going to the bathroom and ambulated with nursing staff around without any loss of consciousness, dizziness or syncope. Patient denies any chest pain, shortness a breath, headache, vision changes. He does not think he struck his head. No mental status changes and is acting appropriately. Patient is overall well-appearing not any acute distress. Mildly hypertensive but has a history of hypertension. No tachycardia, tachypnea, fever or hypoxia. No signs of any traumatic injuries. No bruising or hensley on his head, elbows, chest, shoulder. No abdominal tenderness. Strong symmetric pulses. Awake alert oriented. No red flag signs on examination or history taking. CT of the head and cervical spine obtained given patient's age and risk factors with Eliquis use. These images were reviewed and shows no acute traumatic injuries or intracranial abnormality. Patient ambulatory with a steady gait. He was given food and water here and had no further complaints. [place] safe going home. Given return precautions and instructions on hydration and drinking water rather than sugary substances which patient and family at bedside verbalized understanding. Medical Records Attestation: I reviewed the patient's medical records. Imaging Data Attestation: I personally reviewed and interpreted this imaging study as follows: My impression: Impressions Head CT 04/29/25 18:44 IMPRESSION: 1. No acute intracranial abnormality. Cervical Spine CT 04/29/25 18:49 IMPRESSION: 1. No acute abnormality of the cervical spine. Discharge Plan Discharge Clinical Impression: Fall from ground level Patient Disposition: Home Condition: Stable Instructions: Antibiotic Form Patient Language: Armenian Prescriptions: No Action lisinopril 40 mg tablet 40 mg PO DAILY Azo Cranberry 250 mg tablet,chewable 250 mg PO TID fluticasone propionate [24 Hour Allergy Relief] 50 mcg/actuation spray,suspension 2 spray intranasal BID Rx Instructions: administer into each nostril, aim back/up/out mupirocin [Centany] 2 % ointment 1 applic topical BID Qty: 22 3RF Rx Instructions: Intranasal carvedilol 3.125 mg tablet 3.125 mg PO BID hydralazine 10 mg Tablet 10 mg PO TID Qty: 90 0RF Eliquis 5 mg Tablet 5 mg PO Q12HR Qty: 90 0RF finasteride [Proscar] 5 mg tablet 5 mg PO DAILY Follow-up/Referrals: Harms,Praful Colon M.D. [Primary Care Provider] Time of Disposition: 21:22
[2025-04-29 21:26] VITALS: BP 175/100; PULSE 90; RESP 18; TEMP 36.6; O2SAT 96
== END 2025-04-29 21:38 | disposition home or self-care (01) ==
PROVIDERS: Emergency Provider Student in an Organized Health Care Education/Training Program; PCP Family Medicine
DX: S09.90XA Unspecified injury of head, initial encounter (principal); W01.0XXA Fall on same level from slipping, tripping and stumbling without subsequent striking against object, initial encounter
CPT/HCPCS: 70450; 72125; 99284

== ENCOUNTER 2025-05-06 08:51 | Inpatient (IN) | payer MEDICARE, MEDICAID, SELFPAY ==
[2025-05-06] VITALS (32 sets, daily range): BP systolic 118–205; BP diastolic 79–138; PULSE 73–109; RESP 13–28; TEMP 36.4–36.7; O2SAT 94–100; BMI 24.7
--- NOTE | ~2025-05-06 | CT_ITS ---
EXAMINATION: CT brain wo vero, 05/06/2025 9:40 CDT HISTORY: fall COMPARISON: No comparisons available. Technique: Axial images obtained of the brain without contrast. One or more of the following dose reduction techniques were used: automated exposure control, adjustment of the mA and/or kV according to patient size, use of iterative reconstruction technique. Findings: No acute infarct or parenchymal hemorrhage. No abnormal mass or mass effect. No midline shift. No extra-axial fluid collections. No hydrocephalus. Mastoid air cells unremarkable. Sinuses and orbits unremarkable. No acute fracture. No significant facial or scalp soft tissue swelling evident. No radiopaque foreign body is seen. Impression: 1.No acute intracranial abnormality. Reviewed, dictated and finalized at location P. Impression: 1.No acute intracranial abnormality.
--- NOTE | ~2025-05-06 | XR_ITS ---
EXAMINATION: XR chest 1V, 05/06/2025 9:50 CDT HISTORY: fall COMPARISON: No comparisons available. Technique: Single view. Findings: The lungs are clear, no effusion. No pneumothorax. Heart is normal size. Mediastinal and hilar contours are within normal limits. Bony thorax no acute abnormality. Impression: No acute cardiopulmonary abnormality. Reviewed, dictated and finalized at location P. Impression: No acute cardiopulmonary abnormality.
--- NOTE | 2025-05-06 09:02 | ECG_ITS ---
Test Date: 2025-05-06 09:05:42 Measurements Intervals [place] Rate: 65 P: 0 [place]: 0 QRS: -24 QRSD: 109 T: 77 QT: 407 QTc: 423 Interpretive Statements ATRIAL FLUTTER/TACHYCARDIA WITH NORMAL VENTRICULAR RESPONSE INCOMPLETE RIGHT BUNDLE BRANCH BLOCK ANTERIOR INFARCT, AGE INDETERMINATE CONSIDER INFERIOR INFARCT, AGE INDETERMINATE BORDERLINE ST-T WAVE ABNORMALITY- LAT/HIGH LAT LEADS ABNORMAL ECG Compared to ECG 11/27/2024 15:16:28 NO SIGNIFICANT CHANGE Electronically Signed On 05-06-2025 09:28:38 CDT by Julito Amato D.O.
--- OUTSIDE RECORDS SUMMARY | 2025-05-06 09:04 | XMS_ITS | Clinical Summary ---
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
--- OUTSIDE RECORDS SUMMARY | 2025-05-06 09:05 | XMS_ITS | Clinical Summary ---
Author Organization [facility] Address [address] [place] [address] Phone Care Team Providers Care Regional Operations Director Name Role Phone Praful Hackett MD Primary Care Provider [phone] Manav Garcia MD Unavailable [phone] Allergies No known active allergies Medications lisinopril (PRINIVIL, ZESTRIL) 40 MG Tablet Take 40 mg by mouth daily. Active Mirabegron ER (Myrbetriq) 25 MG TABLET SR 24 HR Take by mouth. Active Multiple Vitamin (MULTIVITAMIN PO) Take by mouth. Active [place]-3 Fatty Acids (OMEGA 3 PO) Take by [...] Description 03/11/2025 10:00 AM CDT Office Visit [facility] [address] [place] [address] Manav Garcia MD Benign paroxysmal [...] age to complete this topic Insurance MEDICAID [place] MEDICARE C [facility] Care Teams Regional Operations Director Relationship Specialty Start Date End Date Praful Hackett MD [address] [place] [address] PCP - General Internal Medicine 04/29/24 Manav Garcia MD [address] [place] [address] Consulting Physician Neurology 09/08/24
--- OUTSIDE RECORDS SUMMARY | 2025-05-06 09:05 | XMS_ITS | Clinical Summary ---
Author Organization [facility] [place] [address] Address [address] [place] [address] Care Team Providers Care Acquisition Manager Name Role Phone Praful Hackett MD Primary Care Provider [phone] Allergies No known active allergies Medications flunisolide (NASALIDE) 25 mcg (0.025 %) spray,non-aero solIndications :Allergic Rhinitis Administer 2 sprays into each nostril 2 (two) times a day for 25 days 25 mL 3 04/29/20 24 Active carvediloL (COREG) 3.125 mg tabletIndicati ons:Hypertensi on, essential Take 1 tablet (3.125 mg total) by mouth 2 (two) times a day with meals 60 tablet 11 10/30/19 25 026 Active Eliquis 5 mg tablet TAKE 1 TABLET BY MOUTH EVERY 12 HOURS 60 tablet 03/30/20 25 Active lisinopriL (PRINIVIL,ZEST RIL) 40 mg tablet Take 1 tablet by mouth once daily 270 tablet 04/15/20 25 Active Gemtesa 75 mg tablet Take 75 mg by mouth daily 04/04/20 25 Active amoxicillin-cl avulanate (AUGMENTIN) 875-125 mg per tabletIndicati ons:Chronic sinusitis of both maxillary sinuses Take 1 tablet by mouth 2 (two) times a day for 10 days 20 tablet 04/27/20 25 025 Active oxyBUTYnin (DITROPAN) 5 mg tabletIndicati ons:Benign localized prostatic hyperplasia without lower urinary tract symptoms (LUTS) Take 1 tablet (5 mg total) by mouth 2 (two) times a day 180 tablet 4 04/27/20 25 026 Active montelukast (SINGULAIR) 10 mg tabletIndicati ons:Chronic sinusitis of both maxillary sinuses Take 1 tablet (10 mg total) by mouth nightly 90 tablet 4 04/27/20 25 026 Active lisinopriL (PRINIVIL,ZEST RIL) 40 mg tablet Take 1 tablet by mouth once daily 270 tablet 05/19/20 24 025 Discontinued cyanocobalamin (Vitamin B-12) 1,000 mcg/mL injection Inject 1 mL (1,000 mcg total) into the muscle as instructed every 30 (thirty) days 1 mL 2 07/09/20 24 025 Discontinued(Silvino bell Reported) tadalafiL (CIALIS) 5 mg tabletIndicati ons:Benign prostatic hyperplasia with urinary frequency Take 1 tablet (5 mg total) by mouth daily 30 tablet 11 02/27/20 25 025 Discontinued(Al ternate therapy) methylPREDNISo lone (MEDROL DOSEPACK) 4 mg DosepackIndica tions:Chronic sinusitis of both maxillary sinuses Take as directed on package. 21 tablet 04/27/20 25 025 Active Problems Problem Noted Date Diagnosed Date Atrial flutter 04/12/2025 Benign localized prostatic h yperplasia without lower urinary tract symptoms (LUTS) 04/12/2025 Assessment & Plan (04/27/2025 11:56 AM CDT): No relief with Cialis. Will star ton Oxybutynin. Is going to be seeing urologist next week. Will continue to monitor. Orders: oxyBUTYnin (DITROPAN) 5 mg tablet; Take 1 tablet (5 mg total) by mouth 2 (two) times a day Daytime somnolence 04/12/2025 Dizziness of unknown etiology 04/12/2025 BENITEZ (dyspnea on exertion) 04/12/2025 Edema of both legs 04/12/2025 Fatigue 04/12/2025 Assessment & Plan (04/27/2025 11:56 AM CDT): Will get updated lab work and monitor. May be due to aging, infection, or other issues. Orders: CBC with auto differential; Future Comprehensive metabolic panel; Future Vitamin B12; Future Vitamin D 25 hydroxy; Future Iron profile w/ IBC; Future Ferritin; Future Lightheadedness 04/12/2025 OAB (overactive bladder) 04/12/2025 Chronic bilateral low back pain without sciatica 03/30/2025 Lipid screening 12/29/2024 Urinary frequency 12/08/2024 Assessment [...] carvedilol. Gait instability 12/08/2024 Assessment & Plan (02/26/2025 11:35 AM CDT): Will get Us of carotid arteries. Will continue to monitor. Orders: US Carotids Duplex Bilateral; Future Assessment & Plan (12/08/2024 2:17 PM CDT): WOUld benefit from PT to help with strengthening and will monitor response. Reivewed Home PT. Atrial fibrillation, new onset 12/04/2024 Assessment & [...] nightly BMI 26.0-26.9,adult 10/29/2024 Assessment & Plan (04/27/2025 11:42 AM CDT): Weight appropriate for patient. Assessment & Plan (02/26/2025 11:35 AM CDT): Weight appropriate for patient. Assessment & Plan (10/29/2024 2:30 PM CDT): Weight appropriate for patient. LPRD (laryngopharyngeal reflux disease) 08/24/19 Assessment & Plan (08/24/2024 1:37 PM MOTOR COACH SUPERVISOR): Pepcid 40 mg Continue elevated head of bed Donut or Ushaped pillow to take pressure off right ear Call if no improvement in 3 months for referral to GI Laryngopharyngeal reflux discussed and Handout provided Medicare annual wellness visit, subsequent 06/23 Assessment & Plan (06/23/2024 3:43 PM MOTOR COACH SUPERVISOR): Focus of exam is preventative in anture. Reviewed immunizations, reviewed sun/skin cancer screening. Reivewed age and comrobid appropriate screenings and iwll follow response. Chronic sinusitis 06/23/2024 Assessment & Plan (06/23/2024 3:44 PM MOTOR COACH SUPERVISOR): Most likely multifactorial and will follow response. [...] meals Assessment & Plan (06/23/2024 3:44 PM MOTOR COACH SUPERVISOR): Stable at the presnt time. Encourage to bring home BP montior to calibrate to inoffice evlauastoin. Subcortical microvascular ischemic occlusive dis ease 04/29/2024 Assessment & Plan (04/29/2024 10:18 AM CDT): Referral to neuro placed. Advised to continue Lisinopril for tight blood pressure control and exercise as tolerated. Chronic sinusitis of both maxillary sinuses 04/06 Assessment & Plan (04/27/2025 11:56 AM CDT): Will start on Augmentin and medrol dose pack. Will continue to monitor. Will start on Singulair. Will consider going back to ENT if needed. Orders: amoxicillin-clavulanate (AUGMENTIN) 875-125 mg per tablet; Take 1 tablet by mouth 2 (two) times a day for 10 days methylPREDNISolone (MEDROL DOSEPACK) 4 mg Dosepack; Take as directed on package. montelukast (SINGULAIR) 10 mg tablet; Take 1 tablet (10 mg total) by mouth nightly Assessment & Plan (04/29/2024 10:19 AM CDT): Augmentin, Singulair, and Flunisolide sent for infection due to month long flare up. Need for influenza vaccination 04/29/2024 Assessment & Plan (04/29/2024 10:20 AM CDT): Flu vaccine received in office. Dysphagia 09/10/2022 Overview (09/10/2022): Added automatically from request for surgery [id number] Postconcussion syndrome 04/12/2022 Assessment & Plan (04/12/2022 1:04 PM CDT): Persistent vestibular symptoms that improve with exercise Concussion education provided Encouraged continued high level exercise to his tolerance Discussed ways to accommodate visual or vestibular symptoms such as the rule Encounters Date Type Department Care Team Description 05/03/2025 Nurse Triage [facility] [address] [phone] Angela Harper, RODOLFO 04/29/2025 Nurse Triage [facility] [address] [phone] Praful Hackett MD 04/27/2025 11:30 AM CDT Office Visit [facility] [address] [phone] Rosa Basilio NP Chronic fatigue (Primary Dx); Generalized weakness; Vitamin B 12 deficiency; Vitamin D deficiency; Other iron deficiency anemia; Chronic sinusitis of both maxillary sinuses; Benign localized prostatic hyperplasia without lower urinary tract symptoms (LUTS); BMI 26.0-26.9,adult 04/27/2025 Telephone [facility] [address] [phone] Praful Hackett MD Medical Question/Miscellaneou s 04/27/2025 Nurse Triage [facility] [address] [phone] Praful Hackett MD 04/12/2025 Telephone [facility] [address] [phone] Praful Hackett MD Medical Records Request 04/03/2025 12:28 PM CDT - 04/03/2025 11:59 PM CDT Hospital Encounter [facility] [address] [place] [address] Unsteadiness Discharge Disposition: Discharge to home or self care 03/30/2025 10:30 AM CDT Office Visit [facility] [address] [phone] Praful Hackett MD Gait instability (Primary Dx); Atrial fibrillation, new onset (HCC); Subcortical microvascular ischemic occlusive disease; LPRD (laryngopharyngeal reflux disease); Chronic bilateral low back pain without sciatica 03/10/2025 10:00 AM CDT Clinical Support [facility] [address] [facility] [address] [address] [place] [id number] Kimi Torres, PhD Memory loss 03/09/2025 8:30 AM CDT - 03/09/2025 11:59 PM CDT Hospital Encounter [facility] [address] [place] [address] BPPV (benign paroxysmal positional vertigo), left; Gait instability Discharge Disposition: Discharge to home or self care 03/02/2025 Results Follow-Up [facility] [address] [phone] Rosa Basilio NP Urinalysis reflex to microscopic and culture Urine, clean voided, US Carotids Duplex Bilateral 03/01/2025 2:30 PM CDT Office Visit [facility] [address] [place] [address] [place] [address] Noel Figueroa Jr., MD Unsteadiness (Primary Dx); Dizziness and giddiness; Memory loss 02/28/2025 Results Follow-Up [facility] [address] [phone] Janee Zhang NP Urine culture Urine, clean voided 02/26/2025 11:41 AM CDT - 02/26/2025 11:59 PM CDT Hospital Encounter [facility] [address] [place] [address] Benign prostatic hyperplasia with urinary frequency; Strep pharyngitis Discharge Disposition: Discharge to home or self care 02/26/2025 11:00 AM CDT Office Visit [facility] [address] [phone] Rosa Basilio NP BPPV (benign paroxysmal positional vertigo), left (Primary Dx); Gait instability; Benign prostatic hyperplasia with urinary frequency; BMI 26.0-26.9,adult 02/26/2025 Telephone [facility] [address] [phone] Praful Hackett MD 02/26/2025 Nurse Triage [facility] [address] [phone] Praful Hackett MD 2025 Results Follow-Up [facility] [address] [phone] Sandhya Li NP Urine culture Urine, clean voided 02/06/2025 7:30 PM CDT Office Visit [facility] [address] [phone] Esme Reyes NP Acute cystitis without hematuria (Primary Dx); Frequent urination 02/06/2025 5:55 PM CDT - 02/06/2025 11:59 PM CDT Hospital Encounter [address] [address] Acute cystitis without hematuria Discharge Disposition: Discharge to home or self care from Last 3 Months Immunizations Immunization Administration Dates Next Due COVID-19 mRNA (Earlier Media) 0.3 m L (30 mcg) vaccine (12 years and up) 04/15/2024 Hep A, Adult 08/31/2005,01/18/2005 Hep A, Unspecified 08/31/2005,01/18/2005 Hep B Vaccine 08/31/2005,02/23/2005,01/18/2005 Hep B, Unspecified 02/28/2006,02/23/2005, 005 Influenza, Trivalent, High D ose, Split, Preservative Free, Intramuscular 04/29/2024,05/16/2017,05/29/2016,06/10 Influenza, Unspecified 04/27/2025(Deferr ed: Patient Refused),04/14/2024(Deferred: Patient Refused),05/08/2023,08/05/2022(Deferre d: Patient Refused),03/21/2022(Deferred: Patient Refused),08/05/2021(Deferred: Patient Refused),08/05/2021(Deferred: Patient Refused),04/05/2021(Deferred: Patient Refused),04/05/2021(Deferred: Patient Refused),05/01/2014,05/23/2013, 012 Pfizer SARS-CoV-2 Monovalent Vaccination (12+ Yrs) PURPLE 05/14/2021 Pneumococcal Conjugate PCV 13 05/16/2017 Pneumococcal Polysaccharide PPV23 05/29/2016 Td, adsorbed 01/18/2005 Tdap 09/15/2020 ZOSTER Recombinant 11/12/2020,09/15/2020 Surgical History Surgery Date Site/Laterality Comments ACHILLES TENDON REPAIR Bilateral removed bursa sack, chipped off bone CATARACT EXTRACTION Medical History Medical History Date Comments Difficulty walking Hypertension Kidney calculi 10 yrs ago, had surgery Cataract bilat [facility] Concussion Brain concussion Family History Medical History Relation Name Comments Allergy (severe) Father shaan wilkes Asthma Father shaan wilkes Heart disease Father shaan wilkes Parkinsonism Father shaan wilkes Alzheimer's disease Mother eda wilkes Hearing loss Mother eda wilkes Relation Name Status Comments Father shaan wilkes Alive Mother eda wilkes Alive Son 1 Alive Son 2 Alive Social History Tobacco Use Types Packs/Day [...] points, staff should administer the PHQ-9) 0 04/27/2025 Personal Safety Answer Date Recorded Getting School Help Needed Denies 08/02 Sex and Gender Information Value Date Recorded Sex Assigned at Not on file Legal Sex Male 7:31 PM MOTOR COACH SUPERVISOR Gender Identity Not on file Sexual Orientation Not on file Obstetrics History Last Filed Vital Signs Vital Sign Reading Time Taken Comments Blood Pressure 138/80 04/27/2025 11:22 AM CDT Pulse 88 04/27/2025 11:22 AM CDT Temperature 36.4 C (97.6 F) 03/30/2025 10:23 AM CDT Respiratory Rate 18 04/27/2025 11:22 AM CDT Oxygen Saturation 96% 04/27/2025 11:22 AM CDT Inhaled Oxygen Concentration - - Weight 84 kg (185 lb 3.2 oz) 04/27/2025 11:22 AM CDT Height 177.8 cm (5' 10) 04/27/2025 11:22 AM CDT Body Mass Index 26.57 04/27/2025 11:22 AM CDT Plan of Treatment Health Maintenance Due Date Last Done Comments Covid-19 Vaccine (2023- 5 season) 2025 04/15/2024, 05/14/2021, 10/01/2020, Additional history exists Influenza Vaccine (#1) 2025 , 05/08/2023, 05/16/2017, Additional history exists Well Visit 65+ 06/23/2025 06/23/2024 Depression Screening 04/27/2026 04/27/2025, 02/26/2025, 12/29/2024, Additional history exists Fall Risk Assessment 04/27/2026 04/27/2025, 02/26/2025, 12/08/2024, Additional history exists DTaP/Tdap/Td Vaccine (2 - Td or Tdap) 09/15/2030 09/15/2020, 01/18/2005 Hepatitis B Screening Completed 02/28/2006 , 08/31/2005, 02/23/2005, Additional history exists Pneumococcal vaccine 65+ Completed 05/16/2017, 05/06 Zoster Vaccine Completed 11/12/2020, 09/15/2020 Procedures Procedure Name Priority Date/Time Associated Diagnosis Comments MRI BRAIN AND VOLUMETRIC W WO CONTRAST Schedule Routine, Read Routine (OP Routine) 04/03/2025 1:50 PM CDT Unsteadiness US CAROTIDS DUPLEX BILATERAL Urgent 03/09/2025 9:21 AM CDT BPPV (benign paroxysmal positional vertigo), left Gait instability URINE CULTURE Routine 02/26/2025 11:41 AM CDT Strep pharyngitis URINALYSIS AND REFLEX TO MICROSCOPIC AND CULTURE Routine 02/26/2025 11:41 AM CDT Benign prostatic hyperplasia with urinary frequency URINE CULTURE Routine 02/06/2025 5:55 PM CDT Acute cystitis without hematuria POCT URINALYSIS DIPSTICK Routine 02/06/2025 5:54 PM CDT Acute cystitis without hematuria from Last 3 Months Results * MRI Brain and Volumetric W WO Contrast (04/03/2025 1:50 PM CDT) Anatomical Region Laterality Modality Head and Neck N/A Magnetic Resonan ce 04/03/2025 2:29 PM CDT Impressions 04/03/2025 2:29 PM CDT Overall, the pattern of atrophy is nonspecific. 1. Moderate microvascular white matter changes 2. Total cerebral microhemorrhages: 1. 3. Superficial siderosis is not detected. Electronically signed by: Sunny Higginbotham MD Narrative 04/03/2025 2:29 PM CDT EXAMINATION: Magnetic resonance imaging (MRI) of the brain and brainstem without and with contrast HISTORY: 85 years-old Male with unsteadiness and memory loss. evaluation of memory and unsteadiness. He has had a decline in memory since at least November 2024 and has been unsteady wit his walking. On neurologic exam he had a wide based gait and was mildly unsteady, though he was able to walk independently and did not have postural instability TECHNIQUE: Multiplanar multi-weighted MRI of the brain and brainstem was performed without and with intravenous contrast using a protocol specific to assess patients with memory complaints. T1-weighted sagittal MPRage images of the brain were postprocessed on [employer] to generate segmented brain volumes using commercial software. Results were compared to 10th and 90th percentiles of healthy age-/gender-matched population. Graphs were sent to [employer] and [employer] PACS. The protocol specifically includes FLAIR to assess for potential infarcts and white matter lesions associated with vascular cognitive impairment and with susceptibility sensitive sequences for detection of cerebral microhemorrhages. Contrast information: 16 mL Gadoterate Meglumine IV COMPARISON: None Available. FINDINGS: The scalp and calvarium are normal. The superior sagittal sinus demonstrates normal venous flow. The corpus callosum is normal in shape and signal intensity. Small left posterior fossa arachnoid granulation. Partially empty sella. The brainstem and craniocervical junction are unremarkable. Diffusion weighted images reveal no hyperintensities to suggest acute cerebral infarction. Tiny punctate focus of susceptibility within the right corpus callosum, likely represent old microhemorrhage The ventricles are normal in size and position without evidence of hydrocephalus. Moderate global cerebral and cerebellar volume loss. Multiple confluent and punctate foci of T2 and FLAIR hyperintensity within the supratentorial white matter and eugene, likely represent microvascular white matter changes. Minimal mucosal thickening of the ethmoid air cells. Few foci of fluid are present within the right mastoid air cells. The orbits appear normal. Normal flow voids are demonstrated in the carotid arteries and basilar artery. There is no abnormal contrast enhancement. QUANTITATIVE ASSESSMENT: Assessment of hippocampal volumes: Quantitative assessment was performed using [employer] and is reported. There is no significant atrophy of brain structures based on quantitative volumetric analysis. QUALITATIVE ASSESSMENT: Small infarcts (< 15 mm): 2-5. Within the basal ganglia Infarcts (>15 mm): No. White matter hyperintensities (Fazekas grade): Moderate/Fazekas 2: Beginning confluency of lesions (bridging). Prior cerebral microhemorrhages: No prior exam is available to allow for adequate comparison. There is a punctate focus of susceptibility within the right cerebellar hemisphere. New/incident cerebral microhemorrhages: There are no new MCH. Total cerebral microhemorrhages: 1 MCH. Within the right cerebellar hemisphere Prior siderosis: no prior exam available for adequate comparison. New/incident siderosis: None. Procedure Note Sunny Higginbotham MD PhD - 04/03/2025 EXAMINATION: Magnetic resonance imaging (MRI) of the brain and brainstem without and with contrast HISTORY: 85 years-old Male with unsteadiness and memory loss. evaluation of memory and unsteadiness. He has had a decline in memory since at least November 2024 and has been unsteady wit his walking. On neurologic exam he had a wide based gait and was mildly unsteady, though he was able to walk independently and did not have postural instability TECHNIQUE: Multiplanar multi-weighted MRI of the brain and brainstem was performed without and with intravenous contrast using a protocol specific to assess patients with memory complaints. T1-weighted sagittal MPRage images of the brain were postprocessed on [employer] to generate segmented brain volumes using commercial software. Results were compared to 10th and 90th percentiles of healthy age-/gender-matched population. Graphs were sent to [employer] and [employer] PACS. The protocol specifically includes FLAIR to assess for potential infarcts and white matter lesions associated with vascular cognitive impairment and with susceptibility sensitive sequences for detection of cerebral microhemorrhages. Contrast information: 16 mL Gadoterate Meglumine IV COMPARISON: None Available. FINDINGS: The scalp and calvarium are normal. The superior sagittal sinus demonstrates normal venous flow. The corpus callosum is normal in shape and signal intensity. Small left posterior fossa arachnoid granulation. Partially empty sella. The brainstem and craniocervical junction are unremarkable. Diffusion weighted images reveal no hyperintensities to suggest acute cerebral infarction. Tiny punctate focus of susceptibility within the right corpus callosum, likely represent old microhemorrhage The ventricles are normal in size and position without evidence of hydrocephalus. Moderate global cerebral and cerebellar volume loss. Multiple confluent and punctate foci of T2 and FLAIR hyperintensity within the supratentorial white matter and eugene, likely represent microvascular white matter changes. Minimal mucosal thickening of the ethmoid air cells. Few foci of fluid are present within the right mastoid air cells. The orbits appear normal. Normal flow voids are demonstrated in the carotid arteries and basilar artery. There is no abnormal contrast enhancement. QUANTITATIVE ASSESSMENT: Assessment of hippocampal volumes: Quantitative assessment was performed using [employer] and is reported. There is no significant atrophy of brain structures based on quantitative volumetric analysis. QUALITATIVE ASSESSMENT: Small infarcts (< 15 mm): 2-5. Within the basal ganglia Infarcts (>15 mm): No. White matter hyperintensities (Fazekas grade): Moderate/Fazekas 2: Beginning confluency of lesions (bridging). Prior cerebral microhemorrhages: No prior exam is available to allow for adequate comparison. There is a punctate focus of susceptibility within the right cerebellar hemisphere. New/incident cerebral microhemorrhages: There are no new MCH. Total cerebral microhemorrhages: 1 MCH. Within the right cerebellar hemisphere Prior siderosis: no prior exam available for adequate comparison. New/incident siderosis: None. IMPRESSION: Overall, the pattern of atrophy is nonspecific. 1. Moderate microvascular white matter changes 2. Total cerebral microhemorrhages: 1. 3. Superficial siderosis is not detected. Electronically signed by: Sunny Higgnibotham MD Noel Figueroa Jr., MD IM MRI PROCEDURES Final Result * US Carotids Duplex Bilateral (03/09/2025 9:21 AM CDT) Anatomical Region Laterality Modality Vascular Bilateral Ultrasound 03/16/2025 7:54 AM CDT Narrative 03/16/2025 7:56 AM CDT EXAM DESCRIPTION: US CAROTIDS DUPLEX BILATERAL REASON FOR STUDY: dizziness TECHNIQUE: Calvin scale, color Doppler and spectral Doppler imaging were performed. Velocity criteria are extrapolated from diameter as defined by the Society of Radiologists in Ultrasound Consensus Conference. All velocity measurements are in cm/sec. COMPARISON: None. FINDINGS: Right: Mild intimal thickening and plaque are seen. Distal CCA Peak Systolic Velocity: 48 Distal CCA End Diastolic Velocity: 13 Peak ICA Systolic Velocity: 75 ICA End Diastolic Velocity: 33 Peak ICA/CCA Systolic Ratio: 1.6 Right Vertebral Artery: Antegrade direction of flow. Left: Mild intimal thickening and plaque are seen. Distal CCA Peak Systolic Velocity: 58 Distal CCA End Diastolic Velocity: 17 Peak ICA Systolic Velocity: 70 ICA End Diastolic Velocity: 25 Peak ICA/CCA Systolic Ratio: 1.2 Left Vertebral Artery: Antegrade direction of flow. IMPRESSION: 1. Velocities correspond to a less than 50 percent diameter stenosis of the right ICA. 2. Velocities correspond to a less than 50 percent diameter stenosis of the left ICA. 3. Antegrade direction of flow of the bilateral vertebral arteries. REFERENCE: Consensus Panel Calvin-Scale and Doppler US Criteria for Diagnosis of ICA Stenosis. No stenosis: ICA PSV <125*, 0 percent plaque, ICA/CCA PSV Ratio <2.0, ICA EDV <40*. <50 percent stenosis: ICA PSV <125*, <50 percent plaque, ICA/CCA PSV Ratio <2.0, ICA EDV <40*. 50-69 percent stenosis: ICA PSV 125-230*, >=50 percent plaque, ICA/CCA PSV Ratio 2.0-4.0, ICA EDV 40-100*. >=70 percent but less than near occlusion >230, >=50 percent plaque, ICA/CAA PSV Ratio >4.0, ICA EDV >100*. *cm/sec Plaque estimate (diameter reduction) with calvin-scale and color Doppler US. RSNA 2002 THIS IS AN ELECTRONICALLY VERIFIED FINAL REPORT 03/16/2025 7:56 AM - Electronically signed by Georges Duffy M.D. CH: [place] Report ID: [id number] Reading Location: [id number] Procedure Note Georges Duffy Jr., MD - 03/16/2025 EXAM DESCRIPTION: US CAROTIDS DUPLEX BILATERAL REASON FOR STUDY: dizziness TECHNIQUE: Calvin scale, color Doppler and spectral Doppler imaging were performed. Velocity criteria are extrapolated from diameter as defined bythe Society of Radiologists in Ultrasound Consensus Conference. All velocity measurements are in cm/sec. COMPARISON: None. FINDINGS: Right: Mild intimal thickening and plaque are seen. Distal CCA Peak Systolic Velocity: 48 Distal CCA End Diastolic Velocity: 13 Peak ICA Systolic Velocity: 75 ICA End Diastolic Velocity: 33 Peak ICA/CCA Systolic Ratio: 1.6 Right Vertebral Artery: Antegrade direction of flow. Left: Mild intimal thickening and plaque are seen. Distal CCA Peak Systolic Velocity: 58 Distal CCA End Diastolic Velocity: 17 Peak ICA Systolic Velocity: 70 ICA End Diastolic Velocity: 25 Peak ICA/CCA Systolic Ratio: 1.2 Left Vertebral Artery: Antegrade direction of flow. IMPRESSION: 1. Velocities correspond to a less than 50 percent diameter stenosisof the right ICA. 2. Velocities correspond to a less than 50 percent diameter stenosisof the left ICA. 3. Antegrade direction of flow of the bilateral vertebral arteries. REFERENCE: Consensus Panel Calvin-Scale and Doppler US Criteria forDiagnosis of ICA Stenosis. No stenosis: ICA PSV <125*, 0 percent plaque, ICA/CCA PSV Ratio <2.0, ICAEDV <40*. <50 percent stenosis: ICA PSV <125*, <50 percent plaque, ICA/CCA PSV Ratio <2.0, ICA EDV <40*. 50-69 percent stenosis: ICA PSV 125-230*, >=50 percent plaque, ICA/CCA PSV Ratio 2.0-4.0, ICA EDV 40-100*. >=70 percent but less than near occlusion >230, >=50 percent plaque,ICA/CAA PSV Ratio >4.0, ICA EDV >100*. *cm/sec Plaque estimate (diameter reduction) with calvin-scale and color DopplerUS. RSNA 2002 THIS IS AN ELECTRONICALLY VERIFIED FINAL REPORT 03/16/2025 7:56 AM - Electronically signed by Georges Duffy M.D. CH: CH Report ID: [id number] Reading Location: [place] [address] Rosa Basilio NP IMG US PROCEDURES Final Resul t * Urinalysis reflex to microscopic and culture Urine, clean voided (02/26/2025 11:41 AM CDT) Color, ur Straw Yellow Clarity, ur Clear Clear CERNER CH Specific gravity, ur 1.008 1.003 - 1.030 CERNER CH pH, urine 7.5 CERNER CH Comment: Interpretive Data U rine pH is affected by diet, medications, systemic acid-base disturbances, and renal tubular function. pH may affect urinary stone formation. For example, urine pH below 6.0 may help reduce the tendency for calcium phosphate stones and pH greater than 6.0 may reduce the tendency for uric acid stone formation. Source: [employer] Current Interpretive Data was last revised on 2017 Protein, ur ql Negative Negative CERNER CH Glucose, ur ql Negative Negative CERNER CH Ketones, ur Negative Negative CERNER CH Bilirubin, ur Negative Negative CERNER CH Blood, ur Negative Negative CERNER CH Urobilinogen, ur <2.0 <2.0 mg/dL CERNER CH Nitrite, ur Negative Negative CERNER CH Leukocyte esterase, ur Negative Negative CERNER CH Urine, clean voided 02/26/2025 11:41 AM CDT 02/26/2025 6:27 PM CDT Rosa Basilio [facility] MICROBIOLOGY - GENERAL OR DERABLES Final Result Performing Organization Address [facility]/ZIP Co de Phone Number MAIKEL KHOURY [address] [place] [address] * Urine culture Urine, clean voided (02/26/2025 11:41 AM CDT) Report Final Report: Less than 100,000 colonies/mL (clinically insignificant growth based on current clinical standards) Comment:Testing performed by : [facility], [address] [place] [address]., [id number] Organism (CLINICALLY INSIGNIFICANT GROWTH CERNER Urine, clean voided 02/26/2025 11:41 AM CDT 02/26/2025 10:07 PM CDT Narrative [facility] - 02/28/2025 7:36 AM CDT Testing performed by [facility] ([phone]) Sandhya Li [facility] MICROBIOLOGY - GENERAL ORDE RABVILLA Final Result Performing Organization Address City/[facility]/ZIP Co de Phone Number MAIKEL KHOURY [address] [place] [address] * Urine culture Urine, clean voided (02/06/2025 5:55 PM CDT) Report Final Report: Less than 100,000 colonies/mL (clinically insignificant growth based on current clinical standards) Comment:Testing performed by : [facility], [address] [place]., [address] Organism (CLINICALLY INSIGNIFICANT GROWTH CERNER Urine, clean voided 02/06/2025 5:55 PM CDT 02/07/2025 1:52 AM CDT Narrative [facility] - 2025 6:19 AM CDT Testing performed by [facility] ([phone]) Esme Reyes NP LAB MICROBIOLOGY - GENERAL ORD ERABLES Final Result MAIKEL KHOURY [address] Department [place] [address] * (ABNORMAL) POCT urinalysis dipstick (02/06/2025 5:54 PM CDT) Color, Urine, POC Yellow Clarity, ur, POC Clear Clear Glucose, ur, POC Negative Negative Bilirubin, ur, POC Negative Negative Ketones, ur, POC Negative Negative Specific [place], POC 1.020 1.003 - 1.030 Blood, ur, POC Negative Negative pH, ur, POC 7.0 5.0 - 8.0 Protein, ur, POC Negative Negative Urobilinogen, urine, POC 0.2 0.2 - 1.0 mg/dL Nitrite, ur, POC Negative Negative Leukocytes, ur, POC Trace(A) Negative Lot Number [id number] Urine 02/06/2025 5:54 PM CDT Esme Reyes NP POINT OF CARE TEST ORDERABLES Final Result from Last 3 Months Insurance [facility] ADVANTAGE [employer] [facility] ADV[facility]AGE Advance Directives For more information, please contact: [phone] * Full Code (Latest Code Status on File) Date Activated Date Inactivated Comments 10/10/2022 9:07 AM 10/10/2022 3:30 PM * Full Code Date Activated Date Inactivated Comments 10/10/2022 9:07 AM 10/10/2022 9:07 AM Care Teams Acquisition Manager Relationship Specialty Start Date End Date Praful [place] [address] PCP - General Family Medicine 11/14/21
[2025-05-06 09:19] LABS: Hematocrit 50.7 % (42.0-52.0); Hemoglobin 17.0 g/dL (14.0-18.0); Immature Granulocyte Percent A 1.3 % (0-0.5); Lymphocytes Absolute Auto 1.65 K/mm3 (0.9-3.2); Mean Corpuscular HGB Conc 33.5 g/dl (32-36); Mean Corpuscular Hemoglobin 31.4 pg (26-34); Mean Corpuscular Volume 93.7 fl (80-100); Nucleated Red Blood Cells Absolute Auto 0.000 K/mm3 (0.0-0.012); Nucleated Red Blood Cells Perc 0.0 % (0.0-0.2); Platelet Count Result 250 k/mm3 (150-375); Red Blood Count 5.41 M/mm3 (4.6-6.20); White Blood Count 6.4 K/mm3 (4.5-10.0)
[2025-05-06 09:31] LABS: INR 1.1; Prothrombin Time 13.7 Seconds (11.1-14.7)
[2025-05-06 09:32] LABS: Partial Thromboplastin Time 29.3 Seconds (22.3-36.8)
[2025-05-06 09:48] LABS: Alanine Aminotransferase 34 U/L (6-50); Albumin Level 3.8 g/dL (3.5-5.1); Alkaline Phosphatase 65 U/L (38-126); Anion Gap 5 mmol/L (4-12); Aspartate Amino Transferase 28 U/L (17-59); Bilirubin,Total 1.1 mg/dL (0.2-1.3); Blood Urea Nitrogen 17 mg/dL (9-20); Calcium 9.1 mg/dL (8.4-10.2); Carbon Dioxide 31 mmol/L (22-30); Chloride 100 mmol/L (98-107); Estimated CRCL calculation 49 ml/min; Estimated Glomerular Filt Rate > 60; Glucose 100 mg/dL (65-110); Potassium 4.0 mmol/L (3.4-5.0); Sodium 136 mmol/L (137-145); Total Protein 7.3 g/dL (6.3-8.2)
--- NOTE | 2025-05-06 09:51 | ED.GENADULT ---
HPI - General Adult General Chief complaint: Dizziness Stated complaint: dizzy, HTN Time Seen by Provider: 05/06/25 08:57 History of Present Illness HPI narrative: Remy Wilkes is an 85-year-old male who presents today with complaints of having increased sinus pressure to his maxillary and frontal sinuses he states that it kept him up all night last night and when he got up today he continued to have the pain he felt lightheaded generalized weakness. He tells me that he had a fall on Saturday a couple days ago he does not think that he hit his head he had his right shoulder right elbow and he did come here, he states that he also followed up with his primary care doctor and was put on antibiotics for a sinus infection. His blood pressure is quite elevated here today he states that he did done about his medications but he does not think that he took his blood pressure medications this morning. He denies any chest pain, denies shortness of breath, denies numbness tingling, denies headache states he just has pressure in his face. After reviewing his charts this fall was actually last week on April 29 and he was seen here he had a head and C-spine CT that were both negative he was discharged home feeling better and I saw that he was actually started on the antibiotics for acute sinus infection on April 27. Related Data Home Medications ?Medication ?Instructions ?Recorded ?Confirmed ?Last Taken ?Type lisinopril 40 mg tablet 40 mg PO DAILY 02/03/24 05/06/25 11/24/24 History carvedilol 3.125 mg tablet 3.125 mg PO BID 11/24/24 05/06/25 11/24/24 History cyanocobalamin (vitamin B-12) 1,000 mcg IM MONTHLY 05/06/25 05/06/25 Unknown History 1,000 mcg/mL injection solution finasteride 5 mg tablet 5 mg PO DAILY 05/06/25 05/06/25 Unknown History mirabegron 25 mg tablet,extended 25 mg PO Q24H 05/06/25 05/06/25 Unknown History release 24 hr (Myrbetriq) montelukast 10 mg tablet 10 mg PO QPM 05/06/25 05/06/25 Unknown History oxybutynin chloride 5 mg tablet 5 mg PO Q12H 05/06/25 05/06/25 Unknown History tadalafil 5 mg tablet 5 mg PO DAILY 05/06/25 05/06/25 Unknown History vibegron 75 mg tablet (Gemtesa) 75 mg PO DAILY 05/06/25 05/06/25 Unknown History Allergies Allergy/AdvReac Type Severity Reaction Status Date / Time No Known Allergies Allergy Verified 05/06/25 16:13 Review of Systems Review of Systems: All systems reviewed & are unremarkable except as noted in HPI and below PMFSH Past Medical History Medical History A-fib Environmental allergies Essential (primary) hypertension Bradycardia History of adenomatous polyp of colon BPH loc w/o ur obs/LUTS After cataract (~11/2019) Dizziness of unknown etiology OAB (overactive bladder) Vertigo Kidney stones History of right ureteral stent October 2011 Surgical History Surgical History Achilles tendon avulsion (~2003) Status post repair 2003 Left, 2011 Right History of cataract surgery (~2017) Bilateral 2018 Rectal foreign body (~10/2011) With surgical removal October 2011 H/O hernia repair (~2008) Family History Family History Father , Late onset coronary artery disease Heart disease Dementia Mother Family history of Alzheimer's disease Family history of heart disease in male family member before age 55, Onset Age: 91 Patient's mother is Father Hypertension Family history of Alzheimer's disease, Onset Age: 90 Patient's father is , Onset Age: 90 Other Family history of cardiovascular disease Social History Social History Social History: The patient runs 2-3 miles a day and has done so since 1968. 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 Gender identity (if verbalized by the patient): Male Spiritual care concerns: No Exam Narrative: GENERAL: Well-appearing, well-nourished, and in no acute distress. HEAD: Normocephalic, atraumatic. EYES: PERRLA and EOMI. ENT: Nares clear, no rhinorrhea or epistaxis. Mucous membranes moist. Oropharynx without tonsillar hypertrophy exudate or other lesions. Bilateral TMs pearly el nonbulging NECK: Supple. No adenopathy or masses. No carotid bruits or JVD CHEST: Clear to auscultation. No respiratory distress. No wheezes rales or rhonchi HEART: Regular rate and rhythm. No murmur heard. Normal peripheral pulses. ABDOMEN: Soft, nontender, nondistended, normal active bowel sounds. EXTREMITIES: Normal range of motion. No edema. SKIN: Warm, dry, no rash. NEURO: No focal deficits. Alert and oriented x3. PSYCH: Normal mood and affect. Course Vital Signs Vital signs: Vital Signs Temperature 36.7 C 05/06/25 08:58 Pulse Rate 73 05/06/25 08:58 Respiratory Rate 19 05/06/25 08:58 Blood Pressure 205/129 H 05/06/25 08:58 Pulse Oximetry 99 05/06/25 08:58 Oxygen Delivery Room Air 05/06/25 08:58 Temperature 36.4 C 05/06/25 16:29 Pulse Rate 96 05/06/25 16:29 Respiratory Rate 18 05/06/25 16:29 Blood Pressure 118/84 05/06/25 17:30 Pulse Oximetry 97 05/06/25 16:29 Oxygen Delivery Room Air 05/06/25 18:09 Medical Decision Making [facility] Narrative Medical decision making narrative: 85-year-old male who presents with complaints of increased facial pressure from acute sinus infection that he states that he did get started on antibiotics for better kept him up last night. He states that when he got up this morning he felt lightheaded. He denies feeling dizzy denies that the room was spinning he states he has had vertigo before that was not like that he does felt lightheaded. After review of his chart it looks like he was actually on antibiotics started last Saturday and he had a fall a week ago today with the increase of the facial pressure concern for head bleed he is on blood thinners after that fall about will re-scanned his head and do a cardiac workup orthostatic blood pressures. He is checking with his neighbor that they can double check if he took his medications or not and will treat blood pressure. concern for : acute head injury from post fall, URI, sinusitis, anemia, TIA, cardiac ischemia, CBC no leukocytosis, hemodynamically stable PT PTT unremarkable CMP sodium 136, bicarb 31 1st troponin negative Viral swab-negative Head ct-no acute intracranial abnormality noted chest xr-no acute cardiopulmonary abnormality noted Orthostatics : With systolic blood pressure from lying to standing 182-152 with heart rate 83-102 and patient was symptomatic is still feeling like he is floating Patient her was also having some frequent urination symptoms a sample is concerned he might be retaining to the has wanting the urinal post removal weighted residual ultrasound showed 350 a Lopez catheter was placed and he had 500 mL of urine that came out. Patient continues to have some forgetfulness does not have anybody he at home they lives with her any family members nearby again this he says that he does cause his neighbor for help when he needs it. He seemed to be confused about when he had antibiotics or when he was here for the fall. He did not remember to take his medications this morning he admits that he has been having some more forgetfulness over the past month it may be getting a little bit worse. My concern is that maybe it is not safe for him to be living at home by herself with his forgetfulness or not taking his medications and his blood pressure gets higher in this new urinary retention I do not know if he would be able to care for the Lopez catheter at home by himself. Discussed admission with hospitalist who wanted me to attempt to call his son. Who I had did it tried to get in touch with and I left a voicemail and did not get a phone call back. The nurse was able to gather information that he has 2 sons 1 that lives in [place] had 1 that lives in [place]. Hospitalist agrees for admission at least for PT OT evaluation to see if he would benefit from placement or home health care. Medical Records Medical records reviewed: Yes I reviewed the external patient's medical records. Vital Signs Vital Signs: Vital Signs Temperature 36.7 C 05/06/25 08:58 Pulse Rate 73 05/06/25 08:58 Respiratory Rate 19 05/06/25 08:58 Blood Pressure 205/129 H 05/06/25 08:58 Pulse Oximetry 99 05/06/25 08:58 Oxygen Delivery Room Air 05/06/25 08:58 Temperature 36.4 C 05/06/25 16:29 Pulse Rate 96 05/06/25 16:29 Respiratory Rate 18 05/06/25 16:29 Blood Pressure 118/84 05/06/25 17:30 Pulse Oximetry 97 05/06/25 16:29 Oxygen Delivery Room Air 05/06/25 18:09 Vitals reviewed Lab Data Lab results reviewed: Yes I reviewed the patient's lab results. 05/06/25 09:13 05/06/25 09:13 Labs: Lab Results 05/06/25 05/06/25 05/06/25 Range/Units 09:13 09:39 11:28 WBC 6.4 (4.5-10.0) K/mm3 RBC 5.41 (4.6-6.20) M/mm3 Hgb 17.0 (14.0-18.0) g/dL Hct 50.7 (42.0-52.0) % MCV 93.7 (80-100) fl MCH 31.4 (26-34) pg MCHC 33.5 (32-36) g/dl RDW 13.8 (11.5-14.5) % Plt Count 250 (150-375) k/mm3 MPV 9.0 (7.4-10.4) fl Immature Gran % (Auto) 1.3 H (0-0.5) % Neut % (Auto) 59.5 (45.5-73.1) % Lymph % (Auto) 25.8 (18.3-44.2) % [place] % (Auto) 9.8 H (2.6-8.5) % Eos % (Auto) 2.7 (0-4.4) % Baso % (Auto) 0.9 (0.2-1.2) % Lymph # (Auto) 1.65 (0.9-3.2) K/mm3 [place] # (Auto) 0.6 (0.1-0.6) K/mm3 Eos # (Auto) 0.2 (0-0.3) K/mm3 Baso # (Auto) 0.1 (0.0-0.1) K/mm3 Abs Immat Gran (auto) 0.08 H (0.00-0.031) K/mm3 Absolute Neuts (auto) 3.8 (1.3-6.7) K/mm3 Absolute Nucleated RBC 0.000 (0.0-0.012) K/mm3 Nucleated RBC % 0.0 (0.0-0.2) % PT 13.7 (11.1-14.7) Seconds INR 1.1 APTT 29.3 (22.3-36.8) Seconds Sodium 136 L (137-145) mmol/L Potassium 4.0 (3.4-5.0) mmol/L Chloride 100 (98-107) mmol/L Carbon Dioxide 31 H (22-30) mmol/L Anion Gap 5 (4-12) mmol/L BUN 17 (9-20) mg/dL Creatinine 0.98 (0.7-1.3) mg/dL Estim Creat Clear Calc 49 ml/min Estimated GFR > 60 (59 - ) Glucose 100 (65-110) mg/dL Calcium 9.1 (8.4-10.2) mg/dL Total Bilirubin 1.1 (0.2-1.3) mg/dL AST 28 (17-59) U/L ALT 34 (6-50) U/L Alkaline Phosphatase 65 (38-126) U/L Troponin I < 0.012 (0.000-0.034) ng/mL Total Protein 7.3 (6.3-8.2) g/dL Albumin 3.8 (3.5-5.1) g/dL Urine Color Yellow (Yellow) Urine Appearance Clear (Clear) Urine pH 8.5 (5.0-9.0) Ur Specific [place] 1.007 (1.001-1.035) Urine Protein Negative (Negative) mg/dL Urine Glucose (UA) Negative (Negative) mg/dL Urine Ketones Negative (Negative) mg/dL Ur Blood (Man) Negative (Negative) Urine Nitrate Negative (Negative) Urine Bilirubin Negative (Negative) Urine Urobilinogen 0.2 (<2.0) mg/dL Leukocyte Esterase Rfl Negative (Negative) BOBO/UL Influenza A (RT-PCR) Negative (Negative) Influenza B (RT-PCR) Negative (Negative) RSV (RT-PCR) Negative (Negative) SARS-CoV-2 RNA (RT-PCR) Negative (Negative) 05/06/25 Range/Units 12:27 WBC (4.5-10.0) K/mm3 RBC (4.6-6.20) M/mm3 Hgb (14.0-18.0) g/dL Hct (42.0-52.0) % MCV (80-100) fl MCH (26-34) pg MCHC (32-36) g/dl RDW (11.5-14.5) % Plt Count (150-375) k/mm3 MPV (7.4-10.4) fl Immature Gran % (Auto) (0-0.5) % Neut % (Auto) (45.5-73.1) % Lymph % (Auto) (18.3-44.2) % [place] % (Auto) (2.6-8.5) % Eos % (Auto) (0-4.4) % Baso % (Auto) (0.2-1.2) % Lymph # (Auto) (0.9-3.2) K/mm3 [place] # (Auto) (0.1-0.6) K/mm3 Eos # (Auto) (0-0.3) K/mm3 Baso # (Auto) (0.0-0.1) K/mm3 Abs Immat Gran (auto) (0.00-0.031) K/mm3 Absolute Neuts (auto) (1.3-6.7) K/mm3 Absolute Nucleated RBC (0.0-0.012) K/mm3 Nucleated RBC % (0.0-0.2) % PT (11.1-14.7) Seconds INR APTT (22.3-36.8) Seconds Sodium (137-145) mmol/L Potassium (3.4-5.0) mmol/L Chloride (98-107) mmol/L Carbon Dioxide (22-30) mmol/L Anion Gap (4-12) mmol/L BUN (9-20) mg/dL Creatinine (0.7-1.3) mg/dL Estim Creat Clear Calc ml/min Estimated GFR (59 - ) Glucose (65-110) mg/dL Calcium (8.4-10.2) mg/dL Total Bilirubin (0.2-1.3) mg/dL AST (17-59) U/L ALT (6-50) U/L Alkaline Phosphatase (38-126) U/L Troponin I < 0.012 (0.000-0.034) ng/mL Total Protein (6.3-8.2) g/dL Albumin (3.5-5.1) g/dL Urine Color (Yellow) Urine Appearance (Clear) Urine pH (5.0-9.0) Ur Specific [place] (1.001-1.035) Urine Protein (Negative) mg/dL Urine Glucose (UA) (Negative) mg/dL Urine Ketones (Negative) mg/dL Ur Blood (Man) (Negative) Urine Nitrate (Negative) Urine Bilirubin (Negative) Urine Urobilinogen (<2.0) mg/dL Leukocyte Esterase Rfl (Negative) BOBO/UL Influenza A (RT-PCR) (Negative) Influenza B (RT-PCR) (Negative) RSV (RT-PCR) (Negative) SARS-CoV-2 RNA (RT-PCR) (Negative) Imaging Data Radiologist's impression: Impressions Head CT 05/06/25 09:54 Impression: 1.No acute intracranial abnormality. Chest X-Ray 05/06/25 09:58 Impression: No acute cardiopulmonary abnormality. ECG Data EKG #1: ECG completion date: 05/06/25 ECG completion time: 09:05 Prior ECG tracings: available for review Interpretation: Rate 65 WI 0 QRSd 109 QT 407 QTc 423 --[place]-- P 0 QRS -24 T 77 ATRIAL FLUTTER/TACHYCARDIA WITH NORMAL VENTRICULAR RESPONSE INCOMPLETE RIGHT BUNDLE BRANCH BLOCK ANTERIOR INFARCT, AGE INDETERMINATE CONSIDER INFERIOR INFARCT, AGE INDETERMINATE BORDERLINE ST-T WAVE ABNORMALITY- LAT/HIGH LAT LEADS ABNORMAL ECG Compared to ECG Discharge Plan Discharge Clinical Impression: Symptomatic orthostatic increase in heart rate, Acute urinary retention, Light headedness, At high risk for falls, Forgetfulness Patient Disposition: Still a Patient Condition: Stable Time of Disposition: 18:36
[2025-05-06 09:55] LABS: Troponin I < 0.012 ng/mL (0.000-0.034)
--- OUTSIDE RECORDS SUMMARY | 2025-05-06 10:00 | XMS_ITS | Clinical Summary ---
Author Organization [facility] [address] [facility] Address [address] [place] [address] Care Team Providers Care Padded Box Sewer Name Role Phone Unavailable Primary Care Provider Unavailabl e Social History Tobacco Use Types Packs/Day Years Used Date Smoking Tobacco: Never Assessed Sex and Gender Information Value Date Recorded Sex Assigned at Not on file Legal Sex Male 2:46 PM [employer] Gender Identity Not on file Sexual Orientation [...]
--- OUTSIDE RECORDS SUMMARY | 2025-05-06 10:00 | XMS_ITS | Clinical Summary ---
Author Organization [facility] [address] Address [address] [place] [address] Care Team Providers Care Mitten Stitcher Name Role Phone Praful Hackett MD Primary Care Provider [phone] Allergies No known active allergies Medications flunisolide [...] 08/24/19 Assessment & Plan (08/24/2024 1:37 PM PLANT PROTECTION OFFICER): Pepcid 40 mg Continue elevated head of bed Donut or Ushaped pillow to take pressure off right ear Call if no improvement in 3 months for referral to GI Laryngopharyngeal reflux discussed and Handout provided Medicare annual wellness visit, subsequent 06/23 Assessment & Plan (06/23/2024 3:43 PM PLANT PROTECTION OFFICER): Focus of exam is preventative in anture. Reviewed immunizations, reviewed sun/skin cancer screening. Reivewed age and comrobid appropriate screenings and iwll follow response. Chronic sinusitis 06/23/2024 Assessment & Plan (06/23/2024 3:44 PM PLANT PROTECTION OFFICER): Most likely multifactorial and will follow response. [...] meals Assessment & Plan (06/23/2024 3:44 PM PLANT PROTECTION OFFICER): Stable at the presnt time. Encourage to [...] (09/10/2022): Added automatically from request for surgery [id number] Postconcussion syndrome 04/12/2022 Assessment & Plan (04/12/2022 1:04 PM CDT): Persistent vestibular symptoms that improve with exercise Concussion education provided Encouraged continued high level exercise to his tolerance Discussed ways to accommodate visual or vestibular symptoms such as the rule Encounters Date Type Department Care Team Description 05/03/2025 Nurse Triage [facility] [address] [phone] Angela Harper, RODOLFO 04/29/2025 Nurse Triage [facility] [address] [phone] Praful Hackett MD 04/27/2025 11:30 AM CDT Office Visit [facility] [address] [phone] Rosa Basilio NP Chronic fatigue (Primary Dx); Generalized weakness; Vitamin B 12 deficiency; Vitamin D deficiency; Other iron deficiency anemia; Chronic sinusitis of both maxillary sinuses; Benign localized prostatic hyperplasia without lower urinary tract symptoms (LUTS); BMI 26.0-26.9,adult 04/27/2025 Telephone [facility] [address] [phone] Praful Hackett MD Medical Question/Miscellaneou s 04/27/2025 Nurse Triage [facility] [address] [phone] Praful Hackett MD 04/12/2025 Telephone [facility] [address] [phone] Praful Hackett MD Medical Records Request 04/03/2025 12:28 PM CDT - 04/03/2025 11:59 PM CDT Hospital Encounter [facility] [address] [place] [address] Unsteadiness Discharge Disposition: Discharge to home or self care 03/30/2025 10:30 AM CDT Office Visit [facility] [address] [phone] Praful Hackett MD Gait instability (Primary Dx); Atrial fibrillation, new onset (HCC); Subcortical microvascular ischemic occlusive disease; LPRD (laryngopharyngeal reflux disease); Chronic bilateral low back pain without sciatica 03/10/2025 10:00 AM CDT Clinical Support [facility] [address] [place] [id number] Kimi Torres, PhD Memory loss 03/09/2025 8:30 AM CDT - 03/09/2025 11:59 PM CDT Hospital Encounter [facility] [address] [place] [address] BPPV (benign paroxysmal positional vertigo), left; Gait instability Discharge Disposition: Discharge to home or self care 03/02/2025 Results [facility]-Up [facility] [address] [phone] Rosa Basilio NP Urinalysis reflex to microscopic and culture Urine, clean voided, US Carotids Duplex Bilateral 03/01/2025 2:30 PM CDT Office Visit [facility] Critical [facility] hospital[facility] 6th [place] [address] [place] [address] Noel Figueroa Jr., MD Unsteadiness (Primary Dx); Dizziness and giddiness; Memory loss 02/28/2025 Results Follow-Up [facility] [address] [phone] Janee Zhang NP Urine culture Urine, clean voided 02/26/2025 11:41 AM CDT - 02/26/2025 11:59 PM CDT Hospital Encounter [facility] [address] [place] [address] Benign prostatic hyperplasia with urinary frequency; Strep pharyngitis Discharge Disposition: Discharge to home or self care 02/26/2025 11:00 AM CDT Office Visit [facility] [address] [phone] Rosa Basilio NP BPPV (benign paroxysmal positional vertigo), left (Primary Dx); Gait instability; Benign prostatic hyperplasia with urinary frequency; BMI 26.0-26.9,adult 02/26/2025 Telephone [facility] [address] [phone] Praful Hackett MD 02/26/2025 Nurse Triage [facility] [address] [phone] Praful Hackett MD 2025 Results Follow-Up [facility] [address] [phone] Sandhya Li NP Urine culture Urine, clean voided 02/06/2025 7:30 PM CDT Office Visit [facility] [address] [phone] Esme Reyes NP Acute cystitis without hematuria (Primary Dx); Frequent urination 02/06/2025 5:55 PM CDT - 02/06/2025 11:59 PM CDT Hospital Encounter [address] [address] Acute cystitis without hematuria Discharge Disposition: Discharge to home or self care from Last 3 Months Immunizations Immunization Administration Dates Next Due COVID-19 mRNA (efw-suhl) 0.3 m L (30 mcg) vaccine (12 [...] images of the brain were postprocessed on iGuiders to generate segmented brain volumes using commercial software. Results were compared to 10th and 90th percentiles of healthy age-/gender-matched population. Graphs were sent to [employer] PACS. The protocol specifically includes FLAIR to [...] images of the brain were postprocessed on iGuiders to generate segmented brain volumes using commercial software. Results were compared to 10th and 90th percentiles of healthy age-/gender-matched population. Graphs were sent to [employer] PACS. The protocol specifically includes FLAIR to [...] hippocampal volumes: Quantitative assessment was performed using [employer] and is reported. There is no significant [...] detected. Electronically signed by: Sunny Higginbotham MD Noel Figueroa Jr., MD IM MRI [...] Georges Duffy M.D. CH: [place] Report ID: [id number] Reading Location: [id number] Procedure Note Georges Duffy Jr., MD - [...] Georges Duffy M.D. CH: CH Report ID: [id number] Reading Location: [place] [address] Rosa Basilio NP IMG US PROCEDURES Final [...] tendency for uric acid stone formation. Source: [employer] Current Interpretive Data was last revised on [...] CDT 02/26/2025 6:27 PM CDT Rosa Basilio BASIC SCIENCES PROFESSOR LAB MICROBIOLOGY - GENERAL OR DERABLES Final Result Performing Organization Address [facility]/ZIP Co de Phone Number MAIKEL KHOURY [address] [place] [address] * Urine culture Urine, clean voided (02/26/2025 11:41 AM CDT) Report Final Report: Less than 100,000 colonies/mL (clinically insignificant growth based on current clinical standards) Comment:Testing performed by : [facility], [address] [place] [address]., [address] Organism (CLINICALLY INSIGNIFICANT GROWTH CERNER Urine, clean voided 02/26/2025 11:41 AM CDT 02/26/2025 10:07 PM CDT Narrative [facility] - 02/28/2025 7:36 AM CDT Testing performed by [facility] ([phone]) Sandhya Li BASIC SCIENCES PROFESSOR LAB MICROBIOLOGY - GENERAL ORDE RABVILLA Final Result Performing Organization Address City/[facility]/ZIP Co de Phone Number MAIKEL KHOURY [address] [place] [address] * Urine culture Urine, clean voided (02/06/2025 5:55 PM CDT) Report Final Report: Less than 100,000 colonies/mL (clinically insignificant growth based on current clinical standards) Comment:Testing performed by : [facility], [address] [facility] [place]., [address] Organism (CLINICALLY INSIGNIFICANT GROWTH CERNER Urine, clean voided 02/06/2025 5:55 PM CDT 02/07/2025 1:52 AM CDT Narrative [facility] - 2025 6:19 AM CDT Testing performed by [facility] ([phone]) Esme Reyes NP LAB MICROBIOLOGY - GENERAL ORD ERABLES Final Result MAIKEL KHOURY [address] Department [place] [address] * (ABNORMAL) POCT urinalysis dipstick (02/06/2025 5:54 PM CDT) Color, Urine, POC Yellow Clarity, ur, POC Clear Clear Glucose, ur, POC Negative Negative Bilirubin, ur, POC Negative Negative Ketones, ur, POC Negative Negative Specific [place], POC 1.020 1.003 - 1.030 Blood, ur, POC Negative Negative pH, ur, POC 7.0 5.0 - 8.0 Protein, ur, POC Negative Negative Urobilinogen, urine, POC 0.2 0.2 - 1.0 mg/dL Nitrite, ur, POC Negative Negative Leukocytes, ur, POC Trace(A) Negative Lot Number [id number] Urine 02/06/2025 5:54 PM CDT Esme Reyes NP POINT OF CARE TEST ORDERABLES Final Result from Last 3 Months Insurance [facility] MEDICARE ADVANTAGE [employer] [facility] MEDICARE ADVANTAGE Advance Directives For more information, please contact: [phone] * Full Code (Latest Code Status on File) Date Activated Date Inactivated Comments 10/10/2022 9:07 AM 10/10/2022 3:30 PM * Full Code Date Activated Date Inactivated Comments 10/10/2022 9:07 AM 10/10/2022 9:07 AM Care Teams Mitten Stitcher Relationship Specialty Start Date End Date Praful [place] [address] PCP - General Family Medicine 11/14/21
--- OUTSIDE RECORDS SUMMARY | 2025-05-06 10:00 | XMS_ITS | Clinical Summary ---
Author Organization [facility] Address [address] [place] [address] Phone Care Team Providers Care Assistant Professor Of Communication Name Role Phone Praful Hackett MD Primary Care Provider [phone] Manav Garcia MD Unavailable [phone] Allergies No known active allergies Medications lisinopril (PRINIVIL, ZESTRIL) 40 MG Tablet Take 40 mg by mouth daily. Active Mirabegron ER (Myrbetriq) 25 MG TABLET SR 24 HR Take by mouth. Active Multiple Vitamin (MULTIVITAMIN PO) Take by mouth. Active [place]-3 Fatty Acids (OMEGA 3 PO) Take by [...] Description 03/11/2025 10:00 AM CDT Office Visit [facility] [address] [place] [address] Manav Garcia MD Benign paroxysmal [...] age to complete this topic Insurance MEDICAID [place] MEDICARE [facility] Care Teams Assistant Professor Of Communication Relationship Specialty Start Date End Date Praful Hackett MD [address] [place] [address] PCP - General Internal Medicine 04/29/24 Manav Garcia MD [address] [place] [address] Consulting Physician Neurology 09/08/24
--- OUTSIDE RECORDS SUMMARY | 2025-05-06 10:00 | XMS_ITS | Clinical Summary ---
Author Organization [facility] [place] Address [address] [place] [address] Care Team Providers Care Machine Binder Stripper Name Role Phone Unavailable Primary Care Provider Unavailabl e Source Comments [facility],non-owned Affiliates and Associated Physician Practices is amultiple site organization consisting of ambulatory clinics and hospital sitesin [place], [place], [place] and [place]. This disclosure is being madepursuant to the Care Everywhere program and may not contain all information available regarding this patient. Last updated 18.[facility] [place] Social History Tobacco Use Types Packs/Day Years Used Date Smoking Tobacco: Never Assessed Sex and Gender Information Value Date Recorded Sex Assigned at Not on file Legal Sex Male 12:41 PM BELT SEWER Gender Identity Not on file Sexual Orientation [...]
[2025-05-06 10:21] LABS: Influenza A QL RT-PCR Negative (Negative); Influenza B QL RT-PCR Negative (Negative); RSV RNA, RT-PCR Negative (Negative); SARS-CoV-2 RNA PCR Negative (Negative)
[2025-05-06 11:39] LABS: Add Urine Microscopic? NO; Appearance Urine Clear (Clear); Glucose Urine UA Negative (Negative); Leukocyte Esterase Ur Negative LEU/UL (Negative); Nitrate Urine Negative (Negative); Specific Grav Ur 1.007 (1.001-1.035)
[2025-05-06 12:58] LABS: Troponin I < 0.012 ng/mL (0.000-0.034)
--- NOTE | 2025-05-06 16:29 | ADMGEN ---
This patient, Remy Wilkes Jr., was admitted to Medical Room 254-01. Patient/family oriented to hospital policies and general routines including ID bracelet, bed and alarms, visiting hours, pain management, procedures, bathroom and other care routines, personal items, smoking policy, room service/diet, and visiting hours. Information on how to activate the Rapid Response Team has been discussed. Patient/Family are encouraged to report perceived risks to care and to ask questions if they do not understand what they are told or what they should do.
--- NOTE | 2025-05-06 16:42 | PM.IMHP ---
H&P: HPI History of Present Illness Date/Time: 05/06/25 16:42 Chief Complaint: Dizziness Narrative: 85 yo male with PMH of Afib, HTN, BPH, Dizziness who presented to the ER from his Urology's office on account of Elevated blood pressure. Patient reported that he has been dizziness the past month which he described as swimming, but denies any focal deficits, loss of consciousness, vomiting, abd pain, chest pain, palpitation, and diarrhea or poor oral intake and no change in oral intake. ER eval notable for Bp 205/129, on room air. Labs notable mostly unremarkable Troponin negative x 3 CT head and CXR unremarkable Review of Systems Review of Systems: All other systems were reviewed and negative except as noted in the HPI above [facility] Past Medical History Medical History A-fib Environmental allergies Essential (primary) hypertension Bradycardia History of adenomatous polyp of colon BPH loc w/o ur obs/LUTS After cataract (~11/2019) Dizziness of unknown etiology OAB (overactive bladder) Vertigo Kidney stones History of right ureteral stent October 2011 Surgical History Surgical History Achilles tendon avulsion (~2003) Status post repair 2003 Left, 2011 Right History of cataract surgery (~2017) Bilateral 2018 Rectal foreign body (~10/2011) With surgical removal October 2011 H/O hernia repair (~2008) Family History Family History Father , Late onset coronary artery disease Heart disease Dementia Mother Family history of Alzheimer's disease Family history of heart disease in male family member before age 55, Onset Age: 91 Patient's mother is Father Hypertension Family history of Alzheimer's disease, Onset Age: 90 Patient's father is , Onset Age: 90 Other Family history of cardiovascular disease Social History Social History Social History: The patient runs 2-3 miles a day and has done so since 1968. 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 Gender identity (if verbalized by the patient): Male Spiritual care concerns: No Meds Home Medications and Allergies Home Medications ?Medication ?Instructions ?Recorded ?Confirmed ?Type lisinopril 40 mg tablet 40 mg PO DAILY 02/03/24 05/06/25 History carvedilol 3.125 mg tablet 3.125 mg PO BID 11/24/24 05/06/25 History apixaban 5 mg tablet (Eliquis) 5 mg PO Q12HR #90 tabs 11/26/24 05/06/25 Rx cyanocobalamin (vitamin B-12) 1,000 mcg IM MONTHLY 05/06/25 05/06/25 History 1,000 mcg/mL injection solution finasteride 5 mg tablet 5 mg PO DAILY 05/06/25 05/06/25 History mirabegron 25 mg tablet,extended 25 mg PO Q24H 05/06/25 05/06/25 History release 24 hr (Myrbetriq) montelukast 10 mg tablet 10 mg PO QPM 05/06/25 05/06/25 History oxybutynin chloride 5 mg tablet 5 mg PO Q12H 05/06/25 05/06/25 History tadalafil 5 mg tablet 5 mg PO DAILY 05/06/25 05/06/25 History vibegron 75 mg tablet (Gemtesa) 75 mg PO DAILY 05/06/25 05/06/25 History Allergies Allergy/AdvReac Type Severity Reaction Status Date / Time No Known Allergies Allergy Verified 05/06/25 16:13 Vital Signs Vital Signs - 24 hr 05/06/25 08:58 05/06/25 09:01 05/06/25 09:04 Temperature 98.1 F Pulse Rate 73 75 75 Respiratory Rate 19 15 Blood Pressure 205/129 H 205/129 H Pulse Oximetry 99 100 Oxygen Delivery Room Air 05/06/25 10:30 05/06/25 10:31 05/06/25 10:31 Temperature Pulse Rate 83 94 88 Respiratory Rate 21 H Blood Pressure 182/117 H 173/115 H 182/117 H Pulse Oximetry 96 Oxygen Delivery 05/06/25 10:33 05/06/25 10:33 05/06/25 10:34 Temperature Pulse Rate 102 H 93 101 H Respiratory Rate 19 19 Blood Pressure 152/105 H 173/115 H 152/105 H Pulse Oximetry 98 94 Oxygen Delivery 05/06/25 11:23 05/06/25 12:05 05/06/25 12:26 Temperature Pulse Rate 92 92 93 Respiratory Rate 14 20 18 Blood Pressure 180/114 H 179/123 H 179/123 H Pulse Oximetry 97 96 96 Oxygen Delivery 05/06/25 12:28 05/06/25 12:30 05/06/25 12:45 Temperature Pulse Rate 97 96 96 Respiratory Rate 17 14 19 Blood Pressure 187/117 H Pulse Oximetry 97 95 96 Oxygen Delivery 05/06/25 12:47 05/06/25 13:04 05/06/25 13:15 Temperature Pulse Rate 96 99 97 Respiratory Rate 17 18 13 Blood Pressure Pulse Oximetry 96 97 96 Oxygen Delivery 05/06/25 13:30 05/06/25 13:32 05/06/25 13:46 Temperature Pulse Rate 102 H 108 H 109 H Respiratory Rate 16 20 28 H Blood Pressure 201/138 H Pulse Oximetry 96 98 95 Oxygen Delivery 05/06/25 14:00 05/06/25 14:16 05/06/25 14:31 Temperature Pulse Rate 100 97 103 H Respiratory Rate 20 19 14 Blood Pressure Pulse Oximetry 99 96 98 Oxygen Delivery 05/06/25 14:43 05/06/25 14:45 05/06/25 15:04 Temperature Pulse Rate 97 101 H 103 H Respiratory Rate 21 H 20 Blood Pressure Pulse Oximetry 96 96 Oxygen Delivery 05/06/25 15:15 05/06/25 15:27 05/06/25 16:29 Temperature 97.6 F Pulse Rate 100 105 H 96 Respiratory Rate 23 H 19 18 Blood Pressure 185/130 H 134/79 Pulse Oximetry 96 97 97 Oxygen Delivery Exam Narrative: General: alert and comfortable Eyes: EOMI, PERRLA ENNT External ears normal, Neck is supple, no masses, Respiratory systems: Clear to auscultation Cardiovascular S1, S2, normal rhythm, no murmur, rub, or gallop; no thrill or palpable murmurs on palpation. Gastrointestinal: soft, non-tender, and non-distended abdomen with no masses; BS present Skin: no rash, lesions, ulcerations, subcutaneous nodules or induration Musculoskeletal: no abnormality and no tenderness, normal ROM Neurologic: Alert and oriented x3, non focal Mental Status Exam: normal affect H&P: Results Labs Labs: Short CBC 05/06/25 Range/Units 09:13 WBC 6.4 (4.5-10.0) K/mm3 Hgb 17.0 (14.0-18.0) g/dL Hct 50.7 (42.0-52.0) % Plt Count 250 (150-375) k/mm3 BMP 05/06/25 09:13 Sodium 136 L Potassium 4.0 Chloride 100 Carbon Dioxide 31 H BUN 17 Creatinine 0.98 Glucose 100 Calcium 9.1 Cardiac Enzymes 05/06/25 05/06/25 Range/Units 09:13 12:27 Troponin I < 0.012 < 0.012 (0.000-0.034) ng/mL Liver Function 05/06/25 Range/Units 09:13 Total Bilirubin 1.1 (0.2-1.3) mg/dL AST 28 (17-59) U/L ALT 34 (6-50) U/L Alkaline Phosphatase 65 (38-126) U/L Albumin 3.8 (3.5-5.1) g/dL Urine 05/06/25 Range/Units 11:28 Urine Color Yellow (Yellow) Urine Appearance Clear (Clear) Urine pH 8.5 (5.0-9.0) Ur Specific [place] 1.007 (1.001-1.035) Urine Protein Negative (Negative) mg/dL Urine Glucose (UA) Negative (Negative) mg/dL Assessment and Plan Assessment and plan (1) Lightheadedness: Code(s): R42 - Dizziness and giddiness Status: Acute Plan Severe hypertension BP on admission BP 205/129 CT head and CXR unremarkable BP improving on IV hydralazine Restart home Lisinopril and Coreg, added Amlodipine 5mg Monitor BP. Dizziness Described as head swimming no focal deficits CT head and CXR no acute change ECHO pending PT/OT Urinary retention mccoy placed in the ER urology consulted hold smooth muscle relaxation Afib Continue Coreg, hold Eliquis until blood pressure is controlled DVT prophylaxis on Sq Lovenox DNR SDM: Ronnell Wilkes III [address] [facility] Advance Care Plan I have confirmed that the patient's Advanced Care Plan is present, code status is documented, or surrogate decision maker is listed in patient medical record.: Yes Medication Reconciliation I have utilized all available resources to obtain, update and review the patients current medications (includes all prescriptions, OTC, herbals, cannabis, and nutritional supplements).: Yes
[2025-05-06] MEDS: MONTELUKAST SODIUM 10 MG TABLET PO (17:22)
[2025-05-06] MEDS: ACETAMINOPHEN 325 MG TABLET PO (21:05)
[2025-05-06] MEDS: CALCIUM CARBONATE (TUMS) 500 MG (200 MG ELEMENTAL) PO (21:06)
[2025-05-07] VITALS (11 sets, daily range): BP systolic 126–140; BP diastolic 82–93; PULSE 62–96; RESP 16–18; TEMP 36.4; O2SAT 97–98
--- NOTE | 2025-05-07 | ECHO_ITS ---
Patient Info Name: Remy Wilkes Age: 85 years : 1940 Gender: Male Ht: 70 in Wt: 172 lbs BSA: 1.97 m2 HR: 71 bpm BP: 126 / 82 mmHg Technical Quality: Good Exam Date: 05/07/2025 12:57 PM Patient Status: I Admit Date: 05/06/2025 Exam Type: CA echo doppler color flow Complete two-dimensional, color flow and Doppler transthoracic echocardiogram is performed. Staff Referring Physician: Brigida Sin Motion Designer: Agnieszka Amador Attending Provider: Prasad Hummel Summary 1. Complete two-dimensional, color flow and Doppler transthoracic echocardiogram is performed. 2. Left ventricular chamber dimension is normal. 3. Left ventricular systolic function is normal, estimated at 60-65. 4. There is moderate concentric increased left ventricular wall thickness. 5. The left ventricular diastolic function is grade I diastolic dysfunction. 6. E/e' 4 is not elevated. 7. There is mild aortic valve sclerosis. 8. There is trace mitral valve regurgitation. Left Ventricle E/e' 4 is not elevated. Left ventricular chamber dimension is normal. Left ventricular systolic function is normal, estimated at 60-65. There is moderate concentric increased left ventricular wall thickness. The left ventricular diastolic function is grade I diastolic dysfunction. Right Ventricle Right ventricular chamber dimension is normal. Right ventricular systolic function is normal and with normal TAPSE 1.9 cm. Left Atria Left atrial chamber dimension is normal. Right Atria Right atrial chamber dimension is normal. Aortic Valve The aortic valve is trileaflet. There is mild aortic valve sclerosis. There is no aortic valve stenosis. There is no aortic valve regurgitation. Pulmonic Valve There is no pulmonic regurgitation. Mitral Valve There is no mitral valve stenosis. There is trace mitral valve regurgitation. Tricuspid Valve There is no tricuspid valve regurgitation. Pericardium/Pleural There is no pericardial effusion. Inferior Vena Cava Normal inferior vena cava with >50% collapse upon inspiration consistent with normal right atrial pressure, 5 mmHg. Aorta The aortic root size at the sinus of Valsalva is normal. Left Ventricular Outflow Tract Name Value Normal LVOT 2D LVOT Diameter 2.2 cm LVOT Doppler LVOT Peak Velocity 48 cm/s LVOT Peak Gradient 1 mmHg LVOT Mean Gradient 0 mmHg LVOT VTI 8 cm LVOT Stroke Volume 33 ml LVOT CO 2.3 l/min LVOT CI 1.2 l/min/m2 Pulmonic Valve Name Value Normal RVOT Doppler RVOT Peak Velocity 61 cm/s RVOT Peak Gradient 2 mmHg PV Doppler PV Peak Velocity 77 cm/s PV Peak Gradient 2 mmHg Mitral Valve Name Value Normal MV Diastolic Function MV E Peak Velocity 41 cm/s MV A Peak Velocity 57 cm/s MV E/A 0.7 MV Decel Time (PW) 495 ms MV Annular TDI MV E/e' (Septal) 6.6 MV E/e' (Lateral) 3.9 MV E/e' (Average) 5.3 Tricuspid Valve Name Value Normal Estimated PAP/RSVP RA Pressure 5 mmHg <=5 Aortic Valve Name Value Normal AV Doppler AV Peak Velocity 77 cm/s AV Peak Gradient 2 mmHg AV Area (Cont Eq Michael) 2.4 cm2 AV DI (Michael) 0.62 AV Regurgitation 2D LVOT Area 3.8 cm2 Ventricles Name Value Normal LV Dimensions 2D/MM IVS Diastolic Thickness (2D) 1.3 cm 0.6-1.0 LVID Diastole (2D) 4.1 cm 4.2-5.8 LVIW Diastolic Thickness (2D) 1.5 cm 0.6-1.0 LVID Systole (2D) 2.5 cm 2.5-4.0 LVOT Diameter 2.2 cm LV Mass (2D Cubed) 216.56 g 88.00-224.00 LV Mass Index (2D Cubed) 110 g/m2 49-115 Relative Wall Thickness (2D) 0.76 <=0.42 LV Fractional Shortening/Ejection Fraction 2D/MM LV Fractional Shortening (2D) 39 % 25-43 LV EF (2D [place]) 70 % LV Diastolic Volume (4C MOD) 86 ml LV EF (4C MOD) 63 % LV Diastolic Volume (2C MOD) 91 ml LV EF (2C MOD) 57 % LV Diastolic Volume (BP MOD) 89 ml 62-150 LV Diastolic Volume Index (BP MOD) 45 ml/m2 34-74 LV Systolic Volume (BP MOD) 36 ml 21-61 LV Systolic Volume Index (BP MOD) 18 ml/m2 11-31 LV EF (BP MOD) 59 % 52-72 LV Diastolic Length (4C) 8.0 cm LV Systolic Length (4C) 6.7 cm LV Stroke Volume (4C MOD) 55 ml Atria Name Value Normal LA Dimensions LA Volume (4C A-L) 25 ml LA Volume (BP A-L) 33 ml RA Dimensions RA Area (4C) 14.6 cm2 <=18.0 Report Signatures
[2025-05-07 05:06] LABS: Hematocrit 51.0 % (42.0-52.0); Hemoglobin 17.2 g/dL (14.0-18.0); Immature Granulocyte Percent A 1.0 % (0-0.5); Lymphocytes Absolute Auto 1.42 K/mm3 (0.9-3.2); Mean Corpuscular HGB Conc 33.7 g/dl (32-36); Mean Corpuscular Hemoglobin 31.7 pg (26-34); Mean Corpuscular Volume 94.1 fl (80-100); Nucleated Red Blood Cells Absolute Auto 0.000 K/mm3 (0.0-0.012); Nucleated Red Blood Cells Perc 0.0 % (0.0-0.2); Platelet Count Result 244 k/mm3 (150-375); Red Blood Count 5.42 M/mm3 (4.6-6.20); White Blood Count 8.3 K/mm3 (4.5-10.0)
[2025-05-07 05:25] LABS: Alanine Aminotransferase 27 U/L (6-50); Albumin Level 3.8 g/dL (3.5-5.1); Alkaline Phosphatase 68 U/L (38-126); Anion Gap 7 mmol/L (4-12); Aspartate Amino Transferase 23 U/L (17-59); Bilirubin,Total 1.7 mg/dL (0.2-1.3); Blood Urea Nitrogen 21 mg/dL (9-20); Calcium 9.1 mg/dL (8.4-10.2); Carbon Dioxide 26 mmol/L (22-30); Chloride 102 mmol/L (98-107); Estimated CRCL calculation 48 ml/min; Estimated Glomerular Filt Rate > 60; Glucose 107 mg/dL (65-110); Magnesium 2.1 mg/dL (1.6-2.3); Potassium 3.5 mmol/L (3.4-5.0); Sodium 135 mmol/L (137-145); Total Protein 7.2 g/dL (6.3-8.2)
--- NOTE | 2025-05-07 09:10 | WPDURCON ---
Assessment and Plan Assessment and plan (1) Acute urinary retention: Code(s): R33.8 - Other retention of urine Status: Acute Plan 85-year-old male with urinary retention. Patient reports that he has had sinus issues for approximately 2 weeks now and he has been taking Benadryl intermittently. - stop gemtesa - maintain Lopez catheter. He can be discharged with a catheter and can have a follow up appointment in 1 week in the office For a voiding trial. - Advised patient to abstain from taking Benadryl moving forward. - Start tamsulosin 0.4 mg p.o. daily if he has not already taking it. - creatinine and WBC are within normal limits. - UA is unremarkable - we will sign off. Contact us if any further questions or concerns. Urology Consult Note HPI Date Seen: 05/07/25 Requesting Physician: Prasad Hummel MD Primary Care Provider: Praful Hackett, [place] Consult Narrative Narrative: Remy Wilkes Jr. is a 85 year old male with PMH of Afib, HTN, BPH, Dizziness who presented to the ER from his Urology's office on account of Elevated blood pressure. Patient reported that he has been dizziness the past month which he described as swimming, but denies any focal deficits, loss of consciousness, vomiting, abd pain, chest pain, palpitation, and diarrhea or poor oral intake and no change in oral intake. Review of Systems Constitutional: Constitutional: Reports as per HPI [facility] Past Medical History Medical History A-fib Environmental allergies Essential (primary) hypertension Bradycardia History of adenomatous polyp of colon BPH loc w/o ur obs/LUTS After cataract (~11/2019) Dizziness of unknown etiology OAB (overactive bladder) Vertigo Kidney stones History of right ureteral stent October 2011 Surgical History Surgical History Achilles tendon avulsion (~2003) Status post repair 2003 Left, 2011 Right History of cataract surgery (~2017) Bilateral 2018 Rectal foreign body (~10/2011) With surgical removal October 2011 H/O hernia repair (~2008) Family History Family History Father , Late onset coronary artery disease Heart disease Dementia Mother Family history of Alzheimer's disease Family history of heart disease in male family member before age 55, Onset Age: 91 Patient's mother is Father Hypertension Family history of Alzheimer's disease, Onset Age: 90 Patient's father is , Onset Age: 90 Other Family history of cardiovascular disease Social History Social History Social History: The patient runs 2-3 miles a day and has done so since 1968. 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 Gender identity (if verbalized by the patient): Male Spiritual care concerns: No Meds Home Medications and Allergies Home Medications ?Medication ?Instructions ?Recorded ?Confirmed ?Type lisinopril 40 mg tablet 40 mg PO DAILY 02/03/24 05/06/25 History carvedilol 3.125 mg tablet 3.125 mg PO BID 11/24/24 05/06/25 History apixaban 5 mg tablet (Eliquis) 5 mg PO Q12HR #90 tabs 11/26/24 05/06/25 Rx cyanocobalamin (vitamin B-12) 1,000 mcg IM MONTHLY 05/06/25 05/06/25 History 1,000 mcg/mL injection solution finasteride 5 mg tablet 5 mg PO DAILY 05/06/25 05/06/25 History mirabegron 25 mg tablet,extended 25 mg PO Q24H 05/06/25 05/06/25 History release 24 hr (Myrbetriq) montelukast 10 mg tablet 10 mg PO QPM 05/06/25 05/06/25 History oxybutynin chloride 5 mg tablet 5 mg PO Q12H 05/06/25 05/06/25 History tadalafil 5 mg tablet 5 mg PO DAILY 05/06/25 05/06/25 History vibegron 75 mg tablet (Gemtesa) 75 mg PO DAILY 05/06/25 05/06/25 History Allergies Allergy/AdvReac Type Severity Reaction Status Date / Time No Known Allergies Allergy Verified 05/06/25 16:13 Vital Signs Vital Signs - 24 hr 05/06/25 10:30 05/06/25 10:31 05/06/25 10:31 Temperature Pulse Rate 83 94 88 Respiratory Rate 21 H Blood Pressure 182/117 H 173/115 H 182/117 H Pulse Oximetry 96 Oxygen Delivery 05/06/25 10:33 05/06/25 10:33 05/06/25 10:34 Temperature Pulse Rate 102 H 93 101 H Respiratory Rate 19 19 Blood Pressure 152/105 H 173/115 H 152/105 H Pulse Oximetry 98 94 Oxygen Delivery 05/06/25 11:23 05/06/25 12:05 05/06/25 12:26 Temperature Pulse Rate 92 92 93 Respiratory Rate 14 20 18 Blood Pressure 180/114 H 179/123 H 179/123 H Pulse Oximetry 97 96 96 Oxygen Delivery 05/06/25 12:28 05/06/25 12:30 05/06/25 12:45 Temperature Pulse Rate 97 96 96 Respiratory Rate 17 14 19 Blood Pressure 187/117 H Pulse Oximetry 97 95 96 Oxygen Delivery 05/06/25 12:47 05/06/25 13:04 05/06/25 13:15 Temperature Pulse Rate 96 99 97 Respiratory Rate 17 18 13 Blood Pressure Pulse Oximetry 96 97 96 Oxygen Delivery 05/06/25 13:30 05/06/25 13:32 05/06/25 13:46 Temperature Pulse Rate 102 H 108 H 109 H Respiratory Rate 16 20 28 H Blood Pressure 201/138 H Pulse Oximetry 96 98 95 Oxygen Delivery 05/06/25 14:00 05/06/25 14:16 05/06/25 14:31 Temperature Pulse Rate 100 97 103 H Respiratory Rate 20 19 14 Blood Pressure Pulse Oximetry 99 96 98 Oxygen Delivery 05/06/25 14:43 05/06/25 14:45 05/06/25 15:04 Temperature Pulse Rate 97 101 H 103 H Respiratory Rate 21 H 20 Blood Pressure Pulse Oximetry 96 96 Oxygen Delivery 05/06/25 15:15 05/06/25 15:27 05/06/25 16:29 Temperature 97.6 F Pulse Rate 100 105 H 96 Respiratory Rate 23 H 19 18 Blood Pressure 185/130 H 134/79 Pulse Oximetry 96 97 97 Oxygen Delivery 05/06/25 17:30 05/06/25 18:09 05/06/25 20:00 Temperature Pulse Rate Respiratory Rate Blood Pressure 118/84 Pulse Oximetry Oxygen Delivery Room Air Room Air 05/06/25 20:00 05/06/25 21:04 05/06/25 21:05 Temperature 97.7 F Pulse Rate 97 90 88 Respiratory Rate 16 Blood Pressure 119/82 Pulse Oximetry 96 Oxygen Delivery 05/07/25 00:00 05/07/25 04:00 05/07/25 06:24 Temperature 97.6 F Pulse Rate 80 72 62 Respiratory Rate 16 Blood Pressure 126/82 Pulse Oximetry 98 Oxygen Delivery Exam Const: General: comfortable and no acute distress Eyes: General: appearance normal, both eyes and all related structures Resp: Effort & Inspection: normal respiratory effort Urinary Catheter: Urinary Catheter: patent and draining and urine clear Skin: General skin exam: normal color Neuro: Speech: normal speech Psych: Speech and movement: Normal speech and movement present Results Labs 05/07/25 04:54 05/07/25 04:54 Labs: Short CBC 05/06/25 05/07/25 Range/Units 09:13 04:54 WBC 6.4 8.3 (4.5-10.0) K/mm3 Hgb 17.0 17.2 (14.0-18.0) g/dL Hct 50.7 51.0 (42.0-52.0) % Plt Count 250 244 (150-375) k/mm3 BMP 05/06/25 05/07/25 09:13 04:54 Sodium 136 L 135 L Potassium 4.0 3.5 Chloride 100 102 Carbon Dioxide 31 H 26 BUN 17 21 H Creatinine 0.98 1.01 Glucose 100 107 Calcium 9.1 9.1 Cardiac Enzymes 05/06/25 05/06/25 Range/Units 09:13 12:27 Troponin I < 0.012 < 0.012 (0.000-0.034) ng/mL Liver Function 05/06/25 05/07/25 Range/Units 09:13 04:54 Total Bilirubin 1.1 1.7 H (0.2-1.3) mg/dL AST 28 23 (17-59) U/L ALT 34 27 (6-50) U/L Alkaline Phosphatase 65 68 (38-126) U/L Albumin 3.8 3.8 (3.5-5.1) g/dL Urine 05/06/25 Range/Units 11:28 Urine Color Yellow (Yellow) Urine Appearance Clear (Clear) Urine pH 8.5 (5.0-9.0) Ur Specific [place] 1.007 (1.001-1.035) Urine Protein Negative (Negative) mg/dL Urine Glucose (UA) Negative (Negative) mg/dL
[2025-05-07] MEDS: FINASTERIDE 5 MG TABLET PO (10:16)
--- NOTE | 2025-05-07 14:15 | PM.IMPN ---
Progress Note: A&P Assessment and Plan (1) Lightheadedness: Code(s): R42 - Dizziness and giddiness Status: Acute Plan Severe hypertension, improving BP on admission BP 205/129 Bp 126/82 Continue Lisinopril, Coreg adn Amlodipine monitor CT head and CXR unremarkable Dizziness Described as head swimming no focal deficits Noted marked CT head and CXR no acute change ECHO pending PT/OT Urinary retention mccoy placed in the ER urology consulted hold smooth muscle relaxation Afib Continue Coreg, and Eliquis DVT prophylaxis on Sq Lovenox DNR Awaiting ECHO Subjective Date/time seen: 05/07/25 14:15 Interval history: Comfortable at bedside Review of Systems Review of Systems: All other systems were reviewed and negative except as noted in the HPI above Exam Narrative: General: alert and comfortable Eyes: EOMI, PERRLA ENNT External ears normal, Neck is supple, no masses, Respiratory systems: Clear to auscultation Cardiovascular S1, S2, normal rhythm, no murmur, rub, or gallop; no thrill or palpable murmurs on palpation. Gastrointestinal: soft, non-tender, and non-distended abdomen with no masses; BS present Skin: no rash, lesions, ulcerations, subcutaneous nodules or induration Musculoskeletal: no abnormality and no tenderness, normal ROM Neurologic: Alert and oriented x3, non focal Mental Status Exam: normal affect Objective Data Vital Signs Vital Signs: Vital Signs - 24 hr 05/06/25 14:16 05/06/25 14:31 05/06/25 14:43 Temperature Pulse Rate 97 103 H 97 Respiratory Rate 19 14 Blood Pressure Pulse Oximetry 96 98 Oxygen Delivery 05/06/25 14:45 05/06/25 15:04 05/06/25 15:15 Temperature Pulse Rate 101 H 103 H 100 Respiratory Rate 21 H 20 23 H Blood Pressure Pulse Oximetry 96 96 96 Oxygen Delivery 05/06/25 15:27 05/06/25 16:29 05/06/25 17:30 Temperature 97.6 F Pulse Rate 105 H 96 Respiratory Rate 19 18 Blood Pressure 185/130 H 134/79 118/84 Pulse Oximetry 97 97 Oxygen Delivery 05/06/25 18:09 05/06/25 20:00 05/06/25 20:00 Temperature Pulse Rate 97 Respiratory Rate Blood Pressure Pulse Oximetry Oxygen Delivery Room Air Room Air 05/06/25 21:04 05/06/25 21:05 05/07/25 00:00 Temperature 97.7 F Pulse Rate 90 88 80 Respiratory Rate 16 Blood Pressure 119/82 Pulse Oximetry 96 Oxygen Delivery 05/07/25 04:00 05/07/25 06:24 05/07/25 08:00 Temperature 97.6 F Pulse Rate 72 62 Respiratory Rate 16 Blood Pressure 126/82 Pulse Oximetry 98 Oxygen Delivery Room Air 05/07/25 08:00 05/07/25 10:16 Temperature Pulse Rate 77 77 Respiratory Rate Blood Pressure Pulse Oximetry Oxygen Delivery Intake/Output Intake/Output: Intake & Output 05/04/25 05/05/25 05/06/25 05/07/25 23:59 23:59 23:59 23:59 Intake Total 480 1040 Output Total 800 450 Balance -320 590 Meds/Results Medications: Active Medications Generic Name Dose Route Start Last Admin Trade Name Freq PRN Reason Stop Dose Admin Acetaminophen 325 mg 05/06/25 20:44 05/06/25 21:05 Acetaminophen 325 Mg Tablet PO 325 mg Q6H PRN Administration Mild Pain (1-3) or Fever Amlodipine Besylate 5 mg 05/06/25 16:40 05/07/25 10:16 Amlodipine Besylate 5 Mg Tablet PO 5 mg DAILY NORAH Administration Calcium Carbonate 200 mg 05/06/25 20:44 05/06/25 21:06 Calcium Carbonate (Tums) 500 Mg (200 Mg Elemental) PO 200 mg Q6H PRN Administration Indigestion Carvedilol 3.125 mg 05/06/25 21:00 05/07/25 10:16 Carvedilol 3.125 Mg Tablet PO 3.125 mg Q12HR NORAH Administration Enoxaparin Sodium 40 mg 05/07/25 09:00 05/07/25 12:29 Enoxaparin 40 Mg/0.4 Ml Syringe SUB-Q Not Given DAILY NORAH Finasteride 5 mg 05/07/25 09:00 05/07/25 10:16 Finasteride 5 Mg Tablet PO 5 mg DAILY NORAH Administration Hydrochlorothiazide 12.5 mg 05/06/25 17:05 05/07/25 10:16 Hydrochlorothiazide 12.5 Mg Capsule PO 12.5 mg QAM NORAH Administration Lisinopril 40 mg 05/06/25 16:35 05/07/25 10:16 Lisinopril 20 Mg Tablet PO 40 mg DAILY NORAH Administration Montelukast Sodium 10 mg 05/06/25 18:00 05/06/25 17:22 Montelukast Sodium 10 Mg Tablet PO 10 mg QPM NORAH Administration Perflutren Lipid Microsphere 0 ml 05/06/25 16:41 Perflutren Lipid Microspheres 1.5 Ml Vial Diluted To 10 Ml Total Volume IV PUSH 05/09/25 16:41 ONCE PRN adequate visualization Protocol Radiology Results: ITS Impressions Head CT 05/06/25 09:54 Impression: 1.No acute intracranial abnormality. Chest X-Ray 05/06/25 09:58 Impression: No acute cardiopulmonary abnormality. Labs Labs: Laboratory Results - last 24 hr 05/07/25 04:54 WBC 8.3 RBC 5.42 Hgb 17.2 Hct 51.0 MCV 94.1 MCH 31.7 MCHC 33.7 RDW 14.2 Plt Count 244 MPV 9.1 Immature Gran % (Auto) 1.0 H Neut % (Auto) 72.6 Lymph % (Auto) 17.0 L [place] % (Auto) 7.8 Eos % (Auto) 1.4 Baso % (Auto) 0.2 Lymph # (Auto) 1.42 [place] # (Auto) 0.7 H Eos # (Auto) 0.1 Baso # (Auto) 0.0 Abs Immat Gran (auto) 0.08 H Absolute Neuts (auto) 6.0 Absolute Nucleated RBC 0.000 Nucleated RBC % 0.0 Sodium 135 L Potassium 3.5 Chloride 102 Carbon Dioxide 26 Anion Gap 7 BUN 21 H Creatinine 1.01 Estim Creat Clear Calc 48 Estimated GFR > 60 Glucose 107 Calcium 9.1 Magnesium 2.1 Total Bilirubin 1.7 H AST 23 ALT 27 Alkaline Phosphatase 68 Total Protein 7.2 Albumin 3.8
[2025-05-07] MEDS: MONTELUKAST SODIUM 10 MG TABLET PO (17:52)
[2025-05-07] MEDS: APIXABAN 5 MG TABLET PO (20:55)
[2025-05-08] VITALS (15 sets, daily range): BP systolic 92–144; BP diastolic 60–98; PULSE 44–90; RESP 12–16; TEMP 36.3–36.8; O2SAT 95–100
[2025-05-08] MEDS: APIXABAN 5 MG TABLET PO ×2 (08:37→21:14)
[2025-05-08] MEDS: FINASTERIDE 5 MG TABLET PO (08:37)
--- NOTE | 2025-05-08 10:45 | PM.DS ---
DS: Admitting Diagnosis Discharge Date 05/08/25 Admitting Diagnosis Dizziness DS: Discharge Diagnosis Discharge Diagnosis (1) Dizziness of unknown etiology: Code(s): R42 - Dizziness and giddiness Status: Acute (2) Hypertension: Qualifiers: Hypertension type: unspecified Qualified Code(s): I10 - Essential (primary) hypertension Code(s): I10 - Essential (primary) hypertension Status: Acute DS: Summary Hospital Course Hospital Course: 85 yo male with PMH of Afib, HTN, BPH, Dizziness who presented to the ER from his Urology's office on account of Elevated blood pressure. Patient reported that he has been dizziness the past month which he described as swimming, but denies any focal deficits, loss of consciousness, vomiting, abd pain, chest pain, palpitation, and diarrhea or poor oral intake and no change in oral intake. ER eval notable for Bp 205/129, on room air. Labs notable mostly unremarkable Troponin negative x 3 CT head and CXR unremarkable Patient was managed for severe hypertension with dizziness. Dizziness resolved with blood pressure control. Added Amlodipine 5mg to achieve blood pressure control. ECHO showed EF 60-65% with grade 1 diastolic. Orthostatic negative. Patient encouraged to take his medications. Also managed managed for Urinary retention, Mccoy was placed in the ER and urology was consulted and recommended Tamsulosin and continue wiht mccoy and follow up outpatient. F/u with PCP in 3- 5 days F/u with Urology as instructed Time Spent with Patient Time attestation: Total time spent providing and/or coordinating discharge services: Discharge Plan Discharge Attending physician on discharge: Prasad Hummel Consulting providers: Sherif Newell Discharging Clinician: Prasad Hummel Anticipated Discharge Date/Time: 05/08/25 10:43 Patient Disposition: Home Activity: as tolerated Diet: as tolerated and heart healthy Patient Instructions: Antibiotic Form Patient Language: [place] Stand Alone Forms: General Discharge Information Follow-up/Referrals: Sherif Newell MD [Physician, Urology] Referral Note: F/u with Urology as scheduled Harms,Praful Colon M.D. [Primary Care Provider] Referral Note: F/u with PCP in 3-5 days Discharge Medications: New amlodipine [Norvasc] 5 mg Tablet 5 mg PO DAILY 30 Days Qty: 30 1RF Continued lisinopril 40 mg tablet 40 mg PO DAILY carvedilol 3.125 mg tablet 3.125 mg PO BID Eliquis 5 mg Tablet 5 mg PO Q12HR Qty: 90 0RF Gemtesa 75 mg tablet 75 mg PO DAILY tadalafil 5 mg tablet 5 mg PO DAILY oxybutynin chloride 5 mg tablet 5 mg PO Q12H montelukast 10 mg tablet 10 mg PO QPM mirabegron [Myrbetriq] 25 mg tablet extended release 24 hr 25 mg PO Q24H cyanocobalamin (vitamin B-12) 1,000 mcg/mL solution 1,000 mcg IM MONTHLY finasteride 5 mg tablet 5 mg PO DAILY Date of admission: 05/06/25 14:57 Primary Care Provider: Lew,Praful Colon Admitting Provider: Prasad Hummel Attending physician on admission: Prasad Hummel Condition: Stable
--- NOTE | 2025-05-08 11:15 | PC.NURSE ---
While doing discharge, pt. was staring and mumbling. He was diaphoretic. Vitals and blood sugar taken and a rapid response was called.
--- NOTE | 2025-05-08 11:17 | PC.NURSE ---
RODOLFO Justice called MD Hummel about patient's condition.
--- NOTE | 2025-05-08 11:18 | ECG_ITS ---
Test Date: 2025-05-08 11:31:28 Measurements Intervals [place] Rate: 62 P: 0 OK: 0 QRS: -39 QRSD: 117 T: 132 QT: 405 QTc: 413 Interpretive Statements ATRIAL FLUTTER/TACHYCARDIA INCOMPLETE RIGHT BUNDLE BRANCH BLOCK LEFT VENTRICULAR HYPERTROPHY AND ST-T CHANGE ANTERIOR INFARCT, AGE INDETERMINATE INFERIOR INFARCT, AGE INDETERMINATE Compared to ECG 05/06/2025 09:05:42 NO SIGNIFICANT CHANGE Electronically Signed On 05-08-2025 14:30:57 CDT by Julito Amato D.O.
[2025-05-08] MEDS: SODIUM CHLORIDE 0.9% IV 500 ML IV CONT (11:25)
--- NOTE | 2025-05-08 12:36 | PM.CNCAR ---
Assessment and Plan Assessment and plan (1) Lightheadedness: Code(s): R42 - Dizziness and giddiness Status: Acute (2) Atrial flutter: Qualifiers: Atrial flutter type: unspecified Qualified Code(s): I48.92 - Unspecified atrial flutter Code(s): I48.92 - Unspecified atrial flutter Status: Acute (3) Hypertension: Qualifiers: Hypertension type: unspecified Qualified Code(s): I10 - Essential (primary) hypertension Code(s): I10 - Essential (primary) hypertension Status: Acute Plan Impression: 1. Patient with recurrent falls and syncope at home. EKG shows atrial flutter with slow ventricular response at 60-65 per minute. Cannot RO orthostatic hypotension . Blood pressure low today likely secondary to aggressive blood pressure medication management. Blood pressure was high on admission. 2. Chronic atrial flutter with controlled ventricular response in the range of 65 per minute. 3. History of hypertension. Blood pressure was markedly elevated on admission at 205/129 minutes of regular narrow was 73 per minute. Currently patient blood pressure is improved but is acute remains hypotensive and blood pressure 190/60. Patient being transferred to intensive care unit. 4. Patient is 85 years old and is DNR. Conservative medical management. Recommendation: 1. Patient was noted to have low blood pressure on the floor. However once transferred to IMU, blood pressure was 120/80 and heart rate was 65 per minute. Will continue to monitor blood. No need for fluid bolus at this time. 2. Blood pressure medications were reviewed. Will continue with lisinopril 20 mg daily, carvedilol. 3. Echocardiogram reviewed. The left ventricle is normal size with ejection fraction in the range of 60-65%. There is moderate concentric hypertrophy with left ventricle pressure the suggestion of grade 1 diastolic dysfunction. No significant valvular problems. 4. Conservative medical management for this patient was 85 and DNR. 5. Checked for bedside orthostatic hypotension. History of Present Illness History of Present Illness Consult date/time: 05/08/25 12:36 Requesting physician: Prasad Hummel MD Consult reason: Other (Atrial flutter with hypotension ) Reason For Visit: Near Syncope/Hypertension/Urinary Retention/Fall R Narrative: Patient is 85 years old gentleman admitted via emergency room on 05/06/2025 with complaints of dizziness. Patient woke up this morning with sinus pressure and lightheadedness and generalized weakness. Patient apparently fell Saturday and hit his head and right elbow. Patient was followed by his primary physician who started him on antibiotics for sinus infection. There was no associated chest pain, shortness of breath, fever or chills. Blood pressure was significantly elevated in the emergency room and was 205/129 mm of mercury. Heart rate was 73 per minute. His home medication include lisinopril 40 mg daily carvedilol 3.125 mg b.i.d., finasteride 5 mg daily, tadalafil 5 mg daily. Admitting laboratory data was sodium 136, potassium is 4.0, BUN is 17, creatinine 0.98. WBC count 6.4, hemoglobin is 17 and platelets are normal. EKG on 05/06/2025 revealed atrial flutter with heart rate of 65 per minute, old anteroseptal myocardial infarction and left axis deviation CT scan of the head was negative for any acute changes. Patient was scheduled to be discharged home today and was noted to be hypotensive with blood pressure in the range of 90/60. Blood pressure earlier was 126/82 mm of mercury. Patient now transferred to monitored unit due to hypotension. Echocardiogram is pending. Patient was examined at the bedside. Patient is awake alert appears comfortable without shortness of breath, chest pain or diaphoresis. Monitor shows atrial flutter with controlled ventricular response. Since transferred to intermediate medical unit blood pressure is 120/80. Review of Systems Review of Systems: Twelve point of review was completed. Pertinent positive and negative findings per HPI. Constitutional positive for weakness. Negative for fever or chills. Negative weight loss. Head and neck review of system is positive for recent fall and head injury. Cardiovascular is negative for chest pain, shortness of breath or palpitations. Pulmonary system negative for shortness of breath, cough or hemoptysis. Gastrointestinal negative for abdominal pain, nausea vomiting or diarrhea. Neurovascular positive for recurrent fall and syncope. Who no seizures or focal neurological symptoms Skin positive for bruises since ecchymosis Joint positive later to osteoarthritis. [facility] Past Medical History Medical History A-fib Environmental allergies Essential (primary) hypertension Bradycardia History of adenomatous polyp of colon BPH loc w/o ur obs/LUTS After cataract (~11/2019) Dizziness of unknown etiology OAB (overactive bladder) Vertigo Kidney stones History of right ureteral stent October 2011 Surgical History Surgical History Achilles tendon avulsion (~2003) Status post repair 2003 Left, 2011 Right History of cataract surgery (~2017) Bilateral 2018 Rectal foreign body (~10/2011) With surgical removal October 2011 H/O hernia repair (~2008) Family History Family History Father , Late onset coronary artery disease Heart disease Dementia Mother Family history of Alzheimer's disease Family history of heart disease in male family member before age 55, Onset Age: 91 Patient's mother is Father Hypertension Family history of Alzheimer's disease, Onset Age: 90 Patient's father is , Onset Age: 90 Other Family history of cardiovascular disease Social History Social History Social History: The patient runs 2-3 miles a day and has done so since 1968. 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 Gender identity (if verbalized by the patient): Male Spiritual care concerns: No Meds Home Medications and Allergies Home Medications ?Medication ?Instructions ?Recorded ?Confirmed ?Type lisinopril 40 mg tablet 40 mg PO DAILY 02/03/24 05/06/25 History carvedilol 3.125 mg tablet 3.125 mg PO BID 11/24/24 05/06/25 History apixaban 5 mg tablet (Eliquis) 5 mg PO Q12HR #90 tabs 11/26/24 05/06/25 Rx cyanocobalamin (vitamin B-12) 1,000 mcg IM MONTHLY 05/06/25 05/06/25 History 1,000 mcg/mL injection solution finasteride 5 mg tablet 5 mg PO DAILY 05/06/25 05/06/25 History mirabegron 25 mg tablet,extended 25 mg PO Q24H 05/06/25 05/06/25 History release 24 hr (Myrbetriq) montelukast 10 mg tablet 10 mg PO QPM 05/06/25 05/06/25 History oxybutynin chloride 5 mg tablet 5 mg PO Q12H 05/06/25 05/06/25 History tadalafil 5 mg tablet 5 mg PO DAILY 05/06/25 05/06/25 History vibegron 75 mg tablet (Gemtesa) 75 mg PO DAILY 05/06/25 05/06/25 History amlodipine 5 mg tablet (Norvasc) 5 mg PO DAILY 30 days #30 tabs 05/08/25 Rx tamsulosin 0.4 mg capsule 0.4 mg PO HS 30 days #30 caps 05/08/25 Rx Allergies Allergy/AdvReac Type Severity Reaction Status Date / Time No Known Allergies Allergy Verified 05/06/25 16:13 Vital Signs Vital Signs - 24 hr 05/07/25 14:00 05/07/25 16:00 05/07/25 19:42 Temperature 36.4 C 36.4 C Pulse Rate 77 77 89 Respiratory Rate 16 18 Blood Pressure 140/89 133/93 H Pulse Oximetry 97 98 Oxygen Delivery 05/07/25 20:00 05/07/25 20:00 05/07/25 20:55 Temperature Pulse Rate 71 96 Respiratory Rate Blood Pressure Pulse Oximetry Oxygen Delivery Room Air 05/08/25 00:00 05/08/25 04:00 05/08/25 04:48 Temperature 36.4 C L Pulse Rate 65 62 61 Respiratory Rate 16 Blood Pressure 136/81 Pulse Oximetry 97 Oxygen Delivery 05/08/25 08:00 05/08/25 08:00 05/08/25 08:37 Temperature Pulse Rate 63 86 Respiratory Rate Blood Pressure Pulse Oximetry Oxygen Delivery Room Air 05/08/25 08:45 05/08/25 11:49 Temperature Pulse Rate 86 44 L Respiratory Rate 12 Blood Pressure 125/98 H 92/72 L Pulse Oximetry 98 95 Oxygen Delivery Room Air Exam Narrative: Patient examined at the bedside. Patient is awake alert and appears to be comfortable that diaphoresis, chest pain or shortness of breath. Examination is positive for small bruise. Neck is supple there is no JVD or carotid Bruit. Thyroid not enlarged. Lungs are clear to auscultation percussion blood Heart sounds reveal normal S1-S2. There is soft grade 2/6 systolic murmur noted. There is no S3 or S4. Abdomen is soft and nontender. There is no hepatosplenomegaly present bowel sounds present. Extremities reveal no pedal edema. Distal pulses are fair bilaterally. Neurological examination is intact. Skin is positive for bruises and ecchymosis. Results Labs and Meds 05/07/25 04:54 05/07/25 04:54 Lab results: Intake and Output 05/07/25 05/08/25 05/08/25 23:59 07:59 15:59 Intake Total 444 240 358 Output Total 1750 300 Balance -1306 -60 358 Intake: Oral 444 240 358 Output: Urine 300 Catheter Urine 1750 Urethral Catheter 1750 Other: Number of Bowel Movements Today 1
[2025-05-08] MEDS: SODIUM CHLORIDE 0.9% IV 1,000 ML 75 ML IV CONT ×2 (12:40→17:58)
--- NOTE | 2025-05-08 12:40 | PC.NURSE ---
This patient, Remy Wilkes Jr., was transferred to [ [facility]] on 05/08/25 at 1247. Personal belongings sent with patient. Report given to [RODOLFO Godoy ]. Appropriate documentation sent with patient.-
--- NOTE | 2025-05-08 13:44 | PCPTNOTE ---
Late entry- rapid response called 1118, patient transferred to IMU this afternoon. Will follow.
--- NOTE | 2025-05-08 16:33 | PC.NURSE ---
On 05/08/25, the student, Mis Ardon, provided care and completed [facility] documentation on this patient. I have reviewed the student's documentation and agree with the findings. Jacky, MSN, RN
[2025-05-08] MEDS: MONTELUKAST SODIUM 10 MG TABLET PO (17:55)
[2025-05-08] MEDS: ACETAMINOPHEN 325 MG TABLET PO (17:56)
[2025-05-08] MEDS: MELATONIN 5 MG TABLET PO (22:29)
[2025-05-09] VITALS (10 sets, daily range): BP systolic 139–152; BP diastolic 84–105; PULSE 61–110; RESP 12–20; TEMP 36.1–36.6; O2SAT 98–99
[2025-05-09] MEDS: FINASTERIDE 5 MG TABLET PO (09:02)
[2025-05-09] MEDS: APIXABAN 5 MG TABLET PO (09:02)
--- NOTE | 2025-05-09 11:44 | P.PNCA_ITS ---
Progress Note: A&P Assessment and Plan (1) Atrial flutter: Qualifiers: Atrial flutter type: unspecified Qualified Code(s): I48.92 - Unspecified atrial flutter Code(s): I48.92 - Unspecified atrial flutter Status: Acute (2) Hypertension: Qualifiers: Hypertension type: unspecified Qualified Code(s): I10 - Essential (primary) hypertension Code(s): I10 - Essential (primary) hypertension Status: Acute (3) Light headedness: Code(s): R42 - Dizziness and giddiness Status: Acute Plan Impression: 1. Patient with recurrent falls and syncope at home. EKG shows atrial flutter with slow ventricular response at 60-65 per minute. Cannot RO orthostatic hypotension . Blood pressure low today likely secondary to aggressive blood pressure medication management. Blood pressure was high on admission. 2. Chronic atrial flutter with controlled ventricular response in the range of 65 per minute. 3. History of hypertension. Blood pressure was markedly elevated on admission at 205/129 minutes of regular narrow was 73 per minute. Currently patient blood pressure is improved but is acute remains hypotensive and blood pressure 190/60. Patient being transferred to intensive care unit. 4. Patient is 85 years old and is DNR. Conservative medical management. Recommendation: 1. Patient was noted to have low blood pressure on the floor. However once transferred to IMU, blood pressure was 120/80 and heart rate was 65 per minute. Will continue to monitor blood. No need for fluid bolus at this time. Overnight patient remained stable without any significant tachyarrhythmia or hypertension. 2. Blood pressure medications were reviewed. Will continue with lisinopril 20 mg daily, carvedilol. Blood pressure is improved on reduced dose of lisinopril. 3. Echocardiogram reviewed. The left ventricle is normal size with ejection fraction in the range of 60-65%. There is moderate concentric hypertrophy with left ventricle pressure the suggestion of grade 1 diastolic dysfunction. No significant valvular problems. 4. Conservative medical management for this patient was 85 and DNR. Will resume lisinopril 20 mg but increase to b.i.d.. 5. Checked for bedside orthostatic hypotension. Blood pressure 145/84 mm of mercury lying down, 144/96 sitting and 142/92 mm of mercury standing. No suggestion of orthostatic hypotension. Okay to discharge patient from cardiac viewpoint Pred continue to monitor his blood pressure. Subjective Date/time seen: 05/09/25 11:44 Interval history: Review of HPI: Patient is 85 years old gentleman admitted via emergency room on 05/06/2025 with complaints of dizziness. Patient woke up this morning with sinus pressure and lightheadedness and generalized weakness. Patient apparently fell Saturday and hit his head and right elbow. Patient was followed by his primary physician who started him on antibiotics for sinus infection. There was no associated chest pain, shortness of breath, fever or chills. Blood pressure was significantly elevated in the emergency room and was 205/129 mm of mercury. Heart rate was 73 per minute. His home medication include lisinopril 40 mg daily carvedilol 3.125 mg b.i.d., finasteride 5 mg daily, tadalafil 5 mg daily. Admitting laboratory data was sodium 136, potassium is 4.0, BUN is 17, creatinine 0.98. WBC count 6.4, hemoglobin is 17 and platelets are normal. EKG on 05/06/2025 revealed atrial flutter with heart rate of 65 per minute, old anteroseptal myocardial infarction and left axis deviation CT scan of the head was negative for any acute changes. Subjective: Patient was transferred to IMU for borderline to low blood pressure. Subs equently he was noted to have blood pressure stable at 1 20/80 and heart rate was stable at 70-80 per minute in atrial flutter. Overnight patient continued to be stable without any dizziness, diaphoresis. Patient does admit to mild dizziness on standing. His lisinopril was decreased to 20 mg daily and blood pressure is 142/92 mm Hg today. Heart rate is 81 per minute in atrial flutter. Review of Systems Review of Systems: Twelve point review of system was completed. Pertinent positive and negative fi ndings per HPI. No complaints of dizziness, diaphoresis or syncope. Cardiovascular negative for chest pain, positive for atrial flutter with controlled ventricular response Pulmonary and gastrointestinal systems are negative. Exam Narrative: Patient examined at the bedside. Patient is awake alert and appears to be comfortable that diaphoresis, chest pain or shortness of breath. Examination is positive for small bruise. Neck is supple there is no JVD or carotid Bruit. Thyroid not enlarged. Lungs are clear to auscultation percussion blood Heart sounds reveal normal S1-S2. There is soft grade 2/6 systolic murmur noted. There is no S3 or S4. Abdomen is soft and nontender. There is no hepatosplenomegaly present bowel sounds present. Extremities reveal no pedal edema. Distal pulses are fair bilaterally. Neurological examination is intact. Skin is positive for bruises and ecchymosis. Objective Data Vital Signs Vital Signs: Vital Signs - 24 hr 05/08/25 11:49 05/08/25 12:43 05/08/25 12:43 Temperature Pulse Rate 44 L 70 Respiratory Rate 12 Blood Pressure 92/72 L Pulse Oximetry 95 Oxygen Delivery Room Air Room Air 05/08/25 13:20 05/08/25 14:00 05/08/25 16:00 Temperature 36.8 C 36.4 C Pulse Rate 66 82 66 Respiratory Rate 14 16 Blood Pressure 126/94 H 102/60 Pulse Oximetry 100 97 Oxygen Delivery 05/08/25 16:00 05/08/25 16:00 05/08/25 18:00 Temperature Pulse Rate 74 78 Respiratory Rate Blood Pressure Pulse Oximetry Oxygen Delivery Room Air 05/08/25 20:00 05/08/25 20:00 05/08/25 22:00 Temperature 36.3 C L Pulse Rate 81 90 63 Respiratory Rate 15 Blood Pressure 144/94 H Pulse Oximetry 97 Oxygen Delivery 05/08/25 23:53 05/09/25 00:00 05/09/25 02:00 Temperature 36.4 C L Pulse Rate 61 61 67 Respiratory Rate 16 Blood Pressure 130/85 Pulse Oximetry 97 Oxygen Delivery 05/09/25 04:00 05/09/25 04:00 05/09/25 06:00 Temperature 36.4 C Pulse Rate 61 61 62 Respiratory Rate 16 Blood Pressure 149/105 H Pulse Oximetry 98 Oxygen Delivery 05/09/25 08:00 05/09/25 08:00 05/09/25 10:00 Temperature 36.5 C Pulse Rate 82 110 H 86 Respiratory Rate 12 Blood Pressure 152/86 H Pulse Oximetry 98 Oxygen Delivery 05/09/25 10:35 05/09/25 10:53 05/09/25 10:53 Temperature 36.6 C Pulse Rate 81 Respiratory Rate 16 Blood Pressure 145/84 H 144/96 H 142/92 H Pulse Oximetry 98 Oxygen Delivery Intake/Output Intake/Output: Intake & Output 05/06/25 05/07/25 05/08/25 05/09/25 23:59 23:59 23:59 23:59 Intake Total 480 1484 2088 1455 Output Total 800 2200 1500 1675 Balance -320 -579 588 -220 Meds/Results Medications: Active Medications Generic Name Dose Route Start Last Admin Trade Name Freq PRN Reason Stop Dose Admin Acetaminophen 325 mg 05/06/25 20:44 05/08/25 17:56 Acetaminophen 325 Mg Tablet PO 325 mg Q6H PRN Administration Mild Pain (1-3) or Fever Amlodipine Besylate 5 mg 05/09/25 09:00 05/09/25 09:02 Amlodipine Besylate 5 Mg Tablet PO 5 mg DAILY NORAH Administration Apixaban 5 mg 05/07/25 21:00 05/09/25 09:02 Apixaban 5 Mg Tablet PO 5 mg Q12HR NORAH Administration Calcium Carbonate 200 mg 05/06/25 20:44 05/06/25 21:06 Calcium Carbonate (Tums) 500 Mg (200 Mg Elemental) PO 200 mg Q6H PRN Administration Indigestion Finasteride 5 mg 05/07/25 09:00 05/09/25 09:02 Finasteride 5 Mg Tablet PO 5 mg DAILY NORAH Administration Sodium Chloride 1,000 mls @ 75 mls/hr 05/08/25 12:35 05/09/25 06:10 Normal Saline Iv IV CONT 75 mls/hr .[id number] NORAH Infusion Lisinopril 20 mg 05/09/25 09:00 05/09/25 09:02 Lisinopril 20 Mg Tablet PO 20 mg QAM NORAH Administration Melatonin 5 mg 05/08/25 22:10 05/08/25 22:29 Melatonin 5 Mg Tablet PO 5 mg HS NORAH Administration Montelukast Sodium 10 mg 05/06/25 18:00 05/08/25 17:55 Montelukast Sodium 10 Mg Tablet PO 10 mg QPM NORAH Administration Perflutren Lipid Microsphere 0 ml 05/06/25 16:41 Perflutren Lipid Microspheres 1.5 Ml Vial Diluted To 10 Ml Total Volume IV PUSH 05/09/25 16:41 ONCE PRN adequate visualization Protocol Radiology Results: ITS Impressions Head CT 05/06/25 09:54 Impression: 1.No acute intracranial abnormality. Chest X-Ray 05/06/25 09:58 Impression: No acute cardiopulmonary abnormality. Labs Labs: Laboratory Results - last 24 hr 05/08/25 11:14 POC Capillary Glucose 103
--- NOTE | 2025-05-09 13:04 | P.DS_ITS ---
DS: Admitting Diagnosis Discharge Date 05/09/2025 Admitting Diagnosis Dizziness DS: Discharge Diagnosis Discharge Diagnosis (1) Dizziness of unknown etiology: Code(s): R42 - Dizziness and giddiness Status: Acute (2) Hypertension: Qualifiers: Hypertension type: unspecified Qualified Code(s): I10 - Essential (primary) hypertension Code(s): I10 - Essential (primary) hypertension Status: Acute DS: Summary Hospital Course Hospital Course: 85 yo male with PMH of Afib, HTN, BPH, Dizziness who presented to the ER from his Urology's office on account of Elevated blood pressure. Patient reported that he has been dizziness the past month which he described as swimming, but denies any focal deficits, loss of consciousness, vomiting, abd pain, chest pain, palpitation, and diarrhea or poor oral intake and no change in oral intake. ER eval notable for Bp 205/129, on room air. Labs notable mostly unremarkable Troponin negative x 3 CT head and CXR unremarkable Patient was managed for severe hypertension with dizziness. Dizziness resolved with blood pressure control. Added Amlodipine 5mg to achieve blood pressure control. ECHO showed EF 60-65% with grade 1 diastolic. Orthostatic negative. Patient encouraged to take his medications. Also managed managed for Urinary retention, Mccoy was placed in the ER and urology was consulted and recommended Tamsulosin and continue wiht mccoy and follow up outpatient. Patient had Atrial flutter with slow ventricular response and had hypotension. Patient recovered quickly, and cardiology was consulted. Discussed with cardiology and final recommendations as Lisinopril 20mg bid and conitnue Coreg 3.125mg bid. Vital signs stable today and patient denies any dizziness. F/u with PCP in 3- 5 days F/u with Urology as instructed F/u with cardiology as instructed Time Spent with Patient Time attestation: Total time spent providing and/or coordinating discharge services: Discharge Plan Discharge Attending physician on discharge: Prasad Hummel Consulting providers: Sherif Newell; Alan Weathers Discharging Clinician: Prasad Hummel Anticipated Discharge Date/Time: 05/08/25 10:43 Patient Disposition: Home Activity: as tolerated Diet: as tolerated and heart healthy Patient Instructions: Antibiotic Form Patient Language: Persian Stand Alone Forms: General Discharge Information Follow-up/Referrals: Sherif Newell MD [Physician, Urology] Referral Note: F/u with Urology as scheduled Harms,Praful Colon M.D. [Primary Care Provider] Referral Note: F/u with PCP in 3-5 days Discharge Medications: New lisinopril 20 mg Tablet 20 mg PO BID 30 Days Qty: 60 1RF Continued lisinopril 40 mg tablet 40 mg PO DAILY carvedilol 3.125 mg tablet 3.125 mg PO BID Eliquis 5 mg Tablet 5 mg PO Q12HR Qty: 90 0RF Gemtesa 75 mg tablet 75 mg PO DAILY tadalafil 5 mg tablet 5 mg PO DAILY oxybutynin chloride 5 mg tablet 5 mg PO Q12H montelukast 10 mg tablet 10 mg PO QPM mirabegron [Myrbetriq] 25 mg tablet extended release 24 hr 25 mg PO Q24H cyanocobalamin (vitamin B-12) 1,000 mcg/mL solution 1,000 mcg IM MONTHLY finasteride 5 mg tablet 5 mg PO DAILY Date of admission: 05/08/25 16:36 Primary Care Provider: Lew,Praful Colon Admitting Provider: Prasad Hummel Attending physician on admission: Prasad Hummel Condition: Stable
== END 2025-05-09 14:23 | disposition home or self-care (01) | DRG 315 ==
LOC: ANHED 14:56 → ANH2MED 15:39 → ANHIMU 05-08 12:43
PROVIDERS: Admitting Provider Internal Medicine; Emergency Provider Nurse Practitioner Family; PCP Family Medicine; Visit Provider Internal Medicine
DX: I95.9 Hypotension, unspecified (principal); I48.20 Chronic atrial fibrillation, unspecified; I10 Essential (primary) hypertension; R42 Dizziness and giddiness; N32.81 Overactive bladder; N40.1 Benign prostatic hyperplasia with lower urinary tract symptoms; R33.8 Other retention of urine; Z20.822 Contact with and (suspected) exposure to COVID-19; Z86.0101 Personal history of adenomatous and serrated colon polyps; Z87.442 Personal history of urinary calculi; Z79.01 Long term (current) use of anticoagulants
CPT/HCPCS: 36415; 70450; 71045; 80053; 81003; 82948; 83735; 84484; 85025; 85610; 85730; 87637; 93005; 93306; 96361; 96374; 96376; 97161; 99285; A9270; G0378; J0360; J7030; J7040

== ENCOUNTER 2025-05-21 10:38 | Emergency (ER) | payer MEDICARE, MEDICAID, SELFPAY ==
[2025-05-21] VITALS (10 sets, daily range): BP systolic 119–148; BP diastolic 83–111; PULSE 69–93; RESP 14–20; TEMP 36.8; O2SAT 98–100
--- OUTSIDE RECORDS SUMMARY | 2025-05-21 11:17 | XMS_ITS | Clinical Summary ---
Author Organization [facility] [address] Address [address] [place] [address] Care Team Providers Care Deputy Grand Jury Name Role Phone Praful Hackett MD Primary Care Provider [phone] Allergies No known active allergies Medications flunisolide [...] 60 tablet 11 10/30/19 25 026 Active lisinopriL (PRINIVIL,ZEST RIL) 40 mg tablet Take 1 tablet by mouth once daily 270 tablet 04/15/20 25 Active Gemtesa 75 mg tablet Take 75 mg by mouth daily 04/04/20 25 Active oxyBUTYnin (DITROPAN) 5 mg tabletIndicati ons:Benign localized prostatic hyperplasia without lower urinary tract symptoms (LUTS) Take 1 tablet (5 mg total) by mouth 2 (two) times a day 180 tablet 4 04/27/20 25 026 Active montelukast (SINGULAIR) 10 mg tabletIndicati ons:Chronic sinusitis of both maxillary sinuses Take 1 tablet (10 mg total) by mouth nightly 90 tablet 4 04/27/20 25 026 Active Eliquis 5 mg tablet TAKE 1 TABLET BY MOUTH EVERY 12 HOURS 200 tablet 1 05/14/20 25 Active cyanocobalamin (Vitamin B-12) 1,000 mcg/mL injection Inject 1 mL (1,000 mcg total) into the muscle as instructed every 30 (thirty) days 1 mL 2 07/09/20 24 025 Discontinued(Silvino bell Reported) tadalafiL (CIALIS) 5 mg tabletIndicati ons:Benign prostatic hyperplasia with urinary frequency Take 1 tablet (5 mg total) by mouth daily 30 tablet 11 02/27/20 25 025 Discontinued(Al ternate therapy) Eliquis 5 mg tablet TAKE 1 TABLET BY MOUTH EVERY 12 HOURS 60 tablet 03/30/20 25 025 Discontinued amoxicillin-cl avulanate (AUGMENTIN) 875-125 mg per tabletIndicati ons:Chronic sinusitis of both maxillary sinuses Take 1 tablet by mouth 2 (two) times a day for 10 days 20 tablet 04/27/20 25 025 methylPREDNISo lone (MEDROL DOSEPACK) 4 mg DosepackIndica [...] 08/24/19 Assessment & Plan (08/24/2024 1:37 PM ACID OPERATOR): Pepcid 40 mg Continue elevated head of bed Donut or Ushaped pillow to take pressure off right ear Call if no improvement in 3 months for referral to GI Laryngopharyngeal reflux discussed and Handout provided Medicare annual wellness visit, subsequent 06/23 Assessment & Plan (06/23/2024 3:43 PM ACID OPERATOR): Focus of exam is preventative in anture. Reviewed immunizations, reviewed sun/skin cancer screening. Reivewed age and comrobid appropriate screenings and iwll follow response. Chronic sinusitis 06/23/2024 Assessment & Plan (06/23/2024 3:44 PM ACID OPERATOR): Most likely multifactorial and will follow [...] meals Assessment & Plan (06/23/2024 3:44 PM ACID OPERATOR): Stable at the presnt time. Encourage [...] (09/10/2022): Added automatically from request for surgery [id number] Postconcussion syndrome 04/12/2022 Assessment & Plan (04/12/2022 1:04 PM CDT): Persistent vestibular symptoms that improve with exercise Concussion education provided Encouraged continued high level exercise to his tolerance Discussed ways to accommodate visual or vestibular symptoms such as the rule Encounters Date Type Department Care Team Description 05/13/2025 Telephone [facility] [address] [address] Praful Hackett MD AWV appointment 05/13/2025 [facility] [address] [address] Sherie Dubois MA 05/11/2025 [facility] [address] [address] Sherie Dubois MA 05/11/2025 Nurse Triage [facility] [address] [address] Praful Hackett MD 05/06/2025 Orders Only [facility] Information Management [address] [place] [address] Scanning, Provider 05/03/2025 Nurse Triage [facility] [address] [address] Angela Harper RN 04/29/2025 Nurse Triage [facility] [address] [address] Praful Hackett MD 04/27/2025 11:30 AM CDT Office Visit [facility] [address] [address] Rosa Basilio NP Chronic fatigue (Primary Dx); Generalized weakness; Vitamin B 12 deficiency; Vitamin D deficiency; Other iron deficiency anemia; Chronic sinusitis of both maxillary sinuses; Benign localized prostatic hyperplasia without lower urinary tract symptoms (LUTS); BMI 26.0-26.9,adult 04/27/2025 Telephone [facility] [address] [phone] Praful Hackett MD Medical Question/Miscellaneou s 04/27/2025 Nurse Triage [facility] [address] [phone] Praful Hackett MD 04/12/2025 Telephone [facility] [address] [address] Praful Hackett MD Medical Records Request 04/03/2025 12:28 PM CDT - 04/03/2025 11:59 PM CDT Hospital Encounter [facility] ([facility]) [address] [place] [address] Unsteadiness Discharge Disposition: Discharge to home or self care 03/30/2025 10:30 AM CDT Office Visit [facility] [address] [address] Praful Hackett MD Gait instability (Primary Dx); Atrial fibrillation, new onset (HCC); Subcortical microvascular ischemic occlusive disease; LPRD (laryngopharyngeal reflux disease); Chronic bilateral low back pain without sciatica 03/10/2025 10:00 AM CDT Clinical Support [facility] Neuro Psychology [address] [place] [address] Kimi Torres, PhD Memory loss 03/09/2025 8:30 AM CDT - 03/09/2025 11:59 PM CDT Hospital Encounter [facility] [address] [place] [address] BPPV (benign paroxysmal positional vertigo), left; Gait instability Discharge Disposition: Discharge to home or self care 03/02/2025 Results Follow-Up [facility] [address] [address] Rosa Basilio NP Urinalysis reflex to microscopic and culture Urine, clean voided, US Carotids Duplex Bilateral 03/01/2025 2:30 PM CDT Office Visit [facility] General Neurology [facility] 6th [place] [address] [place] [address] Noel Figueroa Jr., MD Unsteadiness (Primary Dx); Dizziness and giddiness; Memory loss 02/28/2025 Results Follow-Up [facility] at [address] [address] Janee Zhang NP Urine culture Urine, clean voided 02/26/2025 11:41 AM CDT - 02/26/2025 11:59 PM CDT Hospital Encounter [facility] [address] [place] [address] Benign prostatic hyperplasia with urinary frequency; Strep pharyngitis Discharge Disposition: Discharge to home or self care 02/26/2025 11:00 AM CDT Office Visit [facility] [address] [address] Rosa Basilio NP BPPV (benign paroxysmal positional vertigo), left (Primary Dx); Gait instability; Benign prostatic hyperplasia with urinary frequency; BMI 26.0-26.9,adult 02/26/2025 Telephone [facility] [address] [address] Praful Hackett MD 02/26/2025 Nurse Triage [facility] [address] [address] Praful Hackett MD from Last 3 Months Immunizations Immunization Administration Dates Next Due COVID-19 mRNA (PFIZER) 0.3 m L (30 mcg) vaccine (12 [...] Relation Name Comments Allergy (severe) Father shaan owens Asthma Father shaan owens Heart disease Father shaan owens Parkinsonism Father shaan owens Alzheimer's disease Mother eda owens Hearing loss Mother eda owens Relation Name Status Comments Father shaan owens Alive Mother eda owens Alive Son 1 Alive Son 2 Alive [...] on file Legal Sex Male 7:31 PM ACID OPERATOR Gender Identity Not on file Sexual [...] Due Date Last Done Comments Covid-19 Vaccine (2023-2 5 season) 2025 04/15/2024, 05/14/2021, 10/01/2020, Additional [...] Procedure Name Priority Date/Time Associated Diagnosis Comments CARDIOLOGY DOCUMENT SCAN 05/06/2025 MRI BRAIN AND VOLUMETRIC W WO CONTRAST Schedule Routine, Read Routine (OP Routine) 04/03/2025 1:50 PM CDT Unsteadiness US CAROTIDS DUPLEX BILATERAL Urgent 03/09/2025 9:21 AM CDT BPPV (benign paroxysmal positional vertigo), left Gait instability URINE CULTURE Routine 02/26/2025 11:41 AM CDT Strep pharyngitis URINALYSIS AND REFLEX TO MICROSCOPIC AND CULTURE Routine 02/26/2025 11:41 AM CDT Benign prostatic hyperplasia with urinary frequency from Last 3 Months Results * Cardiology Document Scan (05/06/2025) Anatomical Region Laterality Modality Other us Provider Scanning CV CARDIAC SERVICES PROCEDURES Final Result * MRI Brain and Volumetric W WO [...] images of the brain were postprocessed on [employer] VIA to generate segmented brain volumes using commercial software. Results were compared to 10th and 90th percentiles of healthy age-/gender-matched population. Graphs were sent to [employer] and phorus PACS. The protocol specifically includes FLAIR to [...] hippocampal volumes: Quantitative assessment was performed using [employer] Via and is reported. There is no [...] images of the brain were postprocessed on [employer] to generate segmented brain volumes using commercial software. Results were compared to 10th and 90th percentiles of healthy age-/gender-matched population. Graphs were sent to [employer] and phorus PACS. The protocol specifically includes FLAIR to [...] hippocampal volumes: Quantitative assessment was performed using [employer] and is reported. There is no significant [...] Georges Duffy M.D. CH: IRAIDA Report ID: [id number] Reading Location: [place] [address] Procedure Note Georges Duffy Jr., MD - [...] Georges Duffy M.D. CH: CH Report ID: [id number] Reading Location: [place] [address] Rosa Basilio CHILD CARE COORDINATOR IMG US PROCEDURES Final Resul t * [...] tendency for uric acid stone formation. Source: Breathometer Current Interpretive Data was last revised on [...] CDT 02/26/2025 6:27 PM CDT Rosa Basilio CHILD CARE COORDINATOR LAB MICROBIOLOGY - GENERAL OR DERABLES Final Result Performing Organization Address [facility] Co de Phone Number MAIKEL [address] [address] Department [place] [address] * Urine culture Urine, clean voided (02/26/2025 11:41 AM CDT) Report Final Report: Less than 100,000 colonies/mL (clinically insignificant growth based on current clinical standards) Comment:Testing performed by : [facility], [address] [place]., [address] Organism (CLINICALLY INSIGNIFICANT GROWTH [facility] Urine, clean voided 02/26/2025 11:41 AM CDT 02/26/2025 10:07 PM CDT Narrative MAIKEL - 02/28/2025 7:36 AM CDT Testing performed by [facility] Microbiology Laboratory ([phone]) Sandhya Li NP LAB MICROBIOLOGY - GENERAL ORDE RABLES Final Result Performing Organization Address [facility] Co de Phone Number MAIKEL KHOURY [address] [address] Department [place] [address] from Last 3 Months Insurance [employer] UHC MEDICARE ADVANTAGE [facility] MEDICARE ADVANTAGE Advance Directives For more information, please contact: [phone] * Full Code (Latest Code Status on File) Date Activated Date Inactivated Comments 10/10/2022 9:07 AM 10/10/2022 3:30 PM * Full Code Date Activated Date Inactivated Comments 10/10/2022 9:07 AM 10/10/2022 9:07 AM Care Teams Deputy Grand Jury Relationship Specialty Start Date End Date Praful Hackett MD [address] [place] [address] PCP - General Family Medicine 11/14/21
--- OUTSIDE RECORDS SUMMARY | 2025-05-21 11:17 | XMS_ITS | Clinical Summary ---
Author Organization [facility] [address] 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
--- OUTSIDE RECORDS SUMMARY | 2025-05-21 11:17 | XMS_ITS | Clinical Summary ---
Author Organization [facility] Address [address] [place] [address] Phone Care Team Providers Care Lime Burner Name Role Phone Praful Hackett MD Primary Care Provider [phone] Manav Garcia MD Unavailable [phone] Allergies No known active allergies Medications lisinopril (PRINIVIL, ZESTRIL) 40 MG Tablet Take 40 mg by mouth daily. Active Mirabegron ER (Myrbetriq) 25 MG TABLET SR 24 HR Take by mouth. Active Multiple Vitamin (MULTIVITAMIN PO) Take by mouth. Active [place]-3 Fatty Acids (OMEGA 3 PO) Take by [...] Description 03/11/2025 10:00 AM CDT Office Visit [facility] [address] [place] [address] Manav Garcia MD Benign paroxysmal [...] Comments Hepatitis C Virus (HCV) Screening 1940 Medicare Initial AWV [id number] 08/05/2010 Influenza Immunization (#1) 04/05/202504/06, 05/08/2023, 05/01/2023, Additional [...] MEDICAID [place] MEDICARE C [employer] Care Teams Lime Burner Relationship Specialty Start Date End Date Praful Hackett MD [address] [place] [address] PCP - General Internal Medicine 04/29/24 Manav Garcia MD [address] [place] [phone] Consulting Physician Neurology 09/08/24
--- OUTSIDE RECORDS SUMMARY | 2025-05-21 11:17 | XMS_ITS | Encounter Summary ---
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 Also answered questions that hehad regarding 05/03 telephone encounter. Advised pt to hold the oxybutynin and get lab work completed. * Telephone Encounter - Marielle Antonio MA - 05/13/2025 4:01 PM CDT It doesn't look like message was routed, can you please advise? Thank you. * Telephone Encounter - Tonia Knowles CMA - 05/11/2025 3:[address] Hackett please seen bag cutter note and advise, thank you * Telephone Encounter - Rosaline Pritchett RN - 05/11/2025 1:02 PM CDT Reason for Conversation Urine Leakage Background Patient calling into spikemaking supervisor stating that he was advised to go to the ER yesterday per his urologist for elevated BP. A Lopez catheter was inserted and he was discharged to home and advised to f/u Saturday for Lopez DC. He states that he thinks it may have been leaking and that only a small amount of urine was leaking into the bag. Last evening after coming home, he states his pant leg was wet. He checked the catheter insertion site during call and does not see if leakage, as well as the tubingor the end of the bag where the drainage tube is. Advised he should have someone look at the catheter to make sure it is functioning correctly as urine not draining correctly as well as any breaks in the tubing increases risk for infection. Advised reaching out to his urologist. Message will also be forwarded to office to see if he can stop by the office to have provider make sure it's functioning. Please reach out to patient regarding appointment in office to check Lopez catheter - thought it was leaking last evening; does not appear to be now but unsure if draining correctly. Advised calling urology office; I advised I would send over to the clinical pool in office to see if he can be seen if unable to see urologist. Was wanting to avoid the ER if possible. Disposition No disposition on file. Reason for Disposition No Reason for Disposition on file. No Initial Assessment on file. No Additional Information on file. Protocols Used Urinary Catheter (e.g., Lopez) Symptoms and [id number] * Telephone Encounter - Rosaline Pritchett RN - 05/11/2025 12:42 PM CDT Regarding: Catheter that drains his kidneys is leaking ----- Message from Lou Arango sent at 05/11/2025 12:39 PM CDT ----- Symptom Based Call Chief Complaint(s): Catheter that drains his kidneys is leaking Duration: Today What type of symptom(s) is the patient experiencing? Red Flag. Is the patient concerned they are experiencing a medical emergency requiring an ambulance? No Additional Comments: patient states he was discharged from [facility] yesterday 05/11, they inserted a catheter while he was there. This morning around 9am he cleaned the catheter and ever since then it's been leaking he doesn't know wht to do or how serious this can be. No same day appt's were available to get him in to be seen. All patient can remember is the catheter was placed to drain his kidneys, he was sent to the hospital by his urologist on 05/06 for high BP. Does message need to be routed? Yes-Action Needed documented in this encounter Plan of Treatment Not on file documented as of this encounter Visit Diagnoses Not on filedocumented in this encounter Care Teams Asset Protection Agent Relationship Specialty Start Date End Date [place] [address] PCP - General Family Medicine 11/14/21 Sherie Dubois MA [address] [place] [address] DR DAIGLE [address] [place] [address] [employer] Care Breakfast Bar Attendant 05/11/25 05/12/25 documented as of this encounter
--- OUTSIDE RECORDS SUMMARY | 2025-05-21 11:17 | XMS_ITS | Encounter Summary ---
Author Organization [facility] Healthcare Address [address] [place] [address] Care Team Providers Care Team Psychologist Name Role Phone Praful Hackett MD Primary Care Provider [phone] Reason for Visit * Reason Onset Date Comments AWV appointment 05/13/2025 Encounter Details Date Type Department Care Team (Late st Contact Info) Description 05/13/2025 Telephone [facility] [address] [place] [address] Praful Hackett MD [address] [place] [address] AWV appointment Social History Tobacco Use Types Packs/Day Years [...] on file 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 I spoke with the patient's son today and noticed that his next office visit is scheduled for 07/06/25. He will be due for his AWV at that time. Appointment type if currently established, can this be changed to an annual wellness visit appointment? Thank you, Sherie Dubois [facility] Care Biochemical Engineer [facility] documented in this encounter Plan of Treatment Not on file documented as of this encounter Visit Diagnoses Not on filedocumented in this encounter Care Teams Team Psychologist Relationship Specialty Start Date End Date [place] [address] PCP - General Family Medicine 11/14/21 documented as of this encounter
--- OUTSIDE RECORDS SUMMARY | 2025-05-21 11:17 | XMS_ITS | Clinical Summary ---
Author Organization [facility] [employer] Address [address] [place] [address] Care Team Providers Care Axminster Rug Setter Name Role Phone Unavailable Primary Care Provider Unavailabl e Source Comments [facility],non-owned Affiliates and Associated Physician Practices is amultiple site organization consisting of ambulatory clinics and hospital sitesin [place], [place], [place] and [place]. This disclosure is being madepursuant to the Care Everywhere program and may not contain all information available regarding this patient. 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
--- NOTE | 2025-05-21 11:40 | ECG_ITS ---
Test Date: 2025-05-21 12:26:39 Measurements Intervals [place] Rate: 74 P: 0 [place]: 0 QRS: -20 QRSD: 90 T: 72 QT: 369 QTc: 410 Interpretive Statements ATRIAL FLUTTER/TACHYCARDIA DELAYED PRECORDIAL R/S TRANSITION ANTEROSEPTAL INFARCT, AGE INDETERMINATE INFERIOR INFARCT, AGE INDETERMINATE BORDERLINE ST-T WAVE ABNORMALITY- HIGH LATERAL LEADS ABNORMAL ECG Compared to ECG 05/08/2025 11:31:28 NO SIGNIFICANT CHANGE Electronically Signed On 05-21-2025 15:26:53 CDT by Julito Amato D.O.
[2025-05-21 12:32] LABS: Add Urine Microscopic? YES; Appearance Urine Cloudy (Clear); Glucose Urine UA Negative (Negative); Leukocyte Esterase Ur 2+ LEU/UL (Negative); Need Manual Microscopic Reviewed; Nitrate Urine Negative (Negative); Specific Grav Ur 1.017 (1.001-1.035)
[2025-05-21] MEDS: LACTATED RINGERS 1,000 ML 999 ML IV CONT (12:33)
--- OUTSIDE RECORDS SUMMARY | 2025-05-21 12:34 | XMS_ITS | Clinical Summary ---
Author Organization [facility] Address [address] [place] [address] Phone Care Team Providers Care Solar Thermal Technician Name Role Phone Praful Hackett MD Primary Care Provider [phone] [phone] Manav Garcia MD Unavailable Allergies No known active allergies Medications lisinopril (PRINIVIL, ZESTRIL) 40 MG Tablet Take 40 mg by mouth daily. Active Mirabegron ER (Myrbetriq) 25 MG TABLET SR 24 HR Take by mouth. Active Multiple Vitamin (MULTIVITAMIN PO) Take by mouth. Active [place]-3 Fatty Acids (OMEGA 3 PO) Take by [...] Description 03/11/2025 10:00 AM CDT Office Visit [facility] [address] [place] [address] Manav Garcia MD Benign paroxysmal [...] MEDICAID [place] MEDICARE C UNITEDHEALTH[employer]ARE Care Teams Solar Thermal Technician Relationship Specialty Start Date End Date Praful Hackett MD [address] [place] [address] PCP - General Internal Medicine 04/29/24 Manav Garcia MD [address] [place] [phone] Consulting Physician Neurology 09/08/24
--- OUTSIDE RECORDS SUMMARY | 2025-05-21 12:35 | XMS_ITS | Clinical Summary ---
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
--- OUTSIDE RECORDS SUMMARY | 2025-05-21 12:35 | XMS_ITS | Clinical Summary ---
Author Organization [facility] [employer] Address [address] [place] [address] Care Team Providers Care Graduate Research Assistant Name Role Phone Unavailable Primary Care Provider Unavailabl e Source Comments [facility],non-owned Affiliates and Associated Physician Practices is amultiple site organization consisting of ambulatory clinics and hospital sitesin [place], [place], [place] and [place]. This disclosure is being madepursuant to the Care Everywhere program and may not contain all information available regarding this patient. 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
--- NOTE | 2025-05-21 12:51 | ED_ITS ---
HPI - General Adult General Chief complaint: Syncope Stated complaint: syncopal episode Time Seen by Provider: 05/21/25 11:34 History of Present Illness HPI narrative: 85-year-old male presents to the emergency department for evaluation for syncopal episode at the urology office. Patient states he has had longstanding issues with lightheadedness and patient has had follow-up with neurology for this. I did discuss the patient's past medical history with the patient's son over the phone. Evaluation patient states he does feel improved. While patient was getting his orthostatic vitals he did feel symptomatic and patient did have positive orthostatic vitals. Patient's son prefers not to have an additional Lopez catheter. Patient did have follow-up with Urology this morning and they noted no evidence infection or urinary retention. Related Data Home Medications ?Medication ?Instructions ?Recorded ?Confirmed ?Last Taken ?Type cyanocobalamin (vitamin B-12) 1,000 mcg IM MONTHLY 09/2905/06/25 Unknown H istory 1,000 mcg/mL injection solution finasteride 5 mg tablet 5 mg PO DAILY 05/06/2505/06 Unknown History montelukast 10 mg tablet 10 mg PO QPM 05/06/25 Unknown History tadalafil 5 mg tablet 5 mg PO DAILY 05/06/2505/06 Unknown History Allergies Allergy/AdvReac Type Severity Reaction Status Date / Time No Known Allergies Allergy Verified 05/06/25 16:13 Review of Systems Review of Systems: All systems reviewed & are unremarkable except as noted in HPI and below PMFSH Past Medical History Medical History A-fib Environmental allergies Essential (primary) hypertension Bradycardia History of adenomatous polyp of colon BPH loc w/o ur obs/LUTS After cataract (~11/2019) Dizziness of unknown etiology OAB (overactive bladder) Vertigo Kidney stones History of right ureteral stent October 2011 Surgical History Surgical History Achilles tendon avulsion (~2003) Status post repair 2003 Left, 2011 Right History of cataract surgery (~2017) Bilateral 2018 Rectal foreign body (~10/2011) With surgical removal October 2011 H/O hernia repair (~2008) Family History Family History Father , Late onset coronary artery disease Heart disease Dementia Mother Family history of Alzheimer's disease Family history of heart disease in male family member before age 55, Onset Age: 91 Patient's mother is Father Hypertension Family history of Alzheimer's disease, Onset Age: 90 Patient's father is , Onset Age: 90 Other Family history of cardiovascular disease Social History Social History Social History: The patient runs 2-3 miles a day and has done so since 1968. 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 Gender identity (if verbalized by the patient): Male Spiritual care concerns: No Exam Narrative: APPEARANCE: Well appearing, no pain, no distress, well-nourished. HEAD: normocephalic, atraumatic. EYES: PERRLA/EOMI, conjunctivae clear. NOSE: Normal no drainage EARS:TMS clear with good light reflex. THROAT: Pharynx clear, no exudate. NECK: Supple. No adenopathy, no masses. RESPIRATORY: Airway patent, respirations nonlabored. Clear to auscultation bilaterally, no rales, rhonchi, wheezing. CARDIOVASCULAR: Regular rate and rhythm without murmurs rubs or gallops. ABDOMINAL: Soft, nontender, nondistended, normal bowel sounds MUSCULOSKELETAL: Moves all extremities. Strength/ROM intact, No edema, No calf tenderness. NEURO: Alert. Cranial nerves II through XII intact. Good gait. Good coordination SKIN: Warm, dry. Normal Color Course Vital Signs Vital signs: Vital Signs Temperature 98.2 F 05/21/25 10:59 Pulse Rate 86 05/21/25 10:59 Respiratory Rate 16 05/21/25 10:59 Blood Pressure 121/87 05/21/25 10:59 Pulse Oximetry 98 05/21/25 10:59 Temperature 98.2 F 05/21/25 10:59 Pulse Rate 69 05/21/25 15:00 Respiratory Rate 14 05/21/25 15:00 Blood Pressure 141/111 H 05/21/25 15:00 Pulse Oximetry 99 05/21/25 15:00 Medical Decision Making MDM Narrative Medical decision making narrative: 85-year-old male presents emergency department for evaluation for a syncopal episode. Patient was orthostatic upon arrival emergency department. Patient will be treated with a L of lactated Ringer's and will be re-evaluated. Patient had no evidence of urinary retention no evidence of urinary tract infection. On re-evaluation patient does feel improved. Patient's family and patient were updated results of the workup. They are comfortable the plan for discharge home. All questions concerns were addressed. Differential Diagnosis Differential Diagnosis: UTI, COVID, RSV influenza, dehydration, orthostatic hypotension Vital Signs Vital Signs: Vital Signs Temperature 98.2 F 05/21/25 10:59 Pulse Rate 86 05/21/25 10:59 Respiratory Rate 16 05/21/25 10:59 Blood Pressure 121/87 05/21/25 10:59 Pulse Oximetry 98 05/21/25 10:59 Temperature 98.2 F 05/21/25 10:59 Pulse Rate 69 05/21/25 15:00 Respiratory Rate 14 05/21/25 15:00 Blood Pressure 141/111 H 05/21/25 15:00 Pulse Oximetry 99 05/21/25 15:00 Lab Data Lab results reviewed: Yes I reviewed the patient's lab results. Labs: Lab Results 05/21/25 Range/Units 12:07 Urine Color Yellow (Yellow) Urine Appearance Cloudy H (Clear) Urine pH 8.0 (5.0-9.0) Ur Specific [place] 1.017 (1.001-1.035) Urine Protein Negative (Negative) mg/dL Urine Glucose (UA) Negative (Negative) mg/dL Urine Ketones Trace H (Negative) mg/dL Ur Blood (Man) Negative (Negative) Urine Nitrate Negative (Negative) Urine Bilirubin Negative (Negative) Urine Urobilinogen 1.0 (<2.0) mg/dL Add Ur Microanalysis Reviewed Leukocyte Esterase Rfl 2+ H (Negative) BOBO/UL Urine RBC 0-2 (0-2) /hpf Urine WBC 0-5 (0-3) /hpf Ur Squamous Epith Cells None seen (Few) /hpf Urine Bacteria None seen /hpf Urine Casts 3-5 Discharge Plan Discharge Clinical Impression: Near syncope, Orthostatic hypotension Patient Disposition: Home Condition: Stable Instructions: Antibiotic Form Additional Instructions: Continue have close follow-up with Urology. Continue have close follow-up with your primary care physician. If you have any worsening symptoms please call or return to the emergency department. Patient Language: Nicarag[place] Prescriptions: No Action Eliquis 5 mg Tablet 5 mg PO Q12HR Qty: 90 0RF tadalafil 5 mg tablet 5 mg PO DAILY montelukast 10 mg tablet 10 mg PO QPM cyanocobalamin (vitamin B-12) 1,000 mcg/mL solution 1,000 mcg IM MONTHLY finasteride 5 mg tablet 5 mg PO DAILY lisinopril 20 mg Tablet 20 mg PO BID 30 Days Qty: 60 1RF Follow-up/Referrals: Harms,Praful Colon M.D. [Primary Care Provider]
--- NOTE | 2025-05-21 14:59 | PC.NURSE ---
dinner tray ordered for patient.
== END 2025-05-21 15:55 | disposition home or self-care (01) ==
PROVIDERS: Emergency Provider Emergency Medicine; PCP Family Medicine
DX: I95.1 Orthostatic hypotension (principal); Z79.899 Other long term (current) drug therapy
CPT/HCPCS: 81001; 87086; 93005; 96360; 99283; J7120